=== PATIENT | male | born 1945 | race Caucasian/White ===

== ENCOUNTER → 2019-07-22 09:20 | Outpatient (BNVA) | payer MEDICARE, SELFPAY | PROVIDERS: Family Provider Family Medicine; PCP Family Medicine; Visit Provider Nurse Practitioner | DX: G89.29 Other chronic pain (principal); M54.5 Low back pain; M54.2 Cervicalgia; Z79.891 Long term (current) use of opiate analgesic | CPT/HCPCS: 99213 ==

== ENCOUNTER → 2019-09-17 09:26 | Outpatient (BNVA) | payer MEDICARE, SELFPAY | PROVIDERS: Family Provider Family Medicine; PCP Family Medicine; Visit Provider Anesthesiology | DX: Z76.89 Persons encountering health services in other specified circumstances (principal) | CPT/HCPCS: 99214 ==

== ENCOUNTER → 2019-12-02 10:15 | Outpatient (BNVA) | payer MEDICARE, SELFPAY | PROVIDERS: Family Provider Family Medicine; PCP Family Medicine; Visit Provider Anesthesiology | DX: G89.29 Other chronic pain (principal); M47.816 Spondylosis without myelopathy or radiculopathy, lumbar region; M51.37 Other intervertebral disc degeneration, lumbosacral region; M54.9 Dorsalgia, unspecified; M54.2 Cervicalgia; Z79.891 Long term (current) use of opiate analgesic | CPT/HCPCS: 99213; 99214 ==

== ENCOUNTER → 2020-01-10 10:51 | Outpatient (BNVA) | payer MEDICARE, SELFPAY | PROVIDERS: Family Provider Family Medicine; PCP Family Medicine; Visit Provider Nurse Practitioner | DX: I10 Essential (primary) hypertension (principal); F51.04 Psychophysiologic insomnia | CPT/HCPCS: 80053; 80061; 81000 ==

== ENCOUNTER 2020-04-17 09:56 | Outpatient (CLI) | payer MEDICARE, SELFPAY ==
--- NOTE | 2020-04-17 10:15 | USCV_ITS ---
Anthony Gutierrez Age: 74 Gender: M : 1945 Exam Date: 04/17/2020 09:54 Ordering Phys: Ree Wong Technologist: Anabel Armenta [place] [facility] [place]: MURMUR BP: 161 / 83 HR: 89 Rhythm: Sinus Technical Quality: Adequate MEASUREMENTS (Male / Female) Normal Values 2D ECHO LV Diastolic Diameter PLAX 4.6 cm 4.2 - 5.9 / 3.9 - 5.3 cm LV Systolic Diameter PLAX 3.1 cm LV Chamber Size 3.7 cm IVS Diastolic Thickness 1.5 cm 0.6 - 1.0 / 0.6 - 0.9 cm IVS Systolic Thickness 1.6 cm LVPW Diastolic Thickness 2.0 cm 0.6 - 1.0 / 0.6 - 0.9 cm LVPW Systolic Thickness 2.3 cm RV Chamber Size 3.1 cm LVOT Diameter 2.0 cm LV Ejection Fraction 2D Teich 60.7 % LV Ejection Fraction MOD 2C 63.3 % LV Ejection Fraction 2C AL 63.3 % LA Diameter 5.2 cm LA Width 4.1 cm LA Height 5.6 cm RA Width 3.2 cm RA Height 4.1 cm Aorta at Sinotubular Diameter 3.0 cm M-MODE LV Diastolic Diameter MM 4.8 cm 4.2 - 5.9 / 3.9 - 5.3 cm LV Systolic Diameter MM 3.1 cm LV Ejection Fraction MM Teich 66.5 % IVS Diastolic Thickness MM 0.6 cm 0.6 - 1.0 / 0.6 - 0.9 cm IVS Systolic Thickness MM 1.0 cm LVPW Diastolic Thickness MM 1.0 cm 0.6 - 1.0 / 0.6 - 0.9 cm LVPW Systolic Thickness MM 1.1 cm Aortic Annulus Diameter 2.8 cm LA Ao Ratio MM 2.1 MV E Point Septal Separation 0.6 cm DOPPLER AV Peak Velocity 196.0 cm/s LVOT Peak Velocity 104.0 cm/s AV Area Cont Eq vti 1.7 cm squared AV Area Cont Eq pk 1.7 cm squared MV Area PHT 2.3 cm squared Mitral E to A Ratio 0.6 MV E' Velocity 49.0 cm/s Mitral E to MV E' Ratio 12.2 Mitral E to LV E' Lateral Ratio 12.6 Mitral E to LV E' Septal Ratio 11.9 TR Peak Velocity 254.0 cm/s TR Peak Gradient 25.8 mmHg TV Peak E Velocity 56.0 cm/s Right Atrial Pressure 3.0 mmHg Pulmonary Artery Systolic Pressu 28.8 mmHg PV Peak Velocity 85.0 cm/s RV Acceleration Time 0.2 s RV Ejection Time 0.4 s RV AcT/ET 0.4 FINDINGS Left Ventricle Normal left ventricular cavity size. Normal left ventricular systolic function. No regional wall motion abnormalities. Left ventricular ejection fraction is estimated at 60 %. Grade I/IV diastolic dysfunction (abnormal relaxation filling pattern), normal to mildly elevated filling pressures. Right Ventricle The right ventricle is normal in size and function. Right Atrium The right atrium is normal in size. Left Atrium Moderately increased left atrial size. Mitral Valve Moderately thickened mitral valve. Moderate mitral annular calcification. No mitral valve stenosis. Moderate mitral valve regurgitation. Aortic Valve Severe aortic valve calcification. Moderate aortic valve stenosis, mean gradient 6.9 mmHg, FRANTZ 1.7 cm squared. Trace aortic valve regurgitation. Tricuspid Valve Mild tricuspid valve regurgitation. Pulmonic Valve Structurally normal pulmonic valve without significant stenosis. There is no pulmonic regurgitation. Pericardium Normal pericardium without effusion. Aorta Normal ascending aorta dimension. CONCLUSIONS 1-Normal left ventricular cavity size. Normal left ventricular systolic function. No regional wall motion abnormalities. Left ventricular ejection fraction is estimated at 60 %. Grade I/IV diastolic dysfunction (abnormal relaxation filling pattern), normal to mildly elevated filling pressures. 2-Severe aortic valve calcification. Moderate aortic valve stenosis, mean gradient 6.9 mmHg, FRANTZ 1.7 cm squared. Trace aortic valve regurgitation. 3-Moderately thickened mitral valve. Moderate mitral annular calcification. No mitral valve stenosis. Moderate mitral valve regurgitation. 4-Moderately increased left atrial size. 5-Mild tricuspid valve regurgitation. 6-There is no pericardial effusion. 7-Pulmonary artery systolic pressure is within normal limits. 8-Right atrial pressure is around 5 mm of mercury. 9-There are no prior echocardiogram studies to compare. Porsha Beal MD (Electronically Signed) Final Date: 17 April 2020 18:28 S
== END 2020-04-17 09:57 | disposition home or self-care (01) ==
LOC: US 10:00
PROVIDERS: PCP Family Medicine; Visit Provider Nurse Practitioner Family
DX: R01.1 Cardiac murmur, unspecified (principal); I08.3 Combined rheumatic disorders of mitral, aortic and tricuspid valves
CPT/HCPCS: 93306

== ENCOUNTER → 2020-05-23 12:51 | Outpatient (BNVA) | payer MEDICARE, SELFPAY | PROVIDERS: PCP Family Medicine; Visit Provider Anesthesiology | DX: G89.29 Other chronic pain (principal); M47.816 Spondylosis without myelopathy or radiculopathy, lumbar region; M51.37 Other intervertebral disc degeneration, lumbosacral region; M54.2 Cervicalgia; M54.9 Dorsalgia, unspecified; Z79.891 Long term (current) use of opiate analgesic | CPT/HCPCS: 99213; 99214 ==

== ENCOUNTER → 2020-06-08 09:17 | Outpatient (BNVA) | payer MEDICARE, SELFPAY | PROVIDERS: PCP Family Medicine; Visit Provider Nurse Practitioner | DX: I10 Essential (primary) hypertension (principal); Z79.891 Long term (current) use of opiate analgesic | CPT/HCPCS: 80053; 80061; 85025 ==

== ENCOUNTER → 2020-07-27 08:28 | Outpatient (BNVA) | payer OTHER, SELFPAY | PROVIDERS: PCP Family Medicine; Visit Provider Anesthesiology | DX: G89.29 Other chronic pain (principal); M54.9 Dorsalgia, unspecified; M47.816 Spondylosis without myelopathy or radiculopathy, lumbar region; M51.37 Other intervertebral disc degeneration, lumbosacral region; M54.2 Cervicalgia; Z79.891 Long term (current) use of opiate analgesic | CPT/HCPCS: 99214 ==

== ENCOUNTER → 2020-09-07 14:44 | Outpatient (BNVA) | payer MEDICARE, SELFPAY | PROVIDERS: PCP Family Medicine; Visit Provider Nurse Practitioner | DX: I10 Essential (primary) hypertension (principal); R73.9 Hyperglycemia, unspecified; F51.04 Psychophysiologic insomnia | CPT/HCPCS: 80053; 81000; 83036; 84443 ==

== ENCOUNTER → 2020-09-20 12:58 | Outpatient (BNVA) | payer OTHER, SELFPAY | PROVIDERS: PCP Family Medicine; Visit Provider Nurse Practitioner | DX: G89.29 Other chronic pain (principal); M51.37 Other intervertebral disc degeneration, lumbosacral region; M47.816 Spondylosis without myelopathy or radiculopathy, lumbar region; M54.2 Cervicalgia; Z79.891 Long term (current) use of opiate analgesic | CPT/HCPCS: 99214 ==

== ENCOUNTER → 2020-10-17 12:59 | Outpatient (BNVA) | payer OTHER, SELFPAY | PROVIDERS: PCP Family Medicine; Visit Provider Nurse Practitioner | DX: G89.29 Other chronic pain (principal); M47.816 Spondylosis without myelopathy or radiculopathy, lumbar region; M51.37 Other intervertebral disc degeneration, lumbosacral region; M54.2 Cervicalgia; M54.9 Dorsalgia, unspecified; Z79.891 Long term (current) use of opiate analgesic | CPT/HCPCS: 99214 ==

== ENCOUNTER → 2020-11-02 13:35 | Outpatient (BNVA) | payer OTHER, SELFPAY | PROVIDERS: PCP Family Medicine; Visit Provider Nurse Practitioner Family | DX: I10 Essential (primary) hypertension (principal); R51.9 Headache, unspecified | CPT/HCPCS: 80053; 80061; 84443; 85025 ==

== ENCOUNTER → 2020-11-23 13:30 | Outpatient (BNVA) | payer OTHER, SELFPAY | PROVIDERS: PCP Family Medicine; Visit Provider Nurse Practitioner | DX: G89.29 Other chronic pain (principal); M51.37 Other intervertebral disc degeneration, lumbosacral region; M47.816 Spondylosis without myelopathy or radiculopathy, lumbar region; M54.9 Dorsalgia, unspecified; M54.2 Cervicalgia; Z79.891 Long term (current) use of opiate analgesic | CPT/HCPCS: 99213 ==

== ENCOUNTER → 2021-01-18 12:28 | Outpatient (BNVA) | payer OTHER, SELFPAY | PROVIDERS: PCP Family Medicine; Visit Provider Anesthesiology | DX: G89.29 Other chronic pain (principal); M51.37 Other intervertebral disc degeneration, lumbosacral region; M47.816 Spondylosis without myelopathy or radiculopathy, lumbar region; M54.2 Cervicalgia; Z79.891 Long term (current) use of opiate analgesic; Z87.891 Personal history of nicotine dependence | CPT/HCPCS: 99214 ==

== ENCOUNTER → 2021-03-14 12:49 | Outpatient (BNVA) | payer OTHER, SELFPAY | PROVIDERS: PCP Family Medicine; Visit Provider Nurse Practitioner | DX: G89.29 Other chronic pain (principal); M51.37 Other intervertebral disc degeneration, lumbosacral region; M47.816 Spondylosis without myelopathy or radiculopathy, lumbar region; M54.2 Cervicalgia; R51.9 Headache, unspecified; Z79.891 Long term (current) use of opiate analgesic | CPT/HCPCS: 99213 ==

== ENCOUNTER → 2021-03-27 09:24 | Outpatient (BNVA) | payer OTHER, SELFPAY | PROVIDERS: PCP Family Medicine; Referring Provider Nurse Practitioner Family; Visit Provider Urology | DX: N48.89 Other specified disorders of penis (principal) | CPT/HCPCS: 81003 ==

== ENCOUNTER → 2021-05-22 14:14 | Outpatient (BNVA) | payer OTHER, SELFPAY | PROVIDERS: PCP Family Medicine; Visit Provider Nurse Practitioner | DX: I10 Essential (primary) hypertension (principal); F51.04 Psychophysiologic insomnia; B37.49 Other urogenital candidiasis; E66.3 Overweight | CPT/HCPCS: 80053; 80061 ==

== ENCOUNTER → 2021-05-23 12:42 | Outpatient (BNVA) | payer OTHER, SELFPAY | PROVIDERS: PCP Family Medicine; Visit Provider Anesthesiology | DX: G89.29 Other chronic pain (principal); M47.816 Spondylosis without myelopathy or radiculopathy, lumbar region; M51.37 Other intervertebral disc degeneration, lumbosacral region; M54.2 Cervicalgia; Z79.891 Long term (current) use of opiate analgesic; Z87.891 Personal history of nicotine dependence | CPT/HCPCS: 99214 ==

== ENCOUNTER → 2021-06-20 10:24 | Outpatient (BNVA) | payer OTHER, SELFPAY | PROVIDERS: PCP Family Medicine; Visit Provider Nurse Practitioner | DX: Z11.59 Encounter for screening for other viral diseases (principal); R74.8 Abnormal levels of other serum enzymes | CPT/HCPCS: 86705; 86706; 86709; 86803; 87340 ==

== ENCOUNTER 2021-06-27 07:52 | Outpatient (CLI) | payer MEDICARE, SELFPAY ==
--- NOTE | 2021-06-27 08:45 | USCV_ITS ---
Anthony Gutierrez Age: 75 Gender: M : 1945 Exam Date: 06/27/2021 08:08 Ordering Phys: Zaira Krishnamurthy MD ([email or web address]) Technologist: Exam Location: [facility] – [place] Indication: Aortic stenosis BP: 146 / 80 HR: 112 Rhythm: Sinus Technical Quality: Adequate MEASUREMENTS (Male / Female) Normal Values 2D ECHO LV Diastolic Diameter PLAX 3.2 cm 4.2 - 5.9 / 3.9 - 5.3 cm LV Systolic Diameter PLAX 2.2 cm IVS Diastolic Thickness 1.5 cm 0.6 - 1.0 / 0.6 - 0.9 cm IVS Systolic Thickness 2.1 cm LVPW Diastolic Thickness 1.2 cm 0.6 - 1.0 / 0.6 - 0.9 cm LVPW Systolic Thickness 1.6 cm LVOT Diameter 2.1 cm LV Ejection Fraction 2D Teich 44.3 % LV Ejection Fraction MOD 2C 62.5 % LV Ejection Fraction 2C AL 63.0 % LA Diameter 5.4 cm LA Width 5.4 cm LA Height 5.7 cm RA Width 4.2 cm RA Height 4.4 cm M-MODE LV Diastolic Diameter MM 5.6 cm 4.2 - 5.9 / 3.9 - 5.3 cm LV Systolic Diameter MM 3.2 cm LV Ejection Fraction MM Teich 72.5 % IVS Diastolic Thickness MM 1.1 cm 0.6 - 1.0 / 0.6 - 0.9 cm IVS Systolic Thickness MM 1.3 cm LVPW Diastolic Thickness MM 1.4 cm 0.6 - 1.0 / 0.6 - 0.9 cm LVPW Systolic Thickness MM 2.2 cm RV Diastolic Diameter MM 1.8 cm Aortic Annulus Diameter 3.4 cm LA Ao Ratio MM 1.7 MV E Point Septal Separation 0.6 cm DOPPLER AV Peak Velocity 188.0 cm/s LVOT Peak Velocity 83.8 cm/s AV Area Cont Eq vti 1.5 cm squared AV Area Cont Eq pk 1.5 cm squared MV Area PHT 5.0 cm squared Mitral E to A Ratio 6.8 MV E' Velocity 169.0 cm/s TR Peak Velocity 236.0 cm/s TR Peak Gradient 22.3 mmHg TV Peak E Velocity 99.0 cm/s Right Atrial Pressure 3.0 mmHg Pulmonary Artery Systolic Pressu 25.3 mmHg FINDINGS Left Ventricle Normal left ventricular cavity size and systolic function. Moderate concentric left ventricular hypertrophy. Left ventricular ejection fraction is estimated at 60-65%. No regional wall motion abnormalities. Right Ventricle Normal right ventricular size and systolic function. Right ventricular systolic pressure 29 mmHg. Right Atrium Normal right atrial size. Right atrial pressure estimated at 3 mm Hg. Left Atrium Moderately increased left atrial size. Mitral Valve Severe mitral annular calcification. Moderately thickened mitral valve. No mitral valve stenosis. Moderate mitral valve regurgitation. Aortic Valve Moderately thickened and calcified trileaflet aortic valve. Possibly mild to moderate aortic valve stenosis peak velocity 1.9 m/s, peak gradient 14 mmHg, mean gradient 6.9 mmHg, FRANTZ 1.5 cm squared. Visually appears to be moderate aortic valve stenosis. Trace aortic valve regurgitation. Tricuspid Valve Structurally normal tricuspid valve. Trace to mild tricuspid valve regurgitation. Pulmonic Valve Pulmonic valve not well visualized. No pulmonary valve stenosis. No pulmonary valve regurgitation. Pericardium No pericardial effusion. Aorta Normal size aortic root. Normal-sized inferior vena cava CONCLUSIONS 1. Normal left ventricular cavity size and systolic function. Moderate concentric left ventricular hypertrophy. Left ventricular ejection fraction is estimated at 60-65%. No regional wall motion abnormalities. 2. Normal right ventricular size and systolic function. 3. Possibly moderate aortic valve stenosis peak velocity 1.9 m/s, peak gradient 14 mmHg, mean gradient 6.9 mmHg, FRANTZ 1.5 cm squared. Visually appears to be moderate aortic valve stenosis. 4. Moderate mitral valve regurgitation. 5. Pulmonary artery pressure estimated at 29 mmHg. 6. When compared to previous echocardiogram dated 04/17/2020, there may not have been any significant change. Zaira Krishnamurthy MD (Electronically Signed) Final Date: 03 July 2021 12:59 S
== END 2021-06-27 07:53 | disposition home or self-care (01) ==
PROVIDERS: PCP Family Medicine; Visit Provider Internal Medicine Cardiovascular Disease
DX: I35.0 Nonrheumatic aortic (valve) stenosis (principal); I34.0 Nonrheumatic mitral (valve) insufficiency
CPT/HCPCS: 93306

== ENCOUNTER → 2021-07-19 10:24 | Outpatient (BNVA) | payer MEDICARE, SELFPAY | PROVIDERS: PCP Family Medicine; Visit Provider Anesthesiology | DX: G89.29 Other chronic pain (principal); M54.50 Low back pain, unspecified; M54.2 Cervicalgia; Z79.891 Long term (current) use of opiate analgesic; Z87.891 Personal history of nicotine dependence | CPT/HCPCS: 99214 ==

== ENCOUNTER 2021-08-20 08:38 | Outpatient (CLI) | payer MEDICARE, SELFPAY ==
--- NOTE | 2021-08-20 09:06 | US_ITS ---
WS: [id number] ULTRASOUND ABDOMEN LIMITED CLINICAL INFORMATION: R74.8 - Abnormal levels of other serum enzymes COMPARISON: None. FINDINGS: Liver Size: Mild hepatomegaly Craniocaudal length: 16.3 cm. Echogenicity: Coarse Surface nodularity: None. Mass (size and location): None. Bile ducts Intrahepatic ducts: Normal. Common bile duct diameter: 0.4 cm. Gallbladder Gallbladder calculi with largest calculus measuring 14 x 8 mm Gallstones: Present Gallbladder sludge: None. Gallbladder wall thickening: None. Pericholecystic fluid: Surrounding pericholecystic fluid or edema may be due to liver dysfunction Sonographic Alejandra sign: Absent. Pancreas Normal as visualized. Right kidney: Normal. Hydronephrosis: None. Size: 11.9 cm x 5.3 cm x 4.4 cm. Abdominal aorta and IVC Visualized portions are normal. Ascites: None. US/US liver [id number] IMPRESSION: 1. Mild hepatomegaly with diffuse fatty infiltration. Recommend correlation wi th liver function tests. 2. Shadowing calculus measuring 14 x 8 mm. No gallbladder wall thickening. Sma ll amount of edema/fluid in the gallbladder fossa. This may be due to the liver disease. Gallbladder function can be further evaluated with HIDA scan. 3. Normal common bile duct. 4. No hydronephrosis in RIGHT kidney.
== END 2021-08-20 08:39 | disposition home or self-care (01) ==
LOC: RAD 08:40
PROVIDERS: PCP Family Medicine; Visit Provider Nurse Practitioner
DX: R74.8 Abnormal levels of other serum enzymes (principal); R16.0 Hepatomegaly, not elsewhere classified; K76.0 Fatty (change of) liver, not elsewhere classified
CPT/HCPCS: 76705

== ENCOUNTER → 2021-09-10 15:44 | Outpatient (BNVA) | payer MEDICARE, SELFPAY | PROVIDERS: PCP Family Medicine; Visit Provider Urology | DX: N48.89 Other specified disorders of penis (principal) | CPT/HCPCS: 81003 ==

== ENCOUNTER → 2021-12-14 10:40 | Outpatient (BNVA) | payer MEDICARE, SELFPAY | PROVIDERS: PCP Family Medicine; Visit Provider Family Medicine | DX: K76.0 Fatty (change of) liver, not elsewhere classified (principal); E88.81 Metabolic syndrome and other insulin resistance; I10 Essential (primary) hypertension; M54.2 Cervicalgia; G89.29 Other chronic pain; K80.20 Calculus of gallbladder without cholecystitis without obstruction | CPT/HCPCS: 80053; 80061; 82607; 83036; 85025 ==

== ENCOUNTER → 2022-04-16 08:56 | Outpatient (BNVA) | payer MEDICARE, SELFPAY | PROVIDERS: PCP Nurse Practitioner; Visit Provider Nurse Practitioner | DX: M25.561 Pain in right knee (principal); L03.90 Cellulitis, unspecified | CPT/HCPCS: 73562; 84550; 85025; 85651; 86140 ==

== ENCOUNTER → 2022-07-01 10:59 | Outpatient (BNVA) | payer MEDICARE, SELFPAY | PROVIDERS: PCP Nurse Practitioner; Visit Provider Family Medicine | DX: I10 Essential (primary) hypertension (principal); E66.3 Overweight | CPT/HCPCS: 80053; 80061; 84550; 85025 ==

== ENCOUNTER → 2022-11-12 09:26 | Outpatient (BNVA) | payer MEDICARE, SELFPAY | PROVIDERS: PCP Nurse Practitioner; Visit Provider Family Medicine | DX: M19.90 Unspecified osteoarthritis, unspecified site (principal) | CPT/HCPCS: 84550 ==

== ENCOUNTER → 2022-12-30 10:06 | Outpatient (BNVA) | payer MEDICARE, SELFPAY | PROVIDERS: PCP Nurse Practitioner; Visit Provider Family Medicine | DX: I48.91 Unspecified atrial fibrillation (principal); I50.9 Heart failure, unspecified | CPT/HCPCS: 80053; 83880; 85025 ==

== ENCOUNTER 2023-01-03 12:29 | Inpatient (IN) | payer MEDICARE, SELFPAY ==
[2023-01-03] VITALS (47 sets, daily range): BP systolic 80–127; BP diastolic 56–91; PULSE 75–127; RESP 13–28; TEMP 36.9–37.2; O2SAT 84–100
--- NOTE | 2023-01-03 12:39 | ECG_ITS ---
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 Measurements Intervals [place] Rate: 91 P: 0 MO: 0 QRS: 57 QRSD: 130 T: 29 QT: 367 QTc: 454 Interpretive Statements ATRIAL FIBRILLATION MODERATE INTRAVENTRICULAR CONDUCTION DELAY [110+ ms QRS DURATION] ST DEPRESSION, CONSIDER SUBENDOCARDIAL INJURY [0.1+ mV ST DEPRESSION] No previous ECG available for comparison Electronically Signed On 01-03-2023 21:31:53 CDT by Zaira Krishnamurthy M.D. [id number]
[2023-01-03 12:45] LABS: Arterial Blood Gas Hematocrit 33.6 % (42-52); Base Excess ABG 1.6 mmol/L (-2.0-2.0); Blood Gas Allen Test Pos; Blood Gas Operator Identificat WALCI; Blood Gas Sample Site Radial, right; Blood Gas Sample Type Arterial; Carboxyhemoglobin 1.9 %THgb (0.4-20.1); HGB O2 Sat 91.7 % (95-100); Ionized Calcium Level - ABG 1.2 mmol/L (1.1-1.4); Methemoglobin 0.5 % (0.4-1.5); Oxygen Device NRB; PO2 ABG 79.1 mmHg (80.0-100.0); Potassium Level - ABG 3.4 mmol/L (3.5-5.0)
--- NOTE | 2023-01-03 12:51 | XR_ITS ---
WS: [id number] Portable AP upright chest, 01/03/2023 Clinical Data: SOB Comparison: PA and lateral chest, 01/05/2019. Findings: No nodules, masses or effusions are seen. The heart is enlarged. The pulmonary vascularity is increased. No pneumonia or pneumothorax is seen. There are monitor leads on the chest wall. XR/XR chest 1V portable [id number] Impression: Cardiomegaly with mild pulmonary vascular congestion consistent with congestive heart failure.
[2023-01-03 13:03] LABS: Basophils % 0.1 %; Eosinophils % 0.1 %; Hematocrit 32.5 % (42.0-52.0); Hemoglobin 10.4 g/dL (11.7-16.6); Lymphocytes # 0.8 10^3/uL (0.8-4.8); Mean Corpuscular Hemoglobin 29.6 pg (28.0-34.0); Mean Corpuscular Volume 92.6 fl (80-94); Mean Platelet Volume 11.6 fL (7.4-10.4); Monocytes % 7.8 %; Neutrophils # 10.95 10^3/uL (1.8-7.7); Neutrophils % 85.5 %; Nucleated Red Blood Cells # 0.2 /100WBC; Nucleated Red Blood Cells % 1.6 %; Platelet Count 234 10^3/cmm (130-400); Red Blood Count 3.51 10^6/uL (4.1-5.3); White Blood Count 12.8 10^3/uL (4.0-10.0)
[2023-01-03 13:17] LABS: INR 2.73 (0.8-1.2)
[2023-01-03 13:20] LABS: D Dimer 3.72 ug/mIFEU (0-0.59)
[2023-01-03 13:24] LABS: Ammonia 20 umol/L (16-60)
[2023-01-03 13:30] LABS: Troponin(5th) Baseline 1447 ng/L (0-15)
[2023-01-03 13:33] LABS: Alanine Aminotransferase 118 U/L (0-41); Albumin Level 4.3 g/dL (3.5-5.2); Alkaline Phosphatase 71 U/L (40-130); Anion Gap 17.5 (5-19); Aspartate Amino Transferase 64 U/L (0-40); Calcium 8.7 mg/dL (8.5-10.5); Carbon Dioxide 28 mmol/L (22-29); Chloride 89 mmol/L (98-107); Globulin 2.3 g/dL (1.3-4.6); Glucose 121 mg/dL (65-115); NT Pro B Type Natriuretic Pept 9706 pg/mL (0-450); Osmolality Calculated 301 mOsm/kg (285-295); Potassium 3.5 mmol/L (3.5-5.1); Sodium 131 mmol/L (136-145); Total Bilirubin 2.7 mg/dL (0.15-1.2); Total Protein 6.6 g/dL (6.6-8.7)
--- NOTE | 2023-01-03 13:33 | CTR_ITS ---
PROCEDURE INFORMATION: Exam: CT Head Without Contrast Exam date and time: 01/03/2023 1:49 PM Age: 77 years old Clinical indication: Altered mental status/memory loss; Additional info: AMS TECHNIQUE: Imaging protocol: Computed tomography of the head without contrast. Radiation optimization: All CT scans at this facility use at least one of these dose optimization techniques: automated exposure control; mA and/or kV adjustment per patient size (includes targeted exams where dose is matched to clinical indication); or iterative reconstruction. REPORTING DATA: Count of CT and Cardiac NM exams in prior 12 months: This patient has received 0 known CTs and 0 known cardiac nuclear medicine studies in the 12 months prior to the current study. COMPARISON: No relevant prior studies available. RADIATION DOSE METRICS: Total DLP (mGy-cm): 1074.99 FINDINGS: Brain: There is diffuse cerebral atrophy and chronic microvascular white matter disease. There is no acute intracranial hemorrhage. Cerebral ventricles: There is no significant ventricular dilation. The basal cisterns are unremarkable. Paranasal sinuses: The paranasal sinuses are clear. Mastoid air cells: The mastoid air cells are clear. Bones/joints: The calvarium is intact. Soft tissues: The visible extracranial soft tissues are unremarkable. CT/CT head wo con* [id number] IMPRESSION: No acute intracranial abnormality.
--- NOTE | 2023-01-03 13:45 | ED_ITS ---
HPI - Altered Mental Status General: Chief Complaint: Altered Mental Status Stated Complaint: hypoxic Time Seen by Provider: 01/03/23 12:50 History of Present Illness: 77-year-old male brought to emergency room by EMS due to change in mentation. According to EMS mother received a call from the primary physician because patient did not show up for his appointment. Upon arriving to the patient resident patient was found to be lethargic and oxygen saturation was in the 60. Was placed on oxygen and brought to the emergency room. Upon present emergency room, patient was lethargic was able to answer few questions. Has any cough, fever, chills, no head injury or loss of consciousness. Current complaint of chest pain and not for the past 6 months. Patient reports that he lives alone Review of Systems General: Reports: 10 or more systems reviewed and unremarkable except in HPI and below PFSH ED PFSH: Medical History Chronic insomnia Degeneration, intervertebral disc, lumbosacral Encounter for long-term opiate analgesic use Essential hypertension Facet arthritis of lumbar region Moderate aortic stenosis 04/17/2020: mean gradient 6.9 mmHg, FRANTZ 1.7 cm2 Moderate mitral regurgitation by prior echocardiogram Overweight (BMI 25.0-29.9) Penile pain Surgical History Hx of circumcision Hx of eye surgery 1957 left side Hx of vasectomy Family History Father , at age 64 Lung disease Mother , at age 91 Hypertension Arthritis Social History Smoking and tobacco status: never smoked Second hand smoke exposure: No Smoking risk assessment/counseling performed?: Yes Alcohol intake: former 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 Desire information about alcohol rehabilitation?: No Counseling given: No Substance/Drug Use: never Desire information about substance/drug rehabilitation?: No Counseling given: No Adopted: No Caregiver/support person: No Lives independently: Yes Household members: other Housing: House Marital status: Number of children: 5 service: No Current occupational status: retired and disabled Do you think of yourself as: Straight/Heterosexual Current gender identity: Male Physical Exam Const: COMMON NORMALS: average body habitus (Morbidly obese) EXAM LIMITATIONS: altered mental status GENERAL APPEARANCE: ill appearing Eye: COMMON NORMALS: Equal, round and reactive pupils present, EOMs intact bilaterally, conjunctivae normal, no scleral icterus, no papilledema, normal visual monique by confrontation and fundi normal bilaterally CONJUNCTIVA: Yes conjunctivae normal PUPIL: Yes Equal, round and reactive pupils present DI RECT OPHTHALMOSCOPY: Yes no papilledema and Yes fundi normal bilaterally Neck/C-Spine: COMMON NORMALS: full ROM, no lymphadenopathy, supple, no meningeal signs, no JVD, Thyroid normal and No carotid bruits THYROID: Thyroid normal Lymph: LYMPHATIC: no lymphadenopathy noted Resp: COMMON NORMALS: No retractions and No use of accessory muscles AUSCULTATION: rales and diminished lung sounds Cardio: COMMON NORMALS: no JVD, regular rate, regular rhythm, S1 normal heart sound present and S2 normal heart sound present RATE: regular rate RHYTHM: regular rhythm HEART SOUNDS: S1 normal heart sound present and S2 normal heart sound present GI: COMMON NORMALS: Normal to inspection, nondistended, normoactive bowel sounds present, Soft to palpation, non-tender, No hepatosplenomegaly present, no masses and no bruits PALPATION: Yes Soft to palpation and Yes No h epatosplenomegaly present : PENIS: normal penis and circumcised Extremity: NARRATIVE EXTREMITY EXAM: Trace edema both legs. No calf tenderness or palpable cords Neuro: MENINGEAL SIGNS: Yes no meningeal signs Psych: COMMON NORMALS: cooperative Skin: OTHER: Groin with some redness. No rashes or lesions Procedures Central Line Placement Right SC: Time Out Performed: Yes Patient Placed on Monitor/Pulse Ox: Yes MD Prep: mask, gown, gloves and other Central Line Prep: Chlorhexidine scrub and other Local Anesthetic: lidocaine 1% Amount of anesthesia used (mL): 6 Ultrasound Used for Placement: Yes Complications: hematoma at puncture site Additional Comments: Due to patient's body size multiple attempts were made to insert central line but was unsuccessful. Pressure dressing was applied to the area for bleeding control. Intubation Time out performed: Yes sedative: Etomidate Mg Given: 20 paralytic: Succinylcholine Mg Given: 160 Laryngoscope: fiber optic video scope ET Tube Size: 8 ET Tube Uncuffed: Yes Tube Secured Depth (cm): 23 Tube Placement Confirmation: visualized tube passing through cords, equal breath sounds bilaterally, no breath sounds over epigastrium and confirmation by capnometry Patient Tolerated Procedure: well Intubation Complications: none Course Consultations: Consultation #1: Discussed patient with hospitalist. The hospitalist presents emergency room to see patient. Vital Signs: Vital signs: Vital Signs Temperature 98.5 F 01/03/23 20:00 Pulse Rate 127 H 01/03/23 21:00 Respiratory Rate 27 H 01/03/23 21:00 Blood Pressure 127/90 01/03/23 21:00 Pulse Oximetry 97 01/03/23 21:00 Oxygen Delivery Me thod Mechanical Ventil ation 01/03/23 19:30 Oxygen Flow Rate 15 01/03/23 12:30 Fraction of Inspir ed Oxygen 100 01/03/23 20:14 MDM - Altered Mental Status Medical Decision Making Patient made comfortable emergency room. Labs, ABG EKG and CT and x-ray obtained. Discussed patient with hospitalist. Splint is present emergency room to examine patient. While emergency room patient became more lethargic and abnormal ABG noted. At this time patient will be intubated and admitted to ICU patient. Differential Diagnosis Likely alcoholic intoxication, altered mental status, delirium, dementia, hypoglycemia, hyponatremia, subarachnoid hemorrhage and sepsis Lab Data 01/03/23 19:03 01/03/23 19:[address] 01/03/23 13:33 IMPRESSION: No acute intracranial abnormality. Chest/Abdomen/Pelvis CT 01/03/23 15:36 IMPRESSION: 1. Mild upper lobe and dense bibasilar consolidation is present, consistent with atelectasis, edema, or pneumonia. 2. There is a low lying ET tube with tip 1.0 cm above the yumiko. For ideal placement this should be retracted about 3.5 cm. IMPRESSION: 1. There is wall thickening of the cecum and ascending colon concerning for mild colitis. 2. Cirrhotic liver morphology with small volume of ascites. No free air or abscess. 3. Cholelithiasis. Two stones in the cystic duct versus vascular calcifications are noted. No definite findings of acute cholecystitis. There is a small amount of fluid adjacent to the gallbladder compatible with ascites also seen elsewhere in the abdomen. Venous Duplex 01/03/23 15:36 IMPRESSION: No evidence of deep vein thrombosis in either lower extremity. Laboratory Results WBC 12.8 10^3/uL (4.0-10.0) H 01/03/23 12:50 RBC 3.51 10^6/uL (4.1-5.3) L 01/03/23 12:50 Hgb 10.4 g/dL (11.7-16.6) L 01/03/23 12:50 Hct 32.5 % (42.0-52.0) L 01/03/23 12:50 MCV 92.6 fl (80-94) 01/03/23 12:50 MCH 29.6 pg (28.0-34.0) 01/03/23 12:50 MCHC 32.0 g/dL (30.0-36.0) 01/03/23 12:50 RDW 15.0 % (12.1-15.1) 01/03/23 12:50 Plt Count 234 10^3/cmm (130-400) 01/03/23 12:50 MPV 11.6 fL (7.4-10.4) H 01/03/23 12:50 Neut % (Auto) 85.5 % 01/03/23 12:50 Lymph % (Auto) 6.0 % 01/03/23 12:50 [place] % (Auto) 7.8 % 01/03/23 12:50 Eos % (Auto) 0.1 % 01/03/23 12:50 Baso % (Auto) 0.1 % 01/03/23 12:50 Neut # (Auto) 10.95 10^3/uL (1.8-7.7) H 01/03/23 12:50 Lymph # (Auto) 0.8 10^3/uL (0.8-4.8) 01/03/23 12:50 [place] # (Auto) 1.0 10^3/uL (0.2-0.9) H 01/03/23 12:50 Eos # (Auto) 0.0 10^3/uL (0.0-0.8) 01/03/23 12:50 Baso # (Auto) 0.0 10^3/uL (0.0-0.1) 01/03/23 12:50 Nucleated RBC % (auto) 1.6 % 01/03/23 12:50 Nucleated RBCs # 0.2 /100WBC 01/03/23 12:50 ESR 35 mm/hr (0-10) H 01/03/23 12:50 PT 30.00 SECONDS (12.1-14.9) H 01/03/23 12:50 INR 2.73 (0.8-1.2) H 01/03/23 12:50 APTT 42.0 SECONDS (23.9-36.7) H 01/03/23 12:50 D-Dimer 3.72 ug/mIFEU (0-0.59) H 01/03/23 12:50 Specimen Type Arterial 01/03/23 14:48 Sample Site Radial, right 01/03/23 14:48 ABG pH 7.29 (7.35-7.45) L 01/03/23 14:48 ABG pCO2 60.1 mmHg (35-45) H 01/03/23 14:48 ABG pO2 67.6 mmHg (80.0-100.0) L 01/03/23 14:48 ABG HCO3 29.1 mmol/L (22-26) H 01/03/23 14:48 ABG O2 Saturation 90.2 01/03/23 14:48 ABG Base Excess 1.5 mmol/L (-2.0-2.0) 01/03/23 14:48 Jani Test Pos 01/03/23 14:48 A-a O2 Gradient 32.5 mmHg (5-10) H 01/03/23 14:48 Hematocrit 33.6 % (42-52) L 01/03/23 14:48 Hgb O2 Saturation 88.1 % (95-100) L 01/03/23 14:48 Carboxyhemoglobin 1.7 %THgb (0.4-20.1) 01/03/23 14:48 Methemoglobin 0.6 % (0.4-1.5) 01/03/23 14:48 Total Hemoglobin 11.0 g/dL (14-18) L 01/03/23 14:48 Sodium 132.0 mmol/L (131-143) 01/03/23 14:48 Potassium 3.3 mmol/L (3.5-5.0) L 01/03/23 14:48 Glucose 130.0 mg/dL (70-115) H 01/03/23 14:48 Ionized Calcium 1.2 mmol/L (1.1-1.4) 01/03/23 14:48 O2 Delivery Device Bipap 01/03/23 14:48 O2 Liters/Min 15.0 % 01/03/23 12:34 FiO2 55.0 % 01/03/23 14:48 Specimen Drawn By Matt 01/03/23 14:48 Aviation Project Manager ID Matt 01/03/23 14:48 Crit Value Read Back Adeod 01/03/23 14:48 Blood Gas Notified Time 1502 01/03/23 14:48 Sodium 131 mmol/L (136-145) L 01/03/23 12:50 Potassium 3.5 mmol/L (3.5-5.1) 01/03/23 12:50 Chloride 89 mmol/L (98-107) L 01/03/23 12:50 Carbon Dioxide 28 mmol/L (22-29) 01/03/23 12:50 Anion Gap 17.5 (5-19) 01/03/23 12:50 BUN 90 mg/dL (8-23) H* D 01/03/23 12:50 Creatinine 2.4 mg/dL (0.7-1.2) H 01/03/23 12:50 GFR Calculation Not Reportable 01/03/23 12:50 Glucose 121 mg/dL (65-115) H 01/03/23 12:50 Calculated Osmolality 301 mOsm/kg (285-295) H 01/03/23 12:50 Lactic Acid 1.3 mmol/L (0.5-2.2) 01/03/23 14:45 Calcium 8.7 mg/dL (8.5-10.5) 01/03/23 12:50 Total Bilirubin 2.7 mg/dL (0.15-1.2) H 01/03/23 12:50 AST 64 U/L (0-40) H 01/03/23 12:50 ALT 118 U/L (0-41) H 01/03/23 12:50 Alkaline Phosphatase 71 U/L (40-130) 01/03/23 12:50 Ammonia 20 umol/L (16-60) 01/03/23 12:50 Troponin T Baseline 1447 ng/L (0-15) H* 01/03/23 12:50 Troponin T 120 Minute 1413 ng/L (0-15) H 01/03/23 14:49 Delta Troponin T -34 ABS# (0-10) L 01/03/23 14:49 C-Reactive Protein 26.1 mg/L (0.0-4.9) H 01/03/23 14:45 NT-Pro-B Natriuret Pep 9706 pg/mL (0-450) H 01/03/23 12:50 Total Protein 6.6 g/dL (6.6-8.7) 01/03/23 12:50 Albumin 4.3 g/dL (3.5-5.2) 01/03/23 12:50 Globulin 2.3 g/dL (1.3-4.6) 01/03/23 12:50 Procalcitonin 0.72 ng/mL (0-0.5) H 01/03/23 12:50 Urine Color Dark yellow (Yellow) 01/03/23 13:35 Urine Appearance Clear (CLEAR) 01/03/23 13:35 Urine pH 5 (5-7) 01/03/23 13:35 Ur Specific [place] 1.020 (1.005-1.030) 01/03/23 13:35 Urine Protein 1+ (Negative) H 01/03/23 13:35 Urine Glucose (UA) Norm (Normal) 01/03/23 13:35 Urine Ketones 1+ (Negative) H 01/03/23 13:35 Urine Blood Neg (Negative) 01/03/23 13:35 Urine Nitrate Negative (Negative) 01/03/23 13:35 Urine Bilirubin Neg (Negative) 01/03/23 13:35 Urine Urobilinogen 1 mg/dL (Negative) H 01/03/23 13:35 Ur Leukocyte Esterase Negative (Negative) 01/03/23 13:35 Urine RBC 0-4 /hpf (0-2) H 01/03/23 13:35 Urine WBC 0-4 /hpf (0-5) H 01/03/23 13:35 Ur Squamous Epith Cells 0-4 /hpf (0-5) H 01/03/23 13:35 Amorphous Sediment Not Reportable 01/03/23 13:35 Urine Bacteria None /hpf (NONE) 01/03/23 13:35 Hyaline Casts 0-4 /lpf H 01/03/23 13:35 Urine Opiates Screen Negative ng/mL (Negative) 01/03/23 13:35 Ur Barbiturates Screen Negative ng/mL (Negative) 01/03/23 13:35 Ur Phencyclidine Scrn Negative ng/mL (Negative) 01/03/23 13:35 Ur Amphetamines Screen Negative ng/mL (Negative) 01/03/23 13:35 U Benzodiazepines Scrn Negative ng/mL (Negative) 01/03/23 13:35 Urine Cocaine Screen Negative ng/mL (Negative) 01/03/23 13:35 U Marijuana (THC) Screen Negative ng/mL (Negative) 01/03/23 13:[address] Head: My impression: No acute findings on his CT. Other Data No acute findings on the x-ray. No pneumothorax Critical Care Time Critical Care Time: Attestation: Time spent greater than 45 minutes time spent with multiple examination. Spent reviewing labs, CT x-ray and discussing patient with the hospitalist. Discharge Plan Discharge Patient Disposition: Admitted As Inpatient Admit Provider: Hank Luevano Clinical Impression: CHF (congestive heart failure), Encephalopathy, Acute non-ST elevation myocardial infarction (NSTEMI), Hypoxia, Respiratory failure, Acute renal insuf ficiency Condition: Stable Coding Level of Care Code ED Obstetrics Nurse Practitioner for Sai Alexandre
[2023-01-03 13:48] LABS: Blood Urea Nitrogen 90 mg/dL (8-23)
[2023-01-03 13:59] LABS: Urine Appearance Clear (CLEAR); Urine Color Dark Yellow (Yellow); pH Urine 5 (5-7)
--- NOTE | 2023-01-03 13:59 | PC.PHAR ---
PT UNABLE TO VERIFY MEDICATIONS DUE TO AMS - MEDICATIONS VERIFIED USING EXTERNAL MED LIST AND PHARMACY LAST FILLED AND PICKED UP
[2023-01-03 14:00] LABS: Add Urine Microscopic? YES; Bilirubin Urine Neg (Negative); Blood Urine Neg (Negative); Glucose Urine UA Norm (Normal); Ketones Urine 1+ (Negative); Leukocyte Esterase Urine Negative (Negative); Nitrate Urine Negative (Negative); Protein Urine 1+ (Negative); Urobilinogen Urine 1 mg/dL (Negative)
[2023-01-03 14:01] LABS: Add Urine Culture? No; Hyaline Casts Urine 0-4 /lpf; RBC Urine 0-4 /hpf (0-2); Squamous Epithelial Cell Urine 0-4 /hpf (0-5); WBC Urine 0-4 /hpf (0-5)
[2023-01-03 14:06] LABS: Amphetamines Screen Urine Negative (Negative); Barbiturates Screen Urine Negative (Negative); Benzodiazepines Screen Urine Negative (Negative); Cocaine Screen Urine Negative (Negative); Opiate Screen Urine Negative (Negative); PCP Screen Urine Negative (Negative); THC Screen Urine Negative (Negative)
[2023-01-03] MEDS: aspirin 300 mg Supp PR (14:06)
[2023-01-03] MEDS: FUROsemide 10 mg/mL SDV 10mL 60 MG IVP (14:33)
[2023-01-03 14:59] LABS: ABG PCO2 60.1 mmHg (35-45); ABG PH Result 7.29 (7.35-7.45); Alveolar-Arterial Oxygen Gradi 32.5 mmHg (5-10); Arterial Blood Gas Hematocrit 33.6 % (42-52); Base Excess ABG 1.5 mmol/L (-2.0-2.0); Blood Gas Allen Test Pos; Blood Gas Operator Identificat WALCI; Blood Gas Sample Site Radial, right; Blood Gas Sample Type Arterial; Carboxyhemoglobin 1.7 %THgb (0.4-20.1); HCO3 ABG 29.1 mmol/L (22-26); HGB O2 Sat 88.1 % (95-100); Ionized Calcium Level - ABG 1.2 mmol/L (1.1-1.4); Methemoglobin 0.6 % (0.4-1.5); Oxygen Device BIPAP; Oxygen Saturation ABG 90.2; PO2 ABG 67.6 mmHg (80.0-100.0); Potassium Level - ABG 3.3 mmol/L (3.5-5.0)
[2023-01-03 15:11] LABS: Blood Gas CCRB Time 1502; Blood Gas Drawn By WALCI
[2023-01-03] MEDS: etomidate 2 mg/mL INJ SDV 10 mL 20 MG IVP (15:23)
[2023-01-03] MEDS: succinylcholine 20 mg/mL SDV 10mL 160 MG IVP (15:24)
[2023-01-03 15:25] LABS: Troponin 5 2HR Delta -34 ABS# (0-10)
[2023-01-03 15:26] LABS: Troponin 5 2HR 1413 ng/L (0-15)
[2023-01-03 15:27] LABS: Procalcitonin 0.72 ng/mL (0-0.5)
--- NOTE | 2023-01-03 15:35 | XR_ITS ---
WS: [id number] Portable AP supine chest, 01/03/2023, 1534 hours Clinical Data: post intubation Comparison: Portable chest, 01/03/2023, 1340 hours Findings: The endotracheal tube is 1.3 cm above the yumiko. An enteric tube appears to be in the esop hagus and ends probably in the fundus of the stomach. No nodules, masses or effusions are seen. The h eart is enlarged. The pulmonary vascularity remains increased. No pneumonia or pneumothorax is seen. XR/XR chest 1V portable [id number] Impression: 1. Endotracheal tube is 1.3 cm above the yumiko. 2. Nasogastric tube probably ends in the fundus of stomach.
--- NOTE | 2023-01-03 15:36 | USR_ITS ---
PROCEDURE INFORMATION: Exam: US Duplex Lower Extremity Veins, Bilateral Exam date and time: 01/03/2023 9:03 PM Age: 77 years old Clinical indication: Abnormal findings; Abnormal lab test; Elevated d-dimer; Additional info: Dvt TECHNIQUE: Imaging protocol: Real-time duplex ultrasound of the bilateral extremities with 2-D keating scale, color Doppler flow and spectral waveform analysis including responses to compression and other maneuvers (when performed) with image documentation. Complete exam focused on the lower extremity veins. COMPARISON: [place] [id number] 01/03/2023 5:31 PM FINDINGS: Right deep veins: The right common femoral, femoral, proximal profunda femoral and popliteal veins are patent without thrombus. Normal Doppler waveforms. Normal compressibility and/or augmentation response. The right peroneal and posterior tibial veins are patent and compressible. Right superficial veins: Saphenofemoral junction is patent without thrombus. Left deep veins: The left common femoral, femoral, proximal profunda femoral and popliteal veins are patent without thrombus. Normal Doppler waveforms. Normal compressibility and/or augmentation response. The left peroneal and posterior tibial veins are patent and compressible. Left superficial veins: Saphenofemoral junction is patent without thrombus. Soft tissues: Grossly unremarkable. US/[place] [id number] IMPRESSION: No evidence of deep vein thrombosis in either lower extremity.
--- NOTE | 2023-01-03 15:36 | CTR_ITS ---
PROCEDURE INFORMATION: Exam: CT Chest Without Contrast; Diagnostic Exam date and time: 01/03/2023 5:31 PM Age: 77 years old Clinical indication: Abdominal tenderness; Shortness of breath; Additional info: AMS, resp failure TECHNIQUE: Imaging protocol: Diagnostic computed tomography of the chest without contrast. Radiation optimization: All CT scans at this facility use at least one of these dose optimization techniques: automated exposure control; mA and/or kV adjustment per patient size (includes targeted exams where dose is matched to clinical indication); or iterative reconstruction. REPORTING DATA: Count of CT and Cardiac NM exams in prior 12 months: This patient has received 0 known CTs and 0 known cardiac nuclear medicine studies in the 12 months prior to the current study. COMPARISON: CR XR chest 1V [id number] 01/03/2023 5:13 PM RADIATION DOSE METRICS: Total DLP (mGy-cm): 1235.95 FINDINGS: Tubes, catheters and devices: There is a low line ET tube with tip 1.0 cm above the yumiko. There is an orogastric tube with tip in the stomach. Lungs: Mild upper lobe and dense bibasilar consolidation is present, consistent with atelectasis, edema, or pneumonia. Pleural spaces: There is a small left pleural effusion. Heart: The heart is enlarged. Marked mitral valve calcification. Punctate air bubbles in the right atrium and right subclavian vein are most likely iatrogenic. Coronary arteries: There is severe atherosclerotic calcification of the coronary arteries. Lymph nodes: Unremarkable. No enlarged lymph nodes. Vasculature: Unremarkable. No aortic aneurysm. Bones/joints: Unremarkable. No acute fracture. Soft tissues: There is soft tissue edema and subcutaneous emphysema right upper chest wall. PROCEDURE INFORMATION: Exam: CT Abdomen And Pelvis Without Contrast Exam date and time: 01/03/2023 5:31 PM Age: 77 years old Clinical indication: Abdominal tenderness; Shortness of breath; Additional info: AMS, resp failure TECHNIQUE: Imaging protocol: Computed tomography of the abdomen and pelvis without contrast. Radiation optimization: All CT scans at this facility use at least one of these dose optimization techniques: automated exposure control; mA and/or kV adjustment per patient size (includes targeted exams where dose is matched to clinical indication); or iterative reconstruction. REPORTING DATA: Count of CT and Cardiac NM exams in prior 12 months: This patient has received 0 known CTs and 0 known cardiac nuclear medicine studies in the 12 months prior to the current study. COMPARISON: US liver [id number] 08/20/2021 9:32 AM RADIATION DOSE METRICS: Total DLP (mGy-cm): 1235.95 FINDINGS: Tubes, catheters and devices: A balloon bladder catheter is present. Liver: The liver has a nodular contour and there is relative hypertrophy of the caudate lobe, consistent with cirrhosis. Gallbladder and bile ducts: Multiple calcified gallstones are present. Vascular calcifications versus small gallstones are noted in the distal cystic duct. There is no wall thickening or pericholecystic fluid to suggest cholecystitis. There is no common bile duct dilation. Pancreas: The pancreas is normal. Spleen: The spleen is normal. Adrenal glands: The adrenal glands are normal. Kidneys and ureters: There is no evidence of hydronephrosis. There is no evidence of renal calcifications. Stomach and bowel: There is no evidence of intestinal perforation or obstruction. Extensive diverticulosis is present in the distal colon. There is wall thickening of the cecum and ascending colon concerning for mild colitis. There is moderately excessive colonic stool content. There is an incidental 1.5 cm fatty density nodule in the ascending colon compatible with probable lipoma. Appendix: A normal appendix is identified. Intraperitoneal space: There is a small volume of ascites. No free intraperitoneal air. Vasculature: The aorta is normal. Lymph nodes: Unremarkable.No enlarged lymph nodes. Urinary bladder: The bladder is decompressed. Reproductive: The prostate demonstrates marked nonspecific enlargement. The seminal vesicles are normal. The prostate demonstrates nonspecific parenchymal calcifications. Bones/joints: Diffuse moderate to severe degenerative changes in the spine. No acute bony abnormality. Soft tissues: Small fat filled left inguinal and moderate sized fat filled right inguinal hernias are noted. There is induration of the fat in the right groin. CT/[place] [id number] IMPRESSION: 1. Mild upper lobe and dense bibasilar consolidation is present, consistent with atelectasis, edema, or pneumonia. 2. There is a low lying ET tube with tip 1.0 cm above the yumiko. For ideal placement this should be retracted about 3.5 cm. IMPRESSION: 1. There is wall thickening of the cecum and ascending colon concerning for mild colitis. 2. Cirrhotic liver morphology with small volume of ascites. No free air or abscess. 3. Cholelithiasis. Two stones in the cystic duct versus vascular calcifications are noted. No definite findings of acute cholecystitis. There is a small amount of fluid adjacent to the gallbladder compatible with ascites also seen elsewhere in the abdomen.
--- NOTE | 2023-01-03 15:36 | USCV_ITS ---
Anthony Gutierrez Age: 77 Gender: M : 1945 Exam Date: 01/03/2023 20:26 Ordering Phys: Hank Luevano MD Technologist: DWIGHT Exam Location: [facility] [place] Indication: nstemi BP: / HR: 78 Rhythm: Sinus Technical Quality: Adequate MEASUREMENTS (Male / Female) Normal Values 2D ECHO LV Diastolic Diameter PLAX 5.6 cm 4.2 - 5.9 / 3.9 - 5.3 cm LV Systolic Diameter PLAX 4.8 cm IVS Diastolic Thickness 0.9 cm 0.6 - 1.0 / 0.6 - 0.9 cm IVS Systolic Thickness 1.2 cm LVPW Diastolic Thickness 0.9 cm 0.6 - 1.0 / 0.6 - 0.9 cm LVPW Systolic Thickness 1.1 cm LVOT Diameter 2.0 cm LV Ejection Fraction 2D Teich 30.6 % LV Ejection Fraction MOD 2C 54.0 % LV Ejection Fraction 2C AL 55.9 % LA Diameter 4.3 cm IVC Diameter 3.1 cm M-MODE Aortic Annulus Diameter 2.5 cm LA Ao Ratio MM 1.8 MV E Point Septal Separation 0.7 cm DOPPLER AV Peak Velocity 226.0 cm/s LVOT Peak Velocity 73.0 cm/s AV Area Cont Eq vti 1.1 cm squared AV Area Cont Eq pk 1.0 cm squared MV Area PHT 3.9 cm squared MV E' Velocity 153.0 cm/s TR Peak Velocity 251.7 cm/s TR Peak Gradient 25.3 mmHg TV Peak E Velocity 56.0 cm/s Right Atrial Pressure 15.0 mmHg Pulmonary Artery Systolic Pressu 40.3 mmHg PV Peak Velocity 70.0 cm/s FINDINGS Left Ventricle Normal LV size with diminished ejection fraction of around 50%. Diffuse hypokinesis of the septum and the anteroseptal segments. Right Ventricle The right ventricle is normal in size and function. Right Atrium The right atrium is normal in size. Left Atrium Mildly increased left atrial size. Mitral Valve Thickened mitral valve. Moderate mitral annular calcification. Moderate mitral valve regurgitation. Aortic Valve Moderate aortic valve calcification. Moderate aortic valve stenosis with a valve area 1.1 cm squared. Tricuspid Valve [id number] tricuspid valve regurgitation. Estimated PA pressure of 40 mmHg Pulmonic Valve Pulmonic valve not well visualized. Pericardium Normal pericardium without effusion. Aorta Normal ascending aorta dimension. IVC Dilated IVC with decreased respiratory variation. CONCLUSIONS Normal LV size with diminished ejection fraction of around 50%. Diffuse hypokinesis of the septum and the anteroseptal segments. Mild biatrial enlargement Thickened mitral valve. Moderate mitral annular calcification. Moderate mitral valve regurgitation. Moderate aortic valve calcification. Moderate aortic valve stenosis with a valve area 1.1 cm squared. [id number] tricuspid valve regurgitation. Estimated PA pressure of 40 mmHg. Dilated IVC with decreased respiratory variation. There is no pericardial effusion. There are no intracardiac masses. Compared to the study from 06/27/2021, there wall motion of normality and the diminished LV ejection fraction are new Dr Marlon Aly MD FAC (Electronically Signed) Final Date: 04 January 2023 08:27 S
[2023-01-03] MEDS: heparin 5,000 unit/mL INJ 1 mL 4000 UNIT IVP (15:41)
[2023-01-03] MEDS: heparin drip 25,000 UNIT/500 ML PREMIX 25.58 UNIT IV (15:42)
[2023-01-03] MEDS: propofol 1,000 MG/100 ML INJ 3.2 MG IV (15:53)
[2023-01-03 16:11] LABS: Lactic Sepsis W/Reflex 1.3 mmol/L (0.5-2.2)
[2023-01-03 16:12] LABS: C Reactive Protein 26.1 mg/L (0.0-4.9)
[2023-01-03 16:34] LABS: Erythrocyte Sedimentation Rate 35 mm/hr (0-10)
[2023-01-03] MEDS: midazolam 1 mg/mL INJ 2 mL 5 MG IVP (16:50)
--- NOTE | 2023-01-03 17:09 | XRR_ITS ---
PROCEDURE INFORMATION: Exam: XR Chest Exam date and time: 01/03/2023 5:13 PM Age: 77 years old Clinical indication: Patient HX: PT has shortness of breath; Hypoxia. Not responding to give history; Additional info: Possible pneumo TECHNIQUE: Imaging protocol: Radiologic exam of the chest. Views: 1 view. COMPARISON: CR XR chest 1V portable [id number] 01/03/2023 3:33 PM FINDINGS: Tubes, catheters and devices: An endotracheal catheter is seen with its tip overlying the level 17 mm above the yumiko. An enteric catheter is seen with its tip projected over the left upper quadrant. Lungs: There is opacity at the left lung base which may represent effusion and/or parenchymal disease. Increased interstitial markings are noted in the lungs. Pleural spaces: Unremarkable. No pleural effusion. No pneumothorax. Heart/Mediastinum: Unremarkable. No cardiomegaly. Bones/joints: The bones are osteopenic. XR/XR chest 1V [id number] IMPRESSION: Findings compatible with CHF and/or pneumonia. Support lines and catheters in place as described.
[2023-01-03 17:26] LABS: ABG PCO2 43.4 mmHg (35-45); ABG PH Result 7.43 (7.35-7.45); Alveolar-Arterial Oxygen Gradi 78.7 mmHg (5-10); Base Excess ABG 4.1 mmol/L (-2.0-2.0); Blood Gas Allen Test Pos; Blood Gas Sample Site Radial, right; Blood Gas Sample Type Arterial; Carboxyhemoglobin 1.7 %THgb (0.4-20.1); HCO3 ABG 28.9 mmol/L (22-26); HGB O2 Sat 82.5 % (95-100); Ionized Calcium Level - ABG 1.2 mmol/L (1.1-1.4); Methemoglobin 0.5 % (0.4-1.5); Oxygen Device VENT; Oxygen Saturation ABG 84.3; PO2 ABG 49.8 mmHg (80.0-100.0); Potassium Level - ABG 3.5 mmol/L (3.5-5.0); Total Hemoglobin 10.5 g/dL (14-18)
[2023-01-03] MEDS: vancomycin 1,500 MG/300 ML PIGGYBACK 200 MG IV (18:07)
[2023-01-03] MEDS: pantoprazole 40 mg SDV IVP (18:08)
[2023-01-03] MEDS: piperacillin-tazobactam 3.375 GM in sodium chloride 0.9% (plus) 50 ML IV (18:08)
--- NOTE | 2023-01-03 18:19 | PM.HP ---
Providers/Chief Complaint Admitting Physician: Hank Luevano MD Primary Care Provider: Elvira Zurita, [employer] Chief Complaint: hypoxic History of Present Illness Anthony Gutierrez is a 77 year old male with a past medical history of atrial fibrillation on Eliquis, lumbar disc disease, hypertension, moderate aortic stenosis, obesity, who presents to [facility] due to altered mental status, shortness of breath, hypoxia. Currently patient is intubated, mechanical ventilation, sedated, no history was provided by patient. According to ER physician and nursing staff, he came in with complaints of shortness of breath, concerns for hypoxia, and altered mental status, he was monitored on 15 L nonrebreather, then placed on BiPAP, monitored thereafter, due to further nonresponsiveness, and concerns for further hypoxia he was intubated for airway protection. Hospitalist team was called for admission, I have asked ER physician to place in central access, currently intubated, sedated, review of blood work shows a white count of 12.8, UA looks clean chest x-ray shows pulmonary vascular congestion however I cannot see both lung bases possibly could have underlying infection given elevated Pro-Jermaine and CRP, I ordered a CT of the chest, if's advise ER physician to start on antibiotic, vancomycin, Zosyn, no evidence of hypotension currently, his INR is 2.7, he is on Eliquis, D-dimer is 3.72, possible pulmonary embolism however he is on anticoagulation cannot do CT angiogram given his elevated creatinine his BUN is 98, possibly could have uremic encephalopathy creatinine is 2.4 up from 1.4 a few days ago, he does have transaminitis, bilirubin 2.7, abdomen is distended, decreased bowel sounds, no guarding, no rebound, no rigidity, I ordered a CT scan abdomen and pelvis, his baseline troponins 1447, spoke to cardiology, start heparin drip, cardiology was consulted, given his elevated creatinine, I have also consulted nephrology, patient was reexamined in the intensive care unit, I was told by nursing staff that central line placement was unsuccessful, I have ordered a PICC line and to be placed, will have PICC line team placed in peripheral access, I reviewed CT scanning abdomen and pelvis, has evidence of cholelithiasis and liver cirrhosis potentially explain the elevated INR, will get lipase, gallbladder ultrasound, cardiac echo ordered venous ultrasound lower extremity DVT ordered, CT of the chest did show bibasilar consolidation mild upper lobe consolidation, concern for pneumonia I placed him on vancomycin, Zosyn, sputum cultures, blood cultures,, respiratory viral panel, in addition have ordered HIV panel, acute hep panel, ferritin, GGT alcohol level, drug screen negative, initial EKG should did show ST depressions in inferior lateral leads, I did review prior notes, it seems like he saw his primary care provider a few days ago, reported feeling unwell, joint aches, shortness of breath, fast heart rate, did not want to go to the ER, spoke to ER physician, spoke to ER nursing staff, spoke to ICU nursing staff, checked up on patient multiple times throughout the ER, and also on the ICU Review of Systems General: Reports: ROS unobtainable due to medical condition Medications/Allergies Home Medications Medication Instructions Recorded Confirmed Last Taken Type aspirin 81 mg tablet,delayed 81 mg PO QDAY 07/19/19 01/03/23 Unknown History release clear lungs 1 tab PO DAILY 03/27/21 01/03/23 Unknown History tramadol 50 mg tablet 50 mg PO TID PRN pain 30 days #90 07/31/21 01/03/23 Unknown Rx tabs amlodipine 10 mg tablet 10 mg PO DAILY 30 days #90 tabs 07/05/22 01/03/23 Unknown Rx apple cider vinegar 500 mg tablet 500 mg PO DAILY 09/06/22 01/03/23 Unknown History cholecalciferol (vitamin D3) 25 25 mcg PO DAILY 09/06/22 01/03/23 Unknown History mcg (1,000 unit) capsule nystatin 100,000 unit/gram topical 1 applic topical BID #60 grams 09/06/22 01/03/23 Unknown Rx cream potassium citrate 99 mg capsule 99 mg PO DAILY 09/06/22 01/03/23 Unknown History hydrochlorothiazide 25 mg tablet 25 mg PO QAM 90 days #90 tabs 10/01/22 01/03/23 Unknown Rx mirtazapine 45 mg tablet 45 mg PO DAILY #90 tabs 10/14/22 01/03/23 Unknown Rx apixaban 5 mg tablet (Eliquis) 5 mg PO BID for blood thinning due 11/14/22 01/03/23 Unknown Rx to afib #60 tabs allopurinol 300 mg tablet 450 mg PO DAILY gout #90 tabs 11/21/22 01/03/23 Unknown Rx losartan 100 mg tablet 100 mg PO QDAY #90 tabs 12/30/22 01/03/23 Unknown Rx metoprolol succinate 100 mg 100 mg PO BID #180 tabs 12/30/22 01/03/23 Unknown Rx tablet,extended release 24 hr pregabalin 300 mg capsule 300 mg PO DAILY for neuropathic 12/30/22 01/03/23 Unknown Rx pain #60 caps amoxicillin 875 mg-potassium 1 tab PO BID infection #14 tabs 12/31/22 01/03/23 Unknown Rx clavulanate 125 mg tablet furosemide 40 mg tablet 40 mg PO DAILY 01/03/23 01/03/23 Unknown History lactobacillus combination no.4 3 3,000 mmu cells PO DAILY 01/03/23 01/03/23 Unknown History billion cell capsule zolpidem 10 mg tablet 10 mg PO BEDTIME 01/03/23 01/03/23 Unknown History Allergies Allergy/AdvReac Type Severity Reaction Status Date / Time gabapentin Allergy pressure Verified 12/12/22 11:53 on chest/throat swelling melatonin Allergy hives Verified 12/12/22 11:53 meloxicam [From Mobic] Allergy upset GI Verified 12/12/22 11:53 Sulfa (Sulfonamide Allergy hives Verified 12/12/22 11:53 Antibiotics) PFSH Acute PFSH: Medical History Chronic insomnia Degeneration, intervertebral disc, lumbosacral Encounter for long-term opiate analgesic use Essential hypertension Facet arthritis of lumbar region Moderate aortic stenosis 04/17/2020: mean gradient 6.9 mmHg, FRANTZ 1.7 cm2 Moderate mitral regurgitation by prior echocardiogram Overweight (BMI 25.0-29.9) Penile pain Surgical History Hx of circumcision Hx of eye surgery 1957 left side Hx of vasectomy Family History Father , at age 64 Lung disease Mother , at age 91 Hypertension Arthritis Social History Smoking and tobacco status: never smoked Second hand smoke exposure: No Smoking risk assessment/counseling performed?: Yes Alcohol intake: former 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 Desire information about alcohol rehabilitation?: No Counseling given: No Substance/Drug Use: never Desire information about substance/drug rehabilitation?: No Counseling given: No Adopted: No Caregiver/support person: No Lives independently: Yes Household members: other Housing: House Marital status: Number of children: 5 service: No Current occupational status: retired and disabled Do you think of yourself as: Straight/Heterosexual Current gender identity: Male Vitals/I&O/Wt Last Vital Signs Temp 98.9 F 01/03/23 12:30 Pulse 80 01/03/23 18:10 Resp 16 01/03/23 18:07 BP 89/66 01/03/23 16:15 Pulse Ox 97 01/03/23 18:07 O2 Del Method Mechanical Ventilation 01/03/23 18:07 O2 Flow Rate 15 01/03/23 12:30 FiO2 100 01/03/23 18:07 01/03/23 01/03/23 01/03/23 06:59 14:59 22:59 Intake Total 0.427 / 0.427 Balance 0.427 / 0.427 Weight last 48 hrs Weight 106.594 kg Physical Exam Const: COMMON NORMALS: no acute distress GENERAL APPEARANCE: well kempt HENMT: COMMON NORMALS: normocephalic and Normal external nose present HEAD & SCALP: normocephalic FACE & SINUS: normal facial exam NOSE: Normal external nose present Eye: COMMON NORMALS: Equal, round and reactive pupils present, conjunctivae normal and no scleral icterus CONJUNCTIVA: Yes conjunctivae normal PUPIL: Yes Equal, round and reactive pupils present Neck/C-Spine: COMMON NORMALS: full ROM, no lymphadenopathy, no JVD, Thyroid normal and No carotid bruits THYROID: Thyroid normal Lymph: LYMPHATIC: no lymphadenopathy noted Chest: COMMONS NORMALS: normal inspection of the chest Resp: COMMON NORMALS: normal respiratory effort, No retractions and No use of accessory muscles Cardio: COMMON NORMALS: regular rate, regular rhythm, S1 normal heart sound present, S2 normal heart sound present, No murmurs present (Cardio) and Peripheral pulses 2+ throughout RATE: regular rate RHYTHM: regular rhythm HEART SOUNDS: S1 normal heart sound present and S2 normal heart sound present PERIPHERAL PULSES: Peripheral pulses 2+ throughout GI: COMMON NORMALS: Normal to inspection, nondistended, normoactive bowel sounds present and Soft to palpation PALPATION: Yes Soft to palpation : COMMON NORMALS: Yes no CVA tenderness BLADDER/KIDNEY EXAM: Yes no CVA tenderness Back/Pelvis: COMMON NORMALS: no CVA tenderness Extremity: COMMON NORMALS: normal to inspection, full ROM, no calf tenderness and no pedal edema Neuro: OTHER: Cannot do neurologic testing as intubated, sedated Skin: COMMON NORMALS: turgor normal and no jaundice GENERAL SKIN EXAM: turgor normal Data 01/03/23 12:50 01/03/23 12:50 Micro: Microbiology 01/03/23 12:50 Blood Culture - Preliminary Blood SPECIMEN COLLECTED 01/03/23 12:59 Blood Culture - Preliminary Blood SPECIMEN COLLECTED A&P Assessment and plan (1) Acute respiratory failure with hypoxia: (2) Acute exacerbation of congestive heart failure: (3) Systolic CHF, acute: (4) Encephalopathy: (5) Acute non-ST elevation myocardial infarction (NSTEMI): (6) Atrial fibrillation: (7) Cholelithiases: (8) Moderate aortic stenosis: (9) Pneumonia: (10) Acute renal failure: (11) Sepsis: (12) Liver cirrhosis: (13) Elevated INR: (14) Transaminitis: (15) Hyperbilirubinemia: (16) Uremia: (17) Acute encephalopathy: Plan Acute hypoxic respiratory failure -Likely secondary to pneumonia -Likely secondary to systolic CHF exacerbation -There is a possibility of pulmonary embolism? Given elevated troponins, elevated D-dimer, he he is on Eliquis, cannot perform CT angiogram given elevated creatinine, venous ultrasound, placed on heparin drip -Currently intubated, sedated on mechanical ventilation -Minimize FiO2, minimize tidal volume -Daily spontaneous breathing trials -Fentanyl and Versed and propofol for sedation -Continue vancomycin, Zosyn -Has already received Lasix in the emergency room -Monitor urine output, will daily dose Lasix Acute encephalopathy -Reported on admission -Multifactorial from hypoxia, pneumonia, uremia, sepsis, -Monitor Systolic CHF exacerbation -With elevated troponins, elevated BNP -Monitor BMP monitor urine output, diuresis based upon clinical progress -Has received Lasix in the emergency room -Chest x-ray and CT showing pulm vascular congestion -We will monitor urine output monitor creatinine, cardiology consulted Pneumonia -Sputum culture, blood cultures, respiratory viral panel -Continue vancomycin, Zosyn Uremia -BUN 90 -Nephrology consulted Acute renal failure -Likely secondary to sepsis -Monitor urine output monitor creatinine -Nephrology consulted Sepsis -Creatinine 1.4, transaminitis, hyperbilirubinemia, NSTEMI, respiratory failure, hypoxia, -Source of infection is pneumonia -And or cholelithiasis Non-ST elevation GA -Type I versus type II NSTEMI -Has complaints of chest pain in the past -Had a stress test in 2019 -EKG does show ST depressions inferior lateral leads -Currently on heparin drip -Cardiac echo ordered -Cardiology consulted Atrial fibrillation -Monitor for A-fib -We will consider amiodarone -Heparin drip Cholelithiasis -CT scan shows 2 stones in cystic duct versus vascular calcifications -Total bilirubin 2.7 and AST is 6 4, ALT 118, alk phos 71 -Ordered right upper quadrant ultrasound, lipase, GGT -Follow LFTs,, alk phos, bilirubin, -If it continues to elevate, might require MRCP or potential transfer for consideration of ERCP -On Zosyn Hyperbilirubinemia as above Transaminitis as above, hep C, GGT, HIV, alcohol levels Liver cirrhosis, with elevated INR, elevated LFTs, etiology unclear, work-up as above Protonix for GI prophylaxis Heparin for DVT prophylaxis Attestations Medical Necessity Statement*: Patient requires hospitalization, intensive care unit evaluation, inpatient, greater than 2 midnights for acute hypoxic respiratory failure, acute encephalopathy, acute renal failure, sepsis, uremia, NSTEMI, pneumonia, cholelithiasis, hyperbilirubinemia, transaminitis, liver cirrhosis, systolic CHF exacerbation Coding Level of Care Code Critical Care >/= 30 minutes Critical care time (in minutes): 70 The high probability of a clinically significant, sudden or life threatening deterioration, as referenced in this documentation, required my full and direct attention, intervention and personal management. The critical care time shown is in addition to time spent performing any reported separately billable procedures and includes the following: [x] Data and vital sign review and interpretation [x] Patient assessment, examination and intervention [x] Medication orders and management [x] Patient/Family updates as able [x] Care Coordination and Documentation. Diagnoses Acute respiratory failure with hypoxia J96.01 Acute exacerbation of congestive heart failure I50.9 Systolic CHF, acute I50.21 Encephalopathy G93.40 Acute non-ST elevation myocardial infarction (NSTEMI) I21.4 Atrial fibrillation I48.91 Cholelithiases K80.20 Moderate aortic stenosis I35.0 Pneumonia J18.9 Acute renal failure N17.9 Sepsis A41.9 Liver cirrhosis K74.60 Elevated INR R79.1 Transaminitis R74.01 Hyperbilirubinemia E80.6 Uremia N19 Acute encephalopathy G93.40
--- NOTE | 2023-01-03 19:34 | PM.CONSULT ---
Providers/Reason For Consult Consulting Physician/Specialty*: HERMELINDA Aly MD/cardiology Reason for Consult*: Patient is altered mental status/respiratory distress/elevated troponin T/possible congestive heart failure Requesting Physician: Dr. Luevano Attending Physician: Hank Luevano MD Primary Care Provider: KHANH Daniels-Arthur History of Present Illness History of Present Illness Anthony Gutierrez is a 77 year old male he is admitted to hospital with severe hypoxia/respiratory distress, altered mental status. He is currently intubated and sedated. He is not responding to verbal commands. He was found to have elevated troponin T and possible congestive heart failure. Cardiology consult is requested for further cardiac evaluation recommendations. The information mostly from the medical records and from the clinical staff. No family members are available for details. Apparently he has a brother living out of state but could not be reached so far. Patient used was seen by Dr. Krishnamurthy in the past when he presented with complaints of some chest discomfort. He had a Myocardial perfusion imaging in 2019, which was essentially unremarkable except for slightly elevated transient ischemic dilatation ratio. But he has not been seen in the cardiology office for more than 2 years. He is known to have mild to moderate aortic valve stenosis. Most recent echocardiogram last year revealed a valve area of 1.5 cm?. His LV ejection fraction was normal at that time. Patient was found to be hypoxic with altered mental status in the emergency room. Since there was no response to BiPAP, he got intubated. Currently he is on a vent in the ICU. He was found to have elevated troponin T in the 1400 at the time of admission. He also was found to have possible pulmonary congestion by chest x-ray. He has a high BUN/creatinine ratio, elevated liver enzymes, elevated bilirubin and a D-dimer. Has a history of chronic atrial fibrillation and is on oral anticoagulation with Eliquis. He was found to have elevated INR as well. He has no documented history for coronary artery disease or myocardial infarction . He was found to have elevated BNP on 12/30/2022 . He has a history of hypertension, hyperuricemia, cirrhosis of the liver the liver, , degenerative joint disease, fatty liver and gallstones. Review of Systems Narrative: CONSTITUTIONAL: Patient was found to be afebrile in the emergency room. EYES: No documentation of any recent visual or auditory disturbances. ENT: Details of a not available CARDIOVASCULAR: As mentioned above. [] RESPIRATORY: As mentioned above GASTROINTESTINAL: As mentioned above GENITOURINARY:? History of chronic kidney disease INTEGUMENTARY: Details not available NEURO: Altered mental status as mentioned above PSYCHIATRIC: Details not available HEMATOLOGIC:? Chronic anemia ENDOCRINE: No documented diabetes MUSCULOSKELETAL: Degenerative joint disease ALLERGY/IMMUNOLOGY: As mentioned above. [] Medications/Allergies Home Medications Medication Instructions Recorded Confirmed Last Taken Type aspirin 81 mg tablet,delayed 81 mg PO QDAY 07/19/19 01/03/23 Unknown History release clear lungs 1 tab PO DAILY 03/27/21 01/03/23 Unknown History tramadol 50 mg tablet 50 mg PO TID PRN pain 30 days #90 07/31/21 01/03/23 Unknown Rx tabs amlodipine 10 mg tablet 10 mg PO DAILY 30 days #90 tabs 07/05/22 01/03/23 Unknown Rx apple cider vinegar 500 mg tablet 500 mg PO DAILY 09/06/22 01/03/23 Unknown History cholecalciferol (vitamin D3) 25 25 mcg PO DAILY 09/06/22 01/03/23 Unknown History mcg (1,000 unit) capsule nystatin 100,000 unit/gram topical 1 applic topical BID #60 grams 09/06/22 01/03/23 Unknown Rx cream potassium citrate 99 mg capsule 99 mg PO DAILY 09/06/22 01/03/23 Unknown History hydrochlorothiazide 25 mg tablet 25 mg PO QAM 90 days #90 tabs 10/01/22 01/03/23 Unknown Rx mirtazapine 45 mg tablet 45 mg PO DAILY #90 tabs 10/14/22 01/03/23 Unknown Rx apixaban 5 mg tablet (Eliquis) 5 mg PO BID for blood thinning due 11/14/22 01/03/23 Unknown Rx to afib #60 tabs allopurinol 300 mg tablet 450 mg PO DAILY gout #90 tabs 11/21/22 01/03/23 Unknown Rx losartan 100 mg tablet 100 mg PO QDAY #90 tabs 12/30/22 01/03/23 Unknown Rx metoprolol succinate 100 mg 100 mg PO BID #180 tabs 12/30/22 01/03/23 Unknown Rx tablet,extended release 24 hr pregabalin 300 mg capsule 300 mg PO DAILY for neuropathic 12/30/22 01/03/23 Unknown Rx pain #60 caps amoxicillin 875 mg-potassium 1 tab PO BID infection #14 tabs 12/31/22 01/03/23 Unknown Rx clavulanate 125 mg tablet furosemide 40 mg tablet 40 mg PO DAILY 01/03/23 01/03/23 Unknown History lactobacillus combination no.4 3 3,000 mmu cells PO DAILY 01/03/23 01/03/23 Unknown History billion cell capsule zolpidem 10 mg tablet 10 mg PO BEDTIME 01/03/23 01/03/23 Unknown History Allergies Allergy/AdvReac Type Severity Reaction Status Date / Time gabapentin Allergy pressure Verified 12/12/22 11:53 on chest/throat swelling melatonin Allergy hives Verified 12/12/22 11:53 [facility] Allergy upset GI Verified 12/12/22 11:53 Sulfa (Sulfonamide Allergy hives Verified 12/12/22 11:53 Antibiotics) Current Medications Generic Name Dose Route Start Last Admin Trade Name Freq PRN Reason Stop Dose Admin Heparin Sodium/Sodium Chloride 25,000 unit in 500 mls @ 25.583 mls/hr 01/03/23 15:00 01/03/23 15:42 Heparin Drip IV 12 unit/kg/hr .[id number] JENIFER 25.58 mls/hr Administration 12 UNIT/KG/HR Fentanyl 1,000 mcg/ Sodium 100 mls @ 0 mls/hr 01/03/23 15:45 01/03/23 16:38 Chloride IV 25 mcg/hr .Q0M JENIFER 2.5 mls/hr Administration Protocol Per Protocol Propofol 1,000 mg in 100 mls @ 0 mls/hr 01/03/23 15:45 01/03/23 16:01 Diprivan IV 10 mcg/kg/min .Q0M JENIFER 6.4 mls/hr Titration Protocol Per Protocol Norepinephrine Bitartrate 4 mg 254 mls @ 0 mls/hr 01/03/23 15:45 01/03/23 18:08 / Dextrose IV 2 mcg/min .Q0M JENIFER 7.62 mls/hr Administration Protocol Per Protocol Piperacillin Sod/Tazobactam 50 mls @ 12.5 mls/hr 01/03/23 17:30 01/03/23 18:08 Sod 3.375 gm/ Sodium Chloride IV 12.5 mls/hr Q8H JENIFER Administration Protocol Vancomycin/PEG/NADA/Lysine/Water 1,500 mg in 300 mls @ 200 mls/hr 01/03/23 16:30 01/03/23 18:07 Vancocin IV 200 mls/hr Q24H JENIFER Administration Pantoprazole Sodium 40 mg 01/03/23 15:45 01/03/23 18:08 Pantoprazole 40 Mg Sdv IVP 40 mg Q24H JENIFER Administration PFSH Acute PFSH: Medical History Chronic insomnia Degeneration, intervertebral disc, lumbosacral Encounter for long-term opiate analgesic use Essential hypertension Facet arthritis of lumbar region Moderate aortic stenosis 04/17/2020: mean gradient 6.9 mmHg, FRANTZ 1.7 cm2 Moderate mitral regurgitation by prior echocardiogram Overweight (BMI 25.0-29.9) Penile pain Surgical History Hx of circumcision Hx of eye surgery 1957 left side Hx of vasectomy Family History Father , at age 64 Lung disease Mother , at age 91 Hypertension Arthritis Social History Smoking and tobacco status: never smoked Second hand smoke exposure: No Smoking risk assessment/counseling performed?: Yes Alcohol intake: former 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 Desire information about alcohol rehabilitation?: No Counseling given: No Substance/Drug Use: never Desire information about substance/drug rehabilitation?: No Counseling given: No Adopted: No Caregiver/support person: No Lives independently: Yes Household members: other Housing: House Marital status: Number of children: 5 service: No Current occupational status: retired and disabled Do you think of yourself as: Straight/Heterosexual Current gender identity: Male Vitals/I&O/Wt Last Vital Signs Temp 98.9 F 01/03/23 12:30 Pulse 80 01/03/23 18:10 Resp 16 01/03/23 18:07 BP 89/66 01/03/23 16:15 Pulse Ox 97 01/03/23 18:07 O2 Del Method Mechanical Ventilation 01/03/23 18:07 O2 Flow Rate 15 01/03/23 12:30 FiO2 100 01/03/23 18:07 01/03/23 01/03/23 01/03/23 06:59 14:59 22:59 Intake Total 0.427 / 0.427 Balance 0.427 / 0.427 Weight last 48 hrs Weight 235 lb Physical Exam Narrative: GENERAL: Patient is intubated and sedated. No response to verbal commands. HEENT: Minimal pallor. No icterus. No lymphadenopathy. NECK: Trachea appears to be central. No masses noted. Short neck RESPIRATORY: Breath sounds are bilaterally. Intensity of the breath sounds are at the bases. BREASTS: Deferred. HEART: The first heart rate is variable. Second heart rate is normal. No S3. ABDOMEN: Abdomen is slightly distended. No organomegaly appreciated. Bowel sounds are slightly diminished. : Deferred. RECTAL: Deferred. LYMPHATIC: No lymphadenopathy noted in the neck. EXTREMITIES: Features of chronic venous stasis. Healed superficial ulcers in the anterior aspect of the left leg. 1+ edema of the right lower extremity. 1-2+ edema of the left lower extremity. MUSCULOSKELETAL: No acute joint deformities or swelling SKIN: There are no significant rashes or ecchymosis NEUROPSYCHIATRIC: Patient is intubated and sedated. Seems to be moving extremities spontaneously. Data 01/03/23 12:50 01/03/23 12:50 Other Labs: Laboratory Last Values WBC 12.8 10^3/uL (4.0-10.0) H 01/03/23 12:50 RBC 3.51 10^6/uL (4.1-5.3) L 01/03/23 12:50 Hgb 10.4 g/dL (11.7-16.6) L 01/03/23 12:50 Hct 32.5 % (42.0-52.0) L 01/03/23 12:50 MCV 92.6 fl (80-94) 01/03/23 12:50 MCH 29.6 pg (28.0-34.0) 01/03/23 12:50 MCHC 32.0 g/dL (30.0-36.0) 01/03/23 12:50 RDW 15.0 % (12.1-15.1) 01/03/23 12:50 Plt Count 234 10^3/cmm (130-400) 01/03/23 12:50 MPV 11.6 fL (7.4-10.4) H 01/03/23 12:50 Neut % (Auto) 85.5 % 01/03/23 12:50 Lymph % (Auto) 6.0 % 01/03/23 12:50 Amador % (Auto) 7.8 % 01/03/23 12:50 Eos % (Auto) 0.1 % 01/03/23 12:50 Baso % (Auto) 0.1 % 01/03/23 12:50 Neut # (Auto) 10.95 10^3/uL (1.8-7.7) H 01/03/23 12:50 Lymph # (Auto) 0.8 10^3/uL (0.8-4.8) 01/03/23 12:50 Amador # (Auto) 1.0 10^3/uL (0.2-0.9) H 01/03/23 12:50 Eos # (Auto) 0.0 10^3/uL (0.0-0.8) 01/03/23 12:50 Baso # (Auto) 0.0 10^3/uL (0.0-0.1) 01/03/23 12:50 Nucleated RBC % (auto) 1.6 % 01/03/23 12:50 Nucleated RBCs # 0.2 /100WBC 01/03/23 12:50 ESR 35 mm/hr (0-10) H 01/03/23 12:50 PT 30.00 SECONDS (12.1-14.9) H 01/03/23 12:50 INR 2.73 (0.8-1.2) H 01/03/23 12:50 APTT 42.0 SECONDS (23.9-36.7) H 01/03/23 12:50 D-Dimer 3.72 ug/mIFEU (0-0.59) H 01/03/23 12:50 Specimen Type Arterial 01/03/23 17:14 Sample Site Radial, right 01/03/23 17:14 ABG pH 7.43 (7.35-7.45) 01/03/23 17:14 ABG pCO2 43.4 mmHg (35-45) 01/03/23 17:14 ABG pO2 49.8 mmHg (80.0-100.0) L 01/03/23 17:14 ABG HCO3 28.9 mmol/L (22-26) H 01/03/23 17:14 ABG O2 Saturation 84.3 01/03/23 17:14 ABG Base Excess 4.1 mmol/L (-2.0-2.0) H 01/03/23 17:14 Jani Test Pos 01/03/23 17:14 A-a O2 Gradient 78.7 mmHg (5-10) H 01/03/23 17:14 Hematocrit 32.0 % (42-52) L 01/03/23 17:14 Hgb O2 Saturation 82.5 % (95-100) L 01/03/23 17:14 Carboxyhemoglobin 1.7 %THgb (0.4-20.1) 01/03/23 17:14 Methemoglobin 0.5 % (0.4-1.5) 01/03/23 17:14 Total Hemoglobin 10.5 g/dL (14-18) L 01/03/23 17:14 Sodium 131.0 mmol/L (131-143) 01/03/23 17:14 Potassium 3.5 mmol/L (3.5-5.0) 01/03/23 17:14 Glucose 130.0 mg/dL (70-115) H 01/03/23 17:14 Ionized Calcium 1.2 mmol/L (1.1-1.4) 01/03/23 17:14 O2 Delivery Device Vent 01/03/23 17:14 O2 Liters/Min 15.0 % 01/03/23 12:34 FiO2 100.0 % 01/03/23 17:14 Tidal Volume 0.50 01/03/23 17:14 PEEP 5.0 cmH20 01/03/23 17:14 Specimen Drawn By Matt 01/03/23 14:48 Php [employer] Developer ID Ciji 01/03/23 17:14 Crit Value Read Back Adeod 01/03/23 14:48 Blood Gas Notified Time 1502 01/03/23 14:48 Sodium 131 mmol/L (136-145) L 01/03/23 12:50 Potassium 3.5 mmol/L (3.5-5.1) 01/03/23 12:50 Chloride 89 mmol/L (98-107) L 01/03/23 12:50 Carbon Dioxide 28 mmol/L (22-29) 01/03/23 12:50 Anion Gap 17.5 (5-19) 01/03/23 12:50 BUN 90 mg/dL (8-23) H* D 01/03/23 12:50 Creatinine 2.4 mg/dL (0.7-1.2) H 01/03/23 12:50 GFR Calculation Not Reportable 01/03/23 12:50 Glucose 121 mg/dL (65-115) H 01/03/23 12:50 Calculated Osmolality 301 mOsm/kg (285-295) H 01/03/23 12:50 Lactic Acid 1.3 mmol/L (0.5-2.2) 01/03/23 14:45 Calcium 8.7 mg/dL (8.5-10.5) 01/03/23 12:50 Ferritin 60 ng/mL (30-400) 01/03/23 19:03 Total Bilirubin 2.7 mg/dL (0.15-1.2) H 01/03/23 12:50 GGT 48 U/L (8-61) 01/03/23 19:03 AST 64 U/L (0-40) H 01/03/23 12:50 ALT 118 U/L (0-41) H 01/03/23 12:50 Alkaline Phosphatase 71 U/L (40-130) 01/03/23 12:50 Ammonia 20 umol/L (16-60) 01/03/23 12:50 Troponin T Baseline 1447 ng/L (0-15) H* 01/03/23 12:50 Troponin T 120 Minute 1413 ng/L (0-15) H 01/03/23 14:49 Delta Troponin T -34 ABS# (0-10) L 01/03/23 14:49 Troponin T Hi Sens 6Hr 1583 ng/L (0-15) H 01/03/23 19:03 Troponin T Hi Sens 6Hr Delta 136 ng/L (0-12) H* 01/03/23 19:03 C-Reactive Protein 26.1 mg/L (0.0-4.9) H 01/03/23 14:45 NT-Pro-B Natriuret Pep 9706 pg/mL (0-450) H 01/03/23 12:50 Total Protein 6.6 g/dL (6.6-8.7) 01/03/23 12:50 Albumin 4.3 g/dL (3.5-5.2) 01/03/23 12:50 Globulin 2.3 g/dL (1.3-4.6) 01/03/23 12:50 Lipase 131 U/L (13-60) H 01/03/23 19:03 Procalcitonin 0.72 ng/mL (0-0.5) H 01/03/23 12:50 Urine Color Dark yellow (Yellow) 01/03/23 13:35 Urine Appearance Clear (CLEAR) 01/03/23 13:35 Urine pH 5 (5-7) 01/03/23 13:35 Ur Specific Stephens 1.020 (1.005-1.030) 01/03/23 13:35 Urine Protein 1+ (Negative) H 01/03/23 13:35 Urine Glucose (UA) Norm (Normal) 01/03/23 13:35 Urine Ketones 1+ (Negative) H 01/03/23 13:35 Urine Blood Neg (Negative) 01/03/23 13:35 Urine Nitrate Negative (Negative) 01/03/23 13:35 Urine Bilirubin Neg (Negative) 01/03/23 13:35 Urine Urobilinogen 1 mg/dL (Negative) H 01/03/23 13:35 Ur Leukocyte Esterase Negative (Negative) 01/03/23 13:35 Urine RBC 0-4 /hpf (0-2) H 01/03/23 13:35 Urine WBC 0-4 /hpf (0-5) H 01/03/23 13:35 Ur Squamous Epith Cells 0-4 /hpf (0-5) H 01/03/23 13:35 Amorphous Sediment Not Reportable 01/03/23 13:35 Urine Bacteria None /hpf (NONE) 01/03/23 13:35 Hyaline Casts 0-4 /lpf H 01/03/23 13:35 Urine Opiates Screen Negative ng/mL (Negative) 01/03/23 13:35 Ur Barbiturates Screen Negative ng/mL (Negative) 01/03/23 13:35 Ur Phencyclidine Scrn Negative ng/mL (Negative) 01/03/23 13:35 Ur Amphetamines Screen Negative ng/mL (Negative) 01/03/23 13:35 U Benzodiazepines Scrn Negative ng/mL (Negative) 01/03/23 13:35 Urine Cocaine Screen Negative ng/mL (Negative) 01/03/23 13:35 U Marijuana (THC) Screen Negative ng/mL (Negative) 01/03/23 13:35 Ethyl Alcohol < 10 mg/dL (0-10) 01/03/23 19:03 HIV 1&2 Ab & HIV 1 Ag Non-reactive (Non-Reactiv) 01/03/23 19:03 HIV 1&2 Antibody Non-reactive (Non-Reactiv) 01/03/23 19:03 Micro: Microbiology 01/03/23 12:50 Blood Culture - Preliminary Blood SPECIMEN COLLECTED 01/03/23 12:59 Blood Culture - Preliminary Blood SPECIMEN COLLECTED Other data: EKG from 01/03/2023 revealed Atrial fibrillation with a controlled ventricular response rate of 91 bpm. Nonspecific IVCD. Diffuse nonspecific ST-T changes. CT of the chest, abdomen and pelvis from today 1. ? Mild upper lobe and dense bibasilar consolidation is present, consistent with atelectasis, edema, or pneumonia. 2. ? There is a low lying ET tube with tip 1.0 cm above the yumiko. For ideal placement this should be retracted about 3.5 cm. 1. ? There is wall thickening of the cecum and ascending colon concerning for mild colitis. 2. ? Cirrhotic liver morphology with small volume of ascites. No free air or abscess. 3. ? Cholelithiasis. Two stones in the cystic duct versus vascular calcifications are noted. No definite findings of acute cholecystitis. There is a small amount of fluid adjacent to the gallbladder compatible with ascites also seen elsewhere in the abdomen. 02/05/19 NM MIBI/MIBI Stress/Rest 30265 ? ?IMPRESSIONS ?1. Small sized perfusion abnormality of mild severity of mid inferior and mid ?inferolateral hendricks on supine stress images with somewhat improved tracer ?uptake on prone stress images.? This may represent attenuation artifact, ?however small area of ischemia in right coronary artery/circumflex artery ?cannot be ruled out. ?2. Overall left ventricular systolic function is normal without regional wall ?motion abnormalities.? ?3. The left ventricular ejection fraction is normal with a value of 79%. ?4. Transient ischemic dilation index of 1.3. This may represent subendocardial ?ischemia or multivessel CAD. 04/17/20 ECHO CONCLUSIONS ?1-Normal left ventricular cavity size. Normal left ventricular ?systolic function. No regional wall motion abnormalities. Left ?ventricular ejection fraction is estimated at 60 %. Grade I/IV ?diastolic dysfunction (abnormal relaxation filling pattern), ?normal to mildly elevated filling pressures. ?2-Severe aortic valve calcification. Moderate aortic valve ?stenosis, mean gradient 6.9 mmHg, FRANTZ 1.7 cm squared. Trace aortic ?valve regurgitation. ?3-Moderately thickened mitral valve. Moderate mitral annular ?calcification. No mitral valve stenosis. Moderate mitral valve ?regurgitation. ?4-Moderately increased left atrial size. ?5-Mild tricuspid valve regurgitation. ?6-There is no pericardial effusion. ?7-Pulmonary artery systolic pressure is within normal limits. ?8-Right atrial pressure is around 5 mm of mercury. ?9-There are no prior echocardiogram studies to compare. A&P Assessment and plan (1) Acute respiratory failure with hypoxia: This could be multifactorial.. Possibility of pneumonia, CHF, COPD exacerbation, etc. are contributing factors. Currently he is intubated and sedated. Still on 100% of oxygen. (2) Elevated troponin: Possibility of a non-ST elevation myocardial infarction is a consideration. A type II GA also is a possibility. Patient's INR is elevated. Apparently he has been taking the Eliquis. Currently he is on heparin. This may be continued cautiously. Need to have the PT/INR closely monitored. Patient was given aspirin. I may hold off on the Plavix for the time being. (3) Hypotension: This also could be multifactorial. Possible non-ST elevation myocardial infarction, sepsis, multiorgan system failure, etc. are contributing factors. Currently he is on a low-dose of Levophed. This may be continued. (4) CHF (congestive heart failure): Possibly acute on chronic heart failure. Patient was found elevated BNP in the 1800 range on 12/30/2022 patient had a normal LV systolic function last year. His current LV function is not known. Non-ST relation myocardial infarction causing heart failure is a consideration. An echocardiogram would be helpful to further evaluate. Patient may be treated with diuretics on a as needed basis. (5) Acute renal failure: Patient has high BUN and creatinine ratio. Possible that it could have had a prolonged episode of hypotension at home causing the hepatorenal failure. He seems to be making urine. Nephrology is consulted. (6) Liver cirrhosis: Patient has a remote history of alcohol abuse. Possibility of a prolonged episode of hypotension/sepsis causing the transaminitis is a consideration. (7) Elevated INR: As mentioned above. (8) Transaminitis: As mentioned above. (9) Encephalopathy: Possibly metabolic in nature. He had a CT of the head which was unremarkable Plan His other problems are 1. possible sepsis-patient is currently on empiric antibiotics. 2. Possible pneumonia. 3. PE cannot be excluded but my clinical suspicion may be low. 4. Anemia, could be multifactorial Because of the patient's hypotension and altered mental status, it would be appropriate to continue on the conservative measures. After reviewing the echocardiogram, further recommendations will be made. Thank you preoperative Coding Level of Care Code 14557 Diagnoses Acute respiratory failure with hypoxia J96.01 Elevated troponin R77.8 Hypotension I95.9 CHF (congestive heart failure) I50.9 Acute renal failure N17.9 Liver cirrhosis K74.60 Elevated INR R79.1 Transaminitis R74.01 Encephalopathy G93.40
[2023-01-03 19:48] LABS: Ferritin 60 ng/mL (30-400); Gamma Glutamyl Transferase 48 U/L (8-61); Lipase 131 U/L (13-60)
[2023-01-03 19:56] LABS: Alcohol Level < 10 mg/dL (0-10)
--- NOTE | 2023-01-03 20:05 | PC.NURSE ---
1805:Pt arrived to ICU from ED. Pt intubated and sedated. Heparin, Fentanyl and Propofol infusing. OG clamped and in place. Haas patent and draining. Personal belongings: shoes and Home meds. 1830: IV abx: Zosyn and Vancomycin just started. Admin late due to pateint arriving past due time. LEvophed started at 2mcg/min, SBP 78. 1855: Bedside report given to Shaheen Grimaldo.
[2023-01-03 20:12] LABS: HIV 1 & 2 Antibody Non-Reactive (Non-Reactiv); HIV 1 & 2 Antigen Non-Reactive (Non-Reactiv)
[2023-01-03] MEDS: ipratropium-albuterol 3 mL Neb INHALATION (20:14)
[2023-01-03 20:17] LABS: Troponin 5 6HR 1583 ng/L (0-15); Troponin 5 6HR Delta 136 ng/L (0-12)
[2023-01-03 20:50] LABS: Basophils % 0.2 %; Eosinophils # 0.1 10^3/uL (0.0-0.8); Eosinophils % 0.6 %; Hematocrit 32.7 % (42.0-52.0); Hemoglobin 10.3 g/dL (11.7-16.6); Lymphocytes % 8.1 %; Mean Corpuscular HGB Conc 31.5 g/dL (30.0-36.0); Mean Corpuscular Hemoglobin 29.3 pg (28.0-34.0); Mean Corpuscular Volume 92.9 fl (80-94); Mean Platelet Volume 11.7 fL (7.4-10.4); Monocytes % 8.3 %; Neutrophils # 10.23 10^3/uL (1.8-7.7); Neutrophils % 82.6 %; Nucleated Red Blood Cells # 0.3 /100WBC; Nucleated Red Blood Cells % 2.1 %; Platelet Count 215 10^3/cmm (130-400); Red Blood Count 3.52 10^6/uL (4.1-5.3); Red Cell Distribution Width 15.2 % (12.1-15.1); White Blood Count 12.4 10^3/uL (4.0-10.0)
[2023-01-03 21:00] LABS: Adenovirus Not Detected (NOT DETECT); Chlamydia Pneumoniae Not Detected (NOT DETECT); Coronavirus 229E,HKU1,NL63,OC4 Not Detected (NOT DETECT); Human Metapneumovirus Not Detected (NOT DETECT); Human Rhinovirus/Enterovirus Not Detected (NOT DETECT); Influenza A Not Detected (NOT DETECT); Influenza A H1 Not Detected (NOT DETECT); Influenza A H1-2009 Not Detected (NOT DETECT); Influenza A H3 Not Detected (NOT DETECT); Influenza B Not Detected (NOT DETECT); Mycoplasma Pneumoniae Not Detected (NOT DETECT); Parainfluenza Virus Type 1 Not Detected (NOT DETECT); Parainfluenza Virus Type 2 Not Detected (NOT DETECT); Parainfluenza Virus Type 3 Not Detected (NOT DETECT); Parainfluenza Virus Type 4 Not Detected (NOT DETECT); Respiratory Syncytial Virus A Not Detected (NOT DETECT); Respiratory Syncytial Virus B Not Detected (NOT DETECT); SARS-COV-2 Not Detected (NOT DETECT)
[2023-01-03 21:05] LABS: Alanine Aminotransferase 93 U/L (0-41); Albumin Level 3.6 g/dL (3.5-5.2); Alkaline Phosphatase 64 U/L (40-130); Aspartate Amino Transferase 48 U/L (0-40); Calcium 8.8 mg/dL (8.5-10.5); Carbon Dioxide 26 mmol/L (22-29); Chloride 90 mmol/L (98-107); Globulin 2.5 g/dL (1.3-4.6); Glucose 120 mg/dL (65-115); Osmolality Calculated 304 mOsm/kg (285-295); Phosphorus 5.1 mg/dL (2.5-4.5); Sodium 131 mmol/L (136-145); Total Bilirubin 2.3 mg/dL (0.15-1.2); Total Protein 6.1 g/dL (6.6-8.7)
[2023-01-03 21:13] LABS: Anion Gap 18.3 (5-19); Potassium 3.3 mmol/L (3.5-5.1)
[2023-01-03 21:14] LABS: Blood Urea Nitrogen 100 mg/dL (8-23)
--- NOTE | 2023-01-03 22:26 | PM.CONSULT ---
Providers/Reason For Consult Consulting Physician/Specialty*: [facility]/Nephrology Reason for Consult*: NÉSTOR Attending Physician: Hank Luevano MD Primary Care Provider: ROBBIN Dnaiels History of Present Illness History of Present Illness Anthony Gutierrez is a 77 year old male Review of Systems Narrative: cannot obtain Medications/Allergies Home Medications Medication Instructions Recorded Confirmed Last Taken Type aspirin 81 mg tablet,delayed 81 mg PO QDAY 07/19/19 01/03/23 Unknown History release clear lungs 1 tab PO DAILY 03/27/21 01/03/23 Unknown History tramadol 50 mg tablet 50 mg PO TID PRN pain 30 days #90 07/31/21 01/03/23 Unknown Rx tabs amlodipine 10 mg tablet 10 mg PO DAILY 30 days #90 tabs 07/05/22 01/03/23 Unknown Rx apple cider vinegar 500 mg tablet 500 mg PO DAILY 09/06/22 01/03/23 Unknown History cholecalciferol (vitamin D3) 25 25 mcg PO DAILY 09/06/22 01/03/23 Unknown History mcg (1,000 unit) capsule nystatin 100,000 unit/gram topical 1 applic topical BID #60 grams 09/06/22 01/03/23 Unknown Rx cream potassium citrate 99 mg capsule 99 mg PO DAILY 09/06/22 01/03/23 Unknown History hydrochlorothiazide 25 mg tablet 25 mg PO QAM 90 days #90 tabs 10/01/22 01/03/23 Unknown Rx mirtazapine 45 mg tablet 45 mg PO DAILY #90 tabs 10/14/22 01/03/23 Unknown Rx apixaban 5 mg tablet (Eliquis) 5 mg PO BID for blood thinning due 11/14/22 01/03/23 Unknown Rx to afib #60 tabs allopurinol 300 mg tablet 450 mg PO DAILY gout #90 tabs 11/21/22 01/03/23 Unknown Rx losartan 100 mg tablet 100 mg PO QDAY #90 tabs 12/30/22 01/03/23 Unknown Rx metoprolol succinate 100 mg 100 mg PO BID #180 tabs 12/30/22 01/03/23 Unknown Rx tablet,extended release 24 hr pregabalin 300 mg capsule 300 mg PO DAILY for neuropathic 12/30/22 01/03/23 Unknown Rx pain #60 caps amoxicillin 875 mg-potassium 1 tab PO BID infection #14 tabs 12/31/22 01/03/23 Unknown Rx clavulanate 125 mg tablet furosemide 40 mg tablet 40 mg PO DAILY 01/03/23 01/03/23 Unknown History lactobacillus combination no.4 3 3,000 mmu cells PO DAILY 01/03/23 01/03/23 Unknown History billion cell capsule zolpidem 10 mg tablet 10 mg PO BEDTIME 01/03/23 01/03/23 Unknown History Allergies Allergy/AdvReac Type Severity Reaction Status Date / Time gabapentin Allergy pressure Verified 12/12/22 11:53 on chest/throat swelling melatonin Allergy hives Verified 12/12/22 11:53 meloxicam [From [employer]] Allergy upset GI Verified 12/12/22 11:53 Sulfa (Sulfonamide Allergy hives Verified 12/12/22 11:53 Antibiotics) Current Medications Generic Name Dose Route Start Last Admin Trade Name Freq PRN Reason Stop Dose Admin Albuterol/Ipratropium 3 ml 01/03/23 20:00 01/03/23 20:14 Ipratropium-Albuterol 3 Ml Neb INHALATION 3 ml Q4H.RESPIRATORY JENIFER Administration Heparin Sodium/Sodium Chloride 25,000 unit in 500 mls @ 25.583 mls/hr 01/03/23 15:00 01/03/23 15:42 Heparin Drip IV 12 unit/kg/hr .[id number] JENIFER 25.58 mls/hr Administration 12 UNIT/KG/HR Fentanyl 1,000 mcg/ Sodium 100 mls @ 0 mls/hr 01/03/23 15:45 01/03/23 16:38 Chloride IV 25 mcg/hr .Q0M JENIFER 2.5 mls/hr Administration Protocol Per Protocol Propofol 1,000 mg in 100 mls @ 0 mls/hr 01/03/23 15:45 01/03/23 16:01 Diprivan IV 10 mcg/kg/min .Q0M JENIFER 6.4 mls/hr Titration Protocol Per Protocol Norepinephrine Bitartrate 4 mg 254 mls @ 0 mls/hr 01/03/23 15:45 01/03/23 18:08 / Dextrose IV 2 mcg/min .Q0M JENIFER 7.62 mls/hr Administration Protocol Per Protocol Piperacillin Sod/Tazobactam 50 mls @ 12.5 mls/hr 01/03/23 17:30 01/03/23 22:15 Sod 3.375 gm/ Sodium Chloride IV Infused Q8H JENIFER Infusion Protocol Vancomycin/PEG/NADA/Lysine/Water 1,500 mg in 300 mls @ 200 mls/hr 01/03/23 16:30 01/03/23 19:42 Vancocin IV Infused Q24H JENIFER Infusion Pantoprazole Sodium 40 mg 01/03/23 15:45 01/03/23 18:08 Pantoprazole 40 Mg Sdv IVP 40 mg Q24H JENIFER Administration PFSH Acute PFSH: Medical History Chronic insomnia Degeneration, intervertebral disc, lumbosacral Encounter for long-term opiate analgesic use Essential hypertension Facet arthritis of lumbar region Moderate aortic stenosis 04/17/2020: mean gradient 6.9 mmHg, FRANTZ 1.7 cm2 Moderate mitral regurgitation by prior echocardiogram Overweight (BMI 25.0-29.9) Penile pain Surgical History Hx of circumcision Hx of eye surgery 1957 left side Hx of vasectomy Family History Father , at age 64 Lung disease Mother , at age 91 Hypertension Arthritis Social History Smoking and tobacco status: never smoked Second hand smoke exposure: No Smoking risk assessment/counseling performed?: Yes Alcohol intake: former 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 Desire information about alcohol rehabilitation?: No Counseling given: No Substance/Drug Use: never Desire information about substance/drug rehabilitation?: No Counseling given: No Adopted: No Caregiver/support person: No Lives independently: Yes Household members: other Housing: House Marital status: Number of children: 5 service: No Current occupational status: retired and disabled Do you think of yourself as: Straight/Heterosexual Current gender identity: Male Vitals/I&O/Wt Last Vital Signs Temp 98.5 F 01/03/23 20:00 Pulse 127 H 01/03/23 21:00 Resp 27 H 01/03/23 21:00 BP 127/90 01/03/23 21:00 Pulse Ox 97 01/03/23 21:00 O2 Del Method Mechanical Ventilation 01/03/23 19:30 O2 Flow Rate 15 01/03/23 12:30 FiO2 100 01/03/23 20:14 01/03/23 01/03/23 01/03/23 06:59 14:59 22:59 Intake Total 350.427 / 350.427 Output Total 900 / 900 Balance -549.573 / -549.573 Weight last 48 hrs Weight 106.594 kg Physical Exam Narrative: Intubated and Sedated Ascites LE edema Data 01/03/23 19:03 01/03/23 19:03 Micro: Microbiology 01/03/23 12:50 Blood Culture - Preliminary Blood SPECIMEN COLLECTED 01/03/23 12:59 Blood Culture - Preliminary Blood SPECIMEN COLLECTED A&P Assessment and plan (1) Acute renal failure: Consult Attestations Medical Necessity Statement: per medicine Coding Level of Care Code Acute Code for [facility] Diagnoses Acute renal failure N17.9
--- NOTE | 2023-01-03 22:30 | XRR_ITS ---
PROCEDURE INFORMATION: Exam: XR Chest Exam date and time: 01/03/2023 10:39 PM Age: 77 years old Clinical indication: Device placement; Picc; Additional info: Picc line placement confirmation TECHNIQUE: Imaging protocol: Radiologic exam of the chest. Views: 1 view. COMPARISON[place] [id number] 01/03/2023 5:31 PM FINDINGS: Tubes, catheters and devices: Right PICC in place with tip in the lower SVC/right atrial junction. ET tube remains in place with tip approximately 5.5 cm above the yumiko. NG tube in place with distal end below the level of the diaphragm likely in the body of the stomach. Lungs: Near complete opacification of the left lower lobe. Medial and basilar right lower lobe consolidative changes. Pleural spaces: No definite pleural effusion. No pneumothorax. Heart/Mediastinum: Mild cardiomegaly. Bones/joints: No acute fracture. XR/XR chest 1V portable [id number] IMPRESSION: 1. Right PICC in place with tip in the lower SVC/right atrial junction. Tip of ETT is approximately 5.5 cm above the yumiko. NG tube in place with distal end below the level of the diaphragm likely in the body of the stomach. 2. Near complete opacification of the left lower lobe. Medial and basilar right lower lobe consolidative changes. Recommend follow-up to resolution to exclude occult underlying pathology.
--- NOTE | 2023-01-03 22:38 | P.CONIM_ITS ---
Providers/Reason For Consult Consulting Physician/Specialty*: [facility]/Nephrology Reason for Consult*: NÉSTOR Attending Physician: Hank Luevano MD Primary Care Provider: ROBBIN Daniels History of Present Illness History of Present Illness Patient is a 77-year-old male with past medical history of atrial fibrillation on Eliquis, hypertension, moderate AAS, obesity presented complaining of shortness of breath, hypoxia and altered mental status patient was noted to be hypoxic initially was on nonrebreather mask was then intubated in the ED lab data is significant for elevated troponin, creatinine elevated at 2.4 with a BUN of 100.. Patient started on heparin drip per cardiology. CT scan of abdomen pelvis that showed cholelithiasis, liver cirrhosis.. His renal function in June was normal with creatinine of 1.12, currently creatinine is at 2.1, sodium low at 131, potassium was 3.3. Patient is on broad-spectrum antibiotics, intubated sedated. Review of Systems Narrative: unable to obtain Medications/Allergies Home Medications Medication Instructions Recorded Confirmed Last Taken Type aspirin 81 mg tablet,delayed 81 mg PO QDAY 07/19/19 01/03/23 Unknown History release clear lungs 1 tab PO DAILY 03/27/21 01/03/23 Unknown History tramadol 50 mg tablet 50 mg PO TID PRN pain 30 days #90 07/31/21 01/03/23 Unknown Rx tabs amlodipine 10 mg tablet 10 mg PO DAILY 30 days #90 tabs 07/05/22 01/03/23 Unknown Rx apple cider vinegar 500 mg tablet 500 mg PO DAILY 09/06/22 01/03/23 Unknown History cholecalciferol (vitamin D3) 25 25 mcg PO DAILY 09/06/22 01/03/23 Unknown History mcg (1,000 unit) capsule nystatin 100,000 unit/gram topical 1 applic topical BID #60 grams 09/06/22 01/03/23 Unknown Rx cream potassium citrate 99 mg capsule 99 mg PO DAILY 09/06/22 01/03/23 Unknown History hydrochlorothiazide 25 mg tablet 25 mg PO QAM 90 days #90 tabs 10/01/22 01/03/23 Unknown Rx mirtazapine 45 mg tablet 45 mg PO DAILY #90 tabs 10/14/22 01/03/23 Unknown Rx apixaban 5 mg tablet (Eliquis) 5 mg PO BID for blood thinning due 11/14/22 01/03/23 Unknown Rx to afib #60 tabs allopurinol 300 mg tablet 450 mg PO DAILY gout #90 tabs 11/21/22 01/03/23 Unknown Rx losartan 100 mg tablet 100 mg PO QDAY #90 tabs 12/30/22 01/03/23 Unknown Rx metoprolol succinate 100 mg 100 mg PO BID #180 tabs 12/30/22 01/03/23 Unknown Rx tablet,extended release 24 hr pregabalin 300 mg capsule 300 mg PO DAILY for neuropathic 12/30/22 01/03/23 Un known Rx pain #60 caps amoxicillin 875 mg-potassium 1 tab PO BID infection #14 tabs 12/31/22 01/03/23 Unknown Rx clavulanate 125 mg tablet furosemide 40 mg tablet 40 mg PO DAILY 01/03/23 01/03/23 Unknown History lactobacillus combination no.4 3 3,000 mmu cells PO DAILY 01/03/23 01/03/23 Unknown History billion cell capsule zolpidem 10 mg tablet 10 mg PO BEDTIME 01/03/23 01/03/23 Unknown History Allergies Allergy/AdvReac Type Severity Reaction Status Date / Time gabapentin Allergy pressure Verified 12/12/22 11:53 on chest/throat swelling melatonin Allergy hives Verified 12/12/22 11:53 meloxicam [From [employer]] Allergy upset GI Verified 12/12/22 11:53 Sulfa (Sulfonamide Allergy hives Verified 12/12/22 11:53 Antibiotics) Current Medications Generic Name Dose Route Start Last Admin Trade Name Freq PRN Reason Stop Dose Admin Albuterol/Ipratropium 3 ml 01/03/23 20:00 01/03/23 20:14 Ipratropium-Albuterol 3 Ml Neb INHALATION 3 ml Q4H.RESPIRATORY JENIFER Administration Heparin Sodium/Sodium Chloride 25,000 unit in 500 mls @ 25.583 mls/hr 01/03/23 15:00 01/03/23 15:42 Heparin Drip IV 12 unit/kg/hr .[id number] JENIFER 25.58 mls/hr Administration 12 UNIT/KG/HR Fentanyl 1,000 mcg/ Sodium 100 mls @ 0 mls/hr 01/03/23 15:45 01/03/23 16:38 Chloride IV 25 mcg/hr .Q0M JENIFER 2.5 mls/hr Administration Protocol Per Protocol Propofol 1,000 mg in 100 mls @ 0 mls/hr 01/03/23 15:45 01/03/23 16:01 Diprivan IV 10 mcg/kg/min .Q0M JENIFER 6.4 mls/hr Titration Protocol Per Protocol Norepinephrine Bitartrate 4 mg 254 mls @ 0 mls/hr 01/03/23 15:45 01/03/23 18:08 / Dextrose IV 2 mcg/min .Q0M JENIFER 7.62 mls/hr Administration Protocol Per Protocol Piperacillin Sod/Tazobactam 50 mls @ 12.5 mls/hr 01/03/23 17:30 01/03/23 22:15 Sod 3.375 gm/ Sodium Chloride IV Infused Q8H JENIFER Infusion Protocol Vancomycin/PEG/NADA/Lysine/Water 1,500 mg in 300 mls @ 200 mls/hr 01/03/23 16:30 01/03/23 19:42 Vancocin IV Infused Q24H JENIFER Infusion Pantoprazole Sodium 40 mg 01/03/23 15:45 01/03/23 18:08 Pantoprazole 40 Mg Sdv IVP 40 mg Q24H JENIFER Administration PFSH Acute PFSH: Medical History Chronic insomnia Degeneration, intervertebral disc, lumbosacral Encounter for long-term opiate analgesic use Essential hypertension Facet arthritis of lumbar region Moderate aortic stenosis 04/17/2020: mean gradient 6.9 mmHg, FRANTZ 1.7 cm2 Moderate mitral regurgitation by prior echocardiogram Overweight (BMI 25.0-29.9) Penile pain Surgical History Hx of circumcision Hx of eye surgery 1957 left side Hx of vasectomy Family History Father , at age 64 Lung disease Mother , at age 91 Hypertension Arthritis Social History Smoking and tobacco status: never smoked Second hand smoke exposure: No Smoking risk assessment/counseling performed?: Yes Alcohol intake: former 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 Desire information about alcohol rehabilitation?: No Counseling given: No Substance/Drug Use: never Desire information about substance/drug rehabilitation?: No Counseling given: No Adopted: No Caregiver/support person: No Lives independently: Yes Household members: other Housing: House Marital status: Number of children: 5 service: No Current occupational status: retired and disabled Do you think of yourself as: Straight/Heterosexual Current gender identity: Male Vitals/I&O/Wt Last Vital Signs Temp 98.5 F 01/03/23 20:00 Pulse 127 H 01/03/23 21:00 Resp 27 H 01/03/23 21:00 BP 127/90 01/03/23 21:00 Pulse Ox 97 01/03/23 21:00 O2 Del Method Mechanical Ventilation 01/03/23 19:30 O2 Flow Rate 15 01/03/23 12:30 FiO2 100 01/03/23 20:14 01/03/23 01/03/23 01/03/23 06:59 14:59 22:59 Intake Total 350.427 / 350.427 Output Total 900 / 900 Balance -549.573 / -549.573 Weight last 48 hrs Weight 106.594 kg Physical Exam Narrative: intubated , sedated + edema Data 01/03/23 19:03 01/03/23 19:03 Micro: Microbiology 01/03/23 12:50 Blood Culture - Preliminary Blood SPECIMEN COLLECTED 01/03/23 12:59 Blood Culture - Preliminary Blood SPECIMEN COLLECTED A&P Assessment and plan (1) Acute renal failure: Plan 1. Acute kidney injury: Baseline creatinine of 1.0 in June/2022. Now presents with NÉSTOR with a creatinine of 2.4 most likely multifactorial-sepsis, possible hepatorenal. Developed ATN likely. -Patient nonoliguric, will continue as needed Lasix -Currently on low-dose Levophed -No acute indication for dialysis currently but if renal function continues to get worse and unable to diurese with Lasix will require temporary dialysis -Avoid nephrotoxins and IV contrast studies -Reviewed CT abdomen. 2. Acute on chronic respiratory failure intubated Multifactorial, pneumonia, possible CHF Currently on heparin drip due to elevated troponin and question PE. 3. History of CHF, echo ordered, on IV Lasix as needed non-ST elevation TN, seen by cardiology on heparin drip Patient evaluated using audiovisual. Time spent 45 minutes. Consult Attestations Medical Necessity Statement: per medicine Coding Level of Care Code Acute Code for [facility] Diagnoses Acute renal failure N17.9
[2023-01-03 22:46] LABS: Partial Thromboplastin Time 122.8 SECONDS (23.9-36.7)
[2023-01-03 22:49] LABS: Hepatitis A Antibody IgM Non-Reactive (Nonreactive); Hepatitis B Core IgM Non-Reactive (Nonreactive)
[2023-01-03] MEDS: sodium chloride 0.9% 1,000 ML 999 ML IV (23:16)
[2023-01-03] MEDS: sodium chloride 0.9% 1,000 ML 50 ML IV (23:16)
[2023-01-03] MEDS: potassium chloride premix 100 ML 26.25 MEQ IV (23:17)
[2023-01-03 23:21] LABS: Hepatitis B Surface Antigen Non-Reactive (Nonreactive); Hepatitis C Virus Antibody Non-Reactive (Nonreactive)
--- NOTE | 2023-01-03 23:50 | PC.NURSE ---
Consulted for PICC placement on a pt who has poor peripheral veins and has vesicants ordered. Upon arrival pt is intubated and sedated and staff cannot locate a guardian, therefore, physician okayed placement and ER physician signed consent. Assessed RUE and noted brachial vein is good target vessel at 5mm in diameter and free of evidence of thrombus or stenosis. Using US guidance, MST, and sterile technique the R brachial vein was accessed x 1 stick. Lab specimen obtained and given to nurse. Device fed easily. All 3 ports aspirate and flush. Device secured and dressed. EBL 5 ml. Pt tolerated well. Device length 41 cm. At skin line is at 0 jaime. RUE is 35 cm in circumference. Chest xray ordered and performed. Report to DHARA Godinez.
[2023-01-04] VITALS (110 sets, daily range): BP systolic 85–130; BP diastolic 55–83; PULSE 86–131; RESP 15–22; TEMP 36.7–37.7; O2SAT 90–100
[2023-01-04] MEDS: heparin drip 25,000 UNIT/500 ML PREMIX 19.19 UNIT IV (00:14)
[2023-01-04] MEDS: ipratropium-albuterol 3 mL Neb INHALATION ×7 (00:21→23:34)
[2023-01-04] MEDS: piperacillin-tazobactam 3.375 GM in sodium chloride 0.9% (plus) 50 ML IV ×3 (01:41→17:07)
[2023-01-04 04:17] LABS: Basophils % 0.3 %; Eosinophils # 0.2 10^3/uL (0.0-0.8); Eosinophils % 1.3 %; Hematocrit 31.8 % (42.0-52.0); Hemoglobin 10.2 g/dL (11.7-16.6); Lymphocytes # 0.7 10^3/uL (0.8-4.8); Lymphocytes % 6.1 %; Mean Corpuscular HGB Conc 32.1 g/dL (30.0-36.0); Mean Corpuscular Hemoglobin 29.7 pg (28.0-34.0); Mean Corpuscular Volume 92.7 fl (80-94); Mean Platelet Volume 11.4 fL (7.4-10.4); Monocytes # 0.7 10^3/uL (0.2-0.9); Monocytes % 6.6 %; Neutrophils % 85.4 %; Nucleated Red Blood Cells # 0.2 /100WBC; Nucleated Red Blood Cells % 1.6 %; Platelet Count 208 10^3/cmm (130-400); Red Blood Count 3.43 10^6/uL (4.1-5.3); White Blood Count 11.1 10^3/uL (4.0-10.0)
[2023-01-04 04:29] LABS: INR 2.24 (0.8-1.2)
[2023-01-04 04:34] LABS: Ammonia 34 umol/L (16-60)
[2023-01-04 04:42] LABS: Chol HDL Ratio 6.17 mg/dL (1.0-5.00); Cholesterol 111 mg/dL (0-200); HDL Cholesterol 18 mg/dL (60-100); LDL Cholesterol Calculated 68 mg/dL (50-129); LDL HDL Ratio 3.78 RATIO (0.00-3.22); NT Pro B Type Natriuretic Pept 4066 pg/mL (0-450); Triglycerides 124 mg/dL (0-150)
[2023-01-04 04:43] LABS: Alanine Aminotransferase 80 U/L (0-41); Albumin Level 3.3 g/dL (3.5-5.2); Alkaline Phosphatase 59 U/L (40-130); Anion Gap 15.8 (5-19); Aspartate Amino Transferase 39 U/L (0-40); Calcium 8.1 mg/dL (8.5-10.5); Carbon Dioxide 27 mmol/L (22-29); Chloride 95 mmol/L (98-107); Globulin 2.3 g/dL (1.3-4.6); Glucose 109 mg/dL (65-115); Magnesium 2.5 mg/dL (1.7-2.3); Osmolality Calculated 306 mOsm/kg (285-295); Phosphorus 2.8 mg/dL (2.5-4.5); Sodium 135 mmol/L (136-145); Thyroid Stimulating Hormone 0.94 uIU/mL (0.27-4.20); Total Protein 5.6 g/dL (6.6-8.7)
[2023-01-04 04:52] LABS: Blood Urea Nitrogen 84 mg/dL (8-23); Potassium 2.8 mmol/L (3.5-5.1)
[2023-01-04] MEDS: propofol 1,000 MG/100 ML INJ 9.59 MG IV ×2 (05:03→16:42)
[2023-01-04] MEDS: potassium chloride oral liq 20 mEq/15 mL UDC 40 MEQ PO (05:14)
[2023-01-04 05:19] LABS: Estmated Average Glucose 123; Hemoglobin A1C 5.9 % (4.0-6.0)
[2023-01-04 05:43] LABS: ABG PCO2 40.3 mmHg (35-45); ABG PH Result 7.45 (7.35-7.45); Arterial Blood Gas Hematocrit 36.5 % (42-52); Base Excess ABG 3.9 mmol/L (-2.0-2.0); Blood Gas Allen Test Pos; Blood Gas Operator Identificat JB; Blood Gas Sample Site Radial, right; Blood Gas Sample Type Arterial; HCO3 ABG 28.2 mmol/L (22-26); Oxygen Device VENT; PO2 ABG 67.9 mmHg (80.0-100.0)
--- NOTE | 2023-01-04 09:00 | PC.NURSE ---
CARY kits for oral care of vent patients not available at this time. Oral swabs and mouthwash used for oral care.
--- NOTE | 2023-01-04 09:27 | PM.PN ---
Subjective Subjective: The patient continues to remain intubated and sedated. Not responding to verbal commands. Has some clenching of teeth with endotracheal stimulations. No fever or chills. Still on 2 mics of Levophed. The blood pressure is 100/60 mmHg. To be severely hypokalemic. He is on potassium supplement. Patient had echocardiogram yesterday. The LV ejection fraction was found to be slightly diminished to 50%. There was diffuse hypokinesia of the septum and the anteroseptal segments. Medications: Medication Review Details: Current Medications Acetaminophen (Acetaminophen 325 Mg Tablet) 650 mg PO Q6H PRN PRN Reason: Mild/Mod Pain Or Temp >/= 101 Albuterol/Ipratropium (Ipratropium-Albuterol 3 Ml Neb) 3 ml INHALATION Q4H.RESPIRATORY JENIFER Last Admin: 01/04/23 07:58 Dose: 3 ml Midazolam HCl 100 mg/ Sodium (Chloride) 100 mls @ 0 mls/hr IV .Q0M JENIFER; Protocol Fentanyl 1,000 mcg/ Sodium (Chloride) 100 mls @ 0 mls/hr IV .Q0M JENIFER; Protocol Last Admin: 01/03/23 16:38 Dose: 25 mcg/hr, 2.5 mls/hr Propofol (Diprivan) 1,000 mg in 100 mls @ 0 mls/hr IV .Q0M JENIFER; Protocol Last Admin: 01/04/23 05:03 Dose: 15 mcg/kg/min, 9.59 mls/hr Norepinephrine Bitartrate 4 mg (/ Dextrose) 254 mls @ 0 mls/hr IV .Q0M JENIFER; Protocol Last Admin: 01/03/23 18:08 Dose: 2 mcg/min, 7.62 mls/hr Piperacillin Sod/Tazobactam (Sod 3.375 gm/ Sodium Chloride) 50 mls @ 12.5 mls/hr IV Q8H JENIFER; Protocol Last Titration: 01/04/23 05:52 Dose: Infused Vancomycin/PEG/NADA/Lysine/Water (Vancocin) 1,500 mg in 300 mls @ 200 mls/hr IV Q24H JENIFER Last Titration: 01/03/23 19:42 Dose: Infused Heparin Sodium/Sodium Chloride (Heparin Drip) 25,000 unit in 500 mls @ 0 mls/hr IV .Q0M JENIFER; Protocol Last Admin: 01/04/23 00:14 Dose: 9 unit/kg/hr, 19.19 mls/hr Naloxone HCl (Naloxone 0.4 Mg/Ml Sdv) 0.1 mg IVP Q2M PRN PRN Reason: OPIATERV Ondansetron HCl (Ondansetron 2 Mg/Ml Sdv 2 Ml) 4 mg IVP Q8H PRN PRN Reason: vomiting, or N/V if npo Pantoprazole Sodium (Pantoprazole 40 Mg Sdv) 40 mg IVP Q24H [facility] Last Admin: 01/03/23 18:08 Dose: 40 mg 1 so. Vitals/I&O/Wt Last Vital Signs Temp 98.1 F 01/04/23 06:15 Pulse 104 H 01/04/23 07:58 Resp 16 01/04/23 08:02 BP 94/64 01/04/23 06:15 Pulse Ox 100 01/04/23 08:02 O2 Del Method Mechanical Ventilation 01/04/23 07:58 O2 Flow Rate 01/03/23 12:30 FiO2 100 01/04/23 08:02 01/03/23 01/04/23 01/04/23 22:59 06:59 14:59 Intake Total 350.427 / 810.104 3467.426 / 1771.853 Output Total 900 / 900 2000 / 2900 Balance -549.573 / -549.573 -578.574 / -1128.147 Weight last 48 hrs Weight 235 lb Physical Exam Narrative: GENERAL: Patient is intubated and sedated. No response to verbal commands. HEENT: Minimal pallor. No icterus. No lymphadenopathy. NECK: Trachea appears to be central. No masses noted. Short neck RESPIRATORY: Breath sounds are bilaterally. Intensity of the breath sounds are at the bases. BREASTS: Deferred. HEART: The first heart rate is variable. Second heart rate is normal. No S3. ABDOMEN: Abdomen is slightly distended. No organomegaly appreciated. Bowel sounds are slightly diminished. : Deferred. RECTAL: Deferred. LYMPHATIC: No lymphadenopathy noted in the neck. EXTREMITIES: Features of chronic venous stasis. Healed superficial ulcers in the anterior aspect of the left leg. 1+ edema of the right lower extremity. 1-2+ edema of the left lower extremity. MUSCULOSKELETAL: No acute joint deformities or swelling SKIN: There are no significant rashes or ecchymosis NEUROPSYCHIATRIC: Patient is intubated and sedated. Seems to be moving extremities spontaneously. Data 01/04/23 03:30 01/04/23 03:30 Other Labs: Laboratory Last Values WBC 11.1 10^3/uL (4.0-10.0) H 01/04/23 03:30 RBC 3.43 10^6/uL (4.1-5.3) L 01/04/23 03:30 Hgb 10.2 g/dL (11.7-16.6) L 01/04/23 03:30 Hct 31.8 % (42.0-52.0) L 01/04/23 03:30 MCV 92.7 fl (80-94) 01/04/23 03:30 MCH 29.7 pg (28.0-34.0) 01/04/23 03:30 MCHC 32.1 g/dL (30.0-36.0) 01/04/23 03:30 RDW 15.0 % (12.1-15.1) 01/04/23 03:30 Plt Count 208 10^3/cmm (130-400) 01/04/23 03:30 MPV 11.4 fL (7.4-10.4) H 01/04/23 03:30 Neut % (Auto) 85.4 % 01/04/23 03:30 Lymph % (Auto) 6.1 % 01/04/23 03:30 [place] % (Auto) 6.6 % 01/04/23 03:30 Eos % (Auto) 1.3 % 01/04/23 03:30 Baso % (Auto) 0.3 % 01/04/23 03:30 Neut # (Auto) 9.50 10^3/uL (1.8-7.7) H 01/04/23 03:30 Lymph # (Auto) 0.7 10^3/uL (0.8-4.8) L 01/04/23 03:30 [place] # (Auto) 0.7 10^3/uL (0.2-0.9) 01/04/23 03:30 Eos # (Auto) 0.2 10^3/uL (0.0-0.8) 01/04/23 03:30 Baso # (Auto) 0.0 10^3/uL (0.0-0.1) 01/04/23 03:30 Nucleated RBC % (auto) 1.6 % 01/04/23 03:30 Nucleated RBCs # 0.2 /100WBC 01/04/23 03:30 ESR 35 mm/hr (0-10) H 01/03/23 12:50 PT 25.60 SECONDS (12.1-14.9) H 01/04/23 03:30 INR 2.24 (0.8-1.2) H 01/04/23 03:30 APTT 64.0 SECONDS (23.9-36.7) H 01/04/23 03:30 D-Dimer 3.72 ug/mIFEU (0-0.59) H 01/03/23 12:50 Specimen Type Arterial 01/04/23 05:27 Sample Site Radial, right 01/04/23 05:27 ABG pH 7.45 (7.35-7.45) 01/04/23 05:27 ABG pCO2 40.3 mmHg (35-45) 01/04/23 05:27 ABG pO2 67.9 mmHg (80.0-100.0) L 01/04/23 05:27 ABG HCO3 28.2 mmol/L (22-26) H 01/04/23 05:27 ABG O2 Saturation 84.3 01/03/23 17:14 ABG Base Excess 3.9 mmol/L (-2.0-2.0) H 01/04/23 05:27 Jani Test Pos 01/04/23 05:27 A-a O2 Gradient 78.7 mmHg (5-10) H 01/03/23 17:14 Hematocrit 36.5 % (42-52) L 01/04/23 05:27 Hgb O2 Saturation 82.5 % (95-100) L 01/03/23 17:14 Carboxyhemoglobin 1.7 %THgb (0.4-20.1) 01/03/23 17:14 Methemoglobin 0.5 % (0.4-1.5) 01/03/23 17:14 Total Hemoglobin 10.5 g/dL (14-18) L 01/03/23 17:14 Sodium 131.0 mmol/L (131-143) 01/03/23 17:14 Potassium 3.5 mmol/L (3.5-5.0) 01/03/23 17:14 Glucose 130.0 mg/dL (70-115) H 01/03/23 17:14 Ionized Calcium 1.2 mmol/L (1.1-1.4) 01/03/23 17:14 O2 Delivery Device Vent 01/04/23 05:27 O2 Liters/Min 15.0 % 01/03/23 12:34 FiO2 100.0 % 01/04/23 05:27 Tidal Volume 0.50 01/04/23 05:27 PEEP 8.0 cmH20 01/04/23 05:27 Specimen Drawn By Matt 01/03/23 14:48 Derrick Worker [employer] ID [place] 01/04/23 05:27 Crit Value Read Back Adeod 01/03/23 14:48 Blood Gas Notified Time 1502 01/03/23 14:48 Sodium 135 mmol/L (136-145) L 01/04/23 03:30 Potassium 2.8 mmol/L (3.5-5.1) L* 01/04/23 03:30 Chloride 95 mmol/L (98-107) L 01/04/23 03:30 Carbon Dioxide 27 mmol/L (22-29) 01/04/23 03:30 Anion Gap 15.8 (5-19) 01/04/23 03:30 BUN 84 mg/dL (8-23) H* 01/04/23 03:30 Creatinine 2.1 mg/dL (0.7-1.2) H 01/04/23 03:30 GFR Calculation Not Reportable 01/04/23 03:30 Glucose 109 mg/dL (65-115) 01/04/23 03:30 Estimat Average Glucose 123 01/04/23 03:30 Hemoglobin A1c 5.9 % (4.0-6.0) 01/04/23 03:30 Calculated Osmolality 306 mOsm/kg (285-295) H 01/04/23 03:30 Lactic Acid 1.3 mmol/L (0.5-2.2) 01/03/23 14:45 Calcium 8.1 mg/dL (8.5-10.5) L 01/04/23 03:30 Phosphorus 2.8 mg/dL (2.5-4.5) 01/04/23 03:30 Magnesium 2.5 mg/dL (1.7-2.3) H 01/04/23 03:30 Ferritin 60 ng/mL (30-400) 01/03/23 19:03 Total Bilirubin 2.0 mg/dL (0.15-1.2) H 01/04/23 03:30 GGT 48 U/L (8-61) 01/03/23 19:03 AST 39 U/L (0-40) 01/04/23 03:30 ALT 80 U/L (0-41) H 01/04/23 03:30 Alkaline Phosphatase 59 U/L (40-130) 01/04/23 03:30 Ammonia 34 umol/L (16-60) 01/04/23 03:30 Troponin T Baseline 1447 ng/L (0-15) H* 01/03/23 12:50 Troponin T 120 Minute 1413 ng/L (0-15) H 01/03/23 14:49 Delta Troponin T -34 ABS# (0-10) L 01/03/23 14:49 Troponin T Hi Sens 6Hr 1583 ng/L (0-15) H 01/03/23 19:03 Troponin T Hi Sens 6Hr Delta 136 ng/L (0-12) H* 01/03/23 19:03 C-Reactive Protein 26.1 mg/L (0.0-4.9) H 01/03/23 14:45 NT-Pro-B Natriuret Pep 4066 pg/mL (0-450) H 01/04/23 03:30 Total Protein 5.6 g/dL (6.6-8.7) L 01/04/23 03:30 Albumin 3.3 g/dL (3.5-5.2) L 01/04/23 03:30 Globulin 2.3 g/dL (1.3-4.6) 01/04/23 03:30 Triglycerides 124 mg/dL (0-150) 01/04/23 03:30 Cholesterol 111 mg/dL (0-200) 01/04/23 03:30 LDL Cholesterol, Calc 68 mg/dL (50-129) 01/04/23 03:30 HDL Cholesterol 18 mg/dL (60-100) L 01/04/23 03:30 LDL/HDL Ratio 3.78 RATIO (0.00-3.22) H 01/04/23 03:30 Cholesterol/HDL Ratio 6.17 mg/dL (1.0-5.00) H 01/04/23 03:30 Lipase 131 U/L (13-60) H 01/03/23 19:03 Procalcitonin 0.72 ng/mL (0-0.5) H 01/03/23 12:50 TSH 0.94 uIU/mL (0.27-4.20) 01/04/23 03:30 Urine Color Dark yellow (Yellow) 01/03/23 13:35 Urine Appearance Clear (CLEAR) 01/03/23 13:35 Urine pH 5 (5-7) 01/03/23 13:35 Ur Specific Thompson 1.020 (1.005-1.030) 01/03/23 13:35 Urine Protein 1+ (Negative) H 01/03/23 13:35 Urine Glucose (UA) Norm (Normal) 01/03/23 13:35 Urine Ketones 1+ (Negative) H 01/03/23 13:35 Urine Blood Neg (Negative) 01/03/23 13:35 Urine Nitrate Negative (Negative) 01/03/23 13:35 Urine Bilirubin Neg (Negative) 01/03/23 13:35 Urine Urobilinogen 1 mg/dL (Negative) H 01/03/23 13:35 Ur Leukocyte Esterase Negative (Negative) 01/03/23 13:35 Urine RBC 0-4 /hpf (0-2) H 01/03/23 13:35 Urine WBC 0-4 /hpf (0-5) H 01/03/23 13:35 Ur Squamous Epith Cells 0-4 /hpf (0-5) H 01/03/23 13:35 Amorphous Sediment Not Reportable 01/03/23 13:35 Urine Bacteria None /hpf (NONE) 01/03/23 13:35 Hyaline Casts 0-4 /lpf H 01/03/23 13:35 Nasal Influ A H1 2008 PCR Not detected (NOT DETECT) 01/03/23 19:00 Urine Opiates Screen Negative ng/mL (Negative) 01/03/23 13:35 Ur Barbiturates Screen Negative ng/mL (Negative) 01/03/23 13:35 Ur Phencyclidine Scrn Negative ng/mL (Negative) 01/03/23 13:35 Ur Amphetamines Screen Negative ng/mL (Negative) 01/03/23 13:35 U Benzodiazepines Scrn Negative ng/mL (Negative) 01/03/23 13:35 Urine Cocaine Screen Negative ng/mL (Negative) 01/03/23 13:35 U Marijuana (THC) Screen Negative ng/mL (Negative) 01/03/23 13:35 Ethyl Alcohol < 10 mg/dL (0-10) 01/03/23 19:03 Adenovirus (PCR) Not detected (NOT DETECT) 01/03/23 19:00 C. pneumoniae DNA (PCR) Not detected (NOT DETECT) 01/03/23 19:00 Coronavirus 229E (PCR) Not detected (NOT DETECT) 01/03/23 19:00 Hepatitis A IgM Ab Non-reactive (Nonreactive) 01/03/23 19:03 Hep Bs Antigen Non-reactive (Nonreactive) 01/03/23 19:03 Hep B Core IgM Ab Non-reactive (Nonreactive) 01/03/23 19:03 Hepatitis C Antibody Non-reactive (Nonreactive) 01/03/23 19:03 HIV 1&2 Ab & HIV 1 Ag Non-reactive (Non-Reactiv) 01/03/23 19:03 HIV 1&2 Antibody Non-reactive (Non-Reactiv) 01/03/23 19:03 Human Metapneumovir PCR Not detected (NOT DETECT) 01/03/23 19:00 Influenza A (H1) PCR Not detected (NOT DETECT) 01/03/23 19:00 Influenza A (H3) PCR Not detected (NOT DETECT) 01/03/23 19:00 Influenza Type A (PCR) Not detected (NOT DETECT) 01/03/23 19:00 Influenza Type B (PCR) Not detected (NOT DETECT) 01/03/23 19:00 M. pneumoniae (PCR) Not detected (NOT DETECT) 01/03/23 19:00 Parainfluenza 1 (PCR) Not detected (NOT DETECT) 01/03/23 19:00 Parainfluenza 2 (PCR) Not detected (NOT DETECT) 01/03/23 19:00 Parainfluenza 3 (PCR) Not detected (NOT DETECT) 01/03/23 19:00 Parainfluenza 4 (PCR) Not detected (NOT DETECT) 01/03/23 19:00 RSV Type A (PCR) Not detected (NOT DETECT) 01/03/23 19:00 RSV Type B (PCR) Not detected (NOT DETECT) 01/03/23 19:00 Entero/Rhino (PCR) Not detected (NOT DETECT) 01/03/23 19:00 SARS-CoV-2 (PCR) Not detected (NOT DETECT) 01/03/23 19:00 Micro: Microbiology 01/03/23 12:50 Blood Culture - Preliminary Blood SPECIMEN COLLECTED 01/03/23 12:59 Blood Culture - Preliminary Blood SPECIMEN COLLECTED Other data: 01/03/2023 Normal LV size with diminished ejection fraction of around 50%.? ?Diffuse hypokinesis of the septum and the anteroseptal segments. ?Mild biatrial enlargement ?Thickened mitral valve. Moderate mitral annular calcification. ?Moderate mitral valve regurgitation. ?Moderate aortic valve calcification.? Moderate aortic valve ?stenosis with a valve area 1.1 cm squared. ?[id number] tricuspid valve regurgitation.? Estimated PA ?pressure of 40 mmHg. ?Dilated IVC with decreased respiratory variation. ?There is no pericardial effusion. ?There are no intracardiac masses. ?Compared to the study from 06/27/2021, there wall motion of ?normality and the diminished LV ejection fraction are new A&P Assessment and plan (1) Acute respiratory failure with hypoxia: This could be multifactorial.. Possibility of pneumonia, CHF, COPD exacerbation, etc. are contributing factors. Currently he is intubated and sedated. Still on 100% of oxygen. (2) Elevated troponin: Elevated troponin T, LV dysfunction and EKG changes are consistent with non-ST elevation myocardial infarction. Patient may be continued on the IV heparin and follow the protocol. I also may start him on Plavix 300 mg p.o. now followed by 75 mg p.o. daily. (3) Hypokalemia: We will supplement potassium. (4) Hypotension: This also could be multifactorial. Possible non-ST elevation myocardial infarction, sepsis, multiorgan system failure, etc. are contributing factors. Currently he is on a low-dose of Levophed. This may be continued. This may be titrated to maintain the mean arterial pressure around 70 (5) CHF (congestive heart failure): Patient seems to have features of acute on chronic diastolic heart failure. May be carefully treated with IV diuretics. Closely monitor electrolytes. Non-ST elevation myocardial infarction might have caused the heart failure. (6) Acute renal failure: The BUN is improving. Severe hypokalemia as mentioned above. We will closely monitor electrolytes. Continue potassium supplements (7) Liver cirrhosis: Patient has a remote history of alcohol abuse. Possibility of a prolonged episode of hypotension/sepsis causing the transaminitis is a consideration. (8) Elevated INR: As mentioned above. (9) Transaminitis: As mentioned above. (10) Encephalopathy: Possibly metabolic in nature. He had a CT of the head which was unremarkable. Continue on the current measures. Plan His other problems are 1. possible sepsis-patient is currently on empiric antibiotics. 2. Possible pneumonia. 3. PE cannot be excluded but my clinical suspicion may be low. 4. Anemia, could be multifactorial, stable Patient may require a cardiac catheterization to further evaluate the coronary status. However we will wait till his kidney function gets stabilized and also some improvement in his mentation and oxygenation. Continue on the current measures. Attestations Medical Necessity Statement*: Patient requires continued hospital stay for close monitoring and further management. Coding Level of Care Code 56067 Diagnoses Acute respiratory failure with hypoxia J96.01 Elevated troponin R77.8 Hypokalemia E87.6 Hypotension I95.9 CHF (congestive heart failure) I50.9 Acute renal failure N17.9 Liver cirrhosis K74.60 Elevated INR R79.1 Transaminitis R74.01 Encephalopathy G93.40
--- NOTE | 2023-01-04 09:30 | PC.NURSE ---
Heparin gtt: No change in rate. PTT within therapeutic range.
[2023-01-04 09:43] LABS: Partial Thromboplastin Time 62.8 SECONDS (23.9-36.7)
[2023-01-04] MEDS: clopidogrel 300 mg Tablet PO (09:58)
[2023-01-04] MEDS: potassium chloride premix 200 ML 50 MEQ IV ×2 (09:58→16:52)
--- NOTE | 2023-01-04 12:00 | PC.NURSE ---
Rajiv kits now available. These will now be used for oral care.
--- NOTE | 2023-01-04 12:31 | P.PN_ITS ---
Subjective Subjective: - Patient was examined this morning -Currently is on Levophed -100% FiO2 -MAP 65 -Intubated, on minimal sedation he can follow commands such as squeezing my fingers, closing his eyes -Urine output 2900 -Pupils equal round reactive to light, follows commands, withdraws from pain -Abdomen soft, slightly distended, decreased bowel sounds in all quadrants Vitals/I&O/Wt Last Vital Signs Temp 98.1 F 01/04/23 06:15 Pulse 112 H 01/04/23 11:20 Resp 16 01/04/23 11:20 BP 94/64 01/04/23 06:15 Pulse Ox 97 01/04/23 11:20 O2 Del Method Mechanical Ventilation 01/04/23 11:20 O2 Flow Rate 15 01/03/23 12:30 FiO2 90 01/04/23 11:20 01/03/23 01/04/23 01/04/23 22:59 06:59 14:59 Intake Total 350.427 / 393.575 0656.426 / 1771.853 895.768 / 895.768 Output Total 900 / 900 2000 / 2900 Balance -549.573 / -549.573 -578.574 / -1128.147 895.768 / 895.768 Weight last 48 hrs Weight 106.594 kg Physical Exam Const: COMMON NORMALS: no acute distress OTHER: - Intubated -On minimal sedation -Can follow commands -Squeeze my fingers, open his eyes -Pupils equal round reactive to light Resp: COMMON NORMALS: normal respiratory effort, No retractions and No use of accessory muscles AUSCULTATION: crackles and wheezes Cardio: COMMON NORMALS: regular rate, regular rhythm, S1 normal heart sound present and S2 normal heart sound present RATE: regular rate RHYTHM: regular rhythm HEART SOUNDS: S1 normal heart sound present and S2 normal heart sound present GI: COMMON NORMALS: Normal to inspection, nondistended, normoactive bowel sounds present and non-tender Extremity: NARRATIVE EXTREMITY EXAM: 1+ pitting edema about extremity Sepsis: Is patient septic: Yes Focused sepsis exam performed: Yes Focused sepsis exam: DP PT pulses diminished bilaterally -No mottling of the skin Does have pale bilateral extremities Capillary fill greater than 3 seconds Tachycardic, Date exam was performed: 07/15/23 Time exam was performed: 08:30 Data 01/04/23 03:30 01/04/23 03:30 Micro: Microbiology 01/03/23 12:50 Blood Culture - Preliminary Blood SPECIMEN COLLECTED 01/03/23 12:59 Blood Culture - Preliminary Blood SPECIMEN COLLECTED A&P Assessment and plan (1) Acute respiratory failure with hypoxia: (2) Acute exacerbation of congestive heart failure: (3) Systolic CHF, acute: (4) Encephalopathy: (5) Acute non-ST elevation myocardial infarction (NSTEMI): (6) Atrial fibrillation: (7) Cholelithiases: (8) Moderate aortic stenosis: (9) Pneumonia: (10) Acute renal failure: (11) Sepsis: (12) Liver cirrhosis: (13) Elevated INR: (14) Transaminitis: (15) Hyperbilirubinemia: (16) Uremia: (17) Acute encephalopathy: (18) Shock: (19) Septic shock: Plan Acute hypoxic respiratory failure -Likely secondary to pneumonia -Likely secondary to systolic CHF exacerbation -There is a possibility of pulmonary embolism? Given elevated troponins, elevated D-dimer, he he is on Eliquis, cannot perform CT angiogram given elevated creatinine, venous ultrasound negative for DVT, placed on heparin drip -Currently intubated, sedated on mechanical ventilation -Minimize FiO2, minimize tidal volume -Daily spontaneous breathing trials -Fentanyl and Versed and propofol for sedation -Continue vancomycin, Zosyn -Bumex 1 mg IV push every 12 hours -Monitor urine output Shock -Likely multifactorial -Septic, possible cardiogenic, possible outflow obstruction -Currently on Levophed -Maintain MAP in the 65 Acute encephalopathy, currently on minimal sedation does follow commands -Reported on admission -Multifactorial from hypoxia, pneumonia, uremia, sepsis, -Monitor Systolic CHF exacerbation -With elevated troponins, elevated BNP -Monitor BMP monitor urine output, diuresis based upon clinical progress -Has received Lasix in the emergency room, currently Bumex 1 mg every 12 hours -Chest x-ray and CT showing pulm vascular congestion -We will monitor urine output monitor creatinine, cardiology consulted Pneumonia -Sputum culture, blood cultures, respiratory viral panel -Continue vancomycin, Zosyn Uremia -BUN 84 -Nephrology consulted Acute renal failure -Likely secondary to sepsis -Monitor urine output monitor creatinine -Nephrology consulted Sepsis -Creatinine 2.1, transaminitis, hyperbilirubinemia, NSTEMI, respiratory failure, hypoxia, -Source of infection is pneumonia -And or cholelithiasis Non-ST elevation GA -Type I versus type II NSTEMI -Has complaints of chest pain in the past -Had a stress test in 2019 -EKG does show ST depressions inferior lateral leads -Currently on heparin drip -Cardiac echo ordered Normal LV size with diminished ejection fraction of around 50%.? ?Diffuse hypokinesis of the septum and the anteroseptal segments. ?Mild biatrial enlargement ?Thickened mitral valve. Moderate mitral annular calcification. ?Moderate mitral valve regurgitation. ?Moderate aortic valve calcification.? Moderate aortic valve ?stenosis with a valve area 1.1 cm squared. ?Kwaq-ff-zorphdiz tricuspid valve regurgitation.? Estimated PA ?pressure of 40 mmHg. ?Dilated IVC with decreased respiratory variation. ?There is no pericardial effusion. ?There are no intracardiac masses. ?Compared to the study from 06/27/2021, there wall motion of ?normality and the diminished LV ejection fraction are new -Cardiology consulted Atrial fibrillation -Monitor for A-fib -We will consider amiodarone -Heparin drip Cholelithiasis -CT scan shows 2 stones in cystic duct versus vascular calcifications -Total bilirubin 2.7 and AST is 6 4, ALT 118, alk phos 71 -Ordered right upper quadrant ultrasound, lipase, GGT -Follow LFTs,, alk phos, bilirubin, -If it continues to elevate, might require MRCP or potential transfer for consideration of ERCP -On Zosyn Hyperbilirubinemia as above Transaminitis as above, hep C negative, HIV within limits, alcohol levels within normal limits Liver cirrhosis, with elevated INR, elevated LFTs, etiology unclear, work-up as above Hypoalbuminemia Hypokalemia we will replace potassium IV Protonix for GI prophylaxis Heparin for DVT prophylaxis Plan for today, diuresed with Bumex, continue antibiotic therapy, continue intubation, mechanical ventilation, minimize FiO2, continue antibiotic treatments, cardiac echo, abdominal ultrasound, neurochecks, cardiology consultation, nephrology consultation, spoke to nursing staff, Attestations Medical Necessity Statement*: Patient requires hospitalization for acute hypoxic respiratory failure, shock, NSTEMI, sepsis, pneumonia, cholelithiasis, NSTEMI, fluid overload, CHF exacerbation Coding Level of Care Code Critical Care >/= 30 minutes Critical care time (in minutes): 60 The high probability of a clinically significant, sudden or life threatening deterioration, as referenced in this documentation, required my full and direct attention, intervention and personal management. The critical care time shown is in addition to time spent performing any reported separately billable procedures and includes the following: [x] Data and vital sign review and interpretation [x ] Patient assessment, examination and intervention [x] Medication orders and management [x] Patient/Family updates as able [x] Care Coordination and Documentation. Diagnoses Acute respiratory failure with hypoxia J96.01 Acute exacerbation of congestive heart failure I50.9 Systolic CHF, acute I50.21 Encephalopathy G93.40 Acute non-ST elevation myocardial infarction (NSTEMI) I21.4 Atrial fibrillation I48.91 Cholelithiases K80.20 Moderate aortic stenosis I35.0 Pneumonia J18.9 Acute renal failure N17.9 Sepsis A41.9 Liver cirrhosis K74.60 Elevated INR R79.1 Transaminitis R74.01 Hyperbilirubinemia E80.6 Uremia N19 Acute encephalopathy G93.40 Shock R57.9 Septic shock A41.9; R65.21
[2023-01-04] MEDS: bumetanide 0.25 mg/mL SDV 4 mL 1 MG IVP (13:13)
[2023-01-04 16:20] LABS: Anion Gap 14.8 (5-19); Blood Urea Nitrogen 62 mg/dL (8-23); Carbon Dioxide 27 mmol/L (22-29); Chloride 95 mmol/L (98-107); Glucose 182 mg/dL (65-115); Osmolality Calculated 300 mOsm/kg (285-295); Sodium 134 mmol/L (136-145)
[2023-01-04 16:35] LABS: Potassium 2.8 mmol/L (3.5-5.1)
[2023-01-04] MEDS: vancomycin 1,500 MG/300 ML PIGGYBACK 200 MG IV (16:42)
[2023-01-04] MEDS: pantoprazole 40 mg SDV IVP (16:42)
[2023-01-04] MEDS: heparin drip 25,000 UNIT/500 ML PREMIX 21.32 UNIT IV (16:46)
--- NOTE | 2023-01-04 18:28 | USR_ITS ---
PROCEDURE INFORMATION: Exam: US Abdomen, Limited; Right Upper Quadrant Exam date and time: 01/04/2023 12:31 PM Age: 77 years old Clinical indication: Other: Abnormal labs; Additional info: Liver and gallbladder TECHNIQUE: Imaging protocol: Real time ultrasound of the abdomen with image documentation. Limited exam focused on the right upper quadrant. COMPARISON: 1[place] [id number] 01/03/2023 5:31 PM 2. [place] liver [id number] 08/20/2021 9:32 AM FINDINGS: Pleural spaces: Right pleural effusion. Liver: Normal. No masses. Gallbladder: Dependent shadowing echogenic gallstones. Localized gallbladder wall thickening measures up to 6 mm. Biliary ducts: Normal. No stones. No dilation. Pancreas: Visualized pancreas is unremarkable. Right kidney: Normal. No mass. No hydronephrosis. Intraperitoneal space: Mild perihepatic ascites. US/US abdomen limited [id number] IMPRESSION: 1. Cholelithiasis with mild localized gallbladder wall thickening raising possibility of cholecystitis. 2. Mild perihepatic ascites. 3. Right pleural effusion.
--- NOTE | 2023-01-04 19:41 | PC.NURSE ---
Pt remains sedated and intubated. Pt now spontaneously opens his eyes and indicated his understanding with head nods and gestures. Fentanyl, Propofol, Heparin and Levophed remains infusing. Levophed increased to 3mcg/min this afternoon. HIs potassium level critically low this afternoon, KCL 40mEq IV ordered and started. Heparin adjusted per PTT. He remains in sinus rhythm on monitor. HE remains afebrile. He received Bumex IVP today His urine output was 2700ml this shift. No BM or flatulence notd today. A bath, shampooing and linen change prvoed this afternoon.
--- NOTE | 2023-01-04 20:00 | PM.PN ---
Subjective Subjective: UOP improved Medications: Reviewed: Yes Vitals/I&O/Wt Last Vital Signs Temp 98.3 F 01/04/23 08:00 Pulse 111 H 01/04/23 19:53 Resp 16 01/04/23 19:55 BP 107/66 01/04/23 19:30 Pulse Ox 95 01/04/23 19:55 O2 Del Method Mechanical Ventilation 01/04/23 19:53 O2 Flow Rate 15 01/03/23 12:30 FiO2 80 01/04/23 19:55 01/04/23 01/04/23 01/04/23 06:59 14:59 22:59 Intake Total 1421.426 / 0097.828 5516.768 / 1145.768 530.492 / 1676.260 Output Total 1999 / 2899 2700 / 2700 Balance -578.574 / -1222.433 6544.768 / 1145.768 -2169.508 / -1023.740 Weight last 48 hrs Weight 106.594 kg Physical Exam Narrative: intubated , sedated + edema Data 01/04/23 03:30 01/04/23 15:42 Micro: Microbiology 01/03/23 15:40 Gram Stain - Final Sputum - Endotracheal Tube Aspirate Sputum Culture - Preliminary 01/03/23 12:50 Blood Culture - Preliminary Blood NEGATIVE TO DATE 01/03/23 12:59 Blood Culture - Preliminary Blood NEGATIVE TO DATE 01/03/23 19:00 MRSA Culture - Final Nose A&P Assessment and plan (1) Acute renal failure: Plan 1. Acute kidney injury: Baseline creatinine of 1.0 in June/2022. Now presents with NÉSTOR with a creatinine of 2.4 most likely multifactorial-sepsis, possible hepatorenal. Developed ATN likely. -Patient nonoliguric, will continue as needed Lasix -off Levophed - Cr improving , UOP improving -Avoid nephrotoxins and IV contrast studies -Reviewed CT abdomen. 2.Acute on chronic respiratory failure: intubated, Multifactorial, pneumonia, possible CHF Currently on heparin drip due to elevated troponin and question PE. 3.Hypokalemia : replete History of CHF, echo ordered, on IV Lasix as needed non-ST elevation [place], seen by cardiology on heparin drip Patient evaluated using audiovisual. Time spent 45 minutes. Attestations Medical Necessity Statement*: per medicine Coding Level of Care Code Acute Code for [facility] Fwd Diagnoses Acute renal failure N17.9
[2023-01-04] MEDS: potassium chloride premix 200 ML 25 MEQ IV (21:31)
[2023-01-04 23:11] LABS: Partial Thromboplastin Time 50.7 SECONDS (23.9-36.7)
[2023-01-05] VITALS (98 sets, daily range): BP systolic 78–146; BP diastolic 54–95; PULSE 81–150; RESP 0–25; TEMP 36.7–36.8; O2SAT 90–99
[2023-01-05] MEDS: bumetanide 0.25 mg/mL SDV 4 mL 1 MG IVP ×3 (01:16→19:37)
[2023-01-05] MEDS: piperacillin-tazobactam 3.375 GM in sodium chloride 0.9% (plus) 50 ML IV ×3 (01:16→17:56)
[2023-01-05] MEDS: propofol 1,000 MG/100 ML INJ 9.59 MG IV ×2 (01:17→12:41)
[2023-01-05 04:36] LABS: Basophils % 0.1 %; Eosinophils # 0.2 10^3/uL (0.0-0.8); Eosinophils % 1.3 %; Hematocrit 32.6 % (42.0-52.0); Hemoglobin 10.3 g/dL (11.7-16.6); Lymphocytes # 0.8 10^3/uL (0.8-4.8); Lymphocytes % 5.5 %; Mean Corpuscular HGB Conc 31.6 g/dL (30.0-36.0); Mean Corpuscular Hemoglobin 29.1 pg (28.0-34.0); Mean Corpuscular Volume 92.1 fl (80-94); Mean Platelet Volume 11.5 fL (7.4-10.4); Monocytes # 0.8 10^3/uL (0.2-0.9); Monocytes % 5.7 %; Neutrophils # 11.92 10^3/uL (1.8-7.7); Neutrophils % 86.9 %; Nucleated Red Blood Cells # 0.1 /100WBC; Nucleated Red Blood Cells % 0.4 %; Platelet Count 183 10^3/cmm (130-400); Red Blood Count 3.54 10^6/uL (4.1-5.3); Red Cell Distribution Width 15.1 % (12.1-15.1); White Blood Count 13.7 10^3/uL (4.0-10.0)
[2023-01-05 04:51] LABS: INR 1.74 (0.8-1.2)
[2023-01-05 04:54] LABS: Ammonia 30 umol/L (16-60); Lactate (Lactic Acid level) 1.2 mmol/L (0.5-2.2)
[2023-01-05 05:04] LABS: Partial Thromboplastin Time 53.3 SECONDS (23.9-36.7)
[2023-01-05 05:43] LABS: Alanine Aminotransferase 72 U/L (0-41); Albumin Level 3.2 g/dL (3.5-5.2); Alkaline Phosphatase 66 U/L (40-130); Anion Gap 15.7 (5-19); Aspartate Amino Transferase 35 U/L (0-40); Blood Urea Nitrogen 45 mg/dL (8-23); Calcium 8.3 mg/dL (8.5-10.5); Carbon Dioxide 29 mmol/L (22-29); Chloride 99 mmol/L (98-107); Globulin 2.7 g/dL (1.3-4.6); Glucose 123 mg/dL (65-115); Magnesium 2.2 mg/dL (1.7-2.3); Osmolality Calculated 305 mOsm/kg (285-295); Phosphorus 2.2 mg/dL (2.5-4.5); Sodium 141 mmol/L (136-145); Total Bilirubin 1.6 mg/dL (0.15-1.2); Total Protein 5.9 g/dL (6.6-8.7)
[2023-01-05 06:02] LABS: ABG PCO2 42.3 mmHg (35-45); ABG PH Result 7.49 (7.35-7.45); Arterial Blood Gas Hematocrit 35.7 % (42-52); Blood Gas Allen Test Pos; Blood Gas Operator Identificat JB; Blood Gas Sample Site Radial, right; Blood Gas Sample Type Arterial; HCO3 ABG 32.2 mmol/L (22-26); Oxygen Device VENT; PO2 ABG 78.1 mmHg (80.0-100.0)
[2023-01-05 06:08] LABS: Potassium 2.7 mmol/L (3.5-5.1)
[2023-01-05] MEDS: potassium chloride oral liq 20 mEq/15 mL UDC 80 MEQ PO (06:34)
--- NOTE | 2023-01-05 07:00 | XRR_ITS ---
PROCEDURE INFORMATION: Exam: XR Chest Exam date and time: 01/05/2023 5:40 AM Age: 77 years old Clinical indication: Patient HX: F/u resp failure. Intubated. ; Additional info: SOB TECHNIQUE: Imaging protocol: Radiologic exam of the chest. Views: 1 view. COMPARISON: CR (CHEST, ) 01/03/2023 10:39 PM FINDINGS: Tubes, catheters and devices: ET tube in place in expected position within the trachea. NG or OG tube extends into the stomach and below the lower edge of the x-ray. Right-sided PICC line in place extending into the right atrium. Monitor leads project over the chest. Lungs: Hazy bilateral pulmonary opacity and bibasilar consolidation. Pleural spaces: Bilateral pleural effusions. Heart/Mediastinum: Heart size is enlarged. Bones/joints: No acute osseous abnormality. XR/XR chest 1V portable [id number] IMPRESSION: Cardiomegaly, pulmonary edema versus pneumonia and bilateral pleural effusions.
[2023-01-05] MEDS: ipratropium-albuterol 3 mL Neb INHALATION ×5 (08:02→23:07)
[2023-01-05 08:10] LABS: NT Pro B Type Natriuretic Pept 2287 pg/mL (0-450)
[2023-01-05] MEDS: potassium phosphate (mEq K) 40 MEQ in sodium chloride 0.9% (100 ml) 100 ML 27.25 MEQ IV (09:11)
[2023-01-05] MEDS: clopidogrel 75 mg Tablet PO (09:11)
[2023-01-05] MEDS: enoxaparin 100 mg/mL Syringe SUBCUT ×2 (09:12→20:37)
--- NOTE | 2023-01-05 09:39 | P.PN_ITS ---
Subjective Subjective: Polyuric Medications: Reviewed: Yes Vitals/I&O/Wt Last Vital Signs Temp 98.2 F 01/05/23 02:51 Pulse 115 H 01/05/23 08:02 Resp 18 01/05/23 08:05 BP 116/72 01/05/23 07:30 Pulse Ox 97 01/05/23 08:05 O2 Del Method Mechanical Ventilation 01/05/23 08:02 O2 Flow Rate 15 01/03/23 12:30 FiO2 80 01/05/23 08:05 01/04/23 01/05/23 01/05/23 22:59 06:59 14:59 Intake Total 892.189 / 2037.957 636.503 / 2674.460 100.615 / 100.615 Output Total 3575 / 3575 1650 / 5225 Balance -2682.811 / -1537.043 -1013.497 / -2550.540 100.615 / 100.615 Weight last 48 hrs Weight 106.594 kg Physical Exam Narrative: intubated , sedated + edema Urinary Catheter Management: Haas: Cath Placed During This Visit: yes Reason for Continuing Indwelling Catheter: Accurate Measurement of Urinary Output in Critically Ill Patients Urinary Catheter Date of Insertion: 01/03/23 Urinary Catheter Time of Insertion: 18:00 Haas Latex: Cath Placed During This Visit: no Reason for Continuing Indwelling Catheter: Accurate Measurement of Urinary Output in Critically Ill Patients Data 01/05/23 03:51 01/05/23 03:51 Micro: Microbiology 01/03/23 12:59 Blood Culture - Preliminary Blood 01/03/23 15:40 Gram Stain - Final Sputum - Endotracheal Tube Aspirate Sputum Culture - Preliminary 01/03/23 12:50 Blood Culture - Preliminary Blood NEGATIVE TO DATE 01/03/23 19:00 MRSA Culture - Final Nose A&P Assessment and plan (1) Acute renal failure: Plan 1. Acute kidney injury: Baseline creatinine of 1.0 in June/2022. Now presents with NÉSTOR with a creatinine of 2.4 most likely multifactorial-sepsis, possible hepatorenal. Developed ATN likely. -Patient nonoliguric, will continue as needed Lasix -off Levophed - Cr improving , UOP improving -Avoid nephrotoxins and IV contrast studies -Reviewed CT abdomen. 2.Acute on chronic respiratory failure: intubated, Multifactorial, pneumonia, possible CHF Currently on heparin drip due to elevated troponin and question PE. 3.Hypokalemia : replete History of CHF, echo ordered, on IV Lasix as needed non-ST elevation [place], seen by cardiology on heparin drip Patient evaluated using audiovisual. Time spent 45 minutes. Attestations Medical Necessity Statement*: per medicine Coding Level of Care Code Acute Code for [facility] Fwd Diagnoses Acute renal failure N17.9
[2023-01-05] MEDS: digoxin 250 mcg/ml INJ 2 mL IVP ×2 (10:46→18:38)
--- NOTE | 2023-01-05 13:01 | PC.NURSE ---
BMP: Lab here to get BMP that was due at noon. Potassium phosphate still infusing. Arranged for lab to come back at 1430, infusion should be completed for an hour at that time.
--- NOTE | 2023-01-05 13:49 | P.PN_ITS ---
Subjective Subjective: - Patient was examined multiple times throughout the day -Early this morning he is examined, intubated, sedated on mechanical ventilation -Afebrile overnight -On 2 of Levophed -Urine output 6 L -Afebrile overnight -On 80% FiO2 -Patient have A-fib with RVR, started on amiodarone Vitals/I&O/Wt Last Vital Signs Temp 98.2 F 01/05/23 02:51 Pulse 103 H 01/05/23 11:30 Resp 16 01/05/23 11:29 BP 100/61 01/05/23 11:30 Pulse Ox 96 01/05/23 11:29 O2 Del Method Mechanical Ventilation 01/05/23 11:30 O2 Flow Rate 15 01/03/23 12:30 FiO2 75 01/05/23 11:29 01/04/23 01/05/23 01/05/23 22:59 06:59 14:59 Intake Total 892.189 / 2037.957 636.503 / 2674.460 327.198 / 327.198 Output Total 3575 / 3575 1650 / 5225 850 / 850 Balance -2682.811 / -1537.043 -1013.497 / -2550.540 -522.802 / -522.802 Physical Exam Const: COMMON NORMALS: no acute distress OTHER: Intubated, sedated on mechanical ventilation Resp: COMMON NORMALS: normal respiratory effort, No retractions and No use of accessory muscles AUSCULTATION: crackles Cardio: COMMON NORMALS: regular rate, regular rhythm, S1 normal heart sound present and S2 normal heart sound present RATE: regular rate RHYTHM: regular rhythm HEART SOUNDS: S1 normal heart sound present and S2 normal heart sound present GI: COMMON NORMALS: Normal to inspection, nondistended, normoactive bowel sounds present and non-tender Extremity: COMMON NORMALS: no pedal edema Psych: COMMON NORMALS: mental status grossly normal Urinary Catheter Management: Haas: Cath Placed During This Visit: yes Reason for Continuing Indwelling Catheter: Accurate Measurement of Urinary Output in Critically Ill Patients Urinary Catheter Date of Insertion: 01/03/23 Urinary Catheter Time of Insertion: 18:00 Haas Latex: Cath Placed During This Visit: no Reason for Continuing Indwelling Catheter: Accurate Measurement of Urinary Output in Critically Ill Patients Data 01/05/23 03:51 01/05/23 03:51 Micro: Microbiology 01/03/23 12:59 Blood Culture - Preliminary Blood 01/03/23 15:40 Gram Stain - Final Sputum - Endotracheal Tube Aspirate Sputum Culture - Preliminary 01/03/23 12:50 Blood Culture - Preliminary Blood NEGATIVE TO DATE 01/03/23 19:00 MRSA Culture - Final Nose A&P Assessment and plan (1) Acute respiratory failure with hypoxia: (2) Acute exacerbation of congestive heart failure: (3) Systolic CHF, acute: (4) Encephalopathy: (5) Acute non-ST elevation myocardial infarction (NSTEMI): (6) Atrial fibrillation: (7) Cholelithiases: (8) Moderate aortic stenosis: (9) Pneumonia: (10) Acute renal failure: (11) Sepsis: (12) Liver cirrhosis: (13) Elevated INR: (14) Transaminitis: (15) Hyperbilirubinemia: (16) Uremia: (17) Acute encephalopathy: (18) Shock: (19) Septic shock: (20) Atrial fibrillation with RVR: Plan Acute hypoxic respiratory failure -Likely secondary to pneumonia -Likely secondary to systolic CHF exacerbation -There is a possibility of pulmonary embolism? Given elevated troponins, elevated D-dimer, he he is on Eliquis, cannot perform CT angiogram given elevated creatinine, venous ultrasound negative for DVT, placed therapeutic Lovenox -Currently intubated, sedated on mechanical ventilation -Minimize FiO2, minimize tidal volume -Daily spontaneous breathing trials -Fentanyl and Versed and propofol for sedation -Continue vancomycin, Zosyn -Bumex 1 mg IV push every 12 hours -Monitor urine output A-fib with RVR -On therapeutic Lovenox -Received amiodarone bolus started with amiodarone -Receiving digoxin loading dose Shock -Likely multifactorial -Septic, possible cardiogenic, possible outflow obstruction -Currently on Levophed -Maintain MAP in the 65 Acute encephalopathy, -Reported on admission -Multifactorial from hypoxia, pneumonia, uremia, sepsis, -Monitor Systolic CHF exacerbation -With elevated troponins, elevated BNP -Monitor BMP monitor urine output, diuresis based upon clinical progress -Has received Lasix in the emergency room, currently Bumex 1 mg every 12 hours, -6 L, on 80% FiO2, creatinine 1.4 -Chest x-ray and CT showing pulm vascular congestion -We will monitor urine output monitor creatinine, cardiology consulted Pneumonia -Sputum culture, blood cultures, respiratory viral panel -Continue vancomycin, Zosyn Uremia -BUN 84 -Nephrology consulted Acute renal failure -Likely secondary to sepsis -Monitor urine output monitor creatinine -Nephrology consulted Sepsis -Creatinine 1.4, transaminitis, hyperbilirubinemia, NSTEMI, respiratory failure, hypoxia, -Source of infection is pneumonia -And or cholelithiasis Non-ST elevation MD -Type I versus type II NSTEMI -Has complaints of chest pain in the past -Had a stress test in 2019 -EKG does show ST depressions inferior lateral leads -Currently on heparin drip -Cardiac echo ordered Normal LV size with diminished ejection fraction of around 50%.? ?Diffuse hypokinesis of the septum and the anteroseptal segments. ?Mild biatrial enlargement ?Thickened mitral valve. Moderate mitral annular calcification. ?Moderate mitral valve regurgitation. ?Moderate aortic valve calcification.? Moderate aortic valve ?stenosis with a valve area 1.1 cm squared. ?[id number] tricuspid valve regurgitation.? Estimated PA ?pressure of 40 mmHg. ?Dilated IVC with decreased respiratory variation. ?There is no pericardial effusion. ?There are no intracardiac masses. ?Compared to the study from 06/27/2021, there wall motion of ?normality and the diminished LV ejection fraction are new -Cardiology consulted Atrial fibrillation -Monitor for A-fib -We will consider amiodarone -Heparin drip Cholelithiasis -CT scan shows 2 stones in cystic duct versus vascular calcifications -Right upper quadrant ultrasound -1. ? Cholelithiasis with mild localized gallbladder wall thickening raising possibility of cholecystitis. 2. ? Mild perihepatic ascites. 3. ? Right pleural effusion. -Follow LFTs,, alk phos, bilirubin, -If it continues to elevate, might require MRCP or potential transfer for consideration of ERCP -On Zosyn Hyperbilirubinemia as above Transaminitis as above, hep C negative, HIV within limits, alcohol levels within normal limits Liver cirrhosis, with elevated INR, elevated LFTs, etiology unclear, work-up as above Hypoalbuminemia Hypokalemia we will replace potassium IV Protonix for GI prophylaxis Heparin for DVT prophylaxis Plan for today, continue intubation, sedation, minimize tidal volume, wean down FiO2, continue to diurese, does have hypokalemia will replace IV, scheduled potassium, continue treatment, wean off Levophed now with A-fib with RVR, on amiodarone drip, given digoxin bolus, still on 2 of Levophed Attestations Medical Necessity Statement*: Patient requires hospitalization, for acute hypoxic respiratory failure, fluid overload, systolic CHF exacerbation, sepsis, septic shock, A-fib with RVR, pneumonia, NÉSTOR, hypokalemia Coding Level of Care Code Critical Care >/= 30 minutes Critical care time (in minutes): 60 The high probability of a clinically significant, sudden or life threatening deterioration, as referenced in this documentation, required my full and direct attention, intervention and personal management. The critical care time shown is in addition to time spent performing any reported separately billable procedures and includes the following: [x] Data and vital sign review and interpretation [x ] Patient assessment, examination and intervention [x] Medication orders and management [x] Patient/Family updates as able [x] Care Coordination and Documentation. Diagnoses Acute respiratory failure with hypoxia J96.01 Acute exacerbation of congestive heart failure I50.9 Systolic CHF, acute I50.21 Encephalopathy G93.40 Acute non-ST elevation myocardial infarction (NSTEMI) I21.4 Atrial fibrillation I48.91 Cholelithiases K80.20 Moderate aortic stenosis I35.0 Pneumonia J18.9 Acute renal failure N17.9 Sepsis A41.9 Liver cirrhosis K74.60 Elevated INR R79.1 Transaminitis R74.01 Hyperbilirubinemia E80.6 Uremia N19 Acute encephalopathy G93.40 Shock R57.9 Septic shock A41.9; R65.21 Atrial fibrillation with RVR I48.91
[2023-01-05 15:20] LABS: Anion Gap 13.1 (5-19); Blood Urea Nitrogen 35 mg/dL (8-23); Calcium 8.2 mg/dL (8.5-10.5); Carbon Dioxide 30 mmol/L (22-29); Chloride 101 mmol/L (98-107); Glucose 211 mg/dL (65-115); Osmolality Calculated 306 mOsm/kg (285-295); Potassium 3.1 mmol/L (3.5-5.1); Sodium 141 mmol/L (136-145)
[2023-01-05] MEDS: pantoprazole 40 mg SDV IVP (16:29)
--- NOTE | 2023-01-05 17:00 | PC.NURSE ---
Pt self extubated. RT at bedside. Fentanyl and propofol stopped. Ambu bag used until non-rebreather came to room. O2 sats started at 77% up to 97%. Pt tolerating well. OG pulled too. Dr Luevano notified. Orders to put pt on BiPap or HHF as pt tolerates. PtOn HHF
--- NOTE | 2023-01-05 17:20 | PC.NURSE ---
Pt self extubated. OG removed too. RT at bedside. Dr Luevano was notified by phone, he came to unit to check on pt. Pt to BiPAp then HHF, tolerating well. He is complaining of a sore throat. but no other issues noted.
[2023-01-05] MEDS: vancomycin 1,500 MG/300 ML PIGGYBACK 200 MG IV (17:55)
[2023-01-05] MEDS: dexmedetomidine 400 MCG in sodium chloride 0.9% (100 ml) 100 ML IV (17:56)
--- NOTE | 2023-01-05 18:24 | XRR_ITS ---
PROCEDURE INFORMATION: Exam: XR Chest Exam date and time: 01/05/2023 6:49 PM Age: 77 years old Clinical indication: Shortness of breath; Additional info: SOB TECHNIQUE: Imaging protocol: Radiologic exam of the chest. Views: 1 view. COMPARISON: CR (CHEST, ) 01/05/2023 5:40 AM FINDINGS: Tubes, catheters and devices: Right PICC line with tip in the distal SVC. Lungs: Improved aeration of the lung bases. Atelectasis in the left lung base. Pleural spaces: Improved small left pleural effusion. No pneumothorax. Heart/Mediastinum: Cardiomegaly. Bones/joints: Unremarkable. XR/XR chest 1V portable [id number] IMPRESSION: 1. Nearly resolved pulmonary edema with improved aeration of the left lung base. 2. Improved left pleural effusion.
--- NOTE | 2023-01-05 18:28 | PC.NURSE ---
Addendum entered by Rita Manzano RN 01/06/23 13:43: Witnessed Propofol & Fentanyl waste. Original Note: Propofol and Fentanyl ggts wasted. See MAR for amounts. Witnessed by Rita Manzano RN
--- NOTE | 2023-01-05 19:30 | PC.NURSE ---
Shift summary: Pt self extubated this evening. Fentanyl and Propofol immediately stopped. Respiratory sinha doing ok with the HHF at45L 75%. Pt is confused and has repetitive questions this evening. Levophed stopped this am. Amio started due elevated heart rate around noon, bolus given, ran at 1mg for 6hrs, then decreased to 0.5mg/min. Pt then self extubated. Heart rate elevated backup to 150's, another bolus admin and rate increased back to 1 mg/min. 2 does of digoxin admin this afternoon. Precedex started. Potassium replacement therapy throughout the day (see AUG) Urine output of 1800ml. No BM noted this shift.
--- NOTE | 2023-01-05 19:31 | P.PN_ITS ---
Subjective Subjective: Patient is in atrial fibrillation with rapid ventricular rate. The blood pressure currently is 130/80. He is still on Levophed of 2 mics per KG per minute . Remains intubated but seems to be responding to verbal commands. Urine output is appropriate. The BUN/creatinine levels are coming down Medications: Medication Review Details: Current Medications Acetaminophen (Acetaminophen 325 Mg Tablet) 650 mg PO Q6H PRN PRN Reason: Mild/Mod Pain Or Temp >/= 101 Albuterol/Ipratropium (Ipratropium-Albuterol 3 Ml Neb) 3 ml INHALATION Q4H.RESPIRATORY JENIFER Last Admin: 01/05/23 15:59 Dose: 3 ml Bumetanide (Bumetanide 0.25 Mg/Ml Sdv 4 Ml) 1 mg IVP Q8H JENIFER Clopidogrel Bisulfate (Clopidogrel 75 Mg Tablet) 75 mg PO DAILY JENIFER Last Admin: 01/05/23 09:11 Dose: 75 mg Enoxaparin Sodium (Enoxaparin 100 Mg/Ml Syringe) 100 mg SUBCUT Q12H JENIFER Last Admin: 01/05/23 09:12 Dose: 100 mg Norepinephrine Bitartrate 4 mg (/ Dextrose) 254 mls @ 0 mls/hr IV .Q0M JENIFER; Protocol Last Titration: 01/05/23 11:43 Dose: 0 mcg/min, 0 mls/hr Piperacillin Sod/Tazobactam (Sod 3.375 gm/ Sodium Chloride) 50 mls @ 12.5 mls/ hr IV Q8H JENIFER; Protocol Last Admin: 01/05/23 17:56 Dose: 12.5 mls/hr Amiodarone HCl 900 mg/Dextrose/ IV Miscellaneous Supplies 518 mls @ 0 mls/hr IV .Q0M JENIFER; Protocol Last Titration: 01/05/23 17:43 Dose: 1 mg/min, 34.53 mls/hr Lidocaine HCl 5 ml/ Potassium (Chloride) 205 mls @ 25.625 mls/hr IV ONCE ONE Stop: 01/06/23 01:04 Last Admin: 01/05/23 17:54 Dose: 25.63 mls/hr Vancomycin/PEG/NADA/Lysine/Water (Vancocin) 1,500 mg in 300 mls @ 200 mls/hr IV Q18H JENIFER Last Admin: 01/05/23 17:55 Dose: 200 mls/hr Dexmedetomidine HCl 400 mcg/ (Sodium Chloride) 104 mls @ 0 mls/hr IV .Q0M JENIFER; Protocol Last Titration: 01/05/23 18:45 Dose: 0.3 mcg/kg/hr, 8.31 mls/hr Naloxone HCl (Naloxone 0.4 Mg/Ml Sdv) 0.1 mg IVP Q2M PRN PRN Reason: OPIATERV Ondansetron HCl (Ondansetron 2 Mg/Ml Sdv 2 Ml) 4 mg IVP Q8H PRN PRN Reason: vomiting, or N/V if npo Pantoprazole Sodium (Pantoprazole 40 Mg Sdv) 40 mg IVP Q24H [facility] Last Admin: 01/05/23 16:29 Dose: 40 mg Potassium Chloride (Potassium Chloride Oral Liq 20 Meq/15 Ml Udc) 40 meq PO Q12H [facility] Vitals/I&O/Wt Last Vital Signs Temp 98.2 F 01/05/23 02:51 Pulse 145 H 01/05/23 17:20 Resp 20 H 01/05/23 17:20 BP 100/61 01/05/23 11:30 Pulse Ox 93 01/05/23 17:20 O2 Del Method Mechanical Ventilation 01/05/23 15:59 O2 Flow Rate 45 01/05/23 17:20 FiO2 65 01/05/23 17:20 01/05/23 01/05/23 01/05/23 06:59 14:59 22:59 Intake Total 636.503 / 2674.442 577.5675 / 540.6289 370.220 / 910.8489 Output Total 1650 / 5225 850 / 850 950 / 1800 Balance -1013.497 / -2550.540 -309.3711 / -309.3711 -579.780 / -889.1511 Physical Exam Narrative: GENERAL: Patient is intubated and sedated. Currently is responding to verbal commands. HEENT: Minimal pallor. No icterus. No lymphadenopathy. NECK: Trachea appears to be central. No masses noted. Short neck RESPIRATORY: Breath sounds are bilaterally. Intensity of the breath sounds are diminished at the bases. BREASTS: Deferred. HEART: The first heart rate is variable. Second heart rate is normal. No S3. ABDOMEN: Abdomen is slightly distended. No organomegaly appreciated. Bowel sounds are slightly diminished. : Deferred. RECTAL: Deferred. LYMPHATIC: No lymphadenopathy noted in the neck. EXTREMITIES: Features of chronic venous stasis. Healed superficial ulcers in the anterior aspect of the left leg. 1+ edema of the right lower extremity. 1- 2+ edema of the left lower extremity. MUSCULOSKELETAL: No acute joint deformities or swelling SKIN: There are no significant rashes or ecchymosis NEUROPSYCHIATRIC: Patient is intubated and sedated. He is responding to verbal commands today. Urinary Catheter Management: Haas: Cath Placed During This Visit: yes Reason for Continuing Indwelling Catheter: Accurate Measurement of Urinary Output in Critically Ill Patients Urinary Catheter Date of Insertion: 01/03/23 Urinary Catheter Time of Insertion: 18:00 Haas Latex: Cath Placed During This Visit: no Reason for Continuing Indwelling Catheter: Accurate Measurement of Urinary Output in Critically Ill Patients Data 01/05/23 03:51 01/05/23 14:39 Other Labs: Laboratory Last Values WBC 13.7 10^3/uL (4.0-10.0) H 01/05/23 03:51 RBC 3.54 10^6/uL (4.1-5.3) L 01/05/23 03:51 Hgb 10.3 g/dL (11.7-16.6) L 01/05/23 03:51 Hct 32.6 % (42.0-52.0) L 01/05/23 03:51 MCV 92.1 fl (80-94) 01/05/23 03:51 MCH 29.1 pg (28.0-34.0) 01/05/23 03:51 MCHC 31.6 g/dL (30.0-36.0) 01/05/23 03:51 RDW 15.1 % (12.1-15.1) 01/05/23 03:51 Plt Count 183 10^3/cmm (130-400) 01/05/23 03:51 MPV 11.5 fL (7.4-10.4) H 01/05/23 03:51 Neut % (Auto) 86.9 % 01/05/23 03:51 Lymph % (Auto) 5.5 % 01/05/23 03:51 Preston % (Auto) 5.7 % 01/05/23 03:51 Eos % (Auto) 1.3 % 01/05/23 03:51 Baso % (Auto) 0.1 % 01/05/23 03:51 Neut # (Auto) 11.92 10^3/uL (1.8-7.7) H 01/05/23 03:51 Lymph # (Auto) 0.8 10^3/uL (0.8-4.8) 01/05/23 03:51 Preston # (Auto) 0.8 10^3/uL (0.2-0.9) 01/05/23 03:51 Eos # (Auto) 0.2 10^3/uL (0.0-0.8) 01/05/23 03:51 Baso # (Auto) 0.0 10^3/uL (0.0-0.1) 01/05/23 03:51 Nucleated RBC % (auto) 0.4 % 01/05/23 03:51 Nucleated RBCs # 0.1 /100WBC 01/05/23 03:51 ESR 35 mm/hr (0-10) H 01/03/23 12:50 PT 20.90 SECONDS (12.1-14.9) H 01/05/23 03:51 INR 1.74 (0.8-1.2) H 01/05/23 03:51 APTT 53.3 SECONDS (23.9-36.7) H 01/05/23 03:51 D-Dimer 3.72 ug/mIFEU (0-0.59) H 01/03/23 12:50 Specimen Type Arterial 01/05/23 05:46 Sample Site Radial, right 01/05/23 05:46 ABG pH 7.49 (7.35-7.45) H 01/05/23 05:46 ABG pCO2 42.3 mmHg (35-45) 01/05/23 05:46 ABG pO2 78.1 mmHg (80.0-100.0) L 01/05/23 05:46 ABG HCO3 32.2 mmol/L (22-26) H 01/05/23 05:46 ABG O2 Saturation 84.3 01/03/23 17:14 ABG Base Excess 8.0 mmol/L (-2.0-2.0) H 01/05/23 05:46 Jani Test Pos 01/05/23 05:46 A-a O2 Gradient 78.7 mmHg (5-10) H 01/03/23 17:14 Hematocrit 35.7 % (42-52) L 01/05/23 05:46 Hgb O2 Saturation 82.5 % (95-100) L 01/03/23 17:14 Carboxyhemoglobin 1.7 %THgb (0.4-20.1) 01/03/23 17:14 Methemoglobin 0.5 % (0.4-1.5) 01/03/23 17:14 Total Hemoglobin 10.5 g/dL (14-18) L 01/03/23 17:14 Sodium 131.0 mmol/L (131-143) 01/03/23 17:14 Potassium 3.5 mmol/L (3.5-5.0) 01/03/23 17:14 Glucose 130.0 mg/dL (70-115) H 01/03/23 17:14 Ionized Calcium 1.2 mmol/L (1.1-1.4) 01/03/23 17:14 O2 Delivery Device Vent 01/05/23 05:46 O2 Liters/Min 15.0 % 01/03/23 12:34 FiO2 80.0 % 01/05/23 05:46 Tidal Volume 0.50 01/05/23 05:46 PEEP 8.0 cmH20 01/05/23 05:46 Specimen Drawn By Matt 01/03/23 14:48 Center Medical Specialist ID Kirby 01/05/23 05:46 Crit Value Read Back Adeod 01/03/23 14:48 Blood Gas Notified Time 1502 01/03/23 14:48 Sodium 141 mmol/L (136-145) 01/05/23 14:39 Potassium 3.1 mmol/L (3.5-5.1) L 01/05/23 14:39 Chloride 101 mmol/L (98-107) 01/05/23 14:39 Carbon Dioxide 30 mmol/L (22-29) H 01/05/23 14:39 Anion Gap 13.1 (5-19) 01/05/23 14:39 BUN 35 mg/dL (8-23) H 01/05/23 14:39 Creatinine 1.3 mg/dL (0.7-1.2) H 01/05/23 14:39 GFR Calculation Not Reportable 01/05/23 14:39 Glucose 211 mg/dL (65-115) H 01/05/23 14:39 Estimat Average Glucose 123 01/04/23 03:30 Hemoglobin A1c 5.9 % (4.0-6.0) 01/04/23 03:30 Calculated Osmolality 306 mOsm/kg (285-295) H 01/05/23 14:39 Lactic Acid 1.3 mmol/L (0.5-2.2) 01/03/23 14:45 Lactate 1.2 mmol/L (0.5-2.2) 01/05/23 03:51 Calcium 8.2 mg/dL (8.5-10.5) L 01/05/23 14:39 Phosphorus 2.2 mg/dL (2.5-4.5) L 01/05/23 03:51 Magnesium 2.2 mg/dL (1.7-2.3) 01/05/23 03:51 Ferritin 60 ng/mL (30-400) 01/03/23 19:03 Total Bilirubin 1.6 mg/dL (0.15-1.2) H 01/05/23 03:51 GGT 48 U/L (8-61) 01/03/23 19:03 AST 35 U/L (0-40) 01/05/23 03:51 ALT 72 U/L (0-41) H 01/05/23 03:51 Alkaline Phosphatase 66 U/L (40-130) 01/05/23 03:51 Ammonia 30 umol/L (16-60) 01/05/23 03:51 Troponin T Baseline 1447 ng/L (0-15) H* 01/03/23 12:50 Troponin T 120 Minute 1413 ng/L (0-15) H 01/03/23 14:49 Delta Troponin T -34 ABS# (0-10) L 01/03/23 14:49 Troponin T Hi Sens 6Hr 1583 ng/L (0-15) H 01/03/23 19:03 Troponin T Hi Sens 6Hr Delta 136 ng/L (0-12) H* 01/03/23 19:03 C-Reactive Protein 26.1 mg/L (0.0-4.9) H 01/03/23 14:45 NT-Pro-B Natriuret Pep 2287 pg/mL (0-450) H 01/05/23 07:23 Total Protein 5.9 g/dL (6.6-8.7) L 01/05/23 03:51 Albumin 3.2 g/dL (3.5-5.2) L 01/05/23 03:51 Globulin 2.7 g/dL (1.3-4.6) 01/05/23 03:51 Triglycerides 124 mg/dL (0-150) 01/04/23 03:30 Cholesterol 111 mg/dL (0-200) 01/04/23 03:30 LDL Cholesterol, Calc 68 mg/dL (50-129) 01/04/23 03:30 HDL Cholesterol 18 mg/dL (60-100) L 01/04/23 03:30 LDL/HDL Ratio 3.78 RATIO (0.00-3.22) H 01/04/23 03:30 Cholesterol/HDL Ratio 6.17 mg/dL (1.0-5.00) H 01/04/23 03:30 Lipase 131 U/L (13-60) H 01/03/23 19:03 Procalcitonin 0.72 ng/mL (0-0.5) H 01/03/23 12:50 TSH 0.94 uIU/mL (0.27-4.20) 01/04/23 03:30 Urine Color Dark yellow (Yellow) 01/03/23 13:35 Urine Appearance Clear (CLEAR) 01/03/23 13:35 Urine pH 5 (5-7) 01/03/23 13:35 Ur Specific Garrison 1.020 (1.005-1.030) 01/03/23 13:35 Urine Protein 1+ (Negative) H 01/03/23 13:35 Urine Glucose (UA) Norm (Normal) 01/03/23 13:35 Urine Ketones 1+ (Negative) H 01/03/23 13:35 Urine Blood Neg (Negative) 01/03/23 13:35 Urine Nitrate Negative (Negative) 01/03/23 13:35 Urine Bilirubin Neg (Negative) 01/03/23 13:35 Urine Urobilinogen 1 mg/dL (Negative) H 01/03/23 13:35 Ur Leukocyte Esterase Negative (Negative) 01/03/23 13:35 Urine RBC 0-4 /hpf (0-2) H 01/03/23 13:35 Urine WBC 0-4 /hpf (0-5) H 01/03/23 13:35 Ur Squamous Epith Cells 0-4 /hpf (0-5) H 01/03/23 13:35 Amorphous Sediment Not Reportable 01/03/23 13:35 Urine Bacteria None /hpf (NONE) 01/03/23 13:35 Hyaline Casts 0-4 /lpf H 01/03/23 13:35 Nasal Influ A H1 2009 PCR Not detected (NOT DETECT) 01/03/23 19:00 Vancomycin Trough 8.0 ug/mL (10-15) L 01/05/23 16:16 Urine Opiates Screen Negative ng/mL (Negative) 01/03/23 13:35 Ur Barbiturates Screen Negative ng/mL (Negative) 01/03/23 13:35 Ur Phencyclidine Scrn Negative ng/mL (Negative) 01/03/23 13:35 Ur Amphetamines Screen Negative ng/mL (Negative) 01/03/23 13:35 U Benzodiazepines Scrn Negative ng/mL (Negative) 01/03/23 13:35 Urine Cocaine Screen Negative ng/mL (Negative) 01/03/23 13:35 U Marijuana (THC) Screen Negative ng/mL (Negative) 01/03/23 13:35 Ethyl Alcohol < 10 mg/dL (0-10) 01/03/23 19:03 Adenovirus (PCR) Not detected (NOT DETECT) 01/03/23 19:00 C. pneumoniae DNA (PCR) Not detected (NOT DETECT) 01/03/23 19:00 Coronavirus 229E (PCR) Not detected (NOT DETECT) 01/03/23 19:00 Hepatitis A IgM Ab Non-reactive (Nonreactive) 01/03/23 19:03 Hep Bs Antigen Non-reactive (Nonreactive) 01/03/23 19:03 Hep B Core IgM Ab Non-reactive (Nonreactive) 01/03/23 19:03 Hepatitis C Antibody Non-reactive (Nonreactive) 01/03/23 19:03 HIV 1&2 Ab & HIV 1 Ag Non-reactive (Non-Reactiv) 01/03/23 19:03 HIV 1&2 Antibody Non-reactive (Non-Reactiv) 01/03/23 19:03 Human Metapneumovir PCR Not detected (NOT DETECT) 01/03/23 19:00 Influenza A (H1) PCR Not detected (NOT DETECT) 01/03/23 19:00 Influenza A (H3) PCR Not detected (NOT DETECT) 01/03/23 19:00 Influenza Type A (PCR) Not detected (NOT DETECT) 01/03/23 19:00 Influenza Type B (PCR) Not detected (NOT DETECT) 01/03/23 19:00 M. pneumoniae (PCR) Not detected (NOT DETECT) 01/03/23 19:00 Parainfluenza 1 (PCR) Not detected (NOT DETECT) 01/03/23 19:00 Parainfluenza 2 (PCR) Not detected (NOT DETECT) 01/03/23 19:00 Parainfluenza 3 (PCR) Not detected (NOT DETECT) 01/03/23 19:00 Parainfluenza 4 (PCR) Not detected (NOT DETECT) 01/03/23 19:00 RSV Type A (PCR) Not detected (NOT DETECT) 01/03/23 19:00 RSV Type B (PCR) Not detected (NOT DETECT) 01/03/23 19:00 Entero/Rhino (PCR) Not detected (NOT DETECT) 01/03/23 19:00 SARS-CoV-2 (PCR) Not detected (NOT DETECT) 01/03/23 19:00 Micro: Microbiology 01/03/23 12:59 Blood Culture - Preliminary Blood Staphylococcus epidermidis 01/03/23 15:40 Gram Stain - Final Sputum - Endotracheal Tube Aspirate Sputum Culture - Final 01/03/23 12:50 Blood Culture - Preliminary Blood NEGATIVE TO DATE 01/03/23 19:00 MRSA Culture - Final Nose A&P Assessment and plan (1) Acute respiratory failure with hypoxia: This could be multifactorial.. Possibility of pneumonia, CHF, COPD exacerbation, etc. are contributing factors. The mental status seems to be improving. He is still on 80% of oxygen. (2) Acute non-ST elevation myocardial infarction (NSTEMI): Elevated troponin T, LV dysfunction and EKG changes are consistent with non-ST elevation myocardial infarction. Patient may be continued on the IV heparin and follow the protocol. I also may start him on Plavix 300 mg p.o. now followed by 75 mg p.o. daily. (3) Atrial fibrillation with RVR: Patient was started on amiodarone. This may be continued. Consider starting on beta-blockers, if the blood pressure is stable. (4) Hypokalemia: The potassium level is improving we will supplement potassium. (5) Hypotension: The blood pressure seems to be improving. This also could be multifactorial. Possible non-ST elevation myocardial infarction, sepsis, multiorgan system failure, etc. are contributing factors. Currently he is on a low-dose of Levophed. This may be continued. This may be titrated to maintain the mean arterial pressure around 70 (6) CHF (congestive heart failure): Patient seems to have features of acute on chronic diastolic heart failure. May be carefully treated with IV diuretics. Closely monitor electrolytes. Non-ST elevation myocardial infarction might have caused the heart failure. (7) Acute renal failure: The BUN/creatinine levels are improving. Electrolytes are also improving. (8) Liver cirrhosis: Patient has a remote history of alcohol abuse. Possibility of a prolonged episode of hypotension/sepsis causing the transaminitis is a consideration. (9) Elevated INR: Currently the INR is 1.74. Patient was started on Lovenox. Dose need to be adjusted for kidney function (10) Transaminitis: Seems to have improved. Joanna start him on a low-dose of Lipitor 10mg daily (11) Encephalopathy: Significant improvement of the mental status. May continue close monitoring Plan His other problems are 1. possible sepsis-patient is currently on empiric antibiotics. 2. Possible pneumonia. 3. PE cannot be excluded but my clinical suspicion may be low. 4. Anemia, could be multifactorial, stable Patient may require a cardiac catheterization to further evaluate the coronary status. However we will wait till his overall status is stable. May continue on the current measures Attestations Medical Necessity Statement*: Patient requires continued hospital stay for close monitoring and further management Coding Level of Care Code 32106 Diagnoses Acute respiratory failure with hypoxia J96.01 Acute non-ST elevation myocardial infarction (NSTEMI) I21.4 Atrial fibrillation with RVR I48.91 Hypokalemia E87.6 Hypotension I95.9 CHF (congestive heart failure) I50.9 Acute renal failure N17.9 Liver cirrhosis K74.60 Elevated INR R79.1 Transaminitis R74.01 Encephalopathy G93.40
[2023-01-05] MEDS: atorvastatin 40 mg Tablet 20 MG PO (20:36)
[2023-01-05] MEDS: acetaminophen 325 mg Tablet 650 MG PO (20:56)
[2023-01-05] MEDS: potassium chloride oral liq 20 mEq/15 mL UDC 40 MEQ PO (21:41)
[2023-01-05] MEDS: dexmedetomidine 400 MCG in sodium chloride 0.9% (100 ml) 100 ML 30.49 MCG IV (23:34)
[2023-01-06] VITALS (32 sets, daily range): BP systolic 96–117; BP diastolic 58–73; PULSE 60–105; RESP 0–20; TEMP 36.2–36.9; O2SAT 90–97
[2023-01-06] MEDS: piperacillin-tazobactam 3.375 GM in sodium chloride 0.9% (plus) 50 ML IV ×3 (01:04→17:22)
[2023-01-06] MEDS: bumetanide 0.25 mg/mL SDV 4 mL 1 MG IVP ×3 (03:18→19:42)
[2023-01-06 03:22] LABS: ABG PCO2 45.1 mmHg (35-45); ABG PH Result 7.48 (7.35-7.45); Arterial Blood Gas Hematocrit 36.4 % (42-52); Base Excess ABG 8.5 mmol/L (-2.0-2.0); Blood Gas Allen Test Pos; Blood Gas Sample Site Radial, right; Blood Gas Sample Type Arterial; HCO3 ABG 33.2 mmol/L (22-26); Oxygen Device BIPAP; PO2 ABG 96.2 mmHg (80.0-100.0)
[2023-01-06 04:08] LABS: Basophils % 0.2 %; Eosinophils # 0.2 10^3/uL (0.0-0.8); Eosinophils % 1.2 %; Hematocrit 32.8 % (42.0-52.0); Hemoglobin 10.2 g/dL (11.7-16.6); Lymphocytes # 0.7 10^3/uL (0.8-4.8); Lymphocytes % 5.3 %; Mean Corpuscular HGB Conc 31.1 g/dL (30.0-36.0); Mean Corpuscular Hemoglobin 29.7 pg (28.0-34.0); Mean Corpuscular Volume 95.3 fl (80-94); Mean Platelet Volume 11.3 fL (7.4-10.4); Monocytes # 0.7 10^3/uL (0.2-0.9); Monocytes % 5.4 %; Neutrophils # 11.16 10^3/uL (1.8-7.7); Neutrophils % 86.9 %; Nucleated Red Blood Cells % 0.2 %; Platelet Count 158 10^3/cmm (130-400); Red Blood Count 3.44 10^6/uL (4.1-5.3); Red Cell Distribution Width 15.4 % (12.1-15.1); White Blood Count 12.9 10^3/uL (4.0-10.0)
[2023-01-06 04:24] LABS: INR 1.48 (0.8-1.2)
[2023-01-06 04:31] LABS: Alanine Aminotransferase 54 U/L (0-41); Albumin Level 3.1 g/dL (3.5-5.2); Alkaline Phosphatase 60 U/L (40-130); Anion Gap 14.2 (5-19); Aspartate Amino Transferase 24 U/L (0-40); Blood Urea Nitrogen 26 mg/dL (8-23); Calcium 8.1 mg/dL (8.5-10.5); Carbon Dioxide 30 mmol/L (22-29); Chloride 101 mmol/L (98-107); Globulin 2.8 g/dL (1.3-4.6); Glucose 198 mg/dL (65-115); Magnesium 1.7 mg/dL (1.7-2.3); Osmolality Calculated 304 mOsm/kg (285-295); Phosphorus 2.4 mg/dL (2.5-4.5); Potassium 3.2 mmol/L (3.5-5.1); Sodium 142 mmol/L (136-145); Total Bilirubin 1.6 mg/dL (0.15-1.2); Total Protein 5.9 g/dL (6.6-8.7)
[2023-01-06 07:40] LABS: NT Pro B Type Natriuretic Pept 1760 pg/mL (0-450)
[2023-01-06] MEDS: ipratropium-albuterol 3 mL Neb INHALATION ×5 (07:52→23:03)
[2023-01-06] MEDS: magnesium lactate 84 mg Tablet PO (08:59)
[2023-01-06] MEDS: enoxaparin 100 mg/mL Syringe SUBCUT ×2 (08:59→20:30)
[2023-01-06] MEDS: clopidogrel 75 mg Tablet PO (08:59)
--- NOTE | 2023-01-06 10:12 | PM.PN ---
Subjective Subjective: self extubated yesterday on high flow O2 Medications: Reviewed: Yes Vitals/I&O/Wt Last Vital Signs Temp 97.4 F L 01/06/23 07:25 Pulse 100 01/06/23 09:13 Resp 20 H 01/06/23 09:13 BP 102/67 01/06/23 04:00 Pulse Ox 93 01/06/23 09:13 O2 Del Method BiPAP 01/06/23 07:52 O2 Flow Rate 45 01/06/23 09:13 FiO2 55 01/06/23 09:13 01/05/23 01/06/23 01/06/23 22:59 06:59 14:59 Intake Total 893.061 / 1433.6899 466.981 / 1900.6709 Output Total 2500 / 3350 1300 / 4650 Balance -1606.939 / -1916.3101 -833.019 / -2749.3291 Weight last 48 hrs Weight 98.792 kg Physical Exam Narrative: awake , alert No distress + edema Urinary Catheter Management: Haas: Cath Placed During This Visit: yes Reason for Continuing Indwelling Catheter: Accurate Measurement of Urinary Output in Critically Ill Patients Urinary Catheter Date of Insertion: 01/03/23 Urinary Catheter Time of Insertion: 18:00 Haas Latex: Cath Placed During This Visit: no Reason for Continuing Indwelling Catheter: Accurate Measurement of Urinary Output in Critically Ill Patients Data 01/06/23 03:37 01/06/23 03:37 Micro: Microbiology 01/03/23 12:59 Blood Culture - Preliminary Blood Staphylococcus epidermidis 01/03/23 15:40 Gram Stain - Final Sputum - Endotracheal Tube Aspirate Sputum Culture - Final A&P Assessment and plan (1) Acute renal failure: Plan 1. Acute kidney injury: Baseline creatinine of 1.0 in June/2022. Now presents with NÉSTOR with a creatinine of 2.4 most likely multifactorial-sepsis, possible hepatorenal. Developed ATN likely. -Patient with post ATN polyuria , will continue as needed Lasix -off Levophed - Cr improved to 1.1 , UOP improving , -Avoid nephrotoxins and IV contrast studies -Reviewed CT abdomen. 2.Acute on chronic respiratory failure: extubated , Multifactorial, pneumonia, possible CHF Currently on heparin drip due to elevated troponin and question PE. 3.Hypokalemia : replete History of CHF, echo ordered, on IV Lasix as needed non-ST elevation NM, seen by cardiology Patient evaluated using audiovisual. Time spent 45 minutes. Attestations Medical Necessity Statement*: per medicine Coding Level of Care Code Acute Code for Chg Fwd Diagnoses Acute renal failure N17.9
--- NOTE | 2023-01-06 10:14 | PC.CHAP ---
Pastoral Care Encounter/Spiritual Assessment Type of Contact [] Declined director script visit [] Patient/Family/Request visit [] Outpatient visit [] Follow-up visit [] Physician referral [] Code/Alert [x] Routine visit [] Staff referral [] Actively dying [] Patient sleeping [] Family support [] [] Out of room [] Palliative care [] [x] Receiving care in room [] Pre-surgical visit [] Trauma [] Long length of stay [x] ICU visit [] Other: Relational/Emotional Strength [] Patient feels connected with others/family/visitors/staff [] Distress [] Loneliness/isolation [] Abandonment Spirituality of Patient [x] Person of Charity [] Attends Hinduism of their Charity [] Believes in Prayer [] Reads Bible or Anabaptism materials [] There are Spiritual issues to be addressed Element Burner Interventions [] Prayer [] Active listening [] Non-anxious presence [] Spiritual/emotional support [] Crisis/trauma care [] Spiritual counseling [] Bereavement support [] Provided bereavement packet [] Provided Bible/devotional materials [] Provided toy/stuffed animal, coloring book to patient or family member [] Provided Communion [] Anointing/[place] [] Salvation [x] Completed spiritual assessment [] Other: Impact on Illness or Injury [] Angry [] Fearful [] Anxious [] Often cries [] Exhaustion [] Unable to work [] Unable to attend jehovah's witness [] Unable to walk/stand [] Unable to read [] Unable to drive [] Unable to eat/drink [] Unable to sleep [] Unable to be with family [] Patient intubated [] Other: Summary Time spent with patient
--- NOTE | 2023-01-06 10:32 | PM.PN ---
Subjective Subjective: He self extubated yesterday, jeanette morrison with RVR overnight. He needed amiodarone boluses and dose of amiodarone gtt was increased. Medications: Reviewed: Yes Vitals/I&O/Wt Last Vital Signs Temp 97.4 F L 01/06/23 07:25 Pulse 100 01/06/23 09:13 Resp 20 H 01/06/23 09:13 BP 102/67 01/06/23 04:00 Pulse Ox 93 01/06/23 09:13 O2 Del Method BiPAP 01/06/23 07:52 O2 Flow Rate 45 01/06/23 09:13 FiO2 55 01/06/23 09:13 01/05/23 01/06/23 01/06/23 22:59 06:59 14:59 Intake Total 893.061 / 1433.6899 466.981 / 1900.6709 Output Total 2500 / 3350 1300 / 4650 Balance -1606.939 / -1916.3101 -833.019 / -2749.3291 Weight last 48 hrs Weight 217 lb 12.8 oz Physical Exam Narrative: GENERAL: Averagely built and averagely nourished in no acute distress HEENT: Extraocular movement intact. No pallor or icterus. NECK: central trachea, No JVD, No carotid bruit. CARDIOVASCULAR SYSTEM: S1-S2 irregular. No murmur or gallops. RESPIRATORY SYSTEM: Chest clear to auscultation. No wheezes rhonchi or rubs heard. No use of accessory muscles. ABDOMEN: Soft, nontender and nondistended. Normal bowel sounds present. EXTREMITIES: No cyanosis or edema. No signs of chronic venous insufficiency. RELATIONS MANAGER: Patient is alert oriented ?3. No focal neurological deficits. Urinary Catheter Management: Haas: Cath Placed During This Visit: yes Reason for Continuing Indwelling Catheter: Accurate Measurement of Urinary Output in Critically Ill Patients Urinary Catheter Date of Insertion: 01/03/23 Urinary Catheter Time of Insertion: 18:00 Haas Latex: Cath Placed During This Visit: no Reason for Continuing Indwelling Catheter: Accurate Measurement of Urinary Output in Critically Ill Patients Data 01/07/23 04:20 01/07/23 04:20 Micro: Microbiology 01/03/23 12:59 Blood Culture - Preliminary Blood Staphylococcus epidermidis 01/03/23 15:40 Gram Stain - Final Sputum - Endotracheal Tube Aspirate Sputum Culture - Final A&P Assessment and plan (1) Acute respiratory failure with hypoxia: This could be multifactorial 2/2 pneumonia, CHF, COPD exacerbation, etc. are contributing factors. The mental status seems to be improving. He is now on HFNC. 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 Closely monitor electrolytes. good UO (3) Acute non-ST elevation myocardial infarction (NSTEMI): Elevated troponin T, LV dysfunction and EKG changes are consistent with non-ST elevation myocardial infarction. -now on ASA 81mg, plavix 75 mg p.o. daily and lovenox -troponin T 1447-->1413-->1583 -TTE with Normal LV size with diminished ejection fraction of around 50%.?Diffuse hypokinesis of the septum and the anteroseptal segments. -will consider LHC once patient is hemodynamically stable (4) Atrial fibrillation with RVR: Patient was started on amiodarone. This may be continued. Consider starting on beta-blockers once the blood pressure is stable. (5) Hypokalemia: supplement potassium as needed. (6) Hypotension: The blood pressure seems to be improving. This also could be multifactorial. Possible non-ST elevation myocardial infarction, sepsis, multiorgan system failure, etc. are contributing factors. Currently he is off of low-dose of Levophed. (7) Acute renal failure: The BUN/creatinine levels are improving. Electrolytes are also improving. (8) Liver cirrhosis: Patient has a remote history of alcohol abuse. Possibility of a prolonged episode of hypotension/sepsis causing the transaminitis is a consideration. (9) Transaminitis: Seems to have improved. Plan His other problems are sepsis-patient is currently on empiric antibiotics. Possible pneumonia. Encephalopathy Anemia, Patient may require a cardiac catheterization to further evaluate the coronary status. However we will wait till his overall status is stable. May continue on the current measures Attestations Medical Necessity Statement*: As per primary team Coding Level of Care Code Acute Code for [facility] Fwd Diagnoses Acute respiratory failure with hypoxia J96.01 CHF (congestive heart failure) I50.9 Acute non-ST elevation myocardial infarction (NSTEMI) I21.4 Atrial fibrillation with RVR I48.91 Hypokalemia E87.6 Hypotension I95.9 Acute renal failure N17.9 Liver cirrhosis K74.60 Transaminitis R74.01
[2023-01-06] MEDS: vancomycin 1,500 MG/300 ML PIGGYBACK 200 MG IV (11:07)
[2023-01-06] MEDS: potassium chloride oral liq 20 mEq/15 mL UDC 40 MEQ PO ×2 (11:07→21:08)
--- NOTE | 2023-01-06 11:43 | PC.SOCIAL ---
IMM update IMM updated with patient. Verbalized an understanding. Copy PG 2 provided. Initialled, dated, timed, and placed in chart.
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
[2023-01-06] MEDS: acetaminophen 325 mg Tablet 650 MG PO (12:15)
--- NOTE | 2023-01-06 15:02 | P.PN_ITS ---
Subjective Subjective: - Patient was examined multiple times throughout the afternoon yesterday -He self extubated himself, by pulling on ET tube -Was examined, was on 50% FiO2, alert to person, not to place, not to time could follow commands, -Was placed onto BiPAP -Sedation was stopped -Was examined thereafter continue to be stable on 50% FiO2, was given 1 dose of Bumex with potassium, -Continue to have A-fib with RVR yesterday evening, was given amiodarone bolus, was given another 250 of dig, heart rate improved into the low 100s, A-fib -Patient was examined this morning, he is -6 L, on 55% FiO2 45 L normotensive in A-fib, heart rates in the 80s, on 0.5 of amiodarone, off pressors on Precedex he tolerated BiPAP during the night -This morning he is alert to person, not to place, not to time he does follow c kwesi, nursing staff tell me that he has been delirious throughout the night, delirious this morning, -Pupils equal round reactive to light, can follow commands such as smiling for me squeezing my fingers, -Continues to have diffuse anasarca, edema Vitals/I&O/Wt Last Vital Signs Temp 98.4 F 01/06/23 08:00 Pulse 88 01/06/23 13:58 Resp 18 01/06/23 13:58 BP 102/66 01/06/23 13:00 Pulse Ox 93 01/06/23 13:00 O2 Del Method Heated High Flow 01/06/23 13:00 O2 Flow Rate 45 01/06/23 13:00 FiO2 55 01/06/23 13:00 01/06/23 01/06/23 01/06/23 06:59 14:59 22:59 Intake Total 466.981 / 1900.6709 912.283 / 912.283 Output Total 1300 / 4650 Balance -833.019 / -2749.3291 912.283 / 912.283 Weight last 48 hrs Weight 98.792 kg Physical Exam Const: COMMON NORMALS: no acute distress ORIENTATION/CONSCIOUSNESS: Yes awake and Yes oriented to person; not oriented to time Eye: OTHER: Pupils equal round reactive to light Resp: COMMON NORMALS: normal respiratory effort, No retractions, No use of accessory muscles and clear to auscultation bilaterally AUSCULTATION: clear to auscultation bilaterally and crackles Cardio: COMMON NORMALS: regular rate, regular rhythm, S1 normal heart sound present and S2 normal heart sound present RATE: regular rate RHYTHM: regular rhythm HEART SOUNDS: S1 normal heart sound present and S2 normal heart sound present GI: COMMON NORMALS: Normal to inspection, nondistended, normoactive bowel sounds present and non-tender Extremity: NARRATIVE EXTREMITY EXAM: 1+ pitting edema bilateral lower extremities, anasarca Neuro: SENSORIUM/ORIENTATION: Yes oriented to person and No oriented to time Urinary Catheter Management: Haas: Cath Placed During This Visit: yes Reason for Continuing Indwelling Catheter: Accurate Measurement of Urinary Outpu t in Critically Ill Patients Urinary Catheter Date of Insertion: 01/03/23 Urinary Catheter Time of Insertion: 18:00 Haas Latex: Cath Placed During This Visit: no Reason for Continuing Indwelling Catheter: Accurate Measurement of Urinary Output in Critically Ill Patients Data 01/06/23 03:37 01/06/23 03:37 Micro: Microbiology 01/06/23 11:17 Blood Culture - Preliminary Blood SPECIMEN COLLECTED 01/06/23 11:06 Blood Culture - Preliminary Blood SPECIMEN COLLECTED 01/03/23 12:59 Blood Culture - Preliminary Blood Staphylococcus epidermidis 01/03/23 15:40 Gram Stain - Final Sputum - Endotracheal Tube Aspirate Sputum Culture - Final A&P Assessment and plan (1) Acute respiratory failure with hypoxia: (2) Acute exacerbation of congestive heart failure: (3) Systolic CHF, acute: (4) Encephalopathy: (5) Acute non-ST elevation myocardial infarction (NSTEMI): (6) Atrial fibrillation: (7) Cholelithiases: (8) Moderate aortic stenosis: (9) Pneumonia: (10) Acute renal failure: (11) Sepsis: (12) Liver cirrhosis: (13) Elevated INR: (14) Transaminitis: (15) Hyperbilirubinemia: (16) Uremia: (17) Acute encephalopathy: (18) Shock: (19) Septic shock: (20) Atrial fibrillation with RVR: Plan Acute hypoxic respiratory failure -Likely secondary to pneumonia -Likely secondary to systolic CHF exacerbation -There is a possibility of pulmonary embolism? Although unlikely, given elevated troponins, elevated D-dimer, he he is on Eliquis, cannot perform CT angiogram given elevated creatinine, venous ultrasound negative for DVT, Plan -currently on therapeutic Lovenox -Status post self extubation 01/05/2023 -Currently on heated high flow 45 L 55 % --6 L -Continue vancomycin, Zosyn -Bumex 1 mg IV push every 8 hours, with potassium replacement -Monitor urine output A-fib with RVR -Status post dig load to 250 times twice -Amiodarone bolus 150 twice -On 0.5 amiodarone -Start amiodarone 400 twice daily this evening, wean off amiodarone -On therapeutic Lovenox Shock, resolved -Likely multifactorial -Septic, possible cardiogenic, possible outflow obstruction -Remains off Levophed -Maintain MAP in the 65 Acute encephalopathy, -Continues to be encephalopathic -Multifactorial from hypoxia, pneumonia, uremia, sepsis, -Monitor -Currently on Precedex drip Systolic CHF exacerbation -With elevated troponins, elevated BNP -Monitor BMP monitor urine output, diuresis based upon clinical progress -Has received Lasix in the emergency room, currently Bumex 1 mg every 12 hours, -6 L, on 80% FiO2, creatinine 1.4 -Chest x-ray showing improved pulmonary vascular congestion this morning -Continue Bumex 1 mg IV push every 8 hours, with potassium replacement -We will monitor urine output monitor creatinine, cardiology consulted Pneumonia -Sputum culture, blood cultures, respiratory viral panel -Continue vancomycin, Zosyn Staph epidermidis bacteremia -1 out of 4 blood cultures positive for Staph epidermidis -Highly suspect that this is a contamination -Does have a PICC line in place -Continue vancomycin for now -Once repeat blood cultures are negative for 48 hours discontinue vancomycin Uremia -Resolving -Nephrology consulted Acute renal failure -Likely secondary to sepsis, cardiorenal syndrome -Creatinine improving -Monitor urine output monitor creatinine -Nephrology consulted Sepsis, resolved -Creatinine 1.4, transaminitis, hyperbilirubinemia, NSTEMI, respiratory failure, hypoxia, -Source of infection is pneumonia -And or cholelithiasis Non-ST elevation [place] -Type I versus type II NSTEMI -Has complaints of chest pain in the past -Had a stress test in 2019 -EKG does show ST depressions inferior lateral leads -Currently on heparin drip -Cardiac echo ordered Normal LV size with diminished ejection fraction of around 50%.? ?Diffuse hypokinesis of the septum and the anteroseptal segments. ?Mild biatrial enlargement ?Thickened mitral valve. Moderate mitral annular calcification. ?Moderate mitral valve regurgitation. ?Moderate aortic valve calcification.? Moderate aortic valve ?stenosis with a valve area 1.1 cm squared. ?[id number] tricuspid valve regurgitation.? Estimated PA ?pressure of 40 mmHg. ?Dilated IVC with decreased respiratory variation. ?There is no pericardial effusion. ?There are no intracardiac masses. ?Compared to the study from 06/27/2021, there wall motion of ?normality and the diminished LV ejection fraction are new -Cardiology consulted Atrial fibrillation -Monitor for A-fib -We will consider amiodarone -Heparin drip Cholelithiasis -CT scan shows 2 stones in cystic duct versus vascular calcifications -Right upper quadrant ultrasound -1. ? Cholelithiasis with mild localized gallbladder wall thickening raising possibility of cholecystitis. 2. ? Mild perihepatic ascites. 3. ? Right pleural effusion. -Follow LFTs,, alk phos, bilirubin, -If it continues to elevate, might require MRCP or potential transfer for con sideration of ERCP -On Zosyn Hyperbilirubinemia as above Transaminitis as above, hep C negative, HIV within limits, alcohol levels within normal limits Liver cirrhosis, with elevated INR, elevated LFTs, etiology unclear, work-up as above Hypoalbuminemia Hypokalemia we will replace potassium IV, currently on scheduled potassium Protonix for GI prophylaxis Heparin for DVT prophylaxis Plan for today, monitor mentation closely, continue Precedex drip, keep n.p.o., speech therapy eval, respiratory therapy eval, wean oxygen, continue BiPAP, monitor urine output, monitor potassium, follow repeat blood cultures, continue vancomycin, continue Zosyn, PT OT, up out of bed, Attestations Medical Necessity Statement*: Patient requires hospitalization for acute hypoxic respiratory failure, acute encephalopathy, atrial fibrillation with rapid ventricular response, systolic CHF exacerbation, concerns for Staph epidermidis bacteremia, pneumonia, hypokalemia, Coding Level of Care Code Critical Care >/= 30 minutes Critical care time (in minutes): 60 The high probability of a clinically significant, sudden or life threatening deterioration, as referenced in this documentation, required my full and direct attention, intervention and personal management. The critical care time shown is in addition to time spent performing any reported separately billable procedures and includes the following: [x] Data and vital sign review and interpretation [x ] Patient assessment, examination and intervention [x] Medication orders and m anagement [x] Patient/Family updates as able [x] Care Coordination and Documentation. Diagnoses Acute respiratory failure with hypoxia J96.01 Acute exacerbation of congestive heart failure I50.9 Systolic CHF, acute I50.21 Encephalopathy G93.40 Acute non-ST elevation myocardial infarction (NSTEMI) I21.4 Atrial fibrillation I48.91 Cholelithiases K80.20 Moderate aortic stenosis I35.0 Pneumonia J18.9 Acute renal failure N17.9 Sepsis A41.9 Liver cirrhosis K74.60 Elevated INR R79.1 Transaminitis R74.01 Hyperbilirubinemia E80.6 Uremia N19 Acute encephalopathy G93.40 Shock R57.9 Septic shock A41.9; R65.21 Atrial fibrillation with RVR I48.91
--- NOTE | 2023-01-06 15:23 | PC.OT ---
OT JAC ATTEMPTED AT 1515 AND INFORMATION GATHERED. PT REFUSED GETTING UP ON EOB TODAY BUT STATES THAT HE WOULD LIKE TO TRY TOMORROW. WILL REATTEMPT JAC TOMORROW.
[2023-01-06] MEDS: pantoprazole 40 mg SDV IVP (17:22)
[2023-01-06] MEDS: amiodarone 200 mg Tablet 400 MG PO (17:23)
--- NOTE | 2023-01-06 18:37 | PC.NURSE ---
Shift summary: Pt has rested in bed most of shift. He has asked many questions, some repetitive. He asked what is he suppose to do. He stated his memory was bad. He though he had had a stroke, he was reassured he did not. He has pneumonia and heart failure per Dr Luevano. He has been cooperative. He worked with OT and speech therapy. He got out of bed with PT, to bsc,then back to bed. His potassium was low again today, replacement potassium given PO and IV. He swallows pills , water and ice well. He has stated he is comfortable and refuses position changes but then will complain of pain. Penile pain. Acetaminophen admin once , it held a little per pt. No Bm today But Flatulence noted. Urine outout of 1800this shift.
[2023-01-06] MEDS: atorvastatin 40 mg Tablet 20 MG PO (20:29)
[2023-01-07] VITALS (28 sets, daily range): BP systolic 98–124; BP diastolic 63–86; PULSE 82–114; RESP 13–33; TEMP 36.4–37; O2SAT 87–97
[2023-01-07] MEDS: piperacillin-tazobactam 3.375 GM in sodium chloride 0.9% (plus) 50 ML IV ×3 (00:45→17:40)
[2023-01-07] MEDS: ipratropium-albuterol 3 mL Neb INHALATION ×5 (03:00→23:22)
[2023-01-07] MEDS: bumetanide 0.25 mg/mL SDV 4 mL 1 MG IVP ×2 (03:16→12:09)
[2023-01-07 04:42] LABS: Basophils % 0.2 %; Eosinophils # 0.6 10^3/uL (0.0-0.8); Eosinophils % 4.3 %; Hematocrit 33.8 % (42.0-52.0); Hemoglobin 10.5 g/dL (11.7-16.6); Lymphocytes # 1.2 10^3/uL (0.8-4.8); Lymphocytes % 9.4 %; Mean Corpuscular HGB Conc 31.1 g/dL (30.0-36.0); Mean Corpuscular Hemoglobin 29.1 pg (28.0-34.0); Mean Corpuscular Volume 93.6 fl (80-94); Mean Platelet Volume 11.1 fL (7.4-10.4); Monocytes # 0.7 10^3/uL (0.2-0.9); Monocytes % 4.9 %; Neutrophils % 78.9 %; Nucleated Red Blood Cells % 0.2 %; Platelet Count 146 10^3/cmm (130-400); Red Blood Count 3.61 10^6/uL (4.1-5.3); Red Cell Distribution Width 15.2 % (12.1-15.1); White Blood Count 13.2 10^3/uL (4.0-10.0)
[2023-01-07 04:56] LABS: INR 1.28 (0.8-1.2)
[2023-01-07 04:59] LABS: Lactate (Lactic Acid level) 0.9 mmol/L (0.5-2.2)
[2023-01-07] MEDS: vancomycin 1,500 MG/300 ML PIGGYBACK 200 MG IV ×2 (05:04→23:20)
[2023-01-07 05:14] LABS: Alanine Aminotransferase 43 U/L (0-41); Albumin Level 3.2 g/dL (3.5-5.2); Alkaline Phosphatase 61 U/L (40-130); Anion Gap 16.1 (5-19); Aspartate Amino Transferase 30 U/L (0-40); Blood Urea Nitrogen 19 mg/dL (8-23); C Reactive Protein 44.9 mg/L (0.0-4.9); Carbon Dioxide 31 mmol/L (22-29); Chloride 98 mmol/L (98-107); Globulin 2.3 g/dL (1.3-4.6); Glucose 103 mg/dL (65-115); Magnesium 1.5 mg/dL (1.7-2.3); Osmolality Calculated 297 mOsm/kg (285-295); Phosphorus 2.2 mg/dL (2.5-4.5); Potassium 3.1 mmol/L (3.5-5.1); Sodium 142 mmol/L (136-145); Total Bilirubin 1.4 mg/dL (0.15-1.2); Total Protein 5.5 g/dL (6.6-8.7)
[2023-01-07 05:21] LABS: NT Pro B Type Natriuretic Pept 2058 pg/mL (0-450); Procalcitonin 0.18 ng/mL (0-0.5)
--- NOTE | 2023-01-07 07:00 | XR_ITS ---
WS: [id number] Exam: XR chest 1V portable [id number] Date/Time of Exam: 01/07/2023 6:43 AM Reason For Exam: sob Comparison 01/05/2023. There is a new infiltrate in the right lower lobe since the prior study. There is also consolidation in the left retrocardiac region in the left lower lobe. Mild cardiac enlargement. Increased pulmonary vascularity. No pneumothorax. There may be small left pleural effusion. Regional bony elements are i ntact. The mediastinum is normal in contour. XR/XR chest 1V portable [id number] IMPRESSION: 1. New infiltrate in the right lower lobe. There is also left lower lobe infilt rate and atelectasis. Possible small left pleural effusion. 2. Cardiac enlargement with increased pulmonary vascularity. 3. A right-sided PICC line appears to end near the cavoatrial junction. It is u nchanged in position.
--- NOTE | 2023-01-07 08:22 | CTR_ITS ---
PROCEDURE INFORMATION: Exam: CT Head Without Contrast Exam date and time: 01/07/2023 10:56 AM Age: 77 years old Clinical indication: Altered mental status/memory loss; Additional info: AMS TECHNIQUE: Imaging protocol: Computed tomography of the head without contrast. Radiation optimization: All CT scans at this facility use at least one of these dose optimization techniques: automated exposure control; mA and/or kV adjustment per patient size (includes targeted exams where dose is matched to clinical indication); or iterative reconstruction. REPORTING DATA: Count of CT and Cardiac NM exams in prior 12 months: This patient has received 2 known CTs and 0 known cardiac nuclear medicine studies in the 12 months prior to the current study. COMPARISON: CT head wo con* [id number] 01/03/2023 1:49 PM RADIATION DOSE METRICS: Total DLP (mGy-cm): 1113.58 FINDINGS: Brain: Intracranial vascular calcifications. Diffuse cerebral atrophy, consistent with patient's age. No hemorrhage. Preserved keating-white matter differentiation. Patchy cerebral white matter hypoattenuation in keeping with chronic microvascular ischemic change. No mass effect. Cerebral ventricles: Ventricles are in proportion to the degree of atrophy. Pituitary gland and sella: Partially empty sella. Paranasal sinuses: Mild left ethmoid air cell opacification. Mastoid air cells: Visualized mastoid air cells are well aerated. Bones/joints: Unremarkable. No acute fracture. Soft tissues: Unremarkable. CT/CT head wo con* [id number] IMPRESSION: 1. No acute intracranial findings. 2. Atherosclerosis.
[2023-01-07] MEDS: magnesium sulfate premix 2 GM/50 ML PIGGYBACK IV (09:02)
[2023-01-07] MEDS: potassium phosphate (mEq K) 40 MEQ in sodium chloride 0.9% (100 ml) 100 ML 27.25 MEQ IV (09:03)
[2023-01-07] MEDS: potassium chloride oral liq 20 mEq/15 mL UDC 40 MEQ PO ×2 (09:05→21:34)
[2023-01-07] MEDS: amiodarone 200 mg Tablet 400 MG PO ×2 (09:05→17:40)
[2023-01-07] MEDS: magnesium lactate 84 mg Tablet PO (09:05)
[2023-01-07] MEDS: enoxaparin 100 mg/mL Syringe SUBCUT ×2 (09:05→21:34)
[2023-01-07] MEDS: clopidogrel 75 mg Tablet PO (09:05)
--- NOTE | 2023-01-07 11:32 | XRR_ITS ---
PROCEDURE INFORMATION: Exam: XR Abdomen Exam date and time: 01/07/2023 11:41 AM Age: 77 years old Clinical indication: Other: Abdominal distention TECHNIQUE: Imaging protocol: Radiologic exam of the abdomen. Views: Frontal supine view of the abdomen. 1 View. COMPARISON: [place] [id number] 01/03/2023 5:31 PM 2. CR XR chest 1V portable [id number] 01/07/2023 7:05 AM FINDINGS: Gastrointestinal tract: No air-filled dilated bowel loops or evidence of bowel thickening. Bones/joints: No acute fracture. Degenerative changes along the spine. XR/XR KUB portable [id number] IMPRESSION: No acute findings.
--- NOTE | 2023-01-07 15:10 | P.PN_ITS ---
Subjective Subjective: - Patient was examined early this morning -Currently on heated high flow 35% -He is alert to person, to place, not to time, -He can follow commands, pupils equal round reactive light his smile for me can wiggle his toes, squeeze my fingers, has good strength in upper extremities -Still confused, at times encephalopathic -Speech therapy has cleared him to mechanical soft but I am worried about his encephalopathic and his risk of aspiration his chest x-ray does show a new right lower lobe infiltrate we will monitor throughout the afternoon -He denies any pain, no abdominal pain complaints no shortness of breath complaints, -He tells me he lives at home by himself but he cannot tell his address -He does not know his birthdate - Vitals/I&O/Wt Last Vital Signs Temp 98 F 01/07/23 12:00 Pulse 96 01/07/23 14:00 Resp 17 01/07/23 14:00 BP 104/67 01/07/23 14:00 Pulse Ox 95 01/07/23 14:00 O2 Del Method High Flow Nasal Cannula 01/07/23 12:00 O2 Flow Rate 9 01/07/23 12:00 FiO2 35 01/07/23 10:00 01/07/23 01/07/23 01/07/23 06:59 14:59 22:59 Intake Total 596.475 / 2526.741 908.3614 / 849.9049 Output Total 5 / 4419 750 / 750 Balance -1428.525 / -2248.705 99.9049 / 99.9049 Weight last 48 hrs Weight 96.797 kg Weight 98.792 kg Physical Exam Const: COMMON NORMALS: no acute distress ORIENTATION/CONSCIOUSNESS: Yes awake, Yes oriented to person and Yes confused; not oriented to place Resp: COMMON NORMALS: normal respiratory effort, No retractions, No use of accessory muscles and clear to auscultation bilaterally AUSCULTATION: clear to auscultation bilaterally Cardio: COMMON NORMALS: regular rate, regular rhythm, S1 normal heart sound present and S2 normal heart sound present RATE: regular rate RHYTHM: regular rhythm HEART SOUNDS: S1 normal heart sound present and S2 normal heart sound present GI: COMMON NORMALS: Normal to inspection, nondistended, normoactive bowel sounds present and non-tender Extremity: COMMON NORMALS: no pedal edema Neuro: SENSORIUM/ORIENTATION: Yes oriented to person and No oriented to place Psych: COMMON NORMALS: mental status grossly normal Urinary Catheter Management: Haas: Cath Placed During This Visit: yes Reason for Continuing Indwelling Catheter: Accurate Measurement of Urinary Output in Critically Ill Patients Urinary Catheter Date of Insertion: 01/03/23 Urinary Catheter Time of Insertion: 18:00 Haas Latex: Cath Placed During This Visit: no Reason for Continuing Indwelling Catheter: Accurate Measurement of Urinary Output in Critically Ill Patients Data 01/07/23 04:20 01/07/23 04:20 Micro: Microbiology 01/06/23 11:17 Blood Culture - Preliminary Blood NEGATIVE TO DATE 01/06/23 11:06 Blood Culture - Preliminary Blood NEGATIVE TO DATE A&P Assessment and plan (1) Acute respiratory failure with hypoxia: (2) Acute exacerbation of congestive heart failure: (3) Systolic CHF, acute: (4) Encephalopathy: (5) Acute non-ST elevation myocardial infarction (NSTEMI): (6) Atrial fibrillation: (7) Cholelithiases: (8) Moderate aortic stenosis: (9) Pneumonia: (10) Acute renal failure: (11) Sepsis: (12) Liver cirrhosis: (13) Elevated INR: (14) Transaminitis: (15) Hyperbilirubinemia: (16) Uremia: (17) Acute encephalopathy: (18) Shock: (19) Septic shock: (20) Atrial fibrillation with RVR: Plan Acute hypoxic respiratory failure -Likely secondary to pneumonia -Likely secondary to systolic CHF exacerbation -There is a possibility of pulmonary embolism? Although unlikely, given elevated troponins, elevated D-dimer, he he is on Eliquis, cannot perform CT angiogram given elevated creatinine, venous ultrasound negative for DVT, Plan -currently on therapeutic Lovenox -Status post self extubation 01/05/2023 -Currently on heated high flow 35 L 35% - -4 L yesterday -Continue vancomycin, Zosyn -Bumex 1 mg IV push every 8 hours, with potassium replacement -Monitor urine output A-fib with RVR -Status post dig load to 250 times twice -Amiodarone bolus 150 twice -Continue amiodarone 400 twice daily -On therapeutic Lovenox Shock, resolved -Likely multifactorial -Septic, possible cardiogenic, possible outflow obstruction -Remains off Levophed -Maintain MAP in the 65 Acute encephalopathy, -Continues to be encephalopathic -Multifactorial from hypoxia, pneumonia, uremia, sepsis, -Monitor -CT of the head -Currently on Precedex drip Systolic CHF exacerbation -With elevated troponins, elevated BNP -Monitor BMP monitor urine output, diuresis based upon clinical progress -Chest x-ray showing improved pulmonary vascular congestion this morning -Continue Bumex 1 mg IV push every 8 hours, with potassium replacement, still on 35 L -We will monitor urine output monitor creatinine, cardiology consulted Pneumonia -Sputum culture, blood cultures, respiratory viral panel -Continue vancomycin, Zosyn Staph epidermidis bacteremia -1 out of 4 blood cultures positive for Staph epidermidis -Highly suspect that this is a contamination -Does have a PICC line in place -Continue vancomycin for now -Once repeat blood cultures are negative for 48 hours discontinue vancomycin Uremia -Resolving -Nephrology consulted Acute renal failure -Likely secondary to sepsis, cardiorenal syndrome -Creatinine improving -Monitor urine output monitor creatinine -Nephrology consulted Sepsis, resolved -Creatinine 1.4, transaminitis, hyperbilirubinemia, NSTEMI, respiratory failure, hypoxia, -Source of infection is pneumonia -And or cholelithiasis Non-ST elevation [place] -Type I versus type II NSTEMI -Has complaints of chest pain in the past -Had a stress test in 2019 -EKG does show ST depressions inferior lateral leads -Currently on heparin drip -Cardiac echo ordered Normal LV size with diminished ejection fraction of around 50%.? ?Diffuse hypokinesis of the septum and the anteroseptal segments. ?Mild biatrial enlargement ?Thickened mitral valve. Moderate mitral annular calcification. ?Moderate mitral valve regurgitation. ?Moderate aortic valve calcification.? Moderate aortic valve ?stenosis with a valve area 1.1 cm squared. ?[id number] tricuspid valve regurgitation.? Estimated PA ?pressure of 40 mmHg. ?Dilated IVC with decreased respiratory variation. ?There is no pericardial effusion. ?There are no intracardiac masses. ?Compared to the study from 06/27/2021, there wall motion of ?normality and the diminished LV ejection fraction are new -Cardiology consulted Cholelithiasis -CT scan shows 2 stones in cystic duct versus vascular calcifications -Right upper quadrant ultrasound -1. ? Cholelithiasis with mild localized gallbladder wall thickening raising possibility of cholecystitis. 2. ? Mild perihepatic ascites. 3. ? Right pleural effusion. -Follow LFTs,, alk phos, bilirubin, -If it continues to elevate, might require MRCP or potential transfer for consideration of ERCP -On Zosyn Hyperbilirubinemia as above Transaminitis as above, hep C negative, HIV within limits, alcohol levels within normal limits Liver cirrhosis, with elevated INR, elevated LFTs, etiology unclear, work-up as above Hypoalbuminemia Hypokalemia we will replace potassium IV, currently on scheduled potassium Protonix for GI prophylaxis Heparin for DVT prophylaxis Plan for today, monitor mentation closely, continue Precedex drip, advance diet, try clear liquids CTA of the head PT OT speech therapy eval wean oxygen continue Bumex, follow blood cultures we will decide on discontinuing vancomycin, continues to be on a Precedex drip off amiodarone not on pressors, Attestations Medical Necessity Statement*: Patient requires hospitalization for acute hypoxic respiratory failure secondary to pneumonia, CHF, requiring diuresis Coding Level of Care Code Critical Care >/= 30 minutes Critical care time (in minutes): 45 The high probability of a clinically significant, sudden or life threatening deterioration, as referenced in this documentation, required my full and direct attention, intervention and personal management. The critical care time shown is in addition to time spent performing any reported separately billable procedures and includes the following: [x] Data and vital sign review and interpretation [x ] Patient assessment, examination and intervention [x] Medication orders and management [x] Patient/Family updates as able [x] Care Coordination and Documentation. Diagnoses Acute respiratory failure with hypoxia J96.01 Acute exacerbation of congestive heart failure I50.9 Systolic CHF, acute I50.21 Encephalopathy G93.40 Acute non-ST elevation myocardial infarction (NSTEMI) I21.4 Atrial fibrillation I48.91 Cholelithiases K80.20 Moderate aortic stenosis I35.0 Pneumonia J18.9 Acute renal failure N17.9 Sepsis A41.9 Liver cirrhosis K74.60 Elevated INR R79.1 Transaminitis R74.01 Hyperbilirubinemia E80.6 Uremia N19 Acute encephalopathy G93.40 Shock R57.9 Septic shock A41.9; R65.21 Atrial fibrillation with RVR I48.91
[2023-01-07] MEDS: pantoprazole 40 mg SDV IVP (16:17)
--- NOTE | 2023-01-07 17:36 | PC.NURSE ---
Patient remains confused in bed, OOBTC this shift, VSS with oxygen supplemet on high flow. Patient tends to have a short term span of about 5 minutes or less and nurse or healthcare workers are called in to recall information to the patient on what is going on and all the wires and tubes in place and why they are there. Patient is oriented to name and sometimes he knows his birthdate but gives wrong age. [facility] department was able to go to home and retrieve some phone numbers for patients daughters however this nurse has attempted both numbers numerous times throughout shift and voicemails are full. Phone number for daughter Brinda Gutierrez is . The other number just goes to an automated number. No new events during shift. Patient got a bath and linen change during shift. Frequent turns with patient assistance. Room clean and clutter free with call light within reach.
--- NOTE | 2023-01-07 20:08 | PM.PN ---
Subjective Subjective: no new complaints Medications: Reviewed: Yes Vitals/I&O/Wt Last Vital Signs Temp 98 F 01/07/23 12:00 Pulse 84 01/07/23 19:41 Resp 17 01/07/23 19:41 BP 124/69 01/07/23 16:00 Pulse Ox 96 01/07/23 19:41 O2 Del Method High Flow Nasal Cannula 01/07/23 19:41 O2 Flow Rate 5 01/07/23 19:41 FiO2 35 01/07/23 10:00 01/07/23 01/07/23 01/07/23 06:59 14:59 22:59 Intake Total 596.475 / 2526.849 852.7865 / 849.9049 480 / 1329.9049 Output Total 2024 750 / 750 1000 / 1750 Balance -1428.525 / -2248.705 99.9049 / 99.9049 -520 / -420.0951 Weight last 48 hrs Weight 96.797 kg Weight 98.792 kg Physical Exam Narrative: awake , alert No distress + edema Urinary Catheter Management: Haas: Cath Placed During This Visit: yes Reason for Continuing Indwelling Catheter: Accurate Measurement of Urinary Output in Critically Ill Patients Urinary Catheter Date of Insertion: 01/03/23 Urinary Catheter Time of Insertion: 18:00 Haas Latex: Cath Placed During This Visit: no Reason for Continuing Indwelling Catheter: Accurate Measurement of Urinary Output in Critically Ill Patients Data 01/07/23 04:20 01/07/23 04:20 Micro: Microbiology 01/03/23 12:59 Blood Culture - Preliminary Blood Staphylococcus epidermidis 01/06/23 11:17 Blood Culture - Preliminary Blood NEGATIVE TO DATE 01/06/23 11:06 Blood Culture - Preliminary Blood NEGATIVE TO DATE A&P Assessment and plan (1) Acute renal failure: Plan 1. Acute kidney injury: Baseline creatinine of 1.0 in June/2022. Now presents with NÉSTOR with a creatinine of 2.4 most likely multifactorial-sepsis, possible hepatorenal. Developed ATN likely. -Patient with post ATN polyuria , will continue as needed Lasix -off Levophed - Cr improved back to baseline -Avoid nephrotoxins and IV contrast studies -Reviewed CT abdomen. 2.Acute on chronic respiratory failure: extubated , Multifactorial, pneumonia, possible CHF Currently on heparin drip due to elevated troponin and question PE. 3.Hypokalemia : replete History of CHF, echo ordered, on IV Lasix as needed non-ST elevation DC, seen by cardiology Patient evaluated using audiovisual. Time spent 45 minutes. Attestations Medical Necessity Statement*: per medicine Coding Level of Care Code Acute Code for g Fwd Diagnoses Acute renal failure N17.9
--- NOTE | 2023-01-07 21:31 | P.PN_ITS ---
Subjective Subjective: He self extubated 01/05, aAaliyah fib with RVR on and off. He needed amiodarone boluses and dose of amiodarone gtt was increased. Medications: Reviewed: Yes Medication Review Details: Current Medications Acetaminophen (Acetaminophen 325 Mg Tablet) 650 mg PO Q6H PRN PRN Reason: Mild/Mod Pain Or Temp >/= 101 Albuterol/Ipratropium (Ipratropium-Albuterol 3 Ml Neb) 3 ml INHALATION Q4H.RESPIRATORY JENIFER Last Admin: 01/05/23 15:59 Dose: 3 ml Bumetanide (Bumetanide 0.25 Mg/Ml Sdv 4 Ml) 1 mg IVP Q8H JENIFER Clopidogrel Bisulfate (Clopidogrel 75 Mg Tablet) 75 mg PO DAILY JENIFER Last Admin: 01/05/23 09:11 Dose: 75 mg Enoxaparin Sodium (Enoxaparin 100 Mg/Ml Syringe) 100 mg SUBCUT Q12H JENIFER Last Admin: 01/05/23 09:12 Dose: 100 mg Norepinephrine Bitartrate 4 mg (/ Dextrose) 254 mls @ 0 mls/hr IV .Q0M JENIFER; Protocol Last Titration: 01/05/23 11:43 Dose: 0 mcg/min, 0 mls/hr Piperacillin Sod/Tazobactam (Sod 3.375 gm/ Sodium Chloride) 50 mls @ 12.5 mls/hr IV Q8H JENIFER; Protocol Last Admin: 01/05/23 17:56 Dose: 12.5 mls/hr Amiodarone HCl 900 mg/Dextrose/ IV Miscellaneous Supplies 518 mls @ 0 mls/hr IV .Q0M JENIFER; Protocol Last Titration: 01/05/23 17:43 Dose: 1 mg/min, 34.53 mls/hr Lidocaine HCl 5 ml/ Potassium (Chloride) 205 mls @ 25.625 mls/hr IV ONCE ONE Stop: 01/06/23 01:04 Last Admin: 01/05/23 17:54 Dose: 25.63 mls/hr Vancomycin/PEG/NADA/Lysine/Water (Vancocin) 1,500 mg in 300 mls @ 200 mls/hr IV Q18H JENIFER Last Admin: 01/05/23 17:55 Dose: 200 mls/hr Dexmedetomidine HCl 400 mcg/ (Sodium Chloride) 104 mls @ 0 mls/hr IV .Q0M JENIFER; Protocol Last Titration: 01/05/23 18:45 Dose: 0.3 mcg/kg/hr, 8.31 mls/hr Naloxone HCl (Naloxone 0.4 Mg/Ml Sdv) 0.1 mg IVP Q2M PRN PRN Reason: OPIATERV Ondansetron HCl (Ondansetron 2 Mg/Ml Sdv 2 Ml) 4 mg IVP Q8H PRN PRN Reason: vomiting, or N/V if npo Pantoprazole Sodium (Pantoprazole 40 Mg Sdv) 40 mg IVP Q24H JENIFER Last Admin: 01/05/23 16:29 Dose: 40 mg Potassium Chloride (Potassium Chloride Oral Liq 20 Meq/15 Ml Udc) 40 meq PO Q12H [facility] Vitals/I&O/Wt Last Vital Signs Temp 98 F 01/07/23 12:00 Pulse 91 01/07/23 21:00 Resp 27 H 01/07/23 21:00 BP 107/71 01/07/23 21:00 Pulse Ox 93 01/07/23 21:00 O2 Del Method High Flow Nasal Cannula 01/07/23 19:41 O2 Flow Rate 5 01/07/23 19:41 FiO2 35 01/07/23 10:00 01/07/23 01/07/23 01/07/23 06:59 14:59 22:59 Intake Total 596.475 / 2526.002 514.0240 / 849.9049 480 / 1329.9049 Output Total 2025 / 4775 750 / 750 1000 / 1750 Balance -1428.525 / -2248.705 99.9049 / 99.9049 -520 / -420.0951 Weight last 48 hrs Weight 213 lb 6.4 oz Weight 217 lb 12.8 oz Physical Exam Narrative: GENERAL: Averagely built and averagely nourished in no acute distress HEENT: Extraocular movement intact. No pallor or icterus. NECK: central trachea, No JVD, No carotid bruit. CARDIOVASCULAR SYSTEM: S1-S2 irregular. No murmur or gallops. RESPIRATORY SYSTEM: Chest clear to auscultation. No wheezes rhonchi or rubs heard. No use of accessory muscles. ABDOMEN: Soft, nontender and nondistended. Normal bowel sounds present. EXTREMITIES: No cyanosis, trace-1+ edema. No signs of chronic venous insufficiency. 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 , intermittent confusion Urinary Catheter Management: Haas: Cath Placed During This Visit: yes Reason for Continuing Indwelling Catheter: Accurate Measurement of Urinary Output in Critically Ill Patients Urinary Catheter Date of Insertion: 01/03/23 Urinary Catheter Time of Insertion: 18:00 Haas Latex: Cath Placed During This Visit: no Reason for Continuing Indwelling Catheter: Accurate Measurement of Urinary Output in Critically Ill Patients Data 01/07/23 04:20 01/07/23 04:20 Micro: Microbiology 01/03/23 12:59 Blood Culture - Preliminary Blood Staphylococcus epidermidis 01/06/23 11:17 Blood Culture - Preliminary Blood NEGATIVE TO DATE 01/06/23 11:06 Blood Culture - Preliminary Blood NEGATIVE TO DATE A&P Assessment and plan (1) Acute respiratory failure with hypoxia: This could be multifactorial 2/2 pneumonia, CHF, COPD exacerbation, etc. are con tributing factors. The mental status seems to be improving. He is now on HFNC. 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 Closely monitor electrolytes. good UO (3) Acute non-ST elevation myocardial infarction (NSTEMI): Elevated troponin T, LV dysfunction and EKG changes are consistent with non-ST elevation myocardial infarction. -now on ASA 81mg, plavix 75 mg p.o. daily and lovenox -troponin T 1447-->1413-->1583 -TTE with Normal LV size with diminished ejection fraction of around 50%.?Diffuse hypokinesis of the septum and the anteroseptal segments. -will consider C once patient is hemodynamically stable (4) Atrial fibrillation with RVR: Patient was started on amiodarone. This may be continued. Consider starting on beta-blockers once the blood pressure is stable. (5) Hypokalemia: supplement potassium as needed. (6) Hypotension: The blood pressure seems to be improving. This also could be multifactorial. Possible non-ST elevation myocardial infarction, sepsis, multiorgan system failure, etc. are contributing factors. Currently he is off of low-dose of Levophed. (7) Acute renal failure: The BUN/creatinine levels are improving. Electrolytes are also improving. (8) Liver cirrhosis: Patient has a remote history of alcohol abuse. Possibility of a prolonged episode of hypotension/sepsis causing the transaminitis is a consideration. (9) Transaminitis: Seems to have improved. Plan His other problems are sepsis-patient is currently on empiric antibiotics. Possible pneumonia. Encephalopathy Anemia, Patient may require a cardiac catheterization to further evaluate the coronary status. However we will wait till his overall status is stable. May continue on the current measures Attestations Medical Necessity Statement*: As per primary team Coding Level of Care Code 46803 Diagnoses Acute respiratory failure with hypoxia J96.01 CHF (congestive heart failure) I50.9 Acute non-ST elevation myocardial infarction (NSTEMI) I21.4 Atrial fibrillation with RVR I48.91 Hypokalemia E87.6 Hypotension I95.9 Acute renal failure N17.9 Liver cirrhosis K74.60 Transaminitis R74.01
[2023-01-07] MEDS: atorvastatin 40 mg Tablet 20 MG PO (21:34)
[2023-01-07 22:57] LABS: Vancomycin Trough 11.2 ug/mL (10-15)
[2023-01-08] VITALS (29 sets, daily range): BP systolic 103–137; BP diastolic 66–90; PULSE 82–134; RESP 16–29; TEMP 36.3–36.6; O2SAT 91–98; BMI 30.2
[2023-01-08] MEDS: piperacillin-tazobactam 3.375 GM in sodium chloride 0.9% (plus) 50 ML IV ×3 (00:47→18:06)
[2023-01-08 04:00] LABS: Basophils # 0.1 10^3/uL (0.0-0.1); Basophils % 0.5 %; Eosinophils # 0.7 10^3/uL (0.0-0.8); Eosinophils % 5.3 %; Hematocrit 32.6 % (42.0-52.0); Hemoglobin 10.3 g/dL (11.7-16.6); Lymphocytes # 1.3 10^3/uL (0.8-4.8); Lymphocytes % 9.9 %; Mean Corpuscular HGB Conc 31.6 g/dL (30.0-36.0); Mean Corpuscular Hemoglobin 29.4 pg (28.0-34.0); Mean Corpuscular Volume 93.1 fl (80-94); Mean Platelet Volume 11.5 fL (7.4-10.4); Monocytes # 0.7 10^3/uL (0.2-0.9); Monocytes % 5.6 %; Neutrophils # 9.73 10^3/uL (1.8-7.7); Neutrophils % 76.3 %; Nucleated Red Blood Cells % 0.2 %; Platelet Count 138 10^3/cmm (130-400); Red Cell Distribution Width 15.1 % (12.1-15.1); White Blood Count 12.7 10^3/uL (4.0-10.0)
[2023-01-08 04:35] LABS: Alanine Aminotransferase 43 U/L (0-41); Albumin Level 3.4 g/dL (3.5-5.2); Alkaline Phosphatase 69 U/L (40-130); Aspartate Amino Transferase 41 U/L (0-40); Blood Urea Nitrogen 18 mg/dL (8-23); C Reactive Protein 35.5 mg/L (0.0-4.9); Calcium 8.6 mg/dL (8.5-10.5); Carbon Dioxide 31 mmol/L (22-29); Chloride 98 mmol/L (98-107); Glucose 89 mg/dL (65-115); Magnesium 1.8 mg/dL (1.7-2.3); Osmolality Calculated 291 mOsm/kg (285-295); Phosphorus 2.9 mg/dL (2.5-4.5); Sodium 140 mmol/L (136-145); Total Bilirubin 1.3 mg/dL (0.15-1.2); Total Protein 5.4 g/dL (6.6-8.7)
[2023-01-08 04:37] LABS: Anion Gap 14.6 (5-19); Potassium 3.6 mmol/L (3.5-5.1)
[2023-01-08 04:41] LABS: NT Pro B Type Natriuretic Pept 3220 pg/mL (0-450); Procalcitonin 0.25 ng/mL (0-0.5)
--- NOTE | 2023-01-08 04:53 | PC.NURSE ---
Patient is very anxious and confused during a shift. Patient also continues to throw things in room at door to ask for assistance instead of hitting call button. Patient has not slept throughout most of the night at all. Patient has been redirected as to what day it is and the day. Patient only aware to self and location.
[2023-01-08] MEDS: bumetanide 0.25 mg/mL SDV 4 mL 1 MG IVP ×2 (05:37→18:04)
[2023-01-08] MEDS: acetaminophen 325 mg Tablet 650 MG PO (06:35)
[2023-01-08] MEDS: ipratropium-albuterol 3 mL Neb INHALATION ×2 (07:58→21:20)
[2023-01-08] MEDS: amiodarone 200 mg Tablet 400 MG PO ×2 (09:29→18:04)
[2023-01-08] MEDS: clopidogrel 75 mg Tablet PO (09:29)
[2023-01-08] MEDS: magnesium lactate 84 mg Tablet PO (09:29)
[2023-01-08] MEDS: enoxaparin 100 mg/mL Syringe SUBCUT ×2 (09:35→21:17)
[2023-01-08] MEDS: potassium chloride oral liq 20 mEq/15 mL UDC 40 MEQ PO ×2 (09:35→21:16)
--- NOTE | 2023-01-08 11:34 | PC.SOCIAL ---
Imm update Imm updated with patient at bedside. Copy of page 2 provided. Patient verbalized understanding. Copy in chart initialed, dated and timed.
[2023-01-08] MEDS: pantoprazole 40 mg SDV IVP (14:51)
[2023-01-08] MEDS: metoprolol tartrate 25 mg Tablet PO ×2 (16:15→21:17)
[2023-01-08] MEDS: vancomycin 1,500 MG/300 ML PIGGYBACK 200 MG IV (16:16)
--- NOTE | 2023-01-08 16:38 | PC.NURSE ---
Family has called unit to check on pt. Greyson Matt, brother, Correct number now in EMR. Ree Newmanosiris, daughter, called to check on her father, her correct number now in EMR contacts. She also veified Brinda carmen's, daughter, Number
--- NOTE | 2023-01-08 17:33 | P.PN_ITS ---
Subjective Subjective: - Patient was seen this morning -He is alert to person, to place, not to time, -Denies any fevers, no chills, he is on 35 L 35% -No abdominal pain complaints Vitals/I&O/Wt Last Vital Signs Temp 97.4 F L 01/08/23 14:00 Pulse 134 H 01/08/23 16:07 Resp 18 01/08/23 16:07 BP 136/73 01/08/23 16:00 Pulse Ox 96 01/08/23 16:07 O2 Del Method Nasal Cannula 01/08/23 16:07 O2 Flow Rate 3 01/08/23 16:07 FiO2 35 01/07/23 10:00 01/08/23 01/08/23 01/08/23 06:59 14:59 22:59 Intake Total 770.563 / 2566.7989 419.437 / 419.437 Output Total 1150 / 2900 2475 / 2475 Balance -379.437 / -333.2011 -2054.563 / -2054.563 Weight last 48 hrs Weight 92.805 kg Weight 96.797 kg Physical Exam Const: COMMON NORMALS: no acute distress ORIENTATION/CONSCIOUSNESS: Yes awake, Yes oriented to person and Yes oriented to place Resp: COMMON NORMALS: normal respiratory effort, No retractions, No use of accessory muscles and clear to auscultation bilaterally AUSCULTATION: clear to auscultation bilaterally Cardio: COMMON NORMALS: regular rate, regular rhythm, S1 normal heart sound present and S2 normal heart sound present RATE: regular rate RHYTHM: regular rhythm HEART SOUNDS: S1 normal heart sound present and S2 normal heart sound present GI: COMMON NORMALS: Normal to inspection, nondistended, normoactive bowel sounds present and non-tender Extremity: COMMON NORMALS: no pedal edema Neuro: SENSORIUM/ORIENTATION: Yes oriented to person and Yes oriented to place Psych: COMMON NORMALS: mental status grossly normal Urinary Catheter Management: Haas: Cath Placed During This Visit: yes Reason for Continuing Indwelling Catheter: Accurate Measurement of Urinary Output in Critically Ill Patients Urinary Catheter Date of Insertion: 01/03/23 Urinary Catheter Time of Insertion: 18:00 Haas Latex: Cath Placed During This Visit: no Reason for Continuing Indwelling Catheter: Accurate Measurement of Urinary Output in Critically Ill Patients Data 01/08/23 03:45 01/08/23 03:45 Micro: Microbiology 01/03/23 12:50 Blood Culture - Final Blood NO GROWTH AFTER 5 DAYS 01/03/23 12:59 Blood Culture - Preliminary Blood Staphylococcus epidermidis A&P Assessment and plan (1) Acute respiratory failure with hypoxia: (2) Acute exacerbation of congestive heart failure: (3) Systolic CHF, acute: (4) Encephalopathy: (5) Acute non-ST elevation myocardial infarction (NSTEMI): (6) Atrial fibrillation: (7) Cholelithiases: (8) Moderate aortic stenosis: (9) Pneumonia: (10) Acute renal failure: (11) Sepsis: (12) Liver cirrhosis: (13) Elevated INR: (14) Transaminitis: (15) Hyperbilirubinemia: (16) Uremia: (17) Acute encephalopathy: (18) Shock: (19) Septic shock: (20) Atrial fibrillation with RVR: Plan Acute hypoxic respiratory failure -Likely secondary to pneumonia -Likely secondary to systolic CHF exacerbation -There is a possibility of pulmonary embolism? Although unlikely, given elevated troponins, elevated D-dimer, he he is on Eliquis, cannot perform CT angiogram given elevated creatinine, venous ultrasound negative for DVT, Plan -currently on therapeutic Lovenox -Status post self extubation 01/05/2023 -Currently on heated high flow 35 L 35% - -11 L overall -Continue vancomycin, Zosyn -Bumex 1 mg IV push every 12 hours, with potassium replacement -Monitor urine output A-fib with RVR -Status post dig load to 250 times twice -Amiodarone bolus 150 twice -Continue amiodarone 400 twice daily -On therapeutic Lovenox Shock, resolved -Likely multifactorial -Septic, possible cardiogenic, possible outflow obstruction -Remains off Levophed -Maintain MAP in the 65 Acute encephalopathy, -Improving -Multifactorial from hypoxia, pneumonia, uremia, sepsis, -Monitor -CT of the head, no acute findings -Currently on Precedex drip Systolic CHF exacerbation -With elevated troponins, elevated BNP -Monitor BMP monitor urine output, diuresis based upon clinical progress -Chest x-ray showing improved pulmonary vascular congestion this morning -Continue Bumex 1 mg IV push every12 hours, with potassium replacement, still on 35 L -We will monitor urine output monitor creatinine, cardiology consulted Pneumonia -Sputum culture, blood cultures, respiratory viral panel -Continue vancomycin, Zosyn Staph epidermidis bacteremia -1 out of 4 blood cultures positive for Staph epidermidis -Highly suspect that this is a contamination -PICC line to be removed today -Continue vancomycin for now, once blood cultures are -48 hours we will discontinue -Once repeat blood cultures are negative for 48 hours discontinue vancomycin Uremia -Resolving -Nephrology consulted Acute renal failure -Likely secondary to sepsis, cardiorenal syndrome -Creatinine improving -Monitor urine output monitor creatinine -Nephrology consulted Sepsis, resolved -Creatinine 1.4, transaminitis, hyperbilirubinemia, NSTEMI, respiratory failure, hypoxia, -Source of infection is pneumonia -And or cholelithiasis Non-ST elevation MT -Type I versus type II NSTEMI -Has complaints of chest pain in the past -Had a stress test in 2019 -EKG does show ST depressions inferior lateral leads -Currently on heparin drip -Cardiac echo ordered Normal LV size with diminished ejection fraction of around 50%.? ?Diffuse hypokinesis of the septum and the anteroseptal segments. ?Mild biatrial enlargement ?Thickened mitral valve. Moderate mitral annular calcification. ?Moderate mitral valve regurgitation. ?Moderate aortic valve calcification.? Moderate aortic valve ?stenosis with a valve area 1.1 cm squared. ?[id number] tricuspid valve regurgitation.? Estimated PA ?pressure of 40 mmHg. ?Dilated IVC with decreased respiratory variation. ?There is no pericardial effusion. ?There are no intracardiac masses. ?Compared to the study from 06/27/2021, there wall motion of ?normality and the diminished LV ejection fraction are new -Cardiology consulted Cholelithiasis -CT scan shows 2 stones in cystic duct versus vascular calcifications -Right upper quadrant ultrasound -1. ? Cholelithiasis with mild localized gallbladder wall thickening raising possibility of cholecystitis. 2. ? Mild perihepatic ascites. 3. ? Right pleural effusion. -Follow LFTs,, alk phos, bilirubin, -If it continues to elevate, might require MRCP or potential transfer for consideration of ERCP -On Zosyn Hyperbilirubinemia as above Transaminitis as above, hep C negative, HIV within limits, alcohol levels within normal limits Liver cirrhosis, with elevated INR, elevated LFTs, possibly secondary to alcoholism,, work-up as above Hypoalbuminemia Hypokalemia on p.o. replacement Protonix for GI prophylaxis Heparin for DVT prophylaxis Plan for today, up out of bed, monitor mentation, speech therapy continue Pre cedex, continues to diurese, wean oxygen as tolerated, still on Precedex drip Attestations Medical Necessity Statement*: Patient requires hospitalization for acute encephalopathy, respiratory failure, CHF, deconditioning, protein, malnutrition, Coding Level of Care Code Critical Care >/= 30 minutes Critical care time (in minutes): 45 The high probability of a clinically significant, sudden or life threatening deterioration, as referenced in this documentation, required my full and direct attention, intervention and personal management. The critical care time shown is in addition to time spent performing any reported separately billable procedures and includes the following: [x] Data and vital sign review and interpretation [x ] Patient assessment, examination and intervention [x] Medication orders and management [x] Patient/Family updates as able [x] Care Coordination and Documentation. Diagnoses Acute respiratory failure with hypoxia J96.01 Acute exacerbation of congestive heart failure I50.9 Systolic CHF, acute I50.21 Encephalopathy G93.40 Acute non-ST elevation myocardial infarction (NSTEMI) I21.4 Atrial fibrillation I48.91 Cholelithiases K80.20 Moderate aortic stenosis I35.0 Pneumonia J18.9 Acute renal failure N17.9 Sepsis A41.9 Liver cirrhosis K74.60 Elevated INR R79.1 Transaminitis R74.01 Hyperbilirubinemia E80.6 Uremia N19 Acute encephalopathy G93.40 Shock R57.9 Septic shock A41.9; R65.21 Atrial fibrillation with RVR I48.91
--- NOTE | 2023-01-08 19:07 | PC.NURSE ---
Shift summary: Pt started the day declined offered to sit in chair. He got up with PT and has been sitting in the chair the rest of the shift. He hs been to the [facility] frequently with loose stool/diarrhea. His mentation is much improved from Friday when he stated he did not know what to do with this as he held his HHF cannula. Today he has been very loquacious, he has told stories about his past repeatedly. His daughter, Ree, called to check on him stated he is not his normal self. She stated he is really a sharp person. Remains in A-Fib. Precedex weaned today, then his heart rate stated 100-120's except for PT , then in was up to 140's. Bat blockers restarted today. PICC l ine removed per Dr jones. Urine output of 1875ml . Multiple loose/liquid BMs today. sample sent to lab for C-Diff.
[2023-01-08] MEDS: atorvastatin 40 mg Tablet 20 MG PO (21:17)
[2023-01-09] VITALS (25 sets, daily range): BP systolic 111–134; BP diastolic 61–84; PULSE 77–134; RESP 18–29; TEMP 37.3; O2SAT 80–99
[2023-01-09] MEDS: piperacillin-tazobactam 3.375 GM in sodium chloride 0.9% (plus) 50 ML IV (02:05)
[2023-01-09 04:19] LABS: Basophils # 0.1 10^3/uL (0.0-0.1); Basophils % 0.5 %; Eosinophils # 0.7 10^3/uL (0.0-0.8); Eosinophils % 4.1 %; Hematocrit 35.4 % (42.0-52.0); Hemoglobin 10.8 g/dL (11.7-16.6); Lymphocytes # 1.2 10^3/uL (0.8-4.8); Lymphocytes % 7.2 %; Mean Corpuscular HGB Conc 30.5 g/dL (30.0-36.0); Mean Corpuscular Volume 95.2 fl (80-94); Mean Platelet Volume 12.3 fL (7.4-10.4); Monocytes # 0.8 10^3/uL (0.2-0.9); Monocytes % 4.9 %; Neutrophils # 13.01 10^3/uL (1.8-7.7); Neutrophils % 80.6 %; Nucleated Red Blood Cells % 0.2 %; Platelet Count 149 10^3/cmm (130-400); Red Blood Count 3.72 10^6/uL (4.1-5.3); Red Cell Distribution Width 15.3 % (12.1-15.1); White Blood Count 16.1 10^3/uL (4.0-10.0)
--- NOTE | 2023-01-09 04:33 | P.PN_ITS ---
Subjective Subjective: Note is for 01/08/23 He was seen sitting in chair. No CP, remains on HHF. currently in A. fib with RVR; off precedex. Medications: Reviewed: Yes Vitals/I&O/Wt Last Vital Signs Temp 97.4 F L 01/08/23 14:00 Pulse 134 H 01/09/23 04:00 Resp 18 01/09/23 04:00 BP 123/62 01/09/23 04:00 Pulse Ox 94 01/09/23 04:00 O2 Del Method Nasal Cannula 01/08/23 20:00 O2 Flow Rate 3 01/08/23 20:00 FiO2 35 01/07/23 10:00 01/08/23 01/08/23 01/09/23 14:59 22:59 06:59 Intake Total 419.437 / 419.437 610 / 1029.437 Output Total 1225 / 1225 1175 / 2400 Balance -805.563 / -805.563 -565 / -1370.563 Weight last 48 hrs Weight 204 lb 9.6 oz Weight 213 lb 6.4 oz Physical Exam Narrative: GENERAL: Averagely built and averagely nourished in no acute distress HEENT: Extraocular movement intact. No pallor or icterus. NECK: central trachea, No JVD, No carotid bruit. CARDIOVASCULAR SYSTEM: S1-S2 irregular.tachycardia+ No murmur or gallops. RESPIRATORY SYSTEM: Chest clear to auscultation. No wheezes rhonchi or rubs heard. No use of accessory muscles. ABDOMEN: Soft, nontender and nondistended. Normal bowel sounds present. EXTREMITIES: No cyanosis,No edema. No signs of chronic venous insufficiency. 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 Urinary Catheter Management: Haas: Cath Placed During This Visit: yes Reason for Continuing Indwelling Catheter: Accurate Measurement of Urinary Output in Critically Ill Patients Urinary Catheter Date of Insertion: 01/03/23 Urinary Catheter Time of Insertion: 18:00 Haas Latex: Cath Placed During This Visit: no Reason for Continuing Indwelling Catheter: Accurate Measurement of Urinary Output in Critically Ill Patients Data 01/09/23 03:40 01/08/23 03:45 Micro: Microbiology 01/08/23 18:05 Clostridioides difficile Toxins A&B (PCR) - Final Stool Routine Collection C.difficile Toxin B Gene (PCR) - Final 01/03/23 12:50 Blood Culture - Final Blood NO GROWTH AFTER 5 DAYS A&P Assessment and plan (1) Acute respiratory failure with hypoxia: This could be multifactorial 2/2 pneumonia, CHF, COPD exacerbation, etc. are c ontributing factors. The mental status seems to be improving. He is now on HFNC. 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 Closely monitor electrolytes. good UO (3) Acute non-ST elevation myocardial infarction (NSTEMI): Elevated troponin T, LV dysfunction and EKG changes are consistent with non-ST elevation myocardial infarction. -now on ASA 81mg, plavix 75 mg p.o. daily and lovenox -troponin T 1447-->1413-->1583 -TTE with Normal LV size with diminished ejection fraction of around 50%.?Diffus e hypokinesis of the septum and the anteroseptal segments. -will consider LHC once patient is hemodynamically stable, potentially in a day or two (4) Atrial fibrillation with RVR: Patient on amiodarone. -start on metoprolol tartrate 25 mg BID -Plan to uptitrate based on BP/HR. (5) Hypotension: The blood pressure seems to be improving. This also could be multifactorial. Possible non-ST elevation myocardial infarction, sepsis, multiorgan system failure, etc. are contributing factors. Currently he is off of low-dose of Levophed. (6) Acute renal failure: BUN/creatinine levels normalized (7) Liver cirrhosis: Patient has a remote history of alcohol abuse. Possibility of a prolonged episode of hypotension/sepsis causing the transaminitis is a consideration. (8) Transaminitis: Seems to have improved. Plan His other problems are sepsis-patient is currently on empiric antibiotics. Possible pneumonia. Encephalopathy Anemia, Patient may require a cardiac catheterization to further evaluate the coronary s tatus. However we will wait till his overall status is stable. May continue on the current measures Attestations Medical Necessity Statement*: needs hospital stay for CHF, NSTEMI and sepsis Coding Level of Care Code 83080 Diagnoses Acute respiratory failure with hypoxia J96.01 CHF (congestive heart failure) I50.9 Acute non-ST elevation myocardial infarction (NSTEMI) I21.4 Atrial fibrillation with RVR I48.91 Hypotension I95.9 Acute renal failure N17.9 Liver cirrhosis K74.60 Transaminitis R74.01
[2023-01-09 04:40] LABS: Albumin Level 3.6 g/dL (3.5-5.2); Calcium 8.6 mg/dL (8.5-10.5); Phosphorus 3.1 mg/dL (2.5-4.5)
[2023-01-09 04:55] LABS: NT Pro B Type Natriuretic Pept 2762 pg/mL (0-450); Procalcitonin 0.28 ng/mL (0-0.5)
[2023-01-09] MEDS: bumetanide 0.25 mg/mL SDV 4 mL 1 MG IVP ×2 (05:04→17:00)
[2023-01-09 05:15] LABS: Total Bilirubin 1.2 mg/dL (0.15-1.2)
[2023-01-09 05:20] LABS: Alanine Aminotransferase 56 U/L (0-41); Alkaline Phosphatase 85 U/L (40-130); Blood Urea Nitrogen 19 mg/dL (8-23); C Reactive Protein 30.8 mg/L (0.0-4.9); Carbon Dioxide 24 mmol/L (22-29); Chloride 96 mmol/L (98-107); Globulin 2.2 g/dL (1.3-4.6); Glucose 71 mg/dL (65-115); Osmolality Calculated 291 mOsm/kg (285-295); Sodium 140 mmol/L (136-145); Total Protein 5.8 g/dL (6.6-8.7)
[2023-01-09 05:21] LABS: Anion Gap 24.5 (5-19); Aspartate Amino Transferase 64 U/L (0-40); Potassium 4.5 mmol/L (3.5-5.1)
[2023-01-09] MEDS: ipratropium-albuterol 3 mL Neb INHALATION ×3 (08:09→15:11)
[2023-01-09] MEDS: enoxaparin 100 mg/mL Syringe SUBCUT ×2 (08:55→21:20)
[2023-01-09] MEDS: magnesium lactate 84 mg Tablet PO (08:55)
[2023-01-09] MEDS: metOLazone 5 MG Tablet PO (08:55)
[2023-01-09] MEDS: clopidogrel 75 mg Tablet PO (08:55)
[2023-01-09] MEDS: amiodarone 200 mg Tablet 400 MG PO ×2 (08:55→17:01)
[2023-01-09] MEDS: potassium chloride oral liq 20 mEq/15 mL UDC 40 MEQ PO ×2 (08:59→21:19)
[2023-01-09] MEDS: metoprolol tartrate 25 mg Tablet PO ×2 (08:59→10:56)
--- NOTE | 2023-01-09 11:59 | PM.PN ---
Subjective Subjective: Note is for 01/08/23 He was seen sitting in chair. No CP, remains on HHF. currently in A. fib with RVR; off precedex. He was transferred out of unit. Medications: Reviewed: Yes Medication Review Details: Current Medications Acetaminophen (Acetaminophen 325 Mg Tablet) 650 mg PO Q6H PRN PRN Reason: Mild/Mod Pain Or Temp >/= 101 Albuterol/Ipratropium (Ipratropium-Albuterol 3 Ml Neb) 3 ml INHALATION Q4H.RESPIRATORY JENIFER Last Admin: 01/05/23 15:59 Dose: 3 ml Bumetanide (Bumetanide 0.25 Mg/Ml Sdv 4 Ml) 1 mg IVP Q8H JENIFER Clopidogrel Bisulfate (Clopidogrel 75 Mg Tablet) 75 mg PO DAILY JENIFER Last Admin: 01/05/23 09:11 Dose: 75 mg Enoxaparin Sodium (Enoxaparin 100 Mg/Ml Syringe) 100 mg SUBCUT Q12H JENIFER Last Admin: 01/05/23 09:12 Dose: 100 mg Norepinephrine Bitartrate 4 mg (/ Dextrose) 254 mls @ 0 mls/hr IV .Q0M JENIFER; Protocol Last Titration: 01/05/23 11:43 Dose: 0 mcg/min, 0 mls/hr Piperacillin Sod/Tazobactam (Sod 3.375 gm/ Sodium Chloride) 50 mls @ 12.5 mls/hr IV Q8H JENIFER; Protocol Last Admin: 01/05/23 17:56 Dose: 12.5 mls/hr Amiodarone HCl 900 mg/Dextrose/ IV Miscellaneous Supplies 518 mls @ 0 mls/hr IV .Q0M JENIFER; Protocol Last Titration: 01/05/23 17:43 Dose: 1 mg/min, 34.53 mls/hr Lidocaine HCl 5 ml/ Potassium (Chloride) 205 mls @ 25.625 mls/hr IV ONCE ONE Stop: 01/06/23 01:04 Last Admin: 01/05/23 17:54 Dose: 25.63 mls/hr Vancomycin/PEG/NADA/Lysine/Water (Vancocin) 1,500 mg in 300 mls @ 200 mls/hr IV Q18H JENIFER Last Admin: 01/05/23 17:55 Dose: 200 mls/hr Dexmedetomidine HCl 400 mcg/ (Sodium Chloride) 104 mls @ 0 mls/hr IV .Q0M JENIFER; Protocol Last Titration: 01/05/23 18:45 Dose: 0.3 mcg/kg/hr, 8.31 mls/hr Naloxone HCl (Naloxone 0.4 Mg/Ml Sdv) 0.1 mg IVP Q2M PRN PRN Reason: OPIATERV Ondansetron HCl (Ondansetron 2 Mg/Ml Sdv 2 Ml) 4 mg IVP Q8H PRN PRN Reason: vomiting, or N/V if npo Pantoprazole Sodium (Pantoprazole 40 Mg Sdv) 40 mg IVP Q24H JENIFER Last Admin: 01/05/23 16:29 Dose: 40 mg Potassium Chloride (Potassium Chloride Oral Liq 20 Meq/15 Ml Udc) 40 meq PO Q12H [facility] Vitals/I&O/Wt Last Vital Signs Temp 97.4 F L 01/08/23 14:00 Pulse 112 H 01/09/23 11:10 Resp 18 01/09/23 11:00 BP 122/68 01/09/23 08:00 Pulse Ox 97 01/09/23 11:00 O2 Del Method High Flow Nasal Cannula 01/09/23 11:00 O2 Flow Rate 4 01/09/23 11:00 FiO2 35 01/07/23 10:00 01/08/23 01/09/23 01/09/23 22:59 06:59 14:59 Intake Total 610 / 1029.437 240 / 240 Output Total 1175 / 2400 425 / 2825 1100 / 1100 Balance -565 / -1370.563 -425 / -1795.563 -860 / -860 Weight last 48 hrs Weight 203 lb 9.6 oz Weight 204 lb 9.6 oz Physical Exam Narrative: GENERAL: Averagely built and averagely nourished in no acute distress HEENT: Extraocular movement intact. No pallor or icterus. NECK: central trachea, No JVD, No carotid bruit. CARDIOVASCULAR SYSTEM: S1-S2 irregular.tachycardia+ No murmur or gallops. RESPIRATORY SYSTEM: Chest clear to auscultation. No wheezes rhonchi or rubs heard. No use of accessory muscles. ABDOMEN: Soft, nontender and nondistended. Normal bowel sounds present. EXTREMITIES: No cyanosis,No edema. No signs of chronic venous insufficiency. 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 , intermittent confusion Urinary Catheter Management: Haas: Cath Placed During This Visit: yes Reason for Continuing Indwelling Catheter: Accurate Measurement of Urinary Output in Critically Ill Patients Urinary Catheter Date of Insertion: 01/03/23 Urinary Catheter Time of Insertion: 18:00 Haas Latex: Cath Placed During This Visit: no Reason for Continuing Indwelling Catheter: Accurate Measurement of Urinary Output in Critically Ill Patients Data 01/09/23 03:40 01/09/23 03:40 Micro: Microbiology 01/08/23 18:05 Clostridioides difficile Toxins A&B (PCR) - Final Stool Routine Collection C.difficile Toxin B Gene (PCR) - Final 01/03/23 12:50 Blood Culture - Final Blood NO GROWTH AFTER 5 DAYS A&P Assessment and plan (1) Acute respiratory failure with hypoxia: This could be multifactorial 2/2 pneumonia, CHF, COPD exacerbation, etc. are contributing factors. He is now on 4cL of O2 via NC (2) CHF (congestive heart failure): -HFmrEF LVEF=50% with RWMA IV diuretics. Closely monitor electrolytes. good UO (3) Acute non-ST elevation myocardial infarction (NSTEMI): Elevated troponin T, LV dysfunction and EKG changes are consistent with non-ST elevation myocardial infarction. -now on ASA 81mg, plavix 75 mg p.o. daily and lovenox -troponin T 1447-->1413-->1583 -TTE with Normal LV size with diminished ejection fraction of around 50%.?Diffuse hypokinesis of the septum and the anteroseptal segments. -will consider C once patient is hemodynamically stable, potentially in a day or two (4) Atrial fibrillation with RVR: Patient on amiodarone. -metoprolol tartrate now 50 mg BID -Plan to uptitrate based on BP/HR. (5) Transaminitis: Seems to have improved. Plan Hypotension: resolved sepsis-patient is currently on empiric antibiotics. Possible pneumonia. Encephalopathy Anemia Attestations Medical Necessity Statement*: As per primary team Coding Level of Care Code 25145 Diagnoses Acute respiratory failure with hypoxia J96.01 CHF (congestive heart failure) I50.9 Acute non-ST elevation myocardial infarction (NSTEMI) I21.4 Atrial fibrillation with RVR I48.91 Transaminitis R74.01
--- NOTE | 2023-01-09 12:26 | PC.NURSE ---
Report called to DHARA Saldaña. Patient transferred to [facility] room 101. Nurses aid at bedside, patient up to bedside commode on 4L NC, Patient vitals stable at transfer and patient had no complaints. Patient oriented to room and call light use. DaughterRee notified of transfer and room number. All belongings with patient at time of transfer.
--- NOTE | 2023-01-09 15:14 | P.PN_ITS ---
Subjective Subjective: - Patient was seen this morning -He is alert to person, to place, not to time -He gets up with physical therapy, does develop A-fib heart rates as high as 120s, which settled down when he rests -He does become short of breath with exertion. ? He tested positive for C. difficile. ? He follows commands -I had extensive discussion with him about, about his generalized weakness, deconditioning, I extensively spoke to him about possible half-way facility placement for rehab, he tells me you are the doctor I will listen to you ? Vitals/I&O/Wt Last Vital Signs Temp 97.4 F L 01/08/23 14:00 Pulse 86 01/09/23 12:00 Resp 18 01/09/23 11:00 BP 124/71 01/09/23 12:00 Pulse Ox 94 01/09/23 11:00 O2 Del Method Nasal Cannula 01/09/23 11:00 O2 Flow Rate 4 01/09/23 11:00 FiO2 35 01/07/23 10:00 01/09/23 01/09/23 01/09/23 06:59 14:59 22:59 Intake Total 240 / 240 Output Total 425 / 2825 1100 / 1100 Balance -425 / -1795.563 -860 / -860 Weight last 48 hrs Weight 92.351 kg Weight 92.805 kg Physical Exam Const: COMMON NORMALS: no acute distress ORIENTATION/CONSCIOUSNESS: Yes awake, Yes oriented to person and Yes oriented to place; not oriented to time Resp: COMMON NORMALS: normal respiratory effort, No retractions, No use of accessory muscles and clear to auscultation bilaterally AUSCULTATION: clear to auscultation bilaterally Cardio: COMMON NORMALS: regular rate, regular rhythm, S1 normal heart sound present and S2 normal heart sound present RATE: regular rate RHYTHM: regular rhythm HEART SOUNDS: S1 normal heart sound present and S2 normal heart sound present GI: COMMON NORMALS: Normal to inspection, nondistended, normoactive bowel sounds present and non-tender Extremity: COMMON NORMALS: no pedal edema Neuro: SENSORIUM/ORIENTATION: Yes oriented to person, Yes oriented to place and No oriented to time Psych: COMMON NORMALS: mental status grossly normal Urinary Catheter Management: Haas: Cath Placed During This Visit: yes Reason for Continuing Indwelling Catheter: Accurate Measurement of Urinary Output in Critically Ill Patients Urinary Catheter Date of Insertion: 01/03/23 Urinary Catheter Time of Insertion: 18:00 Haas Latex: Cath Placed During This Visit: no Reason for Continuing Indwelling Catheter: Accurate Measurement of Urinary Output in Critically Ill Patients Data 01/09/23 03:40 01/09/23 03:40 Micro: Microbiology 01/08/23 18:05 Clostridioides difficile Toxins A&B (PCR) - Final Stool Routine Collection C.difficile Toxin B Gene (PCR) - Final 01/03/23 12:50 Blood Culture - Final Blood NO GROWTH AFTER 5 DAYS A&P Assessment and plan (1) Acute respiratory failure with hypoxia: (2) Acute exacerbation of congestive heart failure: (3) Systolic CHF, acute: (4) Encephalopathy: (5) Acute non-ST elevation myocardial infarction (NSTEMI): (6) Atrial fibrillation: (7) Cholelithiases: (8) Moderate aortic stenosis: (9) Pneumonia: (10) Acute renal failure: (11) Sepsis: (12) Liver cirrhosis: (13) Elevated INR: (14) Transaminitis: (15) Hyperbilirubinemia: (16) Uremia: (17) Acute encephalopathy: (18) Shock: (19) Septic shock: (20) Atrial fibrillation with RVR: Plan Acute hypoxic respiratory failure -Likely secondary to pneumonia -Likely secondary to systolic CHF exacerbation -There is a possibility of pulmonary embolism? Although unlikely, given elevated troponins, elevated D-dimer, he he is on Eliquis, cannot perform CT angiogram given elevated creatinine, venous ultrasound negative for DVT, Plan -Currently in cardiac stepdown unit -Status post self extubation 01/05/2023 -Currently on 5 L nasal cannula - -11 L overall -De-escalate antibiotic therapy to doxycycline, Augmentin -Bumex 1 mg IV push every 12 hours, with potassium replacement -Monitor urine output C. difficile colitis -Isolation precautions. ? P.o. vancomycin A-fib with RVR -He is on metoprolol 50 twice daily -Continue amiodarone 400 twice daily -On therapeutic Lovenox Shock, resolved -Likely multifactorial -Septic, possible cardiogenic, possible outflow obstruction -Remains off Levophed -Maintain MAP in the 65 Acute encephalopathy, -Improving -Multifactorial from hypoxia, pneumonia, uremia, sepsis, -Monitor -CT of the head, no acute findings Systolic CHF exacerbation -With elevated troponins, elevated BNP -Monitor BMP monitor urine output, diuresis based upon clinical progress -Chest x-ray showing improved pulmonary vascular congestion this morning -Continue Bumex 1 mg IV push every12 hours, with potassium replacement, still on 35 L -We will monitor urine output monitor creatinine, cardiology consulted Pneumonia -Sputum culture, blood cultures, respiratory viral panel -Antibiotic therapy de-escalated to doxycycline, Augmentin Staph epidermidis bacteremia, likely contamination -1 out of 4 blood cultures positive for Staph epidermidis -Highly suspect that this is a contamination -PICC line to be removed -Repeat blood negative, remains afebrile -Vancomycin discontinued Uremia -Resolving -Nephrology consulted Acute renal failure -Likely secondary to sepsis, cardiorenal syndrome -Creatinine improving -Monitor urine output monitor creatinine -Nephrology consulted Sepsis, resolved -Creatinine 1.4, transaminitis, hyperbilirubinemia, NSTEMI, respiratory failure, hypoxia, -Source of infection is pneumonia -And or cholelithiasis Non-ST elevation HI -Type I versus type II NSTEMI -Has complaints of chest pain in the past -Had a stress test in 2019 -EKG does show ST depressions inferior lateral leads -Currently on heparin drip -Cardiac echo ordered Normal LV size with diminished ejection fraction of around 50%.? ?Diffuse hypokinesis of the septum and the anteroseptal segments. ?Mild biatrial enlargement ?Thickened mitral valve. Moderate mitral annular calcification. ?Moderate mitral valve regurgitation. ?Moderate aortic valve calcification.? Moderate aortic valve ?stenosis with a valve area 1.1 cm squared. ?[id number] tricuspid valve regurgitation.? Estimated PA ?pressure of 40 mmHg. ?Dilated IVC with decreased respiratory variation. ?There is no pericardial effusion. ?There are no intracardiac masses. ?Compared to the study from 06/27/2021, there wall motion of ?normality and the diminished LV ejection fraction are new -Cardiology consulted Cholelithiasis -CT scan shows 2 stones in cystic duct versus vascular calcifications -Right upper quadrant ultrasound -1. ? Cholelithiasis with mild localized gallbladder wall thickening raising possibility of cholecystitis. 2. ? Mild perihepatic ascites. 3. ? Right pleural effusion. -Follow LFTs,, alk phos, bilirubin, -If it continues to elevate, might require MRCP or potential transfer for consideration of ERCP -On Zosyn Hyperbilirubinemia as above Transaminitis as above, hep C negative, HIV within limits, alcohol levels within normal limits Liver cirrhosis, with elevated INR, elevated LFTs, possibly secondary to alcoho lism,, work-up as above Hypoalbuminemia Hypokalemia on p.o. replacement Protonix for GI prophylaxis Heparin for DVT prophylaxis Plan for today, up out of bed, monitor mentation, speech therapy, moved to cardiac stepdown unit, de-escalate antibiotic therapy, continue diuresis, white blood count up to 60,000 could be from C. difficile colitis, continue p.o. vancomycin, does have a Haas catheter in place, will obtain a UA Attestations Medical Necessity Statement*: Patient requires hospitalization for CHF exacerbation fluid overload, pneumonia, now has deconditioning, Diagnoses Acute respiratory failure with hypoxia J96.01 Acute exacerbation of congestive heart failure I50.9 Systolic CHF, acute I50.21 Encephalopathy G93.40 Acute non-ST elevation myocardial infarction (NSTEMI) I21.4 Atrial fibrillation I48.91 Cholelithiases K80.20 Moderate aortic stenosis I35.0 Pneumonia J18.9 Acute renal failure N17.9 Sepsis A41.9 Liver cirrhosis K74.60 Elevated INR R79.1 Transaminitis R74.01 Hyperbilirubinemia E80.6 Uremia N19 Acute encephalopathy G93.40 Shock R57.9 Septic shock A41.9; R65.21 Atrial fibrillation with RVR I48.91
[2023-01-09] MEDS: pantoprazole 40 mg SDV IVP (17:01)
[2023-01-09 17:32] LABS: Add Urine Microscopic? YES; Bilirubin Urine Neg (Negative); Blood Urine 2+ (Negative); Glucose Urine UA Norm (Normal); Ketones Urine 1+ (Negative); Leukocyte Esterase Urine Negative (Negative); Nitrate Urine Negative (Negative); Protein Urine Neg (Negative); Urine Appearance Clear (CLEAR); Urine Color Yellow (Yellow); Urobilinogen Urine Norm (Negative); pH Urine 6.5 (5-7)
[2023-01-09 17:33] LABS: Add Urine Culture? No; Squamous Epithelial Cell Urine 0-4 /hpf (0-5); WBC Urine 0-4 /hpf (0-5)
[2023-01-09] MEDS: atorvastatin 40 mg Tablet 20 MG PO (21:19)
[2023-01-09] MEDS: doxycycline 100 mg Tablet PO (21:19)
[2023-01-09] MEDS: metoprolol tartrate 50 mg Tablet PO (21:19)
[2023-01-09] MEDS: amoxicillin-clav 875-125 mg Tablet 1 TAB PO (21:19)
[2023-01-09] MEDS: zolpidem 5 mg Tablet PO (22:06)
[2023-01-10] VITALS (15 sets, daily range): BP systolic 102–138; BP diastolic 55–73; PULSE 98–120; RESP 16–29; TEMP 36.4–37.4; O2SAT 90–100
[2023-01-10 04:13] LABS: Basophils # 0.1 10^3/uL (0.0-0.1); Basophils % 0.4 %; Eosinophils # 0.6 10^3/uL (0.0-0.8); Eosinophils % 4.1 %; Hematocrit 36.7 % (42.0-52.0); Hemoglobin 11.3 g/dL (11.7-16.6); Lymphocytes # 1.2 10^3/uL (0.8-4.8); Mean Corpuscular HGB Conc 30.8 g/dL (30.0-36.0); Mean Corpuscular Hemoglobin 28.6 pg (28.0-34.0); Mean Corpuscular Volume 92.9 fl (80-94); Mean Platelet Volume 11.8 fL (7.4-10.4); Monocytes # 0.8 10^3/uL (0.2-0.9); Neutrophils # 10.61 10^3/uL (1.8-7.7); Neutrophils % 77.2 %; Nucleated Red Blood Cells % 0 %; Platelet Count 195 10^3/cmm (130-400); Red Blood Count 3.95 10^6/uL (4.1-5.3); Red Cell Distribution Width 15.3 % (12.1-15.1); White Blood Count 13.7 10^3/uL (4.0-10.0)
[2023-01-10 04:47] LABS: C Reactive Protein 23.4 mg/L (0.0-4.9); Magnesium 1.9 mg/dL (1.7-2.3)
[2023-01-10 04:52] LABS: NT Pro B Type Natriuretic Pept 3074 pg/mL (0-450); Procalcitonin 0.25 ng/mL (0-0.5)
[2023-01-10 05:02] LABS: Anion Gap 18.5 (5-19); Blood Urea Nitrogen 20 mg/dL (8-23); Calcium 8.7 mg/dL (8.5-10.5); Carbon Dioxide 32 mmol/L (22-29); Chloride 96 mmol/L (98-107); Glucose 75 mg/dL (65-115); Osmolality Calculated 297 mOsm/kg (285-295); Potassium 3.5 mmol/L (3.5-5.1); Sodium 143 mmol/L (136-145)
[2023-01-10] MEDS: bumetanide 0.25 mg/mL SDV 4 mL 1 MG IVP (05:40)
[2023-01-10] MEDS: ipratropium-albuterol 3 mL Neb INHALATION ×4 (07:45→23:56)
[2023-01-10] MEDS: amoxicillin-clav 875-125 mg Tablet 1 TAB PO ×2 (08:22→20:42)
[2023-01-10] MEDS: aspirin 81 mg EC Tablet PO (08:23)
[2023-01-10] MEDS: doxycycline 100 mg Tablet PO ×2 (08:23→20:42)
[2023-01-10] MEDS: mirtazapine 30 mg Tablet 45 MG PO (08:23)
[2023-01-10] MEDS: metoprolol tartrate 50 mg Tablet PO ×2 (08:23→20:42)
[2023-01-10] MEDS: magnesium lactate 84 mg Tablet PO (08:23)
[2023-01-10] MEDS: amiodarone 200 mg Tablet 400 MG PO ×2 (08:23→17:54)
[2023-01-10] MEDS: clopidogrel 75 mg Tablet PO (08:23)
[2023-01-10] MEDS: enoxaparin 100 mg/mL Syringe SUBCUT (08:54)
--- NOTE | 2023-01-10 09:05 | PC.SOCIAL ---
IMM Updated Updated pt on IMM. No questions voiced. Provided pt a copy. Initialed, dated, & timed copy in chart.
--- NOTE | 2023-01-10 12:15 | PC.NURSE ---
Received orders from physician to discontinue valencia catheter. This nurse proceeded to remove valencia catheter and only 4mls of saline was removed from the balloon, patient had no urine output, and catheter was difficult to remove, nurse met a lot of resistance and catheter was not in patients bladder. Patient began bleeding from the meatus and pressure was applied x15 min. Physician notified, catheter was replaced, physician stated to manually irrigate in 2hours. If clots are present may need to initiate CBI.
[2023-01-10 12:32] LABS: Hematocrit 37.1 % (42.0-52.0); Hemoglobin 11.5 g/dL (11.7-16.6)
[2023-01-10 12:47] LABS: INR 1.13 (0.8-1.2)
--- NOTE | 2023-01-10 15:45 | P.PN_ITS ---
Subjective Subjective: - Patient was seen this morning, he is alert to person, not place, to time, denies any chest pain, denies any shortness of breath, he wants his Haas catheter to be removed, he tells me that is bothering him, -Haas catheter was removed, patient developed significant hematuria, requiring Haas catheter to be put back in -Haas catheter bag had significant hematuria with clots requiring irrigation -Lovenox has been held, his hemoglobin stable at 11.3, INR stable -Advised nursing staff to BladderScan, and flush Haas catheter -We will consider CBI based on clinical progress -Possible urethral injury or irritation of bladder we will monitor -Creatinine up to 1.1, decrease Bumex to 1 mg once daily Vitals/I&O/Wt Last Vital Signs Temp 98.3 F 01/10/23 12:00 Pulse 114 H 01/10/23 12:00 Resp 29 H 01/10/23 12:00 BP 102/55 01/10/23 12:00 Pulse Ox 100 01/10/23 12:00 O2 Del Method Nasal Cannula 01/10/23 12:00 O2 Flow Rate 4 01/10/23 07:46 FiO2 35 01/07/23 10:00 01/10/23 01/10/23 01/10/23 06:59 14:59 22:59 Intake Total 200 / 440 Output Total 1300 / 3000 Balance -1100 / -2560 Weight last 48 hrs Weight 91.807 kg Weight 92.351 kg Physical Exam Const: COMMON NORMALS: no acute distress and patient oriented x3 Resp: COMMON NORMALS: normal respiratory effort, No retractions, No use of accessory muscles and clear to auscultation bilaterally AUSCULTATION: clear to auscultation bilaterally Cardio: COMMON NORMALS: regular rate, regular rhythm, S1 normal heart sound present and S2 normal heart sound present RATE: regular rate RHYTHM: regular rhythm HEART SOUNDS: S1 normal heart sound present and S2 normal heart sound present GI: COMMON NORMALS: Normal to inspection, nondistended, normoactive bowel sounds present and non-tender Extremity: COMMON NORMALS: no clubbing, cyanosis or edema and no pedal edema Neuro: COMMON NORMALS: patient oriented x3 Psych: COMMON NORMALS: mental status grossly normal Urinary Catheter Management: Haas: Cath Placed During This Visit: yes Reason for Continuing Indwelling Catheter: Accurate Measurement of Urinary Output in Critically Ill Patients Urinary Catheter Date of Insertion: 01/03/23 Urinary Catheter Time of Insertion: 18:00 Haas Latex: Cath Placed During This Visit: no Reason for Continuing Indwelling Catheter: Accurate Measurement of Urinary Output in Critically Ill Patients Data 01/10/23 12:26 01/10/23 02:56 A&P Assessment and plan (1) Acute respiratory failure with hypoxia: (2) Acute exacerbation of congestive heart failure: (3) Systolic CHF, acute: (4) Encephalopathy: (5) Acute non-ST elevation myocardial infarction (NSTEMI): (6) Atrial fibrillation: (7) Cholelithiases: (8) Moderate aortic stenosis: (9) Pneumonia: (10) Acute renal failure: (11) Sepsis: (12) Liver cirrhosis: (13) Elevated INR: (14) Transaminitis: (15) Hyperbilirubinemia: (16) Uremia: (17) Acute encephalopathy: (18) Shock: (19) Septic shock: (20) Atrial fibrillation with RVR: (21) Hematuria: Plan Acute hypoxic respiratory failure, resolved -Likely secondary to pneumonia -Likely secondary to systolic CHF exacerbation -There is a possibility of pulmonary embolism? Although unlikely, given elevated troponins, elevated D-dimer, he he is on Eliquis, cannot perform CT a ngiogram given elevated creatinine, venous ultrasound negative for DVT, Plan -Currently in cardiac stepdown unit -Status post self extubation 01/05/2023 -Currently on 5 L nasal cannula - -13 L overall -On doxycycline, Augmentin -Decrease Bumex to 1 mg p.o. every 24 hours -Monitor urine output C. difficile colitis -Isolation precautions. ? P.o. vancomycin A-fib with RVR -He is on metoprolol 50 twice daily -Continue amiodarone 400 twice daily -therapeutic Lovenox on hold Shock, resolved -Likely multifactorial -Septic, possible cardiogenic, possible outflow obstruction -Remains off Levophed -Maintain MAP in the 65 Acute encephalopathy, resolved -Improving -Multifactorial from hypoxia, pneumonia, uremia, sepsis, -Monitor -CT of the head, no acute findings Systolic CHF exacerbation, -13 L -With elevated troponins, elevated BNP -Monitor BMP monitor urine output, diuresis based upon clinical progress -Chest x-ray showing improved pulmonary vascular congestion this morning -Bumex 1 mg p.o. every 24 hours -We will monitor urine output monitor creatinine, cardiology consulted Pneumonia -Sputum culture, blood cultures, respiratory viral panel -Antibiotic therapy de-escalated to doxycycline, Augmentin Staph epidermidis bacteremia, likely contamination -1 out of 4 blood cultures positive for Staph epidermidis -Highly suspect that this is a contamination -PICC line to be removed -Repeat blood negative, remains afebrile -Vancomycin discontinued Uremia -Resolving -Nephrology consulted Acute renal failure -Likely secondary to sepsis, cardiorenal syndrome -Creatinine improving -Monitor urine output monitor creatinine -Nephrology consulted Sepsis, resolved -Creatinine 1.4, transaminitis, hyperbilirubinemia, NSTEMI, respiratory failure, hypoxia, -Source of infection is pneumonia -And or cholelithiasis Non-ST elevation SD -Type I versus type II NSTEMI -Has complaints of chest pain in the past -Had a stress test in 2019 -EKG does show ST depressions inferior lateral leads -Currently on heparin drip -Cardiac echo ordered Normal LV size with diminished ejection fraction of around 50%.? ?Diffuse hypokinesis of the septum and the anteroseptal segments. ?Mild biatrial enlargement ?Thickened mitral valve. Moderate mitral annular calcification. ?Moderate mitral valve regurgitation. ?Moderate aortic valve calcification.? Moderate aortic valve ?stenosis with a valve area 1.1 cm squared. ?[id number] tricuspid valve regurgitation.? Estimated PA ?pressure of 40 mmHg. ?Dilated IVC with decreased respiratory variation. ?There is no pericardial effusion. ?There are no intracardiac masses. ?Compared to the study from 06/27/2021, there wall motion of ?normality and the diminished LV ejection fraction are new -Cardiology consulted, will consider coronary angiography Cholelithiasis -CT scan shows 2 stones in cystic duct versus vascular calcifications -Right upper quadrant ultrasound -1. ? Cholelithiasis with mild localized gallbladder wall thickening raising possibility of cholecystitis. 2. ? Mild perihepatic ascites. 3. ? Right pleural effusion. -Follow LFTs,, alk phos, bilirubin, -If it continues to elevate, might require MRCP or potential transfer for consideration of ERCP -On Zosyn Hyperbilirubinemia as above Transaminitis as above, hep C negative, HIV within limits, alcohol levels within normal limits Liver cirrhosis, with elevated INR, elevated LFTs, possibly secondary to alcoholism,, work-up as above Hypoalbuminemia Hypokalemia on p.o. replacement Protonix for GI prophylaxis Heparin for DVT prophylaxis Plan for today, up out of bed, monitor mentation, speech therapy, moved to cardiac stepdown unit, -Haas catheter was removed, patient developed significant hematuria, requiring Haas catheter to be put back in -Haas catheter bag had significant hematuria with clots requiring irrigation -Lovenox has been held, his hemoglobin stable at 11.3, INR stable -Advised nursing staff to BladderScan, and flush Haas catheter -We will consider CBI based on clinical progress -Possible urethral injury or irritation of bladder we will monitor -Creatinine up to 1.1, decrease Bumex to 1 mg once daily Attestations Medical Necessity Statement*: Patient requires hospitalization for respiratory failure decrease Bumex, now with hematuria, plans of possible coronary angiography monitor mentation Diagnoses Acute respiratory failure with hypoxia J96.01 Acute exacerbation of congestive heart failure I50.9 Systolic CHF, acute I50.21 Encephalopathy G93.40 Acute non-ST elevation myocardial infarction (NSTEMI) I21.4 Atrial fibrillation I48.91 Cholelithiases K80.20 Moderate aortic stenosis I35.0 Pneumonia J18.9 Acute renal failure N17.9 Sepsis A41.9 Liver cirrhosis K74.60 Elevated INR R79.1 Transaminitis R74.01 Hyperbilirubinemia E80.6 Uremia N19 Acute encephalopathy G93.40 Shock R57.9 Septic shock A41.9; R65.21 Atrial fibrillation with RVR I48.91 Hematuria R31.9
--- NOTE | 2023-01-10 18:55 | P.PN_ITS ---
Subjective Subjective: Had heamturia and valencia catheter needed changed Medications: Reviewed: Yes Vitals/I&O/Wt Last Vital Signs Temp 98.4 F 01/10/23 16:00 Pulse 118 H 01/10/23 16:38 Resp 18 01/10/23 16:38 BP 129/71 01/10/23 16:00 Pulse Ox 98 01/10/23 16:38 O2 Del Method Nasal Cannula 01/10/23 16:38 O2 Flow Rate 4 01/10/23 16:38 FiO2 35 01/07/23 10:00 01/10/23 01/10/23 01/10/23 06:59 14:59 22:59 Intake Total 200 / 440 240 / 240 Output Total 1300 / 3000 850 / 850 Balance -1100 / -2560 -610 / -610 Weight last 48 hrs Weight 202 lb 6.4 oz Weight 203 lb 9.6 oz Physical Exam Narrative: GENERAL: Averagely built and averagely nourished in no acute distress HEENT: Extraocular movement intact. No pallor or icterus. NECK: central trachea, No JVD, No carotid bruit. CARDIOVASCULAR SYSTEM: S1-S2 irregular.tachycardia+ No murmur or gallops. RESPIRATORY SYSTEM: Chest clear to auscultation. No wheezes rhonchi or rubs heard. No use of accessory muscles. ABDOMEN: Soft, nontender and nondistended. Normal bowel sounds present. EXTREMITIES: No cyanosis,No edema. No signs of chronic venous insufficiency. 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 Urinary Catheter Management: Valencia: Cath Placed During This Visit: yes Reason for Continuing Indwelling Catheter: Accurate Measurement of Urinary Output in Critically Ill Patients Urinary Catheter Date of Insertion: 01/03/23 Urinary Catheter Time of Insertion: 18:00 Valencia Latex: Cath Placed During This Visit: yes Reason for Continuing Indwelling Catheter: Other Urinary Catheter Date of Insertion: 01/10/23 Urinary Catheter Time of Insertion: 11:00 Data 01/12/23 01:47 01/12/23 01:47 A&P Assessment and plan (1) Acute respiratory failure with hypoxia: This could be multifactorial 2/2 pneumonia, CHF, COPD exacerbation, etc. are contributing factors. He is now on 4cL of O2 via NC (2) CHF (congestive heart failure): -HFmrEF LVEF=50% with RWMA IV diuretics. Closely monitor electrolytes. good UO (3) Acute non-ST elevation myocardial infarction (NSTEMI): Elevated troponin T, LV dysfunction and EKG changes are consistent with non-ST elevation myocardial infarction. -now on ASA 81mg, plavix 75 mg p.o. daily and lovenox -troponin T 1447-->1413-->1583 -TTE with Normal LV size with diminished ejection fraction of around 50%.?Diffuse hypokinesis of the septum and the anteroseptal segments. -will consider LHC /stress test once patient is hemodynamically stable -may hold lovenox. may need to hold plavix (4) Atrial fibrillation with RVR: Patient on amiodarone. -metoprolol tartrate now 50 mg BID -Plan to uptitrate based on BP/HR. (5) Transaminitis: Seems to have improved. Plan Hematuria C Diff Diarrhea Hypotension: resolved sepsis-patient is currently on empiric antibiotics. Possible pneumonia. Encephalopathy Anemia Attestations Medical Necessity Statement*: As per primary team Coding Level of Care Code 18006 Diagnoses Acute respiratory failure with hypoxia J96.01 CHF (congestive heart failure) I50.9 Acute non-ST elevation myocardial infarction (NSTEMI) I21.4 Atrial fibrillation with RVR I48.91 Transaminitis R74.01
[2023-01-10] MEDS: atorvastatin 40 mg Tablet 20 MG PO (20:42)
[2023-01-11] VITALS (14 sets, daily range): BP systolic 97–129; BP diastolic 55–79; PULSE 85–117; RESP 16–34; TEMP 36.5–37.4; O2SAT 91–98
[2023-01-11 03:40] LABS: Basophils # 0.1 10^3/uL (0.0-0.1); Basophils % 0.3 %; Eosinophils # 0.3 10^3/uL (0.0-0.8); Eosinophils % 2.2 %; Hematocrit 33.4 % (42.0-52.0); Hemoglobin 10.4 g/dL (11.7-16.6); Lymphocytes # 1.3 10^3/uL (0.8-4.8); Mean Corpuscular HGB Conc 31.1 g/dL (30.0-36.0); Mean Corpuscular Hemoglobin 28.5 pg (28.0-34.0); Mean Corpuscular Volume 91.5 fl (80-94); Mean Platelet Volume 11.8 fL (7.4-10.4); Monocytes # 0.9 10^3/uL (0.2-0.9); Monocytes % 6.4 %; Neutrophils # 11.77 10^3/uL (1.8-7.7); Neutrophils % 80.3 %; Nucleated Red Blood Cells % 0 %; Platelet Count 213 10^3/cmm (130-400); Red Blood Count 3.65 10^6/uL (4.1-5.3); Red Cell Distribution Width 15.1 % (12.1-15.1); White Blood Count 14.7 10^3/uL (4.0-10.0)
[2023-01-11 04:07] LABS: C Reactive Protein 19.6 mg/L (0.0-4.9)
[2023-01-11 04:14] LABS: NT Pro B Type Natriuretic Pept 1831 pg/mL (0-450); Procalcitonin 0.23 ng/mL (0-0.5)
[2023-01-11 04:25] LABS: Alanine Aminotransferase 75 U/L (0-41); Albumin Level 3.7 g/dL (3.5-5.2); Alkaline Phosphatase 81 U/L (40-130); Anion Gap 19.1 (5-19); Aspartate Amino Transferase 56 U/L (0-40); Blood Urea Nitrogen 27 mg/dL (8-23); Calcium 8.7 mg/dL (8.5-10.5); Carbon Dioxide 31 mmol/L (22-29); Chloride 96 mmol/L (98-107); Globulin 2.1 g/dL (1.3-4.6); Glucose 100 mg/dL (65-115); Osmolality Calculated 301 mOsm/kg (285-295); Potassium 3.1 mmol/L (3.5-5.1); Sodium 143 mmol/L (136-145); Total Bilirubin 0.9 mg/dL (0.15-1.2); Total Protein 5.8 g/dL (6.6-8.7)
[2023-01-11] MEDS: ipratropium-albuterol 3 mL Neb INHALATION ×3 (07:23→15:57)
[2023-01-11] MEDS: magnesium lactate 84 mg Tablet PO (08:08)
[2023-01-11] MEDS: amiodarone 200 mg Tablet 400 MG PO ×2 (08:09→17:14)
[2023-01-11] MEDS: clopidogrel 75 mg Tablet PO (08:09)
[2023-01-11] MEDS: pantoprazole DR 40 mg Tablet PO (08:09)
[2023-01-11] MEDS: mirtazapine 30 mg Tablet 45 MG PO (08:09)
[2023-01-11] MEDS: aspirin 81 mg EC Tablet PO (08:09)
[2023-01-11] MEDS: potassium chloride oral liq 20 mEq/15 mL UDC 40 MEQ PO (08:13)
[2023-01-11] MEDS: metoprolol tartrate 50 mg Tablet PO ×2 (08:21→20:09)
[2023-01-11] MEDS: doxycycline 100 mg Tablet PO ×2 (08:21→20:09)
[2023-01-11] MEDS: amoxicillin-clav 875-125 mg Tablet 1 TAB PO ×2 (08:21→20:09)
--- NOTE | 2023-01-11 10:59 | USR_ITS ---
PROCEDURE INFORMATION: Exam: US Abdomen; Limited Exam date and time: 01/11/2023 12:03 PM Age: 77 years old Clinical indication: Other: Blood in urine; Additional info: Hematuria TECHNIQUE: Imaging protocol: Real time ultrasound of the abdomen with image documentation. Limited exam focused on the region of clinical interest. COMPARISON: US abdomen limited [id number] 01/04/2023 12:31 PM FINDINGS: Urinary bladder is incompletely filled with fluid. A Haas catheter is present. No intrinsic abnormalities are noted. US/US bladder [id number] IMPRESSION: 1. Incompletely filled urinary bladder 2. Haas catheter is in place. 3. Otherwise negative examination
--- NOTE | 2023-01-11 12:56 | PC.NURSE ---
Pt has blood leaking from his urethral meatus pt denies any burning sensation, fullness or pain in the bladder area.
--- NOTE | 2023-01-11 13:20 | PM.PN ---
Subjective Subjective: - Patient was seen this morning -He is alert to person, to place, not to time, he follows all commands, he tells me his shortness of breath has significantly improved -He had hematuria, bleeding around his urethra yesterday, he denies pulling on the Haas catheter but thinks maybe it got pulled when he was sleeping and rotating in bed -He continues to have some bloody drainage around his urethral opening, but denies it bothering him, denies any bladder pain he tells me he felt significantly better with the Haas catheter was put back in after it was pulled yesterday -I spoke to him about holding Lovenox, he is agreeable -Spoke to cardiology, about his persistent hematuria, will order bladder ultrasound I suspect that the bleeding might be coming from the prostate but it could be a possible urethral injury, keep the Haas catheter in for now we will likely discharge him on with the Haas catheter in place, discussion was made about holding Plavix, I discussed this with patient he is agreeable if needed, discussed with cardiology, agreeable to hold Plavix continue aspirin for now -We will monitor hematuria Vitals/I&O/Wt Last Vital Signs Temp 99.0 F 01/11/23 12:00 Pulse 105 H 01/11/23 12:00 Resp 28 H 01/11/23 12:00 BP 110/59 01/11/23 12:00 Pulse Ox 94 01/11/23 12:00 O2 Del Method Nasal Cannula 01/11/23 12:00 O2 Flow Rate 2 01/11/23 11:49 FiO2 35 01/07/23 10:00 01/10/23 01/11/23 01/11/23 22:59 06:59 14:59 Intake Total 500 / 740 300 / 1040 120 / 120 Output Total 300 / 1150 200 / 1350 Balance 200 / -410 100 / -310 120 / 120 Weight last 48 hrs Weight 88.995 kg Weight 91.807 kg Physical Exam Const: COMMON NORMALS: no acute distress and patient oriented x3 Resp: COMMON NORMALS: normal respiratory effort, No retractions, No use of accessory muscles and clear to auscultation bilaterally AUSCULTATION: clear to auscultation bilaterally Cardio: COMMON NORMALS: regular rate, regular rhythm, S1 normal heart sound present and S2 normal heart sound present RATE: regular rate RHYTHM: regular rhythm HEART SOUNDS: S1 normal heart sound present and S2 normal heart sound present GI: COMMON NORMALS: Normal to inspection, nondistended, normoactive bowel sounds present and non-tender Extremity: COMMON NORMALS: no pedal edema Neuro: COMMON NORMALS: patient oriented x3 Psych: COMMON NORMALS: mental status grossly normal Urinary Catheter Management: Haas: Cath Placed During This Visit: yes Reason for Continuing Indwelling Catheter: Accurate Measurement of Urinary Output in Critically Ill Patients Urinary Catheter Date of Insertion: 01/03/23 Urinary Catheter Time of Insertion: 18:00 Haas Latex: Cath Placed During This Visit: yes Reason for Continuing Indwelling Catheter: Other Urinary Catheter Date of Insertion: 01/10/23 Urinary Catheter Time of Insertion: 11:00 Data 01/11/23 02:20 01/11/23 02:20 Micro: Microbiology 01/06/23 11:17 Blood Culture - Final Blood NO GROWTH AFTER 5 DAYS 01/06/23 11:06 Blood Culture - Final Blood NO GROWTH AFTER 5 DAYS A&P Assessment and plan (1) Acute respiratory failure with hypoxia: (2) Acute exacerbation of congestive heart failure: (3) Systolic CHF, acute: (4) Encephalopathy: (5) Acute non-ST elevation myocardial infarction (NSTEMI): (6) Atrial fibrillation: (7) Cholelithiases: (8) Moderate aortic stenosis: (9) Pneumonia: (10) Acute renal failure: (11) Sepsis: (12) Liver cirrhosis: (13) Elevated INR: (14) Transaminitis: (15) Hyperbilirubinemia: (16) Uremia: (17) Acute encephalopathy: (18) Shock: (19) Septic shock: (20) Atrial fibrillation with RVR: (21) Hematuria: Plan Acute hypoxic respiratory failure, resolved -Likely secondary to pneumonia -Likely secondary to systolic CHF exacerbation -There is a possibility of pulmonary embolism? Although unlikely, given elevated troponins, elevated D-dimer, he he is on Eliquis, cannot perform CT angiogram given elevated creatinine, venous ultrasound negative for DVT, Plan -Currently in cardiac stepdown unit -Status post self extubation 01/05/2023 -Currently on 2 L nasal cannula - -13 L overall -On doxycycline, Augmentin -Creatinine up to 1.4 hold Bumex -Monitor urine output C. difficile colitis -Isolation precautions. ? P.o. vancomycin A-fib with RVR -He is on metoprolol 50 twice daily -Continue amiodarone 400 twice daily -therapeutic Lovenox on hold Shock, resolved -Likely multifactorial -Septic, possible cardiogenic, possible outflow obstruction -Remains off Levophed -Maintain MAP in the 65 Acute encephalopathy, resolved -Improving -Multifactorial from hypoxia, pneumonia, uremia, sepsis, -Monitor -CT of the head, no acute findings Systolic CHF exacerbation, -13 L -With elevated troponins, elevated BNP -Monitor BMP monitor urine output, diuresis based upon clinical progress -Chest x-ray showing improved pulmonary vascular congestion this morning -Hold Bumex -We will monitor urine output monitor creatinine, cardiology consulted Pneumonia -Sputum culture, blood cultures, respiratory viral panel -Antibiotic therapy de-escalated to doxycycline, Augmentin Staph epidermidis bacteremia, likely contamination -1 out of 4 blood cultures positive for Staph epidermidis -Highly suspect that this is a contamination -PICC line to be removed -Repeat blood negative, remains afebrile -Vancomycin discontinued Uremia -Resolving -Nephrology consulted Acute renal failure, creatinine 1.4 -Likely secondary to sepsis, cardiorenal syndrome -Creatinine improving -Monitor urine output monitor creatinine -Nephrology consulted Sepsis, resolved -Creatinine 1.4, transaminitis, hyperbilirubinemia, NSTEMI, respiratory failure, hypoxia, -Source of infection is pneumonia -And or cholelithiasis Non-ST elevation IA -Type I versus type II NSTEMI -Has complaints of chest pain in the past -Had a stress test in 2019 -EKG does show ST depressions inferior lateral leads -Currently on heparin drip -Cardiac echo ordered Normal LV size with diminished ejection fraction of around 50%.? ?Diffuse hypokinesis of the septum and the anteroseptal segments. ?Mild biatrial enlargement ?Thickened mitral valve. Moderate mitral annular calcification. ?Moderate mitral valve regurgitation. ?Moderate aortic valve calcification.? Moderate aortic valve ?stenosis with a valve area 1.1 cm squared. ?[id number] tricuspid valve regurgitation.? Estimated PA ?pressure of 40 mmHg. ?Dilated IVC with decreased respiratory variation. ?There is no pericardial effusion. ?There are no intracardiac masses. ?Compared to the study from 06/27/2021, there wall motion of ?normality and the diminished LV ejection fraction are new -Cardiology consulted, will consider coronary angiography Cholelithiasis -CT scan shows 2 stones in cystic duct versus vascular calcifications -Right upper quadrant ultrasound -1. ? Cholelithiasis with mild localized gallbladder wall thickening raising possibility of cholecystitis. 2. ? Mild perihepatic ascites. 3. ? Right pleural effusion. -Follow LFTs,, alk phos, bilirubin, -If it continues to elevate, might require MRCP or potential transfer for consideration of ERCP -On Zosyn Hyperbilirubinemia as above Transaminitis as above, hep C negative, HIV within limits, alcohol levels within normal limits Liver cirrhosis, with elevated INR, elevated LFTs, possibly secondary to alcoholism,, work-up as above Hypoalbuminemia Hypokalemia on p.o. replacement Protonix for GI prophylaxis Heparin for DVT prophylaxis Plan for today, -Spoke to cardiology -Hold Bumex -Monitor hematuria -Hold Plavix Attestations Medical Necessity Statement*: Patient requires hospitalization, for, now with NÉSTOR with now with hematuria, requiring Lovenox to be held, Plavix to be held, bladder ultrasound, hold Bumex, monitor creatinine, spoke to cardiology spoke to nursing staff spoke to patient Diagnoses Acute respiratory failure with hypoxia J96.01 Acute exacerbation of congestive heart failure I50.9 Systolic CHF, acute I50.21 Encephalopathy G93.40 Acute non-ST elevation myocardial infarction (NSTEMI) I21.4 Atrial fibrillation I48.91 Cholelithiases K80.20 Moderate aortic stenosis I35.0 Pneumonia J18.9 Acute renal failure N17.9 Sepsis A41.9 Liver cirrhosis K74.60 Elevated INR R79.1 Transaminitis R74.01 Hyperbilirubinemia E80.6 Uremia N19 Acute encephalopathy G93.40 Shock R57.9 Septic shock A41.9; R65.21 Atrial fibrillation with RVR I48.91 Hematuria R31.9
--- NOTE | 2023-01-11 17:29 | P.PN_ITS ---
Subjective Subjective: No CP, continues to have hematuria Medications: Reviewed: Yes Vitals/I&O/Wt Last Vital Signs Temp 98.4 F 01/11/23 16:00 Pulse 112 H 01/11/23 16:00 Resp 17 01/11/23 16:00 BP 124/79 01/11/23 16:00 Pulse Ox 96 01/11/23 16:00 O2 Del Method Nasal Cannula 01/11/23 16:00 O2 Flow Rate 2 01/11/23 15:58 FiO2 35 01/07/23 10:00 01/11/23 01/11/23 01/11/23 06:59 14:59 22:59 Intake Total 300 / 1040 120 / 120 Output Total 200 / 1350 450 / 450 Balance 100 / -310 -330 / -330 Weight last 48 hrs Weight 196 lb 3.2 oz Weight 202 lb 6.4 oz Physical Exam Narrative: GENERAL: Averagely built and averagely nourished in no acute distress HEENT: Extraocular movement intact. No pallor or icterus. NECK: central trachea, No JVD, No carotid bruit. CARDIOVASCULAR SYSTEM: S1-S2 irregular. No murmur or gallops. RESPIRATORY SYSTEM: Chest clear to auscultation. No wheezes rhonchi or rubs heard. No use of accessory muscles. ABDOMEN: Soft, nontender and nondistended. Normal bowel sounds present. EXTREMITIES: No cyanosis,No edema. No signs of chronic venous insufficiency. 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 Urinary Catheter Management: Haas: Cath Placed During This Visit: yes Reason for Continuing Indwelling Catheter: Accurate Measurement of Urinary Output in Critically Ill Patients Urinary Catheter Date of Insertion: 01/03/23 Urinary Catheter Time of Insertion: 18:00 Haas Latex: Cath Placed During This Visit: yes Reason for Continuing Indwelling Catheter: Other Urinary Catheter Date of Insertion: 01/10/23 Urinary Catheter Time of Insertion: 11:00 Data 01/12/23 01:47 01/12/23 01:47 Micro: Microbiology 01/06/23 11:17 Blood Culture - Final Blood NO GROWTH AFTER 5 DAYS 01/06/23 11:06 Blood Culture - Final Blood NO GROWTH AFTER 5 DAYS A&P Assessment and plan (1) CHF (congestive heart failure): -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 Closely monitor electrolytes. good UO (2) Acute non-ST elevation myocardial infarction (NSTEMI): Elevated troponin T, LV dysfunction and EKG changes are consistent with non-ST elevation myocardial infarction. -now on ASA 81mg, plavix 75 mg p.o. daily and lovenox -troponin T 1447-->1413-->1583 -TTE with Normal LV size with diminished ejection fraction of around 50%.?Diffuse hypokinesis of the septum and the anteroseptal segments. -will plan for stress test on Friday -october hold lovenox and plavix (3) Atrial fibrillation with RVR: Patient on PO amiodarone. -metoprolol tartrate 50 mg BID -Plan to uptitrate based on BP/HR. (4) Transaminitis: Seems to have improved. Plan Hematuria C Diff Diarrhea Hypotension: resolved sepsis-patient is currently on empiric antibiotics. Possible pneumonia. Encephalopathy Anemia Hypokalemia: replaced Attestations Medical Necessity Statement*: As per primary team Coding Level of Care Code 00326 Diagnoses CHF (congestive heart failure) I50.9 Acute non-ST elevation myocardial infarction (NSTEMI) I21.4 Atrial fibrillation with RVR I48.91 Transaminitis R74.01
[2023-01-11] MEDS: atorvastatin 40 mg Tablet 20 MG PO (20:09)
[2023-01-12] VITALS (14 sets, daily range): BP systolic 100–128; BP diastolic 55–71; PULSE 85–107; RESP 16–29; TEMP 36.6–37.2; O2SAT 94–99
[2023-01-12 02:57] LABS: Basophils # 0.1 10^3/uL (0.0-0.1); Basophils % 0.5 %; Eosinophils # 0.4 10^3/uL (0.0-0.8); Eosinophils % 3.6 %; Hematocrit 31.4 % (42.0-52.0); Hemoglobin 9.9 g/dL (11.7-16.6); Lymphocytes # 1.3 10^3/uL (0.8-4.8); Lymphocytes % 10.4 %; Mean Corpuscular HGB Conc 31.5 g/dL (30.0-36.0); Mean Corpuscular Hemoglobin 28.9 pg (28.0-34.0); Mean Corpuscular Volume 91.5 fl (80-94); Mean Platelet Volume 11.5 fL (7.4-10.4); Monocytes # 0.6 10^3/uL (0.2-0.9); Neutrophils % 79.1 %; Nucleated Red Blood Cells % 0 %; Platelet Count 219 10^3/cmm (130-400); Red Blood Count 3.43 10^6/uL (4.1-5.3); Red Cell Distribution Width 15.1 % (12.1-15.1); White Blood Count 12.1 10^3/uL (4.0-10.0)
[2023-01-12 03:18] LABS: Magnesium 2.2 mg/dL (1.7-2.3)
[2023-01-12 03:24] LABS: NT Pro B Type Natriuretic Pept 1246 pg/mL (0-450); Procalcitonin 0.18 ng/mL (0-0.5)
[2023-01-12 03:35] LABS: Anion Gap 16.3 (5-19); Blood Urea Nitrogen 24 mg/dL (8-23); Calcium 8.7 mg/dL (8.5-10.5); Carbon Dioxide 31 mmol/L (22-29); Chloride 98 mmol/L (98-107); Glucose 97 mg/dL (65-115); Osmolality Calculated 298 mOsm/kg (285-295); Potassium 3.3 mmol/L (3.5-5.1); Sodium 142 mmol/L (136-145)
--- NOTE | 2023-01-12 08:12 | PM.PN ---
Subjective Subjective: No chest pain or worsening SOB Intermittent A. fib with RVR on telemetry Medications: Reviewed: Yes Vitals/I&O/Wt Last Vital Signs Temp 98.4 F 01/12/23 04:00 Pulse 96 01/12/23 05:20 Resp 24 H 01/12/23 04:00 BP 107/58 01/12/23 04:00 Pulse Ox 96 01/12/23 04:00 O2 Del Method Nasal Cannula 01/12/23 04:00 O2 Flow Rate 2 01/11/23 20:00 FiO2 35 01/07/23 10:00 01/11/23 01/12/23 01/12/23 22:59 06:59 14:59 Intake Total 640 / 760 850 / 1610 Output Total 200 / 650 300 / 950 Balance 440 / 110 550 / 660 Weight last 48 hrs Weight 200 lb Weight 196 lb 3.2 oz Physical Exam Narrative: GENERAL: Averagely built and averagely nourished in no acute distress HEENT: Extraocular movement intact. No pallor or icterus. NECK: central trachea, No JVD, No carotid bruit. CARDIOVASCULAR SYSTEM: S1-S2 irregular. No murmur or gallops. RESPIRATORY SYSTEM: Chest clear to auscultation. No wheezes rhonchi or rubs heard. No use of accessory muscles. ABDOMEN: Soft, nontender and nondistended. Normal bowel sounds present. EXTREMITIES: No cyanosis,No edema. No signs of chronic venous insufficiency. 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 Urinary Catheter Management: Haas: Cath Placed During This Visit: yes Reason for Continuing Indwelling Catheter: Accurate Measurement of Urinary Output in Critically Ill Patients Urinary Catheter Date of Insertion: 01/03/23 Urinary Catheter Time of Insertion: 18:00 Haas Latex: Cath Placed During This Visit: yes Reason for Continuing Indwelling Catheter: Acute Urinary Retention or Obstruction Urinary Catheter Date of Insertion: 01/10/23 Urinary Catheter Time of Insertion: 11:00 Data 01/12/23 01:47 01/12/23 01:47 Micro: Microbiology 01/03/23 12:59 Blood Culture - Final Blood Staphylococcus epidermidis Corynebacterium species 01/06/23 11:17 Blood Culture - Final Blood NO GROWTH AFTER 5 DAYS 01/06/23 11:06 Blood Culture - Final Blood NO GROWTH AFTER 5 DAYS A&P Assessment and plan (1) CHF (congestive heart failure): -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 Closely monitor electrolytes. good UO (2) Acute non-ST elevation myocardial infarction (NSTEMI): Elevated troponin T, LV dysfunction and EKG changes are consistent with non-ST elevation myocardial infarction. -now on ASA 81mg, plavix 75 mg p.o. daily and lovenox -troponin T 1447-->1413-->1583 -TTE with Normal LV size with diminished ejection fraction of around 50%.?Diffuse hypokinesis of the septum and the anteroseptal segments. -will plan for stress test on Friday -october hold lovenox and plavix given hematuria. -will get limited echo as well (3) Atrial fibrillation with RVR: Patient on PO amiodarone. -metoprolol tartrate 50 mg BID -Plan to uptitrate based on BP/HR. (4) Transaminitis: Seems to have improved. Plan Hematuria C Diff Diarrhea Hypotension: resolved sepsis-patient is currently on empiric antibiotics. Possible pneumonia. Encephalopathy Anemia Hypokalemia: replaced Attestations Medical Necessity Statement*: As per primary team Coding Level of Care Code Acute Code for [facility] Diagnoses CHF (congestive heart failure) I50.9 Acute non-ST elevation myocardial infarction (NSTEMI) I21.4 Atrial fibrillation with RVR I48.91 Transaminitis R74.01
[2023-01-12] MEDS: mirtazapine 30 mg Tablet 45 MG PO (08:20)
[2023-01-12] MEDS: pantoprazole DR 40 mg Tablet PO (08:20)
[2023-01-12] MEDS: magnesium lactate 84 mg Tablet PO (08:20)
[2023-01-12] MEDS: aspirin 81 mg EC Tablet PO (08:21)
[2023-01-12] MEDS: amiodarone 200 mg Tablet 400 MG PO ×2 (08:21→17:46)
[2023-01-12] MEDS: potassium chloride oral liq 20 mEq/15 mL UDC 40 MEQ PO (08:21)
[2023-01-12] MEDS: amoxicillin-clav 875-125 mg Tablet 1 TAB PO ×2 (08:29→21:07)
[2023-01-12] MEDS: metoprolol tartrate 50 mg Tablet PO ×2 (08:30→21:07)
[2023-01-12] MEDS: doxycycline 100 mg Tablet PO ×2 (08:30→21:07)
--- NOTE | 2023-01-12 09:14 | PC.SOCIAL ---
IMM Update pg 2 of IMM updated and reviewed w/ patient. Copy provided and Copy in chart dated, and initialed.
[2023-01-12] MEDS: ipratropium-albuterol 3 mL Neb INHALATION ×3 (11:31→20:26)
--- NOTE | 2023-01-12 12:54 | USCV_ITS ---
Anthony Gutierrez Age: 77 Gender: M : 1945 Exam Date: 01/12/2023 13:32 Ordering Phys: Zaira Krishnamurthy MD ([email or web address]) Technologist: Shmuel Nagy Exam Location: [facility] [place] Indication: LV function BP: 105 / 68 HR: 95 Rhythm: Sinus Technical Quality: Adequate MEASUREMENTS (Male / Female) Normal Values 2D ECHO LVOT Diameter 2.1 cm LV Ejection Fraction MOD 2C 63.1 % LV Ejection Fraction 2C AL 63.8 % LA Diameter 4.8 cm M-MODE Aortic Annulus Diameter 3.6 cm LA Ao Ratio MM 1.4 MV E Point Septal Separation 0.9 cm FINDINGS Left Ventricle Normal left ventricular cavity size. Normal left ventricular systolic function. Left ventricular ejection fraction is estimated at 60 %. No diagnostic regional wall motion abnormalities. Abnormal septal motion. Right Ventricle Normal right ventricular size and systolic function. Right Atrium Right atrium not well visualized. Left Atrium Moderately increased left atrial size. Mitral Valve Severe mitral annular calcification. Aortic Valve Aortic valve not well visualized. Tricuspid Valve Structurally normal tricuspid valve. Pulmonic Valve Pulmonic valve not well visualized. Pericardium No pericardial effusion. Aorta Normal size aortic root and proximal ascending aorta. IVC Inferior vena cava not visualized. CONCLUSIONS 1.Normal left ventricular cavity size. Normal left ventricular systolic function. Left ventricular ejection fraction is estimated at 55 %. No diagnostic regional wall motion abnormalities. Abnormal septal motion. 2. When compared to previous study report few days back, left ventricular systolic funtion may have improved. Zaira Krishnamurthy MD (Electronically Signed) Final Date: 13 January 2023 05:44 S
--- NOTE | 2023-01-12 12:55 | ECG_ITS ---
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 Interpretive Statements NAME OF STUDY: LEXISCAN SESTAMIBI STRESS TEST INDICATION: Chest Pain PROCEDURE: At the baseline, the blood pressure was 101/61 mmHg with a heart rate of 98 bpm. The electrocardiogram showed atrial fibrillation, left axis deviation ST-T wave changes in inferior and roderick-lateral leads. Isolated PVCs noted. The Lexiscan was infused over a period of 20 seconds. A total of 0.4 milligrams of Lexiscan was infused. The stress phase was continued for a total of 5 minutes. Heart rate at the end of the stress phase was 108 bpm with a blood pressure 90/58 mmHg. The EKG at the peak infusion revealed no significant ST-T wave changes. Sestamibi was injected 20 seconds after the Lexiscan infusion. Blood pressure at the end of the recovery phase was 94/56 mmHg with a heart rate of 112 beats per minute. CONCLUSION: 1. Equivocal EKG response to LexiScan infusion due to baseline ST-T wave changes. 2. No LexiScan induced chest pain or cardiac arrhythmia. 3. Normal blood pressure and heart rate response. 4. Sestamibi/sestamibi perfusion scan pending; see separate report. Electronically Signed On 01-14-2023 12:24:42 CDT by Zaira Krishnamurthy M.D. [email or web address]
--- NOTE | 2023-01-12 16:41 | P.PN_ITS ---
Subjective Subjective: patient was seen this morning, no fever, no cough, no bladder pain, minimal bleeding around urethral site Vitals/I&O/Wt Last Vital Signs Temp 98.8 F 01/12/23 12:00 Pulse 102 H 01/12/23 16:00 Resp 18 01/12/23 16:00 BP 105/68 01/12/23 12:00 Pulse Ox 96 01/12/23 16:00 O2 Del Method Nasal Cannula 01/12/23 16:00 O2 Flow Rate 2 01/12/23 16:00 FiO2 35 01/07/23 10:00 01/12/23 01/12/23 01/12/23 06:59 14:59 22:59 Intake Total 850 / 1610 600 / 600 Output Total 300 / 950 350 / 350 Balance 550 / 660 600 / 600 -350 / 250 Weight last 48 hrs Weight 90.718 kg Weight 88.995 kg Physical Exam Const: COMMON NORMALS: no acute distress and patient oriented x3 Resp: COMMON NORMALS: normal respiratory effort, No retractions, No use of accessory muscles and clear to auscultation bilaterally AUSCULTATION: clear to auscultation bilaterally Cardio: COMMON NORMALS: regular rate, regular rhythm, S1 normal heart sound present and S2 normal heart sound present RATE: regular rate RHYTHM: regular rhythm HEART SOUNDS: S1 normal heart sound present and S2 normal heart sound present GI: COMMON NORMALS: Normal to inspection, nondistended, normoactive bowel sounds present and non-tender Extremity: COMMON NORMALS: no pedal edema Neuro: COMMON NORMALS: patient oriented x3 Psych: COMMON NORMALS: mental status grossly normal Urinary Catheter Management: Haas: Cath Placed During This Visit: yes Reason for Continuing Indwelling Catheter: Accurate Measurement of Urinary Output in Critically Ill Patients Urinary Catheter Date of Insertion: 01/03/23 Urinary Catheter Time of Insertion: 18:00 Haas Latex: Cath Placed During This Visit: yes Reason for Continuing Indwelling Catheter: Acute Urinary Retention or Obstru ction Urinary Catheter Date of Insertion: 01/10/23 Urinary Catheter Time of Insertion: 11:00 Data 01/12/23 01:47 01/12/23 01:47 Micro: Microbiology 01/03/23 12:59 Blood Culture - Final Blood Staphylococcus epidermidis Corynebacterium species A&P Assessment and plan (1) Acute respiratory failure with hypoxia: (2) Acute exacerbation of congestive heart failure: (3) Systolic CHF, acute: (4) Encephalopathy: (5) Acute non-ST elevation myocardial infarction (NSTEMI): (6) Atrial fibrillation: (7) Cholelithiases: (8) Moderate aortic stenosis: (9) Pneumonia: (10) Acute renal failure: (11) Sepsis: (12) Liver cirrhosis: (13) Elevated INR: (14) Transaminitis: (15) Hyperbilirubinemia: (16) Uremia: (17) Acute encephalopathy: (18) Shock: (19) Septic shock: (20) Atrial fibrillation with RVR: (21) Hematuria: Plan Acute hypoxic respiratory failure, resolved -Likely secondary to pneumonia -Likely secondary to systolic CHF exacerbation -There is a possibility of pulmonary embolism? Although unlikely, given elevated troponins, elevated D-dimer, he he is on Eliquis, cannot perform CT angiogram given elevated creatinine, venous ultrasound negative for DVT, Plan -Currently in cardiac stepdown unit -Status post self extubation 01/05/2023 -Currently on 2 L nasal cannula - -13 L overall -On doxycycline, Augmentin -Creatinine up to 1.2 hold Bumex -Monitor urine output C. difficile colitis -Isolation precautions. ? P.o. vancomycin A-fib with RVR -He is on metoprolol 50 twice daily -Continue amiodarone 400 twice daily -therapeutic Lovenox on hold Shock, resolved -Likely multifactorial -Septic, possible cardiogenic, possible outflow obstruction -Remains off Levophed -Maintain MAP in the 65 Acute encephalopathy, resolved -Improving -Multifactorial from hypoxia, pneumonia, uremia, sepsis, -Monitor -CT of the head, no acute findings Systolic CHF exacerbation, -13 L -With elevated troponins, elevated BNP -Monitor BMP monitor urine output, diuresis based upon clinical progress -Chest x-ray showing improved pulmonary vascular congestion this morning -Hold Bumex -We will monitor urine output monitor creatinine, cardiology consulted Pneumonia -Sputum culture, blood cultures, respiratory viral panel -Antibiotic therapy de-escalated to doxycycline, Augmentin Staph epidermidis bacteremia, likely contamination -1 out of 4 blood cultures positive for Staph epidermidis -Highly suspect that this is a contamination -PICC line to be removed -Repeat blood negative, remains afebrile -Vancomycin discontinued Uremia -Resolving -Nephrology consulted Acute renal failure, creatinine 1.2 -Likely secondary to sepsis, cardiorenal syndrome -Creatinine improving -Monitor urine output monitor creatinine -Nephrology consulted Sepsis, resolved -Creatinine 1.2, transaminitis, hyperbilirubinemia, NSTEMI, respiratory failure, hypoxia, -Source of infection is pneumonia -And or cholelithiasis Non-ST elevation [place] -Type I versus type II NSTEMI -Has complaints of chest pain in the past -Had a stress test in 2019 -EKG does show ST depressions inferior lateral leads -Currently on heparin drip -Cardiac echo ordered Normal LV size with diminished ejection fraction of around 50%.? ?Diffuse hypokinesis of the septum and the anteroseptal segments. ?Mild biatrial enlargement ?Thickened mitral valve. Moderate mitral annular calcification. ?Moderate mitral valve regurgitation. ?Moderate aortic valve calcification.? Moderate aortic valve ?stenosis with a valve area 1.1 cm squared. ?[id number] tricuspid valve regurgitation.? Estimated PA ?pressure of 40 mmHg. ?Dilated IVC with decreased respiratory variation. ?There is no pericardial effusion. ?There are no intracardiac masses. ?Compared to the study from 06/27/2021, there wall motion of ?normality and the diminished LV ejection fraction are new -Cardiology consulted, will consider coronary angiography Cholelithiasis -CT scan shows 2 stones in cystic duct versus vascular calcifications -Right upper quadrant ultrasound -1. ? Cholelithiasis with mild localized gallbladder wall thickening raising possibility of cholecystitis. 2. ? Mild perihepatic ascites. 3. ? Right pleural effusion. -Follow LFTs,, alk phos, bilirubin, -If it continues to elevate, might require MRCP or potential transfer for consideration of ERCP -On Zosyn Hyperbilirubinemia as above Transaminitis as above, hep C negative, HIV within limits, alcohol levels within normal limits Liver cirrhosis, with elevated INR, elevated LFTs, possibly secondary to alcoholism,, work-up as above Hypoalbuminemia Hypokalemia on p.o. replacement Protonix for GI prophylaxis Heparin for DVT prophylaxis Plan for today, -Spoke to cardiology -Hold Bumex -Monitor hematuria -Hold Plavix -hold lovenox Attestations Medical Necessity Statement*: patient requires hospitalization for chf, morris, cdiff Diagnoses Acute respiratory failure with hypoxia J96.01 Acute exacerbation of congestive heart failure I50.9 Systolic CHF, acute I50.21 Encephalopathy G93.40 Acute non-ST elevation myocardial infarction (NSTEMI) I21.4 Atrial fibrillation I48.91 Cholelithiases K80.20 Moderate aortic stenosis I35.0 Pneumonia J18.9 Acute renal failure N17.9 Sepsis A41.9 Liver cirrhosis K74.60 Elevated INR R79.1 Transaminitis R74.01 Hyperbilirubinemia E80.6 Uremia N19 Acute encephalopathy G93.40 Shock R57.9 Septic shock A41.9; R65.21 Atrial fibrillation with RVR I48.91 Hematuria R31.9
--- NOTE | 2023-01-12 19:52 | PC.NURSE ---
patient continues to bleed from ureatheal meatus, when up to bsc there was a large amount to gelatinous blood in commode along with small amount of stool that did not appear to have blood in it, no bleeding from rectum noted, assisted patient back to bed and patient continues to ooze small amount of bloody drainage around valencia catheter, urine clear with slight pink tinge, patient denies pain or discomfort, continue to monitor
[2023-01-12] MEDS: atorvastatin 40 mg Tablet 20 MG PO (21:07)
[2023-01-13] VITALS (16 sets, daily range): BP systolic 106–133; BP diastolic 60–97; PULSE 72–114; RESP 14–28; TEMP 36.6–36.9; O2SAT 91–96
[2023-01-13 04:39] LABS: Basophils # 0.1 10^3/uL (0.0-0.1); Basophils % 0.7 %; Eosinophils # 0.5 10^3/uL (0.0-0.8); Eosinophils % 4.4 %; Hematocrit 30.1 % (42.0-52.0); Hemoglobin 9.5 g/dL (11.7-16.6); Lymphocytes # 1.3 10^3/uL (0.8-4.8); Lymphocytes % 12.2 %; Mean Corpuscular HGB Conc 31.6 g/dL (30.0-36.0); Mean Corpuscular Hemoglobin 29.4 pg (28.0-34.0); Mean Corpuscular Volume 93.2 fl (80-94); Monocytes # 0.5 10^3/uL (0.2-0.9); Monocytes % 4.7 %; Neutrophils # 7.92 10^3/uL (1.8-7.7); Nucleated Red Blood Cells % 0 %; Platelet Count 231 10^3/cmm (130-400); Red Blood Count 3.23 10^6/uL (4.1-5.3); Red Cell Distribution Width 15.4 % (12.1-15.1); White Blood Count 10.3 10^3/uL (4.0-10.0)
[2023-01-13 04:58] LABS: Anion Gap 13.5 (5-19); Blood Urea Nitrogen 18 mg/dL (8-23); Calcium 8.7 mg/dL (8.5-10.5); Carbon Dioxide 30 mmol/L (22-29); Chloride 102 mmol/L (98-107); Glucose 90 mg/dL (65-115); Osmolality Calculated 295 mOsm/kg (285-295); Potassium 3.5 mmol/L (3.5-5.1); Sodium 142 mmol/L (136-145)
[2023-01-13 05:00] LABS: Magnesium 2.1 mg/dL (1.7-2.3); Phosphorus 3.5 mg/dL (2.5-4.5)
--- NOTE | 2023-01-13 06:00 | NMCV_ITS ---
NM alli perf SPECT r/s* [id number] Anthony Gutierrez Age: 77 Gender: M : 1945 Exam Date: 01/13/2023 06:00 Ordering Phys: Zaira Krishnamurthy MD ([email or web address]) Technologist: JERRELL Lloyd Exam Location: [facility] Indications: CHEST PAIN STRESS TEST Please see separate stress test report in [facility] for full findings IMAGE PROTOCOL Rest/Stress 1 Lexiscan Day Radiopharmaceutical Dose (mCi) Administration Site Administered by Rest: Tc-99m 11.0 IV JERRELL Lloyd Sestamibi Stress:Tc-99m 32.3 IV JERRELL Lloyd Sestamibi Rest: 13-Jan-2023 60 Discovery 630 Stress: 13-Jan-2023 30 Discovery 630 0.4mg Lexiscan. Supine position only as patient was unable to lay prone. SPECT RESULTS Technical Quality: Excellent Raw Data Analysis: Normal Image Corrections: No attenuation or motion correction applied Summed Stress Score: 11 Summed Rest Score: 8 Summed Difference Score: 3 PERFUSION FINDINGS Medium sized perfusion abnormality of moderate severity of basal to mid inferior and basal to mid inferolateral hendricks with mild reversibility in basal to mid inferolateral and mid to apical inferior hendricks on supine stress images. FUNCTIONAL RESULTS (calculated via Gated SPECT) Stress Image LV EF (%): 63 Stress EDV (mL):127 TID: 0.99 Stress ESV (mL):47 FUNCTIONAL FINDINGS: The left ventricle is normal in size. Transient Ischemia Dilatation of 0.99. The left ventricular ejection fraction is normal with a value of 63%. Seems to have hypokinesis of basal to mid inferior and basal to mid inferolateral hendricks. IMPRESSIONS 1. Medium sized perfusion abnormality of basal to mid inferior and inferolateral hendricks with subtle reversibility in basal to mid inferolateral and mid to apical inferior hendricks. 2. This is suggestive of old myocardial infarction in right coronary artery/circumflex artery territory with mild ralph-infarct ischemia. 3. The left ventricular ejection fraction is normal with a value of 63% with hypokinesis of basal to mid inferior and inferolateral hendricks. 4. EKG portion of the study will be reported separately. Zaira Krishnamurthy MD (Electronically Signed) Final Date: 13 January 2023 15:32 S
[2023-01-13] MEDS: FUROsemide 40 mg Tablet PO (08:06)
[2023-01-13] MEDS: ipratropium-albuterol 3 mL Neb INHALATION ×3 (08:38→20:29)
[2023-01-13] MEDS: potassium chloride oral liq 20 mEq/15 mL UDC 40 MEQ PO (09:45)
[2023-01-13] MEDS: doxycycline 100 mg Tablet PO ×2 (09:46→20:38)
[2023-01-13] MEDS: mirtazapine 30 mg Tablet 45 MG PO (09:46)
[2023-01-13] MEDS: amoxicillin-clav 875-125 mg Tablet 1 TAB PO ×2 (09:46→20:38)
[2023-01-13] MEDS: magnesium lactate 84 mg Tablet PO (09:46)
[2023-01-13] MEDS: aspirin 81 mg EC Tablet PO (09:46)
[2023-01-13] MEDS: amiodarone 200 mg Tablet 400 MG PO ×2 (09:46→17:14)
[2023-01-13] MEDS: pantoprazole DR 40 mg Tablet PO (09:46)
[2023-01-13] MEDS: metoprolol tartrate 50 mg Tablet PO ×2 (09:47→20:39)
--- NOTE | 2023-01-13 12:10 | PM.PN ---
Subjective Subjective: He c/o loose stools, no hemaruria, intermittent A. fib with RVR He underwent stress test. Medications: Reviewed: Yes Vitals/I&O/Wt Last Vital Signs Temp 97.9 F 01/13/23 07:54 Pulse 90 01/13/23 12:00 Resp 18 01/13/23 12:00 BP 124/97 01/13/23 07:54 Pulse Ox 95 01/13/23 12:00 O2 Del Method Room Air 01/13/23 12:00 O2 Flow Rate 1 01/13/23 08:38 FiO2 35 01/07/23 10:00 01/12/23 01/13/23 01/13/23 22:59 06:59 14:59 Intake Total 536 / 1136 480 / 1616 Output Total 350 / 350 600 / 950 Balance 186 / 786 -120 / 666 Weight last 48 hrs Weight 199 lb 12.8 oz Weight 200 lb Physical Exam Narrative: GENERAL: Averagely built and averagely nourished in no acute distress HEENT: Extraocular movement intact. No pallor or icterus. NECK: central trachea, No JVD, No carotid bruit. CARDIOVASCULAR SYSTEM: S1-S2 irregular. No murmur or gallops. RESPIRATORY SYSTEM: Chest clear to auscultation. No wheezes rhonchi or rubs heard. No use of accessory muscles. ABDOMEN: Soft, nontender and nondistended. Normal bowel sounds present. EXTREMITIES: No cyanosis,No edema. No signs of chronic venous insufficiency. 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: Patient is alert and oriented to self Urinary Catheter Management: Haas: Cath Placed During This Visit: yes Reason for Continuing Indwelling Catheter: Accurate Measurement of Urinary Output in Critically Ill Patients Urinary Catheter Date of Insertion: 01/03/23 Urinary Catheter Time of Insertion: 18:00 Haas Latex: Cath Placed During This Visit: yes Reason for Continuing Indwelling Catheter: Other Urinary Catheter Date of Insertion: 01/10/23 Urinary Catheter Time of Insertion: 11:00 Data 01/13/23 19:11 01/13/23 03:22 Micro: Microbiology 01/03/23 12:59 Blood Culture - Final Blood Staphylococcus epidermidis Corynebacterium species A&P Assessment and plan (1) CHF (congestive heart failure): -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 Closely monitor electrolytes. good UO LOS: -12 L (2) Acute non-ST elevation myocardial infarction (NSTEMI): Elevated troponin T, LV dysfunction and EKG changes are consistent with non-ST elevation myocardial infarction. -now on ASA 81mg, plavix 75 mg p.o. daily and lovenox -troponin T 1447-->1413-->1583 -TTE with Normal LV size with diminished ejection fraction of around 50%.?Diffuse hypokinesis of the septum and the anteroseptal segments. -No significant ischemia on stress test today -limited echo with normal LV function -continue with medical management (3) Atrial fibrillation with RVR: Patient on PO amiodarone. -metoprolol tartrate 50 mg BID -Plan to uptitrate based on BP/HR. (4) Transaminitis: Seems to have improved. Plan Hematuria C Diff Diarrhea Hypotension: resolved sepsis-patient is currently on empiric antibiotics. Possible pneumonia. Encephalopathy Anemia Hypokalemia: replaced Attestations Medical Necessity Statement*: as per primary team Coding Level of Care Code 14251 Diagnoses CHF (congestive heart failure) I50.9 Acute non-ST elevation myocardial infarction (NSTEMI) I21.4 Atrial fibrillation with RVR I48.91 Transaminitis R74.01
--- NOTE | 2023-01-13 12:39 | PC.OT ---
OT tx attempted at this time. Pt off the floor for stress test. OT to attempt at later time as tolerated by pt.
[2023-01-13] MEDS: regadenoson 0.4 Mg/5 ml Syringe IVP (13:30)
[2023-01-13] MEDS: aminophylline 25 mg/mL SDV 10 mL IVP (13:45)
[2023-01-13] MEDS: acetaminophen 325 mg Tablet 650 MG PO (17:14)
--- NOTE | 2023-01-13 17:22 | P.PN_ITS ---
Subjective Subjective: - Patient was seen this morning -Currently on room air -He is shortness of breath has significantly improved -Does complain of weakness, fatigue -According to nursing staff he did have episodes of bleeding and blood clots around his urethra -This morning blood seems clean and dry -Discussed with him holding antiplatelet therapy such as Plavix and holding anticoagulant therapy, discussed his NSTEMI, A-fib, risk of strokes, risk of cardiac events risks and benefits ernesto, he voiced understanding, all questions answered, agreed to hold for now due to his hemoglobin of 9.5 and his episodes of bleeding around urethra I suspect that he injured his prostate, there potentially could be urethral trauma, plan to keep Haas catheter in place with follow-up with urology, monitor hemoglobin continue to hold antiplatelet and anticoagulant therapy, monitor hemoglobin, he voiced understanding all questions answered, -Plan on stress testing today Vitals/I&O/Wt Last Vital Signs Temp 98.3 F 01/13/23 16:00 Pulse 114 H 01/13/23 16:11 Resp 22 H 01/13/23 16:11 BP 107/62 01/13/23 16:00 Pulse Ox 96 01/13/23 16:11 O2 Del Method Room Air 01/13/23 16:11 O2 Flow Rate 1 01/13/23 08:38 FiO2 35 01/07/23 10:00 01/13/23 01/13/23 01/13/23 06:59 14:59 22:59 Intake Total 480 / 1616 Output Total 600 / 950 Balance -120 / 666 Weight last 48 hrs Weight 90.628 kg Weight 90.718 kg Physical Exam Const: COMMON NORMALS: no acute distress and patient oriented x3 Resp: COMMON NORMALS: normal respiratory effort, No retractions, No use of accessory muscles and clear to auscultation bilaterally AUSCULTATION: clear to auscultation bilaterally Cardio: COMMON NORMALS: regular rate, regular rhythm, S1 normal heart sound present and S2 normal heart sound present RATE: regular rate RHYTHM: regular rhythm HEART SOUNDS: S1 normal heart sound present and S2 normal heart sound present GI: COMMON NORMALS: Normal to inspection, nondistended, normoactive bowel sounds present and non-tender Extremity: COMMON NORMALS: no pedal edema Neuro: COMMON NORMALS: patient oriented x3 Psych: COMMON NORMALS: mental status grossly normal Urinary Catheter Management: Haas: Cath Placed During This Visit: yes Reason for Continuing Indwelling Catheter: Accurate Measurement of Urinary Output in Critically Ill Patients Urinary Catheter Date of Insertion: 01/03/23 Urinary Catheter Time of Insertion: 18:00 Haas Latex: Cath Placed During This Visit: yes Reason for Continuing Indwelling Catheter: Other Urinary Catheter Date of Insertion: 01/10/23 Urinary Catheter Time of Insertion: 11:00 Data 01/13/23 03:22 01/13/23 03:22 A&P Assessment and plan (1) Acute respiratory failure with hypoxia: (2) Acute exacerbation of congestive heart failure: (3) Systolic CHF, acute: (4) Encephalopathy: (5) Acute non-ST elevation myocardial infarction (NSTEMI): (6) Atrial fibrillation: (7) Cholelithiases: (8) Moderate aortic stenosis: (9) Pneumonia: (10) Acute renal failure: (11) Sepsis: (12) Liver cirrhosis: (13) Elevated INR: (14) Transaminitis: (15) Hyperbilirubinemia: (16) Uremia: (17) Acute encephalopathy: (18) Shock: (19) Septic shock: (20) Atrial fibrillation with RVR: (21) Hematuria: Plan Hematuria -likely secondary to trauma, prostate, urethra -us confirms placement -hematuria has improved -has bleeding around catheter site -hold lovenox, hold plavix -hemoglobin down to 9.5 monitor for now Acute hypoxic respiratory failure, resolved -Likely secondary to pneumonia -Likely secondary to systolic CHF exacerbation -There is a possibility of pulmonary embolism? Although unlikely, given elevated troponins, elevated D-dimer, he he is on Eliquis, cannot perform CT angiogram given elevated creatinine, venous ultrasound negative for DVT, Plan -Currently in cardiac stepdown unit -Status post self extubation 01/05/2023 -Currently on 2 L nasal cannula - -13 L overall -On doxycycline, Augmentin -Creatinine stable -Monitor urine output C. difficile colitis -Isolation precautions. ? P.o. vancomycin A-fib with RVR -He is on metoprolol 50 twice daily -Continue amiodarone 400 twice daily -therapeutic Lovenox on hold Shock, resolved -Likely multifactorial -Septic, possible cardiogenic, possible outflow obstruction -Remains off Levophed -Maintain MAP in the 65 Acute encephalopathy, resolved -Improving -Multifactorial from hypoxia, pneumonia, uremia, sepsis, -Monitor -CT of the head, no acute findings Systolic CHF exacerbation, -13 L -With elevated troponins, elevated BNP -Monitor BMP monitor urine output, diuresis based upon clinical progress -Chest x-ray showing improved pulmonary vascular congestion this morning -Resume Bumex -We will monitor urine output monitor creatinine, cardiology consulted Pneumonia -Sputum culture, blood cultures, respiratory viral panel -Antibiotic therapy de-escalated to doxycycline, Augmentin Staph epidermidis bacteremia, likely contamination -1 out of 4 blood cultures positive for Staph epidermidis -Highly suspect that this is a contamination -PICC line to be removed -Repeat blood negative, remains afebrile -Vancomycin discontinued Uremia -Resolving -Nephrology consulted Acute renal failure, stable -Likely secondary to sepsis, cardiorenal syndrome -Creatinine improving -Monitor urine output monitor creatinine -Nephrology consulted Sepsis, resolved -Creatinine 1.2, transaminitis, hyperbilirubinemia, NSTEMI, respiratory failure, hypoxia, -Source of infection is pneumonia -And or cholelithiasis Non-ST elevation [place] -Type I versus type II NSTEMI -Has complaints of chest pain in the past -Had a stress test in 2019 -EKG does show ST depressions inferior lateral leads -Currently on heparin drip -Cardiac echo ordered Normal LV size with diminished ejection fraction of around 50%.? ?Diffuse hypokinesis of the septum and the anteroseptal segments. ?Mild biatrial enlargement ?Thickened mitral valve. Moderate mitral annular calcification. ?Moderate mitral valve regurgitation. ?Moderate aortic valve calcification.? Moderate aortic valve ?stenosis with a valve area 1.1 cm squared. ?[id number] tricuspid valve regurgitation.? Estimated PA ?pressure of 40 mmHg. ?Dilated IVC with decreased respiratory variation. ?There is no pericardial effusion. ?There are no intracardiac masses. ?Compared to the study from 06/27/2021, there wall motion of ?normality and the diminished LV ejection fraction are new -Cardiology consulted, repeat cardiac echocardiogram, stress testing today Cholelithiasis -CT scan shows 2 stones in cystic duct versus vascular calcifications -Right upper quadrant ultrasound -1. ? Cholelithiasis with mild localized gallbladder wall thickening raising possibility of cholecystitis. 2. ? Mild perihepatic ascites. 3. ? Right pleural effusion. -Follow LFTs,, alk phos, bilirubin, -If it continues to elevate, might require MRCP or potential transfer for consideration of ERCP -On Zosyn Hyperbilirubinemia as above Transaminitis as above, hep C negative, HIV within limits, alcohol levels within normal limits Liver cirrhosis, with elevated INR, elevated LFTs, possibly secondary to alcoholism,, work-up as above Hypoalbuminemia Hypokalemia on p.o. replacement Protonix for GI prophylaxis Heparin for DVT prophylaxis Plan for today, -Spoke to cardiology -Hold Bumex -Monitor hematuria -Hold Plavix -hold lovenox Attestations Medical Necessity Statement*: Patient requires hospitalization for respiratory failure, CHF, NSTEMI, und ergoing stress testing now with hematuria, requiring hemoglobin monitoring, monitoring Haas site Diagnoses Acute respiratory failure with hypoxia J96.01 Acute exacerbation of congestive heart failure I50.9 Systolic CHF, acute I50.21 Encephalopathy G93.40 Acute non-ST elevation myocardial infarction (NSTEMI) I21.4 Atrial fibrillation I48.91 Cholelithiases K80.20 Moderate aortic stenosis I35.0 Pneumonia J18.9 Acute renal failure N17.9 Sepsis A41.9 Liver cirrhosis K74.60 Elevated INR R79.1 Transaminitis R74.01 Hyperbilirubinemia E80.6 Uremia N19 Acute encephalopathy G93.40 Shock R57.9 Septic shock A41.9; R65.21 Atrial fibrillation with RVR I48.91 Hematuria R31.9
[2023-01-13 19:44] LABS: Hematocrit 35.4 % (42.0-52.0)
[2023-01-13] MEDS: atorvastatin 40 mg Tablet 20 MG PO (20:38)
[2023-01-13] MEDS: enoxaparin 100 mg/mL Syringe 90 MG SUBCUT (20:45)
[2023-01-14] VITALS (12 sets, daily range): BP systolic 117–123; BP diastolic 65–81; PULSE 86–112; RESP 16–18; TEMP 36.4–36.8; O2SAT 89–96
[2023-01-14 05:54] LABS: Basophils # 0.1 10^3/uL (0.0-0.1); Basophils % 0.8 %; Eosinophils # 0.5 10^3/uL (0.0-0.8); Eosinophils % 4.7 %; Hematocrit 30.9 % (42.0-52.0); Hemoglobin 9.5 g/dL (11.7-16.6); Lymphocytes # 1.6 10^3/uL (0.8-4.8); Lymphocytes % 16.3 %; Mean Corpuscular HGB Conc 30.7 g/dL (30.0-36.0); Mean Corpuscular Hemoglobin 28.4 pg (28.0-34.0); Mean Corpuscular Volume 92.5 fl (80-94); Mean Platelet Volume 10.2 fL (7.4-10.4); Monocytes # 0.6 10^3/uL (0.2-0.9); Monocytes % 5.9 %; Neutrophils # 7.08 10^3/uL (1.8-7.7); Neutrophils % 71.5 %; Nucleated Red Blood Cells % 0 %; Platelet Count 261 10^3/cmm (130-400); Red Blood Count 3.34 10^6/uL (4.1-5.3); Red Cell Distribution Width 15.6 % (12.1-15.1); White Blood Count 9.9 10^3/uL (4.0-10.0)
[2023-01-14 06:16] LABS: Blood Urea Nitrogen 20 mg/dL (8-23); Calcium 8.9 mg/dL (8.5-10.5); Carbon Dioxide 30 mmol/L (22-29); Chloride 103 mmol/L (98-107); Glucose 85 mg/dL (65-115); Osmolality Calculated 298 mOsm/kg (285-295); Sodium 143 mmol/L (136-145)
[2023-01-14 06:18] LABS: Anion Gap 14.9 (5-19); Magnesium 1.9 mg/dL (1.7-2.3); Phosphorus 3.4 mg/dL (2.5-4.5); Potassium 4.9 mmol/L (3.5-5.1)
[2023-01-14] MEDS: ipratropium-albuterol 3 mL Neb INHALATION ×3 (08:12→15:11)
[2023-01-14] MEDS: amoxicillin-clav 875-125 mg Tablet 1 TAB PO ×2 (09:09→20:37)
[2023-01-14] MEDS: magnesium lactate 84 mg Tablet PO (09:09)
[2023-01-14] MEDS: doxycycline 100 mg Tablet PO ×2 (09:09→20:37)
[2023-01-14] MEDS: amiodarone 200 mg Tablet 400 MG PO (09:09)
[2023-01-14] MEDS: aspirin 81 mg EC Tablet PO (09:10)
[2023-01-14] MEDS: FUROsemide 40 mg Tablet PO (09:10)
[2023-01-14] MEDS: metoprolol tartrate 50 mg Tablet PO (09:10)
[2023-01-14] MEDS: pantoprazole DR 40 mg Tablet PO ×2 (09:10→17:55)
[2023-01-14] MEDS: mirtazapine 30 mg Tablet 45 MG PO (09:10)
--- NOTE | 2023-01-14 10:44 | PC.OT ---
OT TREATMENT ATTEMPTED; PATIENT STATES THAT HE IS GOING HOME TOMORROW AND NO NEEDS AT THIS TIME. OFFERED ADL TASKS AND PATIENT ADAMANTLY REFUSES STATING HE WILL DO ALL WHEN HE GETS HOME TOMORROW.
--- NOTE | 2023-01-14 10:47 | PC.SOCIAL ---
[facility] IMM update: pg 2 of IMM dated and reviewed with pt. Copy provided. Copy dated/initialed and placed in pt chart at [phone]
[2023-01-14] MEDS: sucralfate 1 gm Tablet PO ×2 (11:28→23:23)
--- NOTE | 2023-01-14 16:16 | P.PN_ITS ---
Subjective Subjective: - Patient was seen this morning -He was given therapeutic Lovenox last night his hemoglobin went from 11.5 down to 9.5 -He denies any bloody or black stools -His Hasa catheter urethral site, no recurrent bleeding He tells me he really wants to go home, he tells me that he is ambulating, he is on room air, that his sister is going to come and help him, -I discussed my concerns for his deconditioning, his risk of falls, that he has extensive nursing needs -However patient is adamant about going home, -We discussed plan, to monitor his hemoglobin for the next 24 hours we will hold off on anticoagulation -Protonix, Carafate, -Discussed his echocardiogram findings, it with his improved ejection fraction, -Discussed with cardiology, will monitor hemoglobin as inpatient, hold Lovenox continue aspirin, I do not think he can tolerate Plavix with his hemoglobin drop will monitor -Discussed with cardiology about decreasing amiodarone to 200 twice daily, and increasing metoprolol to 62.5 twice daily Vitals/I&O/Wt Last Vital Signs Temp 98.0 F 01/14/23 08:00 Pulse 95 01/14/23 15:21 Resp 16 01/14/23 15:12 BP 117/65 01/14/23 08:00 Pulse Ox 96 01/14/23 15:12 O2 Del Method Room Air 01/14/23 15:12 O2 Flow Rate 1 01/13/23 08:38 FiO2 35 01/07/23 10:00 01/14/23 01/14/23 01/14/23 06:59 14:59 22:59 Intake Total 0 / 380 530 / 530 Output Total 650 / 650 Balance 0 / 80 -120 / -120 Weight last 48 hrs Weight 88.451 kg Weight 90.356 kg Weight 90.628 kg Physical Exam Const: COMMON NORMALS: no acute distress and patient oriented x3 Resp: COMMON NORMALS: normal respiratory effort, No retractions, No use of accessory muscles and clear to auscultation bilaterally AUSCULTATION: clear to auscultation bilaterally Cardio: COMMON NORMALS: regular rate, regular rhythm, S1 normal heart sound present and S2 normal heart sound present RATE: regular rate RHYTHM: regular rhythm HEART SOUNDS: S1 normal heart sound present and S2 normal heart sound present GI: COMMON NORMALS: Normal to inspection, nondistended, normoactive bowel sounds present and non-tender Extremity: COMMON NORMALS: no clubbing, cyanosis or edema and no pedal edema Neuro: COMMON NORMALS: patient oriented x3 Psych: COMMON NORMALS: mental status grossly normal Skin: NARRATIVE SKIN EXAM: Haas catheter site, with dried blood, no acute bleeding, Haas catheter bag no hematuria Urinary Catheter Management: Haas: Cath Placed During This Visit: yes Reason for Continuing Indwelling Catheter: Accurate Measurement of Urinary Output in Critically Ill Patients Urinary Catheter Date of Insertion: 01/03/23 Urinary Catheter Time of Insertion: 18:00 Haas Latex: Cath Placed During This Visit: yes Reason for Continuing Indwelling Catheter: Other Urinary Catheter Date of Insertion: 01/10/23 Urinary Catheter Time of Insertion: 11:00 Data 01/14/23 05:40 01/14/23 05:40 A&P Assessment and plan (1) Acute respiratory failure with hypoxia: (2) Acute exacerbation of congestive heart failure: (3) Systolic CHF, acute: (4) Encephalopathy: (5) Acute non-ST elevation myocardial infarction (NSTEMI): (6) Atrial fibrillation: (7) Cholelithiases: (8) Moderate aortic stenosis: (9) Pneumonia: (10) Acute renal failure: (11) Sepsis: (12) Liver cirrhosis: (13) Elevated INR: (14) Transaminitis: (15) Hyperbilirubinemia: (16) Uremia: (17) Acute encephalopathy: (18) Shock: (19) Septic shock: (20) Atrial fibrillation with RVR: (21) Hematuria: Plan Hematuria -likely secondary to trauma, prostate, urethra -us confirms placement -hematuria has improved -has bleeding around catheter site improved, hemoglobin down to 9.5 -hold lovenox, hold plavix -hemoglobin down to 9.5 monitor for now Acute hypoxic respiratory failure, resolved -Likely secondary to pneumonia -Likely secondary to systolic CHF exacerbation -There is a possibility of pulmonary embolism? Although unlikely, given elevated troponins, elevated D-dimer, he he is on Eliquis, cannot perform CT angiogram given elevated creatinine, venous ultrasound negative for DVT, Plan -Currently in cardiac stepdown unit -Status post self extubation 01/05/2023 -Currently room air - -13 L overall -On doxycycline, Augmentin -Creatinine stable -Monitor urine output C. difficile colitis -Isolation precautions. ? P.o. vancomycin A-fib with RVR -Increase metoprolol to 62.5 twice daily -We will decrease amiodarone to 200 mg twice daily -therapeutic Lovenox on hold Shock, resolved -Likely multifactorial -Septic, possible cardiogenic, possible outflow obstruction -Remains off Levophed -Maintain MAP in the 65 Acute encephalopathy, resolved -Improving -Multifactorial from hypoxia, pneumonia, uremia, sepsis, -Monitor -CT of the head, no acute findings Systolic CHF exacerbation, -13 L -With elevated troponins, elevated BNP -Monitor BMP monitor urine output, diuresis based upon clinical progress -Chest x-ray showing improved pulmonary vascular congestion this morning -Resume Lasix -We will monitor urine output monitor creatinine, cardiology consulted Pneumonia -Sputum culture, blood cultures, respiratory viral panel -Antibiotic therapy de-escalated to doxycycline, Augmentin Staph epidermidis bacteremia, likely contamination -1 out of 4 blood cultures positive for Staph epidermidis -Highly suspect that this is a contamination -PICC line to be removed -Repeat blood negative, remains afebrile -Vancomycin discontinued Uremia -Resolving -Nephrology consulted Acute renal failure, stable -Likely secondary to sepsis, cardiorenal syndrome -Creatinine improving -Monitor urine output monitor creatinine -Nephrology consulted Sepsis, resolved -Creatinine 1.2, transaminitis, hyperbilirubinemia, NSTEMI, respiratory failure, hypoxia, -Source of infection is pneumonia -And or cholelithiasis Non-ST elevation [place] -Type I versus type II NSTEMI -Has complaints of chest pain in the past -Had a stress test in 2019 -EKG does show ST depressions inferior lateral leads -Currently on heparin drip -Cardiac echo ordered Normal LV size with diminished ejection fraction of around 50%.? ?Diffuse hypokinesis of the septum and the anteroseptal segments. ?Mild biatrial enlargement ?Thickened mitral valve. Moderate mitral annular calcification. ?Moderate mitral valve regurgitation. ?Moderate aortic valve calcification.? Moderate aortic valve ?stenosis with a valve area 1.1 cm squared. ?[id number] tricuspid valve regurgitation.? Estimated PA ?pressure of 40 mmHg. ?Dilated IVC with decreased respiratory variation. ?There is no pericardial effusion. ?There are no intracardiac masses. ?Compared to the study from 06/27/2021, there wall motion of ?normality and the diminished LV ejection fraction are new -Cardiology consulted, repeat cardiac echocardiogram, stress testing today Cholelithiasis -CT scan shows 2 stones in cystic duct versus vascular calcifications -Right upper quadrant ultrasound -1. ? Cholelithiasis with mild localized gallbladder wall thickening raising possibility of cholecystitis. 2. ? Mild perihepatic ascites. 3. ? Right pleural effusion. -Follow LFTs,, alk phos, bilirubin, -If it continues to elevate, might require MRCP or potential transfer for consideration of ERCP -On Zosyn Hyperbilirubinemia as above Transaminitis as above, hep C negative, HIV within limits, alcohol levels within normal limits Liver cirrhosis, with elevated INR, elevated LFTs, possibly secondary to alcoholism,, work-up as above Hypoalbuminemia Hypokalemia on p.o. replacement Protonix for GI prophylaxis Heparin for DVT prophylaxis Plan for today, - Patient was seen this morning -He was given therapeutic Lovenox last night his hemoglobin went from 11.5 down to 9.5 -He denies any bloody or black stools -His Haas catheter urethral site, no recurrent bleeding He tells me he really wants to go home, he tells me that he is ambulating, he is on room air, that his sister is going to come and help him, -I discussed my concerns for his deconditioning, his risk of falls, that he has extensive nursing needs -However patient is adamant about going home, -We discussed plan, to monitor his hemoglobin for the next 24 hours we will hold off on anticoagulation -Protonix, Carafate, -Discussed his echocardiogram findings, it with his improved ejection fraction, -Discussed with cardiology, will monitor hemoglobin as inpatient, hold Lovenox continue aspirin, I do not think he can tolerate Plavix with his hemoglobin drop will monitor Attestations Medical Necessity Statement*: Patient requires hospitalization for anemia, elevated heart rates requiring tit ration of metoprolol, hematuria, requiring hemoglobin monitoring, CHF requiring diuresis Diagnoses Acute respiratory failure with hypoxia J96.01 Acute exacerbation of congestive heart failure I50.9 Systolic CHF, acute I50.21 Encephalopathy G93.40 Acute non-ST elevation myocardial infarction (NSTEMI) I21.4 Atrial fibrillation I48.91 Cholelithiases K80.20 Moderate aortic stenosis I35.0 Pneumonia J18.9 Acute renal failure N17.9 Sepsis A41.9 Liver cirrhosis K74.60 Elevated INR R79.1 Transaminitis R74.01 Hyperbilirubinemia E80.6 Uremia N19 Acute encephalopathy G93.40 Shock R57.9 Septic shock A41.9; R65.21 Atrial fibrillation with RVR I48.91 Hematuria R31.9
[2023-01-14 17:10] LABS: Hematocrit 34.5 % (42.0-52.0); Hemoglobin 10.7 g/dL (11.7-16.6)
[2023-01-14] MEDS: amiodarone 200 mg Tablet PO (17:55)
[2023-01-14] MEDS: metoprolol tartrate 25 mg Tablet 62.5 MG PO (20:38)
[2023-01-14] MEDS: atorvastatin 40 mg Tablet 20 MG PO (20:38)
--- NOTE | 2023-01-14 23:11 | PM.PN ---
Subjective Subjective: He c/o loose stools, no hemaruria, intermittent A. fib with RVR He underwent stress test. Medications: Reviewed: Yes Medication Review Details: Current Medications Acetaminophen (Acetaminophen 325 Mg Tablet) 650 mg PO Q6H PRN PRN Reason: Mild/Mod Pain Or Temp >/= 101 Albuterol/Ipratropium (Ipratropium-Albuterol 3 Ml Neb) 3 ml INHALATION Q4H.RESPIRATORY JENIFER Last Admin: 01/05/23 15:59 Dose: 3 ml Bumetanide (Bumetanide 0.25 Mg/Ml Sdv 4 Ml) 1 mg IVP Q8H JENIFER Clopidogrel Bisulfate (Clopidogrel 75 Mg Tablet) 75 mg PO DAILY JENIFER Last Admin: 01/05/23 09:11 Dose: 75 mg Enoxaparin Sodium (Enoxaparin 100 Mg/Ml Syringe) 100 mg SUBCUT Q12H JENIFER Last Admin: 01/05/23 09:12 Dose: 100 mg Norepinephrine Bitartrate 4 mg (/ Dextrose) 254 mls @ 0 mls/hr IV .Q0M JENIFER; Protocol Last Titration: 01/05/23 11:43 Dose: 0 mcg/min, 0 mls/hr Piperacillin Sod/Tazobactam (Sod 3.375 gm/ Sodium Chloride) 50 mls @ 12.5 mls/hr IV Q8H JENIFER; Protocol Last Admin: 01/05/23 17:56 Dose: 12.5 mls/hr Amiodarone HCl 900 mg/Dextrose/ IV Miscellaneous Supplies 518 mls @ 0 mls/hr IV .Q0M JENIFER; Protocol Last Titration: 01/05/23 17:43 Dose: 1 mg/min, 34.53 mls/hr Lidocaine HCl 5 ml/ Potassium (Chloride) 205 mls @ 25.625 mls/hr IV ONCE ONE Stop: 01/06/23 01:04 Last Admin: 01/05/23 17:54 Dose: 25.63 mls/hr Vancomycin/PEG/NADA/Lysine/Water (Vancocin) 1,500 mg in 300 mls @ 200 mls/hr IV Q18H JENIFER Last Admin: 01/05/23 17:55 Dose: 200 mls/hr Dexmedetomidine HCl 400 mcg/ (Sodium Chloride) 104 mls @ 0 mls/hr IV .Q0M JENIFER; Protocol Last Titration: 01/05/23 18:45 Dose: 0.3 mcg/kg/hr, 8.31 mls/hr Naloxone HCl (Naloxone 0.4 Mg/Ml Sdv) 0.1 mg IVP Q2M PRN PRN Reason: OPIATERV Ondansetron HCl (Ondansetron 2 Mg/Ml Sdv 2 Ml) 4 mg IVP Q8H PRN PRN Reason: vomiting, or N/V if npo Pantoprazole Sodium (Pantoprazole 40 Mg Sdv) 40 mg IVP Q24H [facility] Last Admin: 01/05/23 16:29 Dose: 40 mg Potassium Chloride (Potassium Chloride Oral Liq 20 Meq/15 Ml Udc) 40 meq PO Q12H [facility] Vitals/I&O/Wt Last Vital Signs Temp 98.3 F 01/14/23 20:00 Pulse 101 H 01/14/23 21:09 Resp 16 01/14/23 21:09 BP 123/81 01/14/23 20:00 Pulse Ox 93 01/14/23 21:09 O2 Del Method Nasal Cannula 01/14/23 21:09 O2 Flow Rate 3 01/14/23 21:09 FiO2 35 01/07/23 10:00 01/14/23 01/14/23 01/15/23 14:59 22:59 06:59 Intake Total 530 / 530 Output Total 650 / 650 400 / 1050 Balance -120 / -120 -400 / -520 Weight last 48 hrs Weight 195 lb Weight 199 lb 3.2 oz Weight 199 lb 12.8 oz Physical Exam Narrative: GENERAL: Averagely built and averagely nourished in no acute distress HEENT: Extraocular movement intact. No pallor or icterus. NECK: central trachea, No JVD, No carotid bruit. CARDIOVASCULAR SYSTEM: S1-S2 irregular. No murmur or gallops. RESPIRATORY SYSTEM: Chest clear to auscultation. No wheezes rhonchi or rubs heard. No use of accessory muscles. ABDOMEN: Soft, nontender and nondistended. Normal bowel sounds present. EXTREMITIES: No cyanosis,No edema. No signs of chronic venous insufficiency. [employer] OFFICER: Patient is alert and oriented to self Urinary Catheter Management: Haas: Cath Placed During This Visit: yes Reason for Continuing Indwelling Catheter: Accurate Measurement of Urinary Output in Critically Ill Patients Urinary Catheter Date of Insertion: 01/03/23 Urinary Catheter Time of Insertion: 18:00 Haas Latex: Cath Placed During This Visit: yes Reason for Continuing Indwelling Catheter: Other Urinary Catheter Date of Insertion: 01/10/23 Urinary Catheter Time of Insertion: 11:00 Data 01/14/23 16:38 01/14/23 05:40 A&P Assessment and plan (1) CHF (congestive heart failure): -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 Closely monitor electrolytes. good UO LOS: -12 L (2) Acute non-ST elevation myocardial infarction (NSTEMI): Elevated troponin T, LV dysfunction and EKG changes are consistent with non-ST elevation myocardial infarction. -cont, on ASA 81mg, Hold plavix 75 mg p.o. daily and lovenox -troponin T 1447-->1413-->1583 -TTE with Normal LV size with diminished ejection fraction of around 50%.?Diffuse hypokinesis of the septum and the anteroseptal segments. -No significant ischemia on stress test today -limited echo with normal LV function -continue with medical management (3) Atrial fibrillation with RVR: Patient on PO amiodarone. Decrease amiodarone to 200 mg po BID x 7 days and then 200 mg daily -incresae metoprolol tartrate to 75 mg am and 50 mg in evening -Plan to uptitrate based on BP/HR. (4) Transaminitis: Seems to have improved. Plan Hematuria C Diff Diarrhea Hypotension: resolved sepsis-patient is currently on empiric antibiotics. Possible pneumonia. Encephalopathy Anemia Hypokalemia: replaced Attestations Medical Necessity Statement*: As per primary team Coding Level of Care Code 65807 Diagnoses CHF (congestive heart failure) I50.9 Acute non-ST elevation myocardial infarction (NSTEMI) I21.4 Atrial fibrillation with RVR I48.91 Transaminitis R74.01
[2023-01-15] VITALS (7 sets, daily range): BP systolic 104–117; BP diastolic 65–75; PULSE 70–105; RESP 14–19; TEMP 36.5–36.9; O2SAT 92–95
[2023-01-15] MEDS: acetaminophen 325 mg Tablet 650 MG PO ×2 (01:08→07:12)
[2023-01-15 05:17] LABS: Basophils # 0.1 10^3/uL (0.0-0.1); Basophils % 0.8 %; Eosinophils # 0.5 10^3/uL (0.0-0.8); Eosinophils % 4.4 %; Hematocrit 32.3 % (42.0-52.0); Hemoglobin 10.1 g/dL (11.7-16.6); Lymphocytes # 1.5 10^3/uL (0.8-4.8); Lymphocytes % 13.7 %; Mean Corpuscular HGB Conc 31.3 g/dL (30.0-36.0); Mean Corpuscular Hemoglobin 29.1 pg (28.0-34.0); Mean Corpuscular Volume 93.1 fl (80-94); Mean Platelet Volume 10.2 fL (7.4-10.4); Monocytes # 0.6 10^3/uL (0.2-0.9); Monocytes % 5.5 %; Neutrophils # 8.17 10^3/uL (1.8-7.7); Neutrophils % 74.9 %; Nucleated Red Blood Cells % 0 %; Platelet Count 322 10^3/cmm (130-400); Red Blood Count 3.47 10^6/uL (4.1-5.3); Red Cell Distribution Width 15.9 % (12.1-15.1); White Blood Count 10.9 10^3/uL (4.0-10.0)
[2023-01-15 05:50] LABS: Anion Gap 14.2 (5-19); Blood Urea Nitrogen 20 mg/dL (8-23); Calcium 9.8 mg/dL (8.5-10.5); Carbon Dioxide 30 mmol/L (22-29); Chloride 102 mmol/L (98-107); Glucose 89 mg/dL (65-115); Magnesium 2.1 mg/dL (1.7-2.3); Osmolality Calculated 296 mOsm/kg (285-295); Phosphorus 3.6 mg/dL (2.5-4.5); Potassium 4.2 mmol/L (3.5-5.1); Sodium 142 mmol/L (136-145)
[2023-01-15] MEDS: ipratropium-albuterol 3 mL Neb INHALATION ×2 (07:09→11:04)
[2023-01-15] MEDS: FUROsemide 40 mg Tablet PO (07:12)
[2023-01-15] MEDS: potassium chloride oral liq 20 mEq/15 mL UDC 40 MEQ PO (08:19)
[2023-01-15] MEDS: pantoprazole DR 40 mg Tablet PO (08:21)
[2023-01-15] MEDS: doxycycline 100 mg Tablet PO (08:21)
[2023-01-15] MEDS: magnesium lactate 84 mg Tablet PO (08:21)
[2023-01-15] MEDS: amoxicillin-clav 875-125 mg Tablet 1 TAB PO (08:21)
[2023-01-15] MEDS: metoprolol tartrate 25 mg Tablet 62.5 MG PO (08:22)
[2023-01-15] MEDS: mirtazapine 30 mg Tablet 45 MG PO (08:23)
[2023-01-15] MEDS: amiodarone 200 mg Tablet PO (08:23)
[2023-01-15] MEDS: aspirin 81 mg EC Tablet PO (08:26)
--- NOTE | 2023-01-15 11:23 | PM.DCS ---
Discharge Providers Date of Admission: 01/03/23 15:49 Date of Discharge: January 15, 2023 Attending Provider at Admission: Hank Luevano MD Attending Provider at Discharge: Hank Luevano MD Primary Care Provider: ROBBIN Daniels Diagnoses at Discharge Discharge Diagnosis (1) CHF (congestive heart failure): Status: Acute (2) Acute non-ST elevation myocardial infarction (NSTEMI): Status: Acute (3) Atrial fibrillation with RVR: Status: Acute (4) Transaminitis: Status: Acute Reason for Visit Reason for Visit: hypoxic Hospital Course Hospital Course Anthony Gutierrez is a 77 year old male with a past medical history of atrial fibrillation on Eliquis, lumbar disc disease, hypertension, moderate aortic stenosis, obesity, who presents to [facility] due to altered mental status, shortness of breath, hypoxia.? Currently patient is intubated, mechanical ventilation, sedated, no history was provided by patient.? According to ER physician and nursing staff, he came in with complaints of shortness of breath, concerns for hypoxia, and altered mental status, he was monitored on 15 L nonrebreather, then placed on BiPAP, monitored thereafter, due to further nonresponsiveness, and concerns for further hypoxia he was intubated for airway protection.? Hospitalist team was called for admission, I have asked ER physician to place in central access, currently intubated, sedated, review of blood work shows a white count of 12.8, UA looks clean chest x-ray shows pulmonary vascular congestion however I cannot see both lung bases possibly could have underlying infection given elevated Pro-Jermaine and CRP, I ordered a CT of the chest, if's advise ER physician to start on antibiotic, vancomycin, Zosyn, no evidence of hypotension currently, his INR is 2.7, he is on Eliquis, D-dimer is 3.72, possible pulmonary embolism however he is on anticoagulation cannot do CT angiogram given his elevated creatinine his BUN is 98, possibly could have uremic encephalopathy creatinine is 2.4 up from 1.4 a few days ago, he does have transaminitis, bilirubin 2.7, abdomen is distended, decreased bowel sounds, no guarding, no rebound, no rigidity, I ordered a CT scan abdomen and pelvis, his baseline troponins 1447, spoke to cardiology, start heparin drip, cardiology was consulted, given his elevated creatinine, I have also consulted nephrology, patient was reexamined in the intensive care unit, I was told by nursing staff that central line placement was unsuccessful, I have ordered a PICC line and to be placed, will have PICC line team placed in peripheral access, I reviewed CT scanning abdomen and pelvis, has evidence of cholelithiasis and liver cirrhosis potentially explain the elevated INR, will get lipase, gallbladder ultrasound, cardiac echo ordered venous ultrasound lower extremity DVT ordered, CT of the chest did show bibasilar consolidation mild upper lobe consolidation, concern for pneumonia I placed him on vancomycin, Zosyn, sputum cultures, blood cultures,, respiratory viral panel, in addition have ordered HIV panel, acute hep panel, ferritin, GGT alcohol level, drug screen negative, initial EKG should did show ST depressions in inferior lateral leads, I did review prior notes, it seems like he saw his primary care provider a few days ago, reported feeling unwell, joint aches, shortness of breath, fast heart rate, did not want to go to the ER, spoke to ER physician, spoke to ER nursing staff, spoke to ICU nursing staff, checked up on patient multiple times throughout the ER, and also on the ICU This is a 77-year-old male who was admitted to [facility] for acute hypoxic respiratory failure secondary to pneumonia, shock, systolic CHF exacerbation, intubated, required mechanical ventilation, status post self extubation, received broad-spectrum antibiotic therapy, diuresed over 13 L, completed antibiotic therapy as inpatient, weaned down to room air, overall clinically improved, [facility] systolic CHF exacerbation, and NSTEMI, diminished ejection fraction cardiology was consulted, diuresed, repeat echocardiogram showed improving ejection fraction, underwent stress testing for his NSTEMI, recommended medical management. Discharged on aspirin,, beta-jimy with close follow-up with cardiology In terms of his atrial fibrillation, discharged on amiodarone, beta-jimy, aspirin For his hematuria, concerns for urinary retention, concerns for urethral trauma, discharged with Haas catheter with a follow-up with urology as outpatient Patient has C. difficile colitis during his hospitalization, discharged on 4 remaining days of vancomycin In terms of his anticoagulation, Plavix, and Eliquis have been held on discharge. Due to recurrent anemia and hematuria. I will have patient follow-up with cardiology in 2 weeks for decision to resume Eliquis based upon his repeat hemoglobin. In addition with his hematuria and his urethral bleeding, with anticoagulation and antiplatelet therapy, he should follow-up with urology for Haas catheter removal and urodynamic testing. Physical Exam Const: COMMON NORMALS: no acute distress and patient oriented x3 Resp: COMMON NORMALS: normal respiratory effort, No retractions, No use of accessory muscles and clear to auscultation bilaterally AUSCULTATION: clear to auscultation bilaterally Cardio: COMMON NORMALS: regular rate, regular rhythm, S1 normal heart sound present and S2 normal heart sound present RATE: regular rate RHYTHM: regular rhythm HEART SOUNDS: S1 normal heart sound present and S2 normal heart sound present GI: COMMON NORMALS: Normal to inspection, nondistended, normoactive bowel sounds present and non-tender Extremity: COMMON NORMALS: no pedal edema Neuro: COMMON NORMALS: patient oriented x3 Psych: COMMON NORMALS: mental status grossly normal Urinary Catheter Management: Haas: Cath Placed During This Visit: yes Reason for Continuing Indwelling Catheter: Accurate Measurement of Urinary Output in Critically Ill Patients Urinary Catheter Date of Insertion: 01/03/23 Urinary Catheter Time of Insertion: 18:00 Haas Latex: Cath Placed During This Visit: yes Reason for Continuing Indwelling Catheter: Other Urinary Catheter Date of Insertion: 01/10/23 Urinary Catheter Time of Insertion: 11:00 Discharge Data Studies Completed and Pending Completed Studies During Hospitalization Category Date Time Status CT chest abdomen pelvis [[place] [id number] Cat Scan 01/03/23 15:36 Completed ] Stat CT head wo con* [id number] Routine Cat Scan 01/07/23 08:[address] head wo con* [id number] Stat Cat Scan 01/03/23 13:33 Completed Sestamibi Stress Test Request Routine Exams 01/12/23 12:55 Completed XR KUB portable [id number] Routine Exams 01/07/23 11:32 Completed XR chest 1V [id number] Stat Exams 01/03/23 17:09 Completed XR chest 1V portable [id number] Routine Exams 01/05/23 07:00 Completed XR chest 1V portable [id number] Routine Exams 01/05/23 18:24 Completed XR chest 1V portable [id number] Routine Exams 01/07/23 07:00 Completed XR chest 1V portable [id number] Stat Exams 01/03/23 12:51 Completed XR chest 1V portable [id number] Stat Exams 01/03/23 15:35 Completed XR chest 1V portable [id number] Stat Exams 01/03/23 22:30 Completed NM alli perf SPECT r/s* [id number] Routine Nuc Med 01/13/23 06:00 [place] [id number] Stat Ultrasound 01/03/23 15:36 Completed CV. echo complete* [id number] Stat Ultrasound 01/03/23 15:36 Completed CV. echo limited [id number] Routine Ultrasound 01/12/23 12:54 Completed US abdomen limited [id number] Routine Ultrasound 01/04/23 18:28 Completed US bladder [id number] Stat Ultrasound 01/11/23 10:59 Completed Pending at discharge Category Date Time Status SARS Covid-2 Antigen Routine Lab 01/15/23 11:01 Uncollected Radiology Impressions Chest/Abdomen/Pelvis CT 01/03/23 15:36 IMPRESSION: 1. Mild upper lobe and dense bibasilar consolidation is present, consistent with atelectasis, edema, or pneumonia. 2. There is a low lying ET tube with tip 1.0 cm above the yumiko. For ideal placement this should be retracted about 3.5 cm. IMPRESSION: 1. There is wall thickening of the cecum and ascending colon concerning for mild colitis. 2. Cirrhotic liver morphology with small volume of ascites. No free air or abscess. 3. Cholelithiasis. Two stones in the cystic duct versus vascular calcifications are noted. No definite findings of acute cholecystitis. There is a small amount of fluid adjacent to the gallbladder compatible with ascites also seen elsewhere in the abdomen. Venous Duplex 01/03/23 15:36 IMPRESSION: No evidence of deep vein thrombosis in either lower extremity. Abdomen Ultrasound 01/04/23 18:28 IMPRESSION: 1. Cholelithiasis with mild localized gallbladder wall thickening raising possibility of cholecystitis. 2. Mild perihepatic ascites. 3. Right pleural effusion. Chest X-Ray 01/07/23 07:00 IMPRESSION: 1. New infiltrate in the right lower lobe. There is also left lower lobe infiltrate and atelectasis. Possible small left pleural effusion. 2. Cardiac enlargement with increased pulmonary vascularity. 3. A right-sided PICC line appears to end near the cavoatrial junction. It is unchanged in position. Head CT 07/18/23 08:22 IMPRESSION: 1. No acute intracranial findings. 2. Atherosclerosis. KUB X-Ray 01/07/23 11:32 IMPRESSION: No acute findings. Bladder Ultrasound 01/11/23 10:59 IMPRESSION: 1. Incompletely filled urinary bladder 2. Haas catheter is in place. 3. Otherwise negative examination Laboratory Results WBC 10.9 10^3/uL (4.0-10.0) H 01/15/23 04:59 RBC 3.47 10^6/uL (4.1-5.3) L 01/15/23 04:59 Hgb 10.1 g/dL (11.7-16.6) L 01/15/23 04:59 Hct 32.3 % (42.0-52.0) L 01/15/23 04:59 MCV 93.1 fl (80-94) 01/15/23 04:59 MCH 29.1 pg (28.0-34.0) 01/15/23 04:59 MCHC 31.3 g/dL (30.0-36.0) 01/15/23 04:59 RDW 15.9 % (12.1-15.1) H 01/15/23 04:59 Plt Count 322 10^3/cmm (130-400) 01/15/23 04:59 MPV 10.2 fL (7.4-10.4) 01/15/23 04:59 Neut % (Auto) 74.9 % 01/15/23 04:59 Lymph % (Auto) 13.7 % 01/15/23 04:59 [place] % (Auto) 5.5 % 01/15/23 04:59 Eos % (Auto) 4.4 % 01/15/23 04:59 Baso % (Auto) 0.8 % 01/15/23 04:59 Neut # (Auto) 8.17 10^3/uL (1.8-7.7) H 01/15/23 04:59 Lymph # (Auto) 1.5 10^3/uL (0.8-4.8) 01/15/23 04:59 [place] # (Auto) 0.6 10^3/uL (0.2-0.9) 01/15/23 04:59 Eos # (Auto) 0.5 10^3/uL (0.0-0.8) 01/15/23 04:59 Baso # (Auto) 0.1 10^3/uL (0.0-0.1) 01/15/23 04:59 Nucleated RBC % (auto) 0 % 01/15/23 04:59 Nucleated RBCs # 0.0 /100WBC 01/15/23 04:59 ESR 35 mm/hr (0-10) H 01/03/23 12:50 PT 14.80 SECONDS (12.1-14.9) 01/10/23 12:26 INR 1.13 (0.8-1.2) 01/10/23 12:26 APTT 53.3 SECONDS (23.9-36.7) H 01/05/23 03:51 D-Dimer 3.72 ug/mIFEU (0-0.59) H 01/03/23 12:50 Specimen Type Arterial 01/06/23 04:00 Sample Site Radial, right 01/06/23 04:00 ABG pH 7.48 (7.35-7.45) H 01/06/23 04:00 ABG pCO2 45.1 mmHg (35-45) H 01/06/23 04:00 ABG pO2 96.2 mmHg (80.0-100.0) 01/06/23 04:00 ABG HCO3 33.2 mmol/L (22-26) H 01/06/23 04:00 ABG O2 Saturation 84.3 01/03/23 17:14 ABG Base Excess 8.5 mmol/L (-2.0-2.0) H 01/06/23 04:00 Jani Test Pos 01/06/23 04:00 A-a O2 Gradient 78.7 mmHg (5-10) H 01/03/23 17:14 Hematocrit 36.4 % (42-52) L 01/06/23 04:00 Hgb O2 Saturation 82.5 % (95-100) L 01/03/23 17:14 Carboxyhemoglobin 1.7 %THgb (0.4-20.1) 01/03/23 17:14 Methemoglobin 0.5 % (0.4-1.5) 01/03/23 17:14 Total Hemoglobin 10.5 g/dL (14-18) L 01/03/23 17:14 Sodium 131.0 mmol/L (131-143) 01/03/23 17:14 Potassium 3.5 mmol/L (3.5-5.0) 01/03/23 17:14 Glucose 130.0 mg/dL (70-115) H 01/03/23 17:14 Ionized Calcium 1.2 mmol/L (1.1-1.4) 01/03/23 17:14 O2 Delivery Device Bipap 01/06/23 04:00 O2 Liters/Min 15.0 % 01/03/23 12:34 FiO2 65.0 % 01/06/23 04:00 Tidal Volume 0.50 01/05/23 05:46 PEEP 8.0 cmH20 01/05/23 05:46 Specimen Drawn By Matt 01/03/23 14:48 District Administrator ALEX [email or web address] 01/06/23 04:00 Crit Value Read Back Adeod 01/03/23 14:48 Blood Gas Notified Time 1502 01/03/23 14:48 Sodium 142 mmol/L (136-145) 01/15/23 04:59 Potassium 4.2 mmol/L (3.5-5.1) 01/15/23 04:59 Chloride 102 mmol/L (98-107) 01/15/23 04:59 Carbon Dioxide 30 mmol/L (22-29) H 01/15/23 04:59 Anion Gap 14.2 (5-19) 01/15/23 04:59 BUN 20 mg/dL (8-23) 01/15/23 04:59 Creatinine 1.3 mg/dL (0.7-1.2) H 01/15/23 04:59 GFR Calculation Not Reportable 01/15/23 04:59 Glucose 89 mg/dL (65-115) 01/15/23 04:59 Estimat Average Glucose 123 01/04/23 03:30 Hemoglobin A1c 5.9 % (4.0-6.0) 01/04/23 03:30 Calculated Osmolality 296 mOsm/kg (285-295) H 01/15/23 04:59 Lactic Acid 1.3 mmol/L (0.5-2.2) 01/03/23 14:45 Lactate 0.9 mmol/L (0.5-2.2) 01/07/23 04:20 Calcium 9.8 mg/dL (8.5-10.5) 01/15/23 04:59 Phosphorus 3.6 mg/dL (2.5-4.5) 01/15/23 04:59 Magnesium 2.1 mg/dL (1.7-2.3) 01/15/23 04:59 Ferritin 60 ng/mL (30-400) 01/03/23 19:03 Total Bilirubin 0.9 mg/dL (0.15-1.2) 01/11/23 02:20 Direct Bilirubin 0.30 mg/dL (0.00-0.30) 01/11/23 02:20 GGT 48 U/L (8-61) 01/03/23 19:03 AST 56 U/L (0-40) H 01/11/23 02:20 ALT 75 U/L (0-41) H 01/11/23 02:20 Alkaline Phosphatase 81 U/L (40-130) 01/11/23 02:20 Ammonia 30 umol/L (16-60) 01/05/23 03:51 Troponin T Baseline 1447 ng/L (0-15) H* 01/03/23 12:50 Troponin T 120 Minute 1413 ng/L (0-15) H 01/03/23 14:49 Delta Troponin T -34 ABS# (0-10) L 01/03/23 14:49 Troponin T Hi Sens 6Hr 1583 ng/L (0-15) H 01/03/23 19:03 Troponin T Hi Sens 6Hr Delta 136 ng/L (0-12) H* 01/03/23 19:03 C-Reactive Protein 25.0 mg/L (0.0-4.9) H 01/12/23 01:47 NT-Pro-B Natriuret Pep 1246 pg/mL (0-450) H 01/12/23 01:47 Total Protein 5.8 g/dL (6.6-8.7) L 01/11/23 02:20 Albumin 3.7 g/dL (3.5-5.2) 01/11/23 02:20 Globulin 2.1 g/dL (1.3-4.6) 01/11/23 02:20 Triglycerides 124 mg/dL (0-150) 01/04/23 03:30 Cholesterol 111 mg/dL (0-200) 01/04/23 03:30 LDL Cholesterol, Calc 68 mg/dL (50-129) 01/04/23 03:30 HDL Cholesterol 18 mg/dL (60-100) L 01/04/23 03:30 LDL/HDL Ratio 3.78 RATIO (0.00-3.22) H 01/04/23 03:30 Cholesterol/HDL Ratio 6.17 mg/dL (1.0-5.00) H 01/04/23 03:30 Lipase 131 U/L (13-60) H 01/03/23 19:03 Procalcitonin 0.18 ng/mL (0-0.5) 01/12/23 01:47 TSH 0.94 uIU/mL (0.27-4.20) 01/04/23 03:30 Urine Color Yellow (Yellow) 01/09/23 16:30 Urine Appearance Clear (CLEAR) 01/09/23 16:30 Urine pH 6.5 (5-7) 01/09/23 16:30 Ur Specific [place] 1.010 (1.005-1.030) 01/09/23 16:30 Urine Protein Neg (Negative) 01/09/23 16:30 Urine Glucose (UA) Norm (Normal) 01/09/23 16:30 Urine Ketones 1+ (Negative) H 01/09/23 16:30 Urine Blood 2+ (Negative) H 01/09/23 16:30 Urine Nitrate Negative (Negative) 01/09/23 16:30 Urine Bilirubin Neg (Negative) 01/09/23 16:30 Urine Urobilinogen Norm mg/dL (Negative) 01/09/23 16:30 Ur Leukocyte Esterase Negative (Negative) 01/09/23 16:30 Urine RBC 10-15 /hpf (0-2) H 01/09/23 16:30 Urine WBC 0-4 /hpf (0-5) H 01/09/23 16:30 Ur Squamous Epith Cells 0-4 /hpf (0-5) H 01/09/23 16:30 Amorphous Sediment Not Reportable 01/09/23 16:30 Urine Bacteria None /hpf (NONE) 01/09/23 16:30 Hyaline Casts 0-4 /lpf H 01/03/23 13:35 Nasal Influ A H1 2009 PCR Not detected (NOT DETECT) 01/03/23 19:00 Vancomycin Trough 11.2 ug/mL (10-15) 01/07/23 22:30 Urine Opiates Screen Negative ng/mL (Negative) 01/03/23 13:35 Ur Barbiturates Screen Negative ng/mL (Negative) 01/03/23 13:35 Ur Phencyclidine Scrn Negative ng/mL (Negative) 01/03/23 13:35 Ur Amphetamines Screen Negative ng/mL (Negative) 01/03/23 13:35 U Benzodiazepines Scrn Negative ng/mL (Negative) 01/03/23 13:35 Urine Cocaine Screen Negative ng/mL (Negative) 01/03/23 13:35 U Marijuana (THC) Screen Negative ng/mL (Negative) 01/03/23 13:35 Ethyl Alcohol < 10 mg/dL (0-10) 01/03/23 19:03 Adenovirus (PCR) Not detected (NOT DETECT) 01/03/23 19:00 C. pneumoniae DNA (PCR) Not detected (NOT DETECT) 01/03/23 19:00 Coronavirus 229E (PCR) Not detected (NOT DETECT) 01/03/23 19:00 Hepatitis A IgM Ab Non-reactive (Nonreactive) 01/03/23 19:03 Hep Bs Antigen Non-reactive (Nonreactive) 01/03/23 19:03 Hep B Core IgM Ab Non-reactive (Nonreactive) 01/03/23 19:03 Hepatitis C Antibody Non-reactive (Nonreactive) 01/03/23 19:03 HIV 1&2 Ab & HIV 1 Ag Non-reactive (Non-Reactiv) 01/03/23 19:03 HIV 1&2 Antibody Non-reactive (Non-Reactiv) 01/03/23 19:03 Human Metapneumovir PCR Not detected (NOT DETECT) 01/03/23 19:00 Influenza A (H1) PCR Not detected (NOT DETECT) 01/03/23 19:00 Influenza A (H3) PCR Not detected (NOT DETECT) 01/03/23 19:00 Influenza Type A (PCR) Not detected (NOT DETECT) 01/03/23 19:00 Influenza Type B (PCR) Not detected (NOT DETECT) 01/03/23 19:00 M. pneumoniae (PCR) Not detected (NOT DETECT) 01/03/23 19:00 Parainfluenza 1 (PCR) Not detected (NOT DETECT) 01/03/23 19:00 Parainfluenza 2 (PCR) Not detected (NOT DETECT) 01/03/23 19:00 Parainfluenza 3 (PCR) Not detected (NOT DETECT) 01/03/23 19:00 Parainfluenza 4 (PCR) Not detected (NOT DETECT) 01/03/23 19:00 RSV Type A (PCR) Not detected (NOT DETECT) 01/03/23 19:00 RSV Type B (PCR) Not detected (NOT DETECT) 01/03/23 19:00 Entero/Rhino (PCR) Not detected (NOT DETECT) 01/03/23 19:00 SARS-CoV-2 (PCR) Not detected (NOT DETECT) 01/03/23 19:00 Vitals Last Vital Signs Temp 98.4 F 01/15/23 10:30 Pulse 70 01/15/23 11:05 Resp 16 01/15/23 11:05 BP 117/65 01/15/23 10:30 Pulse Ox 93 01/15/23 11:05 O2 Del Method Room Air 01/15/23 11:05 O2 Flow Rate 3 01/15/23 07:10 FiO2 35 01/07/23 10:00 Discharge Plan Discharge Patient Disposition: Xfer SNF Condition: Stable Prescriptions: New atorvastatin 40 mg Tablet 20 mg PO BEDTIME 30 Days Qty: 15 0RF Pacerone 200 mg Tablet 200 mg PO BID 30 Days Qty: 60 0RF Magtab 84 mg Tablet Extended Release 84 mg PO DAILY 30 Days Qty: 30 0RF metoprolol tartrate 50 mg tablet 62.5 mg PO BID@0900,2100 30 Days Qty: 90 0RF sucralfate 1 gram Tablet 1 g PO Q12H 30 Days Qty: 60 0RF pantoprazole 40 mg Tablet,Delayed Release (Dr/Ec) 40 mg PO BID 30 Days Qty: 60 0RF vancomycin 250 mg capsule 250 mg PO Q6H 4 Days Qty: 16 0RF Klor-Con M20 20 mEq tablet,ER particles/crystals 20 meq PO DAILY 30 Days Qty: 30 0RF Continued aspirin 81 mg tablet,delayed release (DR/EC) 81 mg PO QDAY tramadol 50 mg tablet 50 mg PO TID PRN (Reason: pain) 30 Days Qty: 90 2RF clear lungs 1 tab PO DAILY cholecalciferol (vitamin D3) 25 mcg (1,000 unit) capsule 25 mcg PO DAILY nystatin 100,000 unit/gram cream 1 applic topical BID Qty: 60 5RF Rx Instructions: apply groin mirtazapine 45 mg tablet 45 mg PO DAILY Qty: 90 1RF lactobacillus combination no.4 3 billion cell Capsule 3,000 mmu cells PO DAILY Rx Instructions: administer with a meal furosemide 40 mg tablet 40 mg PO DAILY zolpidem 10 mg tablet 10 mg PO BEDTIME Changed allopurinol 300 mg tablet 300 mg PO DAILY Qty: 90 1RF Held Eliquis 5 mg tablet 5 mg PO BID Qty: 60 5RF Hold Instructions: Resume on 01/29/23. hold for 2 weeks, repeat cbc, f/u cardiology Discontinued metoprolol succinate 100 mg tablet extended release 24 hr 100 mg PO BID Qty: 180 0RF losartan 100 mg tablet 100 mg PO QDAY Qty: 90 1RF pregabalin 300 mg capsule 300 mg PO DAILY Qty: 60 5RF amlodipine 10 mg tablet 10 mg PO DAILY 30 Days Qty: 90 3RF apple cider vinegar 500 mg tablet 500 mg PO DAILY potassium citrate 99 mg capsule 99 mg PO DAILY hydrochlorothiazide 25 mg tablet 25 mg PO QAM 90 Days Qty: 90 3RF amoxicillin-pot clavulanate 875-125 mg tablet 1 tab PO BID Qty: 14 0RF Discharge Orders: Discharge Order (Routine); Ordered 01/15/23 Ordered By: Hank Luevano Other Ambulatory Orders: DME: [facility] (Order) Location: None Selected Ordered By: Hank Luevano Referrals: [facility] [Outside] Ted Suarez MD [Referring] - 7-10 days Marlon Aly MD [Physician] - 01/20/23 2:45 am Roshan Baldwin DO [Staff Physician] - 01/21/23 9:40 am Discharge Diet: Cardiac Discharge Activity: Resume usual activity Patient Instructions: Sucralfate (By mouth) (Carafate), Potassium Chloride (By mouth), Amiodarone (By mouth) (Cordarone, Pacerone), Atorvastatin (By mouth) (Lipitor), Vancomycin (By mouth), Heart Failure (DC), Hyponatremia (ED), Benzodiazepine Use Disorder (ED), Dementia (ED), Non-diabetic Hypoglycemia (ED), Hypoglycemia in a Person with Diabetes (ED), Concussion (ED), Alcohol Intoxication (ED), Altered Mental Status (ED), CHF Stoplight, Opioid Safety Activity Restrictions/Additional Instructions: - Take Lasix 40mg daily, with potassium replacement therapy -I have held your Eliquis, due to your anemia and your hematuria, please follow-up with cardiology in 2 weeks for recheck CBC and decision to resume Eliquis -Continue aspirin 81 mg daily continue Haas catheter placement, due to urinary retention, and hematuria, follow-up with [facility] urology for removal and postvoid residual -Creatinine on discharge 1.3, Lasix 40 mg once daily with potassium -Your amiodarone is 200 twice daily, please follow with cardiology for reduction of dose in 2 weeks Discharge Attestations Time Spent in Discharge Care*: greater than 30 min Quality Metrics Clinical Quality Measures [ No reported AMI, CVA or VTE this stay] Coding Level of Care Code 41039 Total time (in minutes) for Discharge: 50 Diagnoses CHF (congestive heart failure) I50.9 Acute non-ST elevation myocardial infarction (NSTEMI) I21.4 Atrial fibrillation with RVR I48.91 Transaminitis R74.01
[2023-01-15] MEDS: sucralfate 1 gm Tablet PO (11:42)
[2023-01-15 12:26] LABS: SARS Covid-2 Antigen negative (Negative)
== END 2023-01-15 12:41 | disposition skilled nursing facility (03) | DRG 871 ==
LOC: ER 14:34 → ICU 16:17 → CSU 01-09 11:54
PROVIDERS: Student in an Organized Health Care Education/Training Program; Admitting Provider Family Medicine; Emergency Provider Family Medicine; PCP Nurse Practitioner; Visit Provider Family Medicine
DX: A41.9 Sepsis, unspecified organism (principal); G93.41 Metabolic encephalopathy; I21.4 Non-ST elevation (NSTEMI) myocardial infarction; I50.23 Acute on chronic systolic (congestive) heart failure; J18.9 Pneumonia, unspecified organism; R65.21 Severe sepsis with septic shock; J96.01 Acute respiratory failure with hypoxia; A04.72 Enterocolitis due to Clostridium difficile, not specified as recurrent; N17.9 Acute kidney failure, unspecified; I11.0 Hypertensive heart disease with heart failure; R31.9 Hematuria, unspecified; I48.91 Unspecified atrial fibrillation; I08.0 Rheumatic disorders of both mitral and aortic valves; Z79.82 Long term (current) use of aspirin; Z79.891 Long term (current) use of opiate analgesic; M51.37 Other intervertebral disc degeneration, lumbosacral region; K80.20 Calculus of gallbladder without cholecystitis without obstruction; K74.60 Unspecified cirrhosis of liver; K76.0 Fatty (change of) liver, not elsewhere classified; I95.9 Hypotension, unspecified; D64.9 Anemia, unspecified
CPT/HCPCS: 31500; 36415; 36556; 36569; 36592; 36600; 70450; 71045; 71250; 74018; 74176; 76705; 76857; 78452; 80048; 80051; 80053; 80061; 80074; 80076; 80202; 80306; 80307; 81001; 82140; 82330; 82728; 82803; 82805; 82977; 83036; 83605; 83690; 83735; 83880; 84100; 84145; 84443; 84484; 85014; 85018; 85025; 85378; 85610; 85651; 85730; 86140; 87040; 87070; 87077; 87150; 87186; 87205; 87324; 87426; 87486; 87493; 87581; 87633; 87641; 87806; 92507; 92523; 92610; 93005; 93017; 93306; 93308; 93970; 94002; 94003; 94640; 94660; 94664; 94799; 96365; 96367; 96372; 96375; 96376; 97110; 97116; 97162; 97165; 97530; 97535; 99291; A9500; C1751; C9113; J0280; J0282; J0330; J1160; J1644; J1650; J1940; J2250; J2543; J2704; J2785; J3010; J3370; J3475; J3480; J3490; J7030; J7050; J7060; Q3014

== ENCOUNTER → 2023-01-28 16:37 | Outpatient (BNVA) | payer MEDICARE, SELFPAY | PROVIDERS: PCP Family Medicine; Visit Provider Nurse Practitioner | DX: I10 Essential (primary) hypertension (principal) | CPT/HCPCS: 80053; 85025 ==